=== PATIENT | female | born 1940 | race Caucasian/White ===

== ENCOUNTER 2018-09-16 22:45 | Observation (INO) | payer MEDICARE, OTHER ==
[2018-09-16] MEDS ORDERED: ASPIRIN 81 MG PO STA (23:18)
[2018-09-16] MEDS ORDERED: SODIUM CHLORIDE 0.9% 500 ML 500 ML IV STA (23:18)
--- NOTE | 2018-09-17 00:19 | XR ---
EXAM: XR Chest, 2 Views CLINICAL HISTORY: ITS.REASON XR Reason: Chest Pain TECHNIQUE: Frontal and lateral views of the chest. COMPARISON: No relevant prior studies available. IMPRESSION: Cardiomegaly. No consolidation or pleural effusion.
[2018-09-17 00:31] LABS: Basophils # (A) 0.1 k/uL (0-0.2); Basophils % (A) 1 %; Eosinophils # (A) 0.5 k/uL (0-0.7); Eosinophils % (A) 5 %; HCT 41.2 % (34.0-46.0); HGB 13.1 gm/dL (11.4-16.0); Lymphocytes # (A) 2.3 k/uL (1.0-4.8); Lymphocytes % (A) 20 %; MCH 28.3 pg (25.0-35.0); MCHC 31.9 g/dL (31.0-37.0); MCV 88.6 fL (80.0-100.0); Mean Platelet Volume 8.5; Monocytes # (A) 0.8 k/uL (0-1.0); Monocytes % (A) 7 %; Neutrophils # (A) 7.6 k/uL (1.3-7.7); Neutrophils % (A) 66 %; Platelet Count 219 k/uL (150-450); RBC 4.65 m/uL (3.80-5.40); RDW 13.6 % (11.5-15.5); WBC 11.4 k/uL (3.8-10.6)
[2018-09-17 00:40] LABS: Albumin 3.9 g/dL (3.5-5.0); Calcium 10.2 mg/dL (8.4-10.2); Magnesium 1.7 mg/dL (1.6-2.3); Potassium 3.7 mmol/L (3.5-5.1); Total Bilirubin 0.6 mg/dL (0.2-1.3); Total Protein 6.7 g/dL (6.3-8.2)
[2018-09-17 00:44] LABS: Partial Thromboplastin Time 26.3 sec (22.0-30.0); Prothrombin Time 10.3 sec (9.0-12.0)
[2018-09-17 00:48] LABS: D-Dimer 1.31 mg/L FEU (<0.60)
--- NOTE | 2018-09-17 02:11 | CT ---
EXAM: CT Angiography Chest With Intravenous Contrast CLINICAL HISTORY: ITS.REASON CT Reason: Pain TECHNIQUE: Axial computed tomographic angiography images of the chest with intravenous contrast using pulmonary embolism protocol. CTDI is 14 mGy and DLP is 532 mGy-cm. This CT exam was performed using one or more of the following dose reduction techniques: automated exposure control, adjustment of the mA and/or kV according to patient size, and/or use of iterative reconstruction technique. MIP reconstructed images were created and reviewed. COMPARISON: 09/17/18 x-ray FINDINGS: Pulmonary arteries: No filling defects. Aorta: No thoracic aortic aneurysm. Lungs: There is thickening and nodularity along the right major fissure. Few nonspecific nodules are seen in the right lower lobe. 3 mm nodule in the left lower lobe Pleural space: No pneumothorax. No significant effusion. Heart: No cardiomegaly. No pericardial effusion. Bones/joints: No acute fracture or dislocation. Soft tissues: Unremarkable. Lymph nodes: Multiple calcified lymph nodes. IMPRESSION: 1. Thickening and nodularity along the right major fissure with nonspecific nodules in the right lower lobe and another nonspecific nodule in the left lower lobe. There are multiple calcified lymph nodes. Given these findings, sarcoidosis is a possibility, followed by lymphangitic carcinomatosis which is less likely. Recommend short-term follow-up within 3 months. Also recommend consultation with a industrial tech instructor. 2. No pulmonary embolism. <MYCVCSECTION> [employer] 09/17/18 02:08 Call Doctor Regarding Above results, called JOY Meza on 09/17 02:08 (-04:00)
[2018-09-17] MEDS ORDERED: ACETAMINOPHEN TAB 325 MG TAB PO STA (02:56)
--- NOTE | 2018-09-17 03:01 | ED ---
General Adult HPI - General Chief complaint: Chest Pain Stated complaint: Chest Discomfort Time Seen by Provider: 09/16/18 23:16 Source: patient, RN notes reviewed, old records reviewed Mode of arrival: wheelchair Limitations: no limitations - History of Present Illness Initial comments: 77-year-old female patient. See chief complaint of waxing and waning substernal chest pain that she describes as sharp. Patient's pain she has some associated shortness of breath. Says benign going for approximately 2 days. Patient denies any prior cardiac history. Physical history of type 2 diabetes, hypertension, hyperlipidemia. Denies any current complaint at this time. Systemic: Pt denies fatigue, fever/chills, rash. Pt denies weakness, night sweats, weight loss. Neuro: Pt denies headache, visual disturbances, syncope or pre-syncope. HEENT: Pt denies ocular discharge or irritation, otalgia, rhinorrhea, pharyngitis or notable lymphadenopathy. Cardiopulmonary: Pt denies SOB, heart palpitations, dyspnea on exertion. Abdominal/GI: Pt denies abdominal pain, n/v/d. : Pt denies dysuria, burning w/ urination, frequency/urgency. Denies new onset urinary or bowel incontinence. MSK: Pt denies myalgia, loss of strength or function in extremities. Neuro: Pt denies new onset weakness, paresthesias. - Related Data Allergies Allergy/AdvReac Type Severity Reaction Status Date / Time Penicillins Allergy Rash/Hives Verified 09/16/18 23:03 simvastatin [From Zocor] Allergy Anaphylaxis Verified 09/16/18 23:05 Review of Systems ROS Statement: Those systems with pertinent positive or pertinent negative responses have been documented in the HPI. ROS Other: All systems not noted in ROS Statement are negative. Past Medical History Past Medical History: Diabetes Mellitus, Hyperlipidemia, Hypertension Additional Past Medical History / Comment(s): arthritis History of Any Multi-Drug Resistant Organisms: None Reported Past Surgical History: Back Surgery, Cholecystectomy, Orthopedic Surgery Additional Past Surgical History / Comment(s): rancho hip replacement, cataract Past Psychological History: No Psychological Hx Reported Smoking Status: Never smoker Past Alcohol Use History: None Reported Past Drug Use History: None Reported General Exam - General Exam Comments Initial Comments: Constitutional: NAD, AOX3, Pt has pleasant affect. HEENT: NC/AT, trachea midline, neck supple, no lymphadenopathy. Posterior pharynx non erythematous, without exudates. External ears appear normal, without discharge. Mucous membranes moist. Eyes PERRLA, EOM intact. There is no scleral icterus. No pallor noted. Cardiopulmonary: RRR, no murmurs, rubs or gallops, no JVD noted. Lungs CTAB in anterior and posterior barger. No peripheral edema. Abdominal exam: Abdomen soft and non-distended. Abdomen non-tender to palpation in all 4 quadrants. Bowel sounds active in LLQ. No hepatosplenomegaly. No ecchymosis Neuro: CN II-XII grossly intact. No nuchal rigidity. No raccon eyes, no olivas sign, no hemotympanum. No cervical spinal tenderness. MSK: No posterior calf tenderness bilaterally, homans sign negative bilaterally. Posterior tibialis and radial pulse +2 bilaterally. Sensation intact in upper and lower extremities. Full active ROM in upper and lower extremities, 5/5 stregnth. Limitations: no limitations Course Vital Signs 09/16/18 09/16/18 09/16/18 22:56 23:03 23:40 Temperature 100.1 F H Pulse Rate 62 61 62 Pulse Rate [ 60 Mangle Roller ] Respiratory 29 H 18 24 Rate Blood Pressure 135/61 153/85 O2 Sat by Pulse 97 98 95 Oximetry 09/16/18 09/17/18 09/17/18 23:50 00:20 00:40 Temperature Pulse Rate 60 60 60 Pulse Rate [ Mangle Roller ] Respiratory 19 19 20 Rate Blood Pressure 157/73 153/85 157/66 O2 Sat by Pulse 96 95 96 Oximetry 09/17/18 09/17/18 09/17/18 01:10 02:30 03:03 Temperature 100.2 F H Pulse Rate 61 60 Pulse Rate [ Mangle Roller ] Respiratory 16 18 Rate Blood Pressure 155/68 163/63 O2 Sat by Pulse 95 Oximetry Medical Decision Making - Medical Decision Making 77-year-old. Patient presents ED for chief complaint of 2 days of substernal sharp chest pain which comes and goes. No current pain at this time. Patient vital signs stable. Physical examacute pathology. Laboratory investigations re vealed mild cytosis of 11.4. Correlation studies nonpresent. D-dimer elevated 1.31. CMP non-impressive. Troponin negative. BNP 608. EKG not concerning for acute ischemia. CTA revealed thickening and nodularity along the right major fissure with nonspecific nodules in the right lower lobe correlate for sarcoidosis or less likely lymphangitic carcinomatosis. Patient admitted for serial troponins, cardiology evaluation, pulmonology evaluation. UA displayed UTI, started on rocephin. Case discussed with Dr. Brito. - Lab Data Result diagrams: 09/17/18 00:21 09/17/18 00:21 Lab Results 09/17/18 09/17/18 09/17/18 Range/Units 00:21 00:21 00:21 WBC 11.4 H (3.8-10.6) k/uL RBC 4.65 (3.80-5.40) m/uL Hgb 13.1 (11.4-16.0) gm/dL Hct 41.2 (34.0-46.0) % MCV 88.6 (80.0-100.0) fL MCH 28.3 (25.0-35.0) pg MCHC 31.9 (31.0-37.0) g/dL RDW 13.6 (11.5-15.5) % Plt Count 219 (150-450) k/uL Neutrophils % 66 % Lymphocytes % 20 % Monocytes % 7 % Eosinophils % 5 % Basophils % 1 % Neutrophils # 7.6 (1.3-7.7) k/uL Lymphocytes # 2.3 (1.0-4.8) k/uL Monocytes # 0.8 (0-1.0) k/uL Eosinophils # 0.5 (0-0.7) k/uL Basophils # 0.1 (0-0.2) k/uL PT 10.3 (9.0-12.0) sec INR 1.0 (<1.2) APTT 26.3 (22.0-30.0) sec D-Dimer 1.31 H (<0.60) mg/L FEU Sodium 139 (137-145) mmol/L Potassium 3.7 (3.5-5.1) mmol/L Chloride 103 (98-107) mmol/L Carbon Dioxide 26 (22-30) mmol/L Anion Gap 10 mmol/L BUN 21 H (7-17) mg/dL Creatinine 0.81 (0.52-1.04) mg/dL Est GFR (CKD-EPI)AfAm 80 (>60 ml/min/1.73 sqM) Est GFR (CKD-EPI)NonAf 70 (>60 ml/min/1.73 sqM) Glucose 116 H (74-99) mg/dL Calcium 10.2 (8.4-10.2) mg/dL Magnesium 1.7 (1.6-2.3) mg/dL Total Bilirubin 0.6 (0.2-1.3) mg/dL AST 24 (14-36) U/L ALT 17 (9-52) U/L Alkaline Phosphatase 97 (38-126) U/L Troponin I (0.000-0.034) ng/mL NT-Pro-B Natriuret Pep pg/mL Total Protein 6.7 (6.3-8.2) g/dL Albumin 3.9 (3.5-5.0) g/dL Urine Color Urine Appearance (Clear) Urine pH (5.0-8.0) Ur Specific [place] (1.001-1.035) Urine Protein (Negative) Urine Glucose (UA) (Negative) Urine Ketones (Negative) Urine Blood (Negative) Urine Nitrite (Negative) Urine Bilirubin (Negative) Urine Urobilinogen (<2.0) mg/dL Ur Leukocyte Esterase (Negative) Urine RBC (0-5) /hpf Urine WBC (0-5) /hpf Urine WBC Clumps (None) /hpf Ur Squamous Epith Cells (0-4) /hpf Urine Bacteria (None) /hpf Urine Mucus (None) /hpf 09/17/18 09/17/18 09/17/18 Range/Units 00:21 00:21 03:36 WBC (3.8-10.6) k/uL RBC (3.80-5.40) m/uL Hgb (11.4-16.0) gm/dL Hct (34.0-46.0) % MCV (80.0-100.0) fL MCH (25.0-35.0) pg MCHC (31.0-37.0) g/dL RDW (11.5-15.5) % Plt Count (150-450) k/uL Neutrophils % % Lymphocytes % % Monocytes % % Eosinophils % % Basophils % % Neutrophils # (1.3-7.7) k/uL Lymphocytes # (1.0-4.8) k/uL Monocytes # (0-1.0) k/uL Eosinophils # (0-0.7) k/uL Basophils # (0-0.2) k/uL PT (9.0-12.0) sec INR (<1.2) APTT (22.0-30.0) sec D-Dimer (<0.60) mg/L FEU Sodium (137-145) mmol/L Potassium (3.5-5.1) mmol/L Chloride (98-107) mmol/L Carbon Dioxide (22-30) mmol/L Anion Gap mmol/L BUN (7-17) mg/dL Creatinine (0.52-1.04) mg/dL Est GFR (CKD-EPI)AfAm (>60 ml/min/1.73 sqM) Est GFR (CKD-EPI)NonAf (>60 ml/min/1.73 sqM) Glucose (74-99) mg/dL Calcium (8.4-10.2) mg/dL Magnesium (1.6-2.3) mg/dL Total Bilirubin (0.2-1.3) mg/dL AST (14-36) U/L ALT (9-52) U/L Alkaline Phosphatase (38-126) U/L Troponin I <0.012 (0.000-0.034) ng/mL NT-Pro-B Natriuret Pep 608 pg/mL Total Protein (6.3-8.2) g/dL Albumin (3.5-5.0) g/dL Urine Color Light Yellow Urine Appearance Cloudy H (Clear) Urine pH 5.5 (5.0-8.0) Ur Specific [place] 1.034 (1.001-1.035) Urine Protein Trace H (Negative) Urine Glucose (UA) Negative (Negative) Urine Ketones Negative (Negative) Urine Blood Moderate H (Negative) Urine Nitrite Negative (Negative) Urine Bilirubin Negative (Negative) Urine Urobilinogen <2.0 (<2.0) mg/dL Ur Leukocyte Esterase Large H (Negative) Urine RBC 40 H (0-5) /hpf Urine WBC >182 H (0-5) /hpf Urine WBC Clumps Few H (None) /hpf Ur Squamous Epith Cells 1 (0-4) /hpf Urine Bacteria Occasional H (None) /hpf Urine Mucus Rare H (None) /hpf Disposition Clinical Impression: Chest pain, UTI (urinary tract infection) Disposition: ADMITTED IP TO THIS HOSP Condition: Serious Is patient prescribed a controlled substance at d/c from ED?: No Referrals: Willi Keita MD [Primary Care Provider] - 1-2 days
[2018-09-17] MEDS ORDERED: NITROGLYCERIN SL TABS 0.4 MG TAB SUBLINGUAL PRN (03:31)
[2018-09-17 03:48] LABS: Appearance,Urine Cloudy (Clear); Bacteria,Urine Occasional /hpf; Bilirubin,Urine Negative (Negative); Blood,Urine Moderate (Negative); Color,Urine Light Yellow; Glucose,Urine (UA) Negative (Negative); Ketones,Urine Negative (Negative); Leukocyte Esterase,Urine Large (Negative); Mucus,Urine Rare /hpf; Nitrite,Urine Negative (Negative); PH, Urine 5.5 (5.0-8.0); Protein,Urine Trace (Negative); RBC,Urine 40 /hpf (0-5); Specific Gravity,Urine 1.034 (1.001-1.035); Squamous Epithelial Cell,Urine 1 /hpf (0-4); Urobilinogen,Urine <2.0 mg/dL (<2.0); WBC,Urine >182 /hpf (0-5)
[2018-09-17] MEDS ORDERED: cefTRIAXone IN SWFI 1,000 MG/10 ML SYRINGE IVP STA (03:52)
[2018-09-17 06:55] LABS: Glucose,Whole Blood 128 mg/dL (75-99)
--- NOTE | 2018-09-17 10:43 | P.CRDCN ---
History of Present Illness History of present illness: This is Gabriela Cortez PA-C dictating a consult on this patient The patient was interviewed and examined by me as well as by Dr. Brunner Case discussed with Dr. Brunner and he agrees with the plan of care IMPRESSION / ASSESSMENT: Atypical chest discomfort, troponins negative 2, abnormal EKG with diffuse ST abnormality, repeat EKG showed no changes Possible sarcoidosis, nonspecific nodules and calcified lymph nodes seen on chest CT, pulmonology has been consult the Urinary tract infection, has been started on antibiotics Hypertension Diabetes Dyslipidemia PLAN: 2D echo and Doppler studies to assess cardiac structure and function Check CRP and ESR Lipid panel has been ordered Check third troponin further recommendations based on findings and pulmonology recommendations, likely can undergo further cardiac workup outpatient after her UTI is treated HPI Patient is a 77-year-old female with a past medical she has diabetes, hypertension, dyslipidemia presented with complaints of chest discomfort. Patient was at home sitting down when she experienced sudden onset of chest discomfort in the middle of her chest which she describes it as pressure sensation and it just" felt weird". It did not radiate anywhere. she has never had these symptoms before. She denies associated symptoms of shortness of breath, nausea vomiting, diaphoresis, dizziness, lightheadedness or syncope. The discomfort was intermittent and did not get worse with exertion. She denies any heavy lifting or any unusual activities that could've caused this discomfort. She also had a fever of 102F on Monday as well as some vague abdominal discomfort. Denies nausea vomiting, diarrhea or dysuria. she walks with a walker due to back problems and weakness in her legs so she is not able to exert herself much but denies any chest pain or shortness of breath with exertion prior to these symptoms. Upon admission her temperature was 100.1F, pulse is 62, respirations 18, blood pressure 135/61, oxygen saturation 97% on room air. Initial EKG showed scooped ST segment V2 through V6, lead 1 to and aVL, ST elevation in aVR. Labs were significant for an elevated d-dimer as well as her urinalysis with evidence of a UTI. Chest CT showed evidence for possible sarcoidosis with nonspecific nodules and multiple calcified lymph nodes, no pulmonary embolism. She was started on antibiotics and pulmonology was consulted. She is feeling better today. Denies any chest pain or abdominal pain. she is a lifelong nonsmoker Denies alcohol ROS: Positive for fevers no cough, phlegm or expectoration, no nausea, vomiting or diarrhea, Negative for dysuria Positive for back pain no strokes or seizures, EXAMINATION: Temperature 98.4F, pulse 55, respirations 18, blood pressure 112/65, oxygen saturation 98% on room air patient seen and examined resting comfortably in bed, in no acute distress lungs clear to auscultation bilaterally Heart is regular, normal S1-S2, no murmurs rubs or gallops appreciated Diffuse erythematous lesions on bilateral shins, trace bilateral edema No elevated JVD Abdomen soft and nontender REVIEW OF LABS, ECG & MEDICAL DATA EKG showed sinus mechanism with diffuse ST abnormality that resemble digitalis effect with scooped ST segment V2 through V6, lead 1 to and aVL, ST elevation in aVR, he do not have a prior EKG to compare it to, repeat EKG today showed no changes Chest x-ray showed no consolidation or pleural effusion Chest CT showed thickening and nodularity along the right major fissure with nonspecific nodules in the right lower lobe and another nonspecific nodule in the left lower lobe, multiple calcified lymph nodes, possible sarcoidosis, no pulmonary embolism CBC 11.4, hemoglobin 13.1, platelets 219, potassium 3.7, B1 21, creatinine 0.81 D-dimer elevated at 1.31 Troponins negative 2 Past Medical History Past Medical History: Diabetes Mellitus, Hyperlipidemia, Hypertension Additional Past Medical History / Comment(s): arthritis History of Any Multi-Drug Resistant Organisms: None Reported Past Surgical History: Back Surgery, Cholecystectomy, Orthopedic Surgery Additional Past Surgical History / Comment(s): rancho hip replacement, cataract Past Anesthesia/Blood Transfusion Reactions: No Reported Reaction Past Psychological History: No Psychological Hx Reported Smoking Status: Never smoker Past Alcohol Use History: None Reported Past Drug Use History: None Reported - Past Family History Mother Family Medical History: Cancer Additional Family Medical History / Comment(s): bladder cancer Father Family Medical History: Myocardial Infarction ([place]) Brother(s) Family Medical History: Rheumatoid Arthritis ([place]) Daughter(s) Family Medical History: No Reported History Son(s) Family Medical History: No Reported History Medications and Allergies Home Medications Medication Instructions Recorded Confirmed Type Hydrochlorothiazide 12.5 mg PO DAILY 09/17/18 09/17/18 History Metoprolol Tartrate [Lopressor] 50 mg PO DAILY 09/17/18 09/17/18 History Multivitamins, Thera [Multivitamin 1 tab PO DAILY 09/17/18 09/17/18 History (formulary)] Simvastatin [Zocor] 20 mg PO DAILY 09/17/18 09/17/18 History Vit C/E/Zn/Coppr/Lutein/Zeaxan 1 cap PO DAILY 09/17/18 09/17/18 History [Preservision Areds 2 Softgel] amLODIPine [Norvasc] 5 mg PO DAILY 09/17/18 09/17/18 History metFORMIN HCL [Glucophage] 500 mg PO BID 09/17/18 09/17/18 History Allergies Allergy/AdvReac Type Severity Reaction Status Date / Time Penicillins Allergy Rash/Hives Verified 09/17/18 07:36 simvastatin [From Zocor] Allergy Anaphylaxis Verified 09/17/18 07:36 Physical Exam Vitals: Vital Signs Temp Pulse Pulse Pulse Resp BP BP 09/17/18 07:38 98.4 F 55 L 18 112/65 09/17/18 05:05 98.6 F 53 L 18 128/70 09/17/18 03:03 100.2 F H 09/17/18 02:30 60 18 163/63 09/17/18 01:10 61 16 155/68 09/17/18 00:40 60 20 157/66 09/17/18 00:20 60 19 153/85 09/16/18 23:50 60 19 157/73 09/16/18 23:40 62 24 09/16/18 23:03 61 60 18 153/85 09/16/18 22:56 100.1 F H 62 29 H 135/61 Pulse Ox 09/17/18 07:38 98 09/17/18 05:05 97 09/17/18 03:03 09/17/18 02:30 09/17/18 01:10 95 09/17/18 00:40 96 09/17/18 00:20 95 09/16/18 23:50 96 09/16/18 23:40 95 09/16/18 23:03 98 09/16/18 22:56 97 Intake and Output 09/16/18 09/17/18 09/17/18 22:59 06:59 14:59 Other: Voiding Method Toilet Toilet # Voids 1 Weight 98.883 kg Results 09/17/18 00:21 09/17/18 00:21 Cardiac Enzymes 09/17/18 09/17/18 09/17/18 Range/Units 00:21 00:21 06:47 AST 24 (14-36) U/L Troponin I <0.012 <0.012 (0.000-0.034) ng/mL Coagulation 09/17/18 Range/Units 00:21 PT 10.3 (9.0-12.0) sec APTT 26.3 (22.0-30.0) sec CBC 09/17/18 Range/Units 00:21 WBC 11.4 H (3.8-10.6) k/uL RBC 4.65 (3.80-5.40) m/uL Hgb 13.1 (11.4-16.0) gm/dL Hct 41.2 (34.0-46.0) % Plt Count 219 (150-450) k/uL Comprehensive Metabolic Panel 09/17/18 Range/Units 00:21 Sodium 139 (137-145) mmol/L Potassium 3.7 (3.5-5.1) mmol/L Chloride 103 (98-107) mmol/L Carbon Dioxide 26 (22-30) mmol/L BUN 21 H (7-17) mg/dL Creatinine 0.81 (0.52-1.04) mg/dL Glucose 116 H (74-99) mg/dL Calcium 10.2 (8.4-10.2) mg/dL AST 24 (14-36) U/L ALT 17 (9-52) U/L Alkaline Phosphatase 97 (38-126) U/L Total Protein 6.7 (6.3-8.2) g/dL Albumin 3.9 (3.5-5.0) g/dL Current Medications Generic Name Dose Route Start Last Admin Trade Name Freq PRN Reason Stop Dose Admin Aspirin 325 mg 09/18/18 09:00 Aspirin PO DAILY LALIT Nitroglycerin 0.4 mg 09/17/18 03:31 Nitrostat SUBLINGUAL Q5M PRN Chest Pain Intake and Output 09/16/18 09/17/18 09/17/18 22:59 06:59 14:59 Other: Voiding Method Toilet Toilet # Voids 1 Weight 98.883 kg 09/17/18 00:21 09/17/18 00:21
[2018-09-17] MEDS: ATORVASTATIN 10 MG TAB PO SCH (11:01)
[2018-09-17] MEDS: METOPROLOL TARTRATE 50 MG TAB PO SCH (11:02)
[2018-09-17] MEDS: MULTIVITAMINS, THERA 1 EACH TAB PO SCH (11:02)
[2018-09-17] MEDS: VIT A,C & E-LUTEIN-MINERALS 1 EACH TAB PO SCH (11:02)
[2018-09-17] MEDS: HYDROCHLOROTHIAZIDE 12.5 MG CAP PO SCH (11:02)
[2018-09-17] MEDS: amLODIPine 5 MG TAB PO SCH (11:02)
[2018-09-17 11:43] LABS: Glucose,Whole Blood 158 mg/dL (75-99)
--- NOTE | 2018-09-17 14:14 | P.CNPUL ---
History of Present Illness Consult date: 09/17/18 Reason for consult: chest pain History of present illness: A 77-year-old female patient came into the hospital because of a vague chest discomfort. This was not related to food, breathing, activity or any other association. She did mention fever with a temperature 10 2F yet there is been no documented temperature. Upon admission to the hospital her temperature was 100.1. She is hemodynamically stable with a pulse ox of 97% on room air. She is currently free of any chest pain and a cardiac evaluation is being done. No history of heartburn. As part of her evaluation, a CAT scan of the chest was done that showed some mediastinal lymph node calcification. Some vague infiltrate in the right perihilar area. No evidence of any malignancy. No evidence of any pulmonary embolism. No nausea. No vomiting. No diarrhea. No abdominal pain. She is a lifetime nonsmoker. No history of sarcoidosis.. 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 Currently she is on no antibiotics. The UA is abnormal and final cultures and sensitivities are pending for now. Review of Systems Constitutional: Reports as per HPI Eyes: denies blurred vision, denies bulging eye, denies decreased vision Ears: deny: decreased hearing, ear discharge, earache, tinnitus Ears, nose, mouth and throat: Denies headache, Denies sore throat Breasts: absent: as per HPI, change in shape, gynecomastia, masses, nipple dis charge, pain, skin changes, swelling Cardiovascular: Reports chest pain Respiratory: Reports as per HPI Gastrointestinal: Reports as per HPI Genitourinary: Reports as per HPI Menstruation: Reports as per HPI Musculoskeletal: Reports as per HPI Musculoskeletal: absent: ankle pain, ankle stiffness, ankle swelling Integumentary: Reports as per HPI Neurological: Reports as per HPI Psychiatric: Reports as per HPI Hematologic/Lymphatic: Reports as per HPI Allergic/Immunologic: Reports as per HPI Past Medical History Past Medical History: Diabetes Mellitus, Hyperlipidemia, Hypertension Additional Past Medical History / Comment(s): Degenerative arthritis, obesity History of Any Multi-Drug Resistant Organisms: None Reported Past Surgical History: Back Surgery, Cholecystectomy, Orthopedic Surgery Additional Past Surgical History / Comment(s): rancho hip replacement, cataract Past Anesthesia/Blood Transfusion Reactions: No Reported Reaction Past Psychological History: No Psychological Hx Reported Smoking Status: Never smoker Past Alcohol Use History: None Reported Past Drug Use History: None Reported - Past Family History Mother Family Medical History: Cancer Additional Family Medical History / Comment(s): bladder cancer Father Family Medical History: Myocardial Infarction ([place]) Brother(s) Family Medical History: Rheumatoid Arthritis ([place]) Daughter(s) Family Medical History: No Reported History Son(s) Family Medical History: No Reported History Medications and Allergies Home Medications Medication Instructions Recorded Confirmed Type Hydrochlorothiazide 12.5 mg PO DAILY 09/17/18 09/17/18 History Metoprolol Tartrate [Lopressor] 50 mg PO DAILY 09/17/18 09/17/18 History Multivitamins, Thera [Multivitamin 1 tab PO DAILY 09/17/18 09/17/18 History (formulary)] Simvastatin [Zocor] 20 mg PO DAILY 09/17/18 09/17/18 History Vit C/E/Zn/Coppr/Lutein/Zeaxan 1 cap PO DAILY 09/17/18 09/17/18 History [Preservision Areds 2 Softgel] amLODIPine [Norvasc] 5 mg PO DAILY 09/17/18 09/17/18 History metFORMIN HCL [Glucophage] 500 mg PO BID 09/17/18 09/17/18 History Allergies Allergy/AdvReac Type Severity Reaction Status Date / Time Penicillins Allergy Rash/Hives Verified 09/17/18 07:36 simvastatin [From Zocor] Allergy Anaphylaxis Verified 09/17/18 07:36 Physical Exam Vitals: Vital Signs Temp Pulse Pulse Pulse Resp BP BP 09/17/18 07:38 98.4 F 55 L 18 112/65 09/17/18 05:05 98.6 F 53 L 18 128/70 09/17/18 03:03 100.2 F H 09/17/18 02:30 60 18 163/63 09/17/18 01:10 61 16 155/68 09/17/18 00:40 60 20 157/66 09/17/18 00:20 60 19 153/85 09/16/18 23:50 60 19 157/73 09/16/18 23:40 62 24 09/16/18 23:03 61 60 18 153/85 09/16/18 22:56 100.1 F H 62 29 H 135/61 Pulse Ox 09/17/18 07:38 98 09/17/18 05:05 97 09/17/18 03:03 09/17/18 02:30 09/17/18 01:10 95 09/17/18 00:40 96 09/17/18 00:20 95 09/16/18 23:50 96 09/16/18 23:40 95 09/16/18 23:03 98 09/16/18 22:56 97 Intake and Output 09/16/18 09/17/18 09/17/18 22:59 06:59 14:59 Other: Voiding Method Toilet Toilet # Voids 1 Weight 98.883 kg The patient appeared well nourished and normally developed. Vital signs as documented. Head exam is unremarkable. No scleral icterus or corneal arcus noted. Neck is without jugular venous distension, thyromegaly, or carotid bruits. Carotid upstrokes are brisk bilaterally. Lungs are clear to auscultation and percussion. Cardiac exam reveals the PMI to be normally sized and situated. Rhythm is regular. First and second heart sounds normal. No murmurs, rubs or gallops. Abdominal exam reveals normal bowel sounds, no masses, no organomegaly and no aortic enlargement. Extremities are nonedematous and both femoral and pedal pulses are normal.Examination of the skin revealed no evidence of significant rashes, suspicious appearing nevi or other concerning lesions. Neur ologically the patient is awake and alert and there is no focal neurological deficit. Results - Laboratory Findings CBC and BMP: 09/17/18 00:21 09/17/18 00:21 PT/INR, D-dimer PT 10.3 sec (9.0-12.0) 09/17/18 00:21 INR 1.0 (<1.2) 09/17/18 00:21 D-Dimer 1.31 mg/L FEU (<0.60) H 09/17/18 00:21 Abnormal lab findings: Abnormal Labs 09/17/18 09/17/18 09/17/18 00:21 00:21 00:21 WBC 11.4 H D-Dimer 1.31 H BUN 21 H Glucose 116 H POC Glucose (mg/dL) Urine Appearance Urine Protein Urine Blood Ur Leukocyte Esterase Urine RBC Urine WBC Urine WBC Clumps Urine Bacteria Urine Mucus 09/17/18 09/17/18 03:36 06:53 WBC D-Dimer BUN Glucose POC Glucose (mg/dL) 128 H Urine Appearance Cloudy H Urine Protein Trace H Urine Blood Moderate H Ur Leukocyte Esterase Large H Urine RBC 40 H Urine WBC >182 H Urine WBC Clumps Few H Urine Bacteria Occasional H Urine Mucus Rare H - Diagnostic Findings Chest x-ray: image reviewed CT scan - chest: image reviewed Assessment and Plan Plan: 1 atypical chest pain, cardiac enzymes are negative, EKG changes are nonspecific. The pain is not related to any pulmonary source and it's quite nonspecific 2 abnormal mediastinal lymph node calcification, and marker of previous granulomatous lung infection or previous sarcoidosis. Doubt any acute infection as the patient is clinically stable and she is not complaining of respiratory symptoms and the patient's right perihilar/right lower lobe findings are probably chronic. 3 febrile episodes aren't under investigation, consider underlying urine checked infection 4. Obesity BMI of 37.4 5 diabetes mellitus 6 hypertension 7 hyperlipidemia Plan The findings and the CAT scan of the chest of a nonspecific. Acute pneumonia is doubtful. UTI is suspected. Give the patient Levaquin 500 mg for the next 5 days. Awaiting final urine cultures. Awaiting echocardiogram. Outpatient cardiac stress testing. We'll continue to follow
[2018-09-17] MEDS ORDERED: LEVOFLOXACIN 500 MG TAB PO SCH (14:30)
[2018-09-17 17:03] LABS: Glucose,Whole Blood 109 mg/dL (75-99)
--- NOTE | 2018-09-17 17:26 | P.HPIM ---
History of Present Illness This is a pleasant 77 years old female with past medical history of diabetes mellitus, hyperlipidemia, hypertension, obesity. Presents because of chest pressure. However patient just pressure has resolved completely now. Patient denies dyspnea or coughing. Patient has been evaluated by medical educator and director of patient safety on both of them and cleared her for discharge however patient on admission has CTA showing pulmonary nodule suspicious for sarcoidosis and less likely lymphangitic carcinomatosis. Patient was informed about the risk of these nodules and recommended repeat CAT scan in 3 months as per radiologist, copy of CAT scan is provided for the patient. Patient de patient already has been started on ceftriaxone nies dy suria or change in frequency or hesitancy. She denies flank pain or back pain. On exam she has negative CVA angle tenderness. However on admission she has fever of 100.2, and leukocytosis at 11.4 k, with UA is suspicious for infection. Review of Systems CONSTITUTIONAL: No fever, no malaise, no fatigue. HEENT: No recent visual problems or hearing problems. Denied any sore throat. CARDIOVASCULAR: No orthopnea, PND, no palpitations, no syncope. PULMONARY: No shortness of breath, no cough, no hemoptysis. GASTROINTESTINAL: No diarrhea, no nausea, no vomiting, no abdominal pain. Normoactive bowel sounds. NEUROLOGICAL: No headaches, no weakness, no numbness. HEMATOLOGICAL: Denies any bleeding or petechiae. GENITOURINARY: Denies any burning micturition, frequency, or urgency. MUSCULOSKELETAL/RHEUMATOLOGICAL: Denies any joint pain, swelling, or any muscle pain. ENDOCRINE: Denies any polyuria or polydipsia. Past Medical History Past Medical History: Diabetes Mellitus, Hyperlipidemia, Hypertension Additional Past Medical History / Comment(s): Degenerative arthritis, obesity History of Any Multi-Drug Resistant Organisms: None Reported Past Surgical History: Back Surgery, Cholecystectomy, Orthopedic Surgery Additional Past Surgical History / Comment(s): rancho hip replacement, cataract Past Anesthesia/Blood Transfusion Reactions: No Reported Reaction Past Psychological History: No Psychological Hx Reported Smoking Status: Never smoker Past Alcohol Use History: None Reported Past Drug Use History: None Reported - Past Family History Mother Family Medical History: Cancer Additional Family Medical History / Comment(s): bladder cancer Father Family Medical History: Myocardial Infarction ([place]) Brother(s) Family Medical History: Rheumatoid Arthritis ([place]) Daughter(s) Family Medical History: No Reported History Son(s) Family Medical History: No Reported History Medications and Allergies Home Medications Medication Instructions Recorded Confirmed Type Hydrochlorothiazide 12.5 mg PO DAILY 09/17/18 09/17/18 History Metoprolol Tartrate [Lopressor] 50 mg PO DAILY 09/17/18 09/17/18 History Multivitamins, Thera [Multivitamin 1 tab PO DAILY 09/17/18 09/17/18 History (formulary)] Simvastatin [Zocor] 20 mg PO DAILY 09/17/18 09/17/18 History Vit C/E/Zn/Coppr/Lutein/Zeaxan 1 cap PO DAILY 09/17/18 09/17/18 History [Preservision Areds 2 Softgel] amLODIPine [Norvasc] 5 mg PO DAILY 09/17/18 09/17/18 History metFORMIN HCL [Glucophage] 500 mg PO BID 09/17/18 09/17/18 History Allergies Allergy/AdvReac Type Severity Reaction Status Date / Time Penicillins Allergy Rash/Hives Verified 09/17/18 07:36 simvastatin [From Zocor] Allergy Anaphylaxis Verified 09/17/18 07:36 Physical Exam Vitals: Vital Signs Temp Pulse Pulse Pulse Pulse Resp BP 09/17/18 15:31 98.4 F 53 L 17 09/17/18 11:55 98.4 F 52 L 17 09/17/18 07:38 98.4 F 55 L 18 09/17/18 05:05 98.6 F 53 L 18 09/17/18 03:03 100.2 F H 09/17/18 02:30 60 18 163/63 09/17/18 01:10 61 16 155/68 09/17/18 00:40 60 20 157/66 09/17/18 00:20 60 19 153/85 09/16/18 23:50 60 19 157/73 09/16/18 23:40 62 24 09/16/18 23:03 61 60 18 153/85 09/16/18 22:56 100.1 F H 62 29 H 135/61 BP Pulse Ox 09/17/18 15:31 148/76 97 09/17/18 11:55 136/73 94 L 09/17/18 07:38 112/65 98 09/17/18 05:05 128/70 97 08/12/19 03:03 09/17/18 02:30 09/17/18 01:10 95 09/17/18 00:40 96 09/17/18 00:20 95 09/16/18 23:50 96 09/16/18 23:40 95 09/16/18 23:03 98 09/16/18 22:56 97 Intake and Output 09/17/18 09/17/18 09/17/18 06:59 14:59 22:59 Other: Voiding Method Toilet Toilet Toilet # Voids 1 1 GENERAL: The patient is alert and oriented x3, not in any acute distress. Well developed, well nourished. HEENT: Pupils are round and equally reacting to light. EOMI. No scleral icterus. No conjunctival pallor. Normocephalic, atraumatic. No pharyngeal erythema. No t hyromegaly. CARDIOVASCULAR: S1 and S2 present. No murmurs, rubs, or gallops. PULMONARY: Chest is clear to auscultation, no wheezing or crackles. ABDOMEN: Soft, nontender, nondistended, normoactive bowel sounds. No palpable organomegaly. MUSCULOSKELETAL: No joint swelling or deformity. EXTREMITIES: No cyanosis, clubbing, or pedal edema. NEUROLOGICAL: Gross neurological examination did not reveal any focal deficits. SKIN: No rashes. Results CBC & Chem 7: 09/17/18 00:21 09/17/18 00:21 Labs: Abnormal Lab Results - Last 24 Hours (Table) 09/17/18 09/17/18 09/17/18 Range/Units 00:21 00:21 00:21 WBC 11.4 H (3.8-10.6) k/uL ESR (0-20) mm/hr D-Dimer 1.31 H (<0.60) mg/L FEU BUN 21 H (7-17) mg/dL Glucose 116 H (74-99) mg/dL POC Glucose (mg/dL) (75-99) mg/dL C-Reactive Protein (<10.0) mg/L Urine Appearance (Clear) Urine Protein (Negative) Urine Blood (Negative) Ur Leukocyte Esterase (Negative) Urine RBC (0-5) /hpf Urine WBC (0-5) /hpf Urine WBC Clumps (None) /hpf Urine Bacteria (None) /hpf Urine Mucus (None) /hpf 09/17/18 09/17/18 09/17/18 Range/Units 03:36 06:47 06:47 WBC (3.8-10.6) k/uL ESR 30 H (0-20) mm/hr D-Dimer (<0.60) mg/L FEU BUN (7-17) mg/dL Glucose (74-99) mg/dL POC Glucose (mg/dL) (75-99) mg/dL C-Reactive Protein 46.4 H (<10.0) mg/L Urine Appearance Cloudy H (Clear) Urine Protein Trace H (Negative) Urine Blood Moderate H (Negative) Ur Leukocyte Esterase Large H (Negative) Urine RBC 40 H (0-5) /hpf Urine WBC >182 H (0-5) /hpf Urine WBC Clumps Few H (None) /hpf Urine Bacteria Occasional H (None) /hpf Urine Mucus Rare H (None) /hpf 09/17/18 09/17/18 09/17/18 Range/Units 06:53 11:42 17:02 WBC (3.8-10.6) k/uL ESR (0-20) mm/hr D-Dimer (<0.60) mg/L FEU BUN (7-17) mg/dL Glucose (74-99) mg/dL POC Glucose (mg/dL) 128 H 158 H 109 H (75-99) mg/dL C-Reactive Protein (<10.0) mg/L Urine Appearance (Clear) Urine Protein (Negative) Urine Blood (Negative) Ur Leukocyte Esterase (Negative) Urine RBC (0-5) /hpf Urine WBC (0-5) /hpf Urine WBC Clumps (None) /hpf Urine Bacteria (None) /hpf Urine Mucus (None) /hpf Microbiology - Last 24 Hours (Table) 09/17/18 02:55 Urine Culture - Preliminary Urine,Clean Catch Thrombosis Risk Factor Assmnt - Choose All That Apply Any of the Below Risk Factors Present?: Yes Each Factor Represents 1 point: Obesity (BMI >25), Swollen legs (current) Other Risk Factors: Yes Each Risk Factor Represents 3 Points: Age 75 years or older Other congenital or acquired thrombophilia - If yes, enter type in comment: No Thrombosis Risk Factor Assessment Total Risk Factor Score: 5 Thrombosis Risk Factor Assessment Level: High Risk Assessment and Plan Assessment: Chest pressure, cardiology causes was ruled out. Results Pulmonary nodules, patient has been evaluated by director of patient safety. Patient was instructed to follow up with director of patient safety as an outpatient and she agrees Systemic inflammatory response, mild. With fever and leukocytosis. Sepsis secondary to urinary tract infection. Spell test Hypertension Hyperlipidemia Plan: This is a pleasant 77 years old female who presents with chest pressure and UTI. Continue with antibiotics and follow-up urine culture. Patient has been cleared for discharge by both cardiology and pulmonary team's, patient informed about the pulmonary nodules in the need for follow-up as an outpatient risk including but not limited cancer is explained to the patient and she verbalized understanding and acceptance, son was at bedside. Labs and medication were reviewed.. Continue same treatment. Continue with symptomatic treatment. Resume home medication. Monitor lytes and vitals. DVT and GI prophylaxis. Further recommendations of the clinical course of the patient DVT prophylaxis: Subcutaneous Lovenox GI Prophylaxis: Pepcid Prognosis is guarded
--- NOTE | 2018-09-17 17:51 | ECHOF ---
Referral Reason:cp MEASUREMENTS -------- HEIGHT: 162.6 cm WEIGHT: 98.9 kg BP: 112/65 IVSd: 1.1 cm (0.6 - 1.1) LVIDd: 4.1 cm (3.9 - 5.3) LVPWd: 1.2 cm (0.6 - 1.1) IVSs: 1.6 cm LVIDs: 3.8 cm LVPWs: 1.6 cm LA Diam: 3.6 cm (2.7 - 3.8) RVIDd: 3.1 cm (< 3.3) LAESV Index (A-L): 28.95 ml/m Ao Diam: 2.9 cm (2.0 - 3.7) AV Cusp: 1.7 cm (1.5 - 2.6) EPSS: 0.2 cm MV E Donald: 0.87 m/s MV DecT: 311 ms MV A Donald: 1.09 m/s MV E/A Ratio: 0.79 AV maxP.67 mmHg AV meanP.24 mmHg RAP: 5.00 mmHg RVSP: 31.29 mmHg MV EF SLOPE: 96.45 mm/s (70 - 150) MV EXCURSION: 15.62 mm (> 18.000) FINDINGS -------- Sinus rhythm. This was a technically difficult study with suboptimal apical views. The left ventricular size is normal. There is borderline concentric left ventricular hypertrophy. Overall left ventricular systolic function is normal with, an EF between 60 - 65 %. The right ventricle is normal in size. LA is midly dilated 29-33ml/m2. The right atrium is normal in size. Lumason used Interatrial and interventricular septum intact. There is mild aortic valve sclerosis. There is mild aortic stenosis present. Peak/mean gradient a cross the Aortic Valve is 26.67mmHg / 12.24mmHg. There is trace to mild mitral regurgitation. Mild tricuspid regurgitation present. Right ventricular systolic pressure is normal at < 35 mmHg. Trace/mild (physiologic) pulmonic regurgitation. The aortic root size is normal. Normal inferior vena cava with normal inspiratory collapse consistent with estimated right atrial pre ssure of 5 mmHg. Echo free space indicative of a pericardial fat pad. There is no pericardial effusion. CONCLUSIONS -------- 1. Sinus rhythm. 2. This was a technically difficult study with suboptimal apical views. 3. The left ventricular size is normal. 4. There is borderline concentric left ventricular hypertrophy. 5. Overall left ventricular systolic function is normal with, an EF between 60 - 65 %. 6. The right ventricle is normal in size. 7. LA is midly dilated 29-33ml/m2. 8. The right atrium is normal in size. 9. Lumason used 10. Interatrial and interventricular septum intact. 11. There is mild aortic valve sclerosis. 12. There is mild aortic stenosis present. 13. Peak/mean gradient across the Aortic Valve is 26.67mmHg / 12.24mmHg. 14. There is trace to mild mitral regurgitation. 15. Mild tricuspid regurgitation present. 16. Right ventricular systolic pressure is normal at < 35 mmHg. 17. Trace/mild (physiologic) pulmonic regurgitation. 18. The aortic root size is normal. 19. Normal inferior vena cava with normal inspiratory collapse consistent with estimated right atrial pressure of 5 mmHg. 20. Echo free space indicative of a pericardial fat pad. 21. There is no pericardial effusion. PAYER SPECIALIST: Yuridia Lilly RDCS
[2018-09-17] MEDS ORDERED: ALPRAZolam 0.5 MG TAB PO PRN (19:27)
[2018-09-17 19:58] VITALS: RESP 18
[2018-09-17 20:21] LABS: Glucose,Whole Blood 159 mg/dL (75-99)
[2018-09-17] MEDS: FAMOTIDINE 20 MG/2 ML VIAL IV SCH (21:18)
[2018-09-18 06:41] LABS: Glucose,Whole Blood 113 mg/dL (75-99)
[2018-09-18 07:35] LABS: Basophils # (A) 0.1 k/uL (0-0.2); Basophils % (A) 1 %; Eosinophils # (A) 0.4 k/uL (0-0.7); Eosinophils % (A) 5 %; HCT 39.9 % (34.0-46.0); HGB 12.9 gm/dL (11.4-16.0); Lymphocytes # (A) 1.9 k/uL (1.0-4.8); Lymphocytes % (A) 26 %; MCHC 32.4 g/dL (31.0-37.0); MCV 89.6 fL (80.0-100.0); Mean Platelet Volume 8.2; Monocytes # (A) 0.6 k/uL (0-1.0); Monocytes % (A) 8 %; Neutrophils # (A) 4.3 k/uL (1.3-7.7); Neutrophils % (A) 57 %; Platelet Count 203 k/uL (150-450); RBC 4.45 m/uL (3.80-5.40); WBC 7.5 k/uL (3.8-10.6)
[2018-09-18 07:58] LABS: Cholesterol 146 mg/dL (<200); HDL Cholesterol 39 mg/dL (40-60); LDL Cholesterol,Calculated 81 mg/dL (0-99); Triglycerides 131 mg/dL (<150)
[2018-09-18] MEDS: ATORVASTATIN 10 MG TAB PO SCH (08:09)
[2018-09-18] MEDS: METOPROLOL TARTRATE 50 MG TAB PO SCH (08:16)
[2018-09-18] MEDS: MULTIVITAMINS, THERA 1 EACH TAB PO SCH (08:16)
[2018-09-18] MEDS: amLODIPine 5 MG TAB PO SCH (08:16)
[2018-09-18] MEDS: VIT A,C & E-LUTEIN-MINERALS 1 EACH TAB PO SCH (08:16)
[2018-09-18] MEDS: HYDROCHLOROTHIAZIDE 12.5 MG CAP PO SCH (08:16)
[2018-09-18] MEDS: FAMOTIDINE 20 MG/2 ML VIAL IV SCH (08:17)
[2018-09-18] MEDS ORDERED: ASPIRIN 325 MG TAB PO SCH (09:00)
[2018-09-18] MEDS ORDERED: ENOXAPARIN 40 MG/0.4 ML SYRINGE SQ SCH (09:00)
[2018-09-18 11:37] LABS: Glucose,Whole Blood 136 mg/dL (75-99)
[2018-09-18 15:12] VITALS: BP 169/71; TEMP 98.2
[2018-09-18 16:03] VITALS: PULSE 60
--- NOTE | 2018-09-18 16:10 | P.DS ---
Providers Date of admission: 09/17/18 03:54 Attending physician: Flori Kidd MD Consults: 09/17/18 03:31 Consult Physician Stat Consulting Provider: Chapin Cuadra Consult Reason/Comments: possible sarcoidosis Do you want consulting provider notified?: Yes, Notify in am Consult Physician Urgent Consulting Provider: [facility] Consult Reason/Comments: chest pain Do you want consulting provider notified?: Yes, Notify in am Primary care physician: Willi Keita MD Hospital Course: Activities: -Chest pressure, cardiology causes was ruled out. Results -Pulmonary nodules, patient has been evaluated by ironing machine operator. Patient was instructed to follow up with ironing machine operator as an outpatient and she agrees area at risks including but not limited to cancer is explained to the patient and she verbalized understanding and acceptance -Systemic inflammatory response, mild. With fever and leukocytosis. -Sepsis secondary to urinary tract infection. -Spell test -Hypertension -Hyperlipidemia Hospital course: This is a pleasant 77 years old female with past medical history of diabetes mellitus, hyperlipidemia, hypertension, obesity. Presents because of chest pressure. Patient presents with chest pressure however this resolved. Patient evaluated by plow holder with workup was unrevealing and they cleared her for discharge. Patient denies dyspnea or coughing. On presentation she had low- grade fever and her WBC was found to 11.4 K, patient was found to have urinary tract infection and she was started on ceftriaxone, her fever subsided, leukocyte came back to normal. Patient denies any symptoms of UTI like no dysuria, no change in frequency. Exam shows no suprapubic tenderness or other abnormality. She has CTA showing pulmonary nodule suspicious for sarcoidosis and less likely lymphangitic carcinomatosis. Patient was explained the risks including but not limited to the risk of cancer and she verbalized understanding and acceptance to follow up, son was at bedside and he took note of this recommendation. Patient was started on ceftriaxone and her white cell count and fever subsided, however her urine culture was showing gram-negative bacilli, patient was so eager to go home and did not want to wait for the sensitivity to come back which is usually tomorrow morning, " I will cry the whole time if you keep me here" however patient does not have symptoms of UTI, and no suprapubic tenderness. Patient she said she will follow up with her PCP within one week, patient was instructed to follow up with the plow holder and pulmonary services and she agrees as well. Patient thinks she is back to her usual state, no other symptoms. No abdominal pain or nausea vomiting or fever. Patient was cleared for discharge by pulmonary and cardiology team Problems and management plan were discussed with the patient and he verbalized understanding and acceptance Patient was found stable and can be discharged home however he needs follow-up as an outpatient. Patient was instructed to follow up with her PCP in one week and she agrees. Patient also was instructed to follow up with ironing machine operator and plow holder. Patient agrees with the appointments and timing made for her and she said she will follow-up. Patient phone number provided including ([phone] home phone) Gen: patient is a AAOx3, no distress CVS: S1-S2, RRR, no murmur Lungs: B/L CTA, no wheezing Abdomen: soft, no distention, no tenderness, positive bowel sounds Extremity: no leg edema or induration Time spent more than 35 minutes Patient Condition at Discharge: Serious Plan - Discharge Summary New Discharge Prescriptions: New Cefuroxime Axetil [Ceftin] 500 mg PO BID 5 Days #10 tab Nitroglycerin Sl Tabs [Nitrostat] 0.4 mg SUBLINGUAL Q5M PRN #20 tab PRN Reason: Chest Pain Continue amLODIPine [Norvasc] 5 mg PO DAILY Metoprolol Tartrate [Lopressor] 50 mg PO DAILY Multivitamins, Thera [Multivitamin (formulary)] 1 tab PO DAILY metFORMIN HCL [Glucophage] 500 mg PO BID Vit C/E/Zn/Coppr/Lutein/Zeaxan [Preservision Areds 2 Softgel] 1 cap PO DAILY Simvastatin [Zocor] 20 mg PO DAILY Hydrochlorothiazide 12.5 mg PO DAILY Discharge Medication List Hydrochlorothiazide 12.5 mg PO DAILY 09/17/18 [History] Metoprolol Tartrate [Lopressor] 50 mg PO DAILY 09/17/18 [History] Multivitamins, Thera [Multivitamin (formulary)] 1 tab PO DAILY 09/17/18 [History] Simvastatin [Zocor] 20 mg PO DAILY 09/17/18 [History] Vit C/E/Zn/Coppr/Lutein/Zeaxan [Preservision Areds 2 Softgel] 1 cap PO DAILY 09/17/18 [History] amLODIPine [Norvasc] 5 mg PO DAILY 09/17/18 [History] metFORMIN HCL [Glucophage] 500 mg PO BID 09/17/18 [History] Cefuroxime Axetil [Ceftin] 500 mg PO BID 5 Days #10 tab 09/18/18 [Rx] Nitroglycerin Sl Tabs [Nitrostat] 0.4 mg SUBLINGUAL Q5M PRN #20 tab 09/18/18 [Rx] Follow up Appointment(s)/Referral(s): Mick Brunner MD [STAFF PHYSICIAN] - 10/03/18 4:45 pm Willi Keita MD [Primary Care Provider] - (follow up with Dr. Brunner/Gabriela Cortez/Zakia Keita in one to 2 weeks appointment made for October 03 @ 4:45 pm) Tristin Peguero MD [STAFF PHYSICIAN] - 2 Weeks (Pulmonary nodules)
[2018-09-18 16:11] LABS: Glucose,Whole Blood 123 mg/dL (75-99)
[2018-09-19] MEDS ORDERED: FAMOTIDINE 20 MG TAB PO SCH (09:00)
== END 2018-09-18 17:41 | disposition home or self-care (01) ==
LOC: EC 22:45 → 1SOBS 09-17 03:54
PROVIDERS: ADMIT Internal Medicine; ATTEND Internal Medicine
DX: R07.89 Other chest pain (principal); R07.2 Precordial pain; R91.8 Other nonspecific abnormal finding of lung field; R06.02 Shortness of breath; R94.31 Abnormal electrocardiogram [ECG] [EKG]; R79.89 Other specified abnormal findings of blood chemistry; M79.89 Other specified soft tissue disorders; N39.0 Urinary tract infection, site not specified; R65.10 Systemic inflammatory response syndrome (SIRS) of non-infectious origin without acute organ dysfunction; A41.9 Sepsis, unspecified organism; I10 Essential (primary) hypertension; E78.5 Hyperlipidemia, unspecified; E11.9 Type 2 diabetes mellitus without complications; E66.9 Obesity, unspecified; Z68.37 Body mass index [BMI] 37.0-37.9, adult; M19.90 Unspecified osteoarthritis, unspecified site; Z90.49 Acquired absence of other specified parts of digestive tract; Z79.899 Other long term (current) drug therapy; Z79.84 Long term (current) use of oral hypoglycemic drugs; Z88.0 Allergy status to penicillin; Z88.8 Allergy status to other drugs, medicaments and biological substances; Z96.643 Presence of artificial hip joint, bilateral; Z82.49 Family history of ischemic heart disease and other diseases of the circulatory system; Z80.52 Family history of malignant neoplasm of bladder; Z82.61 Family history of arthritis; B96.20 Unspecified Escherichia coli [E. coli] as the cause of diseases classified elsewhere
CPT/HCPCS: 96365; 96366; 96375; 96376; 96361; 99285; 36415; 93005; 85379; 83880; 80061; 80053; 85652; 83735; 84484; 85025 ×2; 85610; 85730; 86140; 81001; 87086; 87077; 87186; 71046; 71275; G0378 ×2; C8929; J0696 ×2; Q9950; Q9967; 93306

== ENCOUNTER → 2022-02-11 | Outpatient (CLI) | payer MEDICARE ==
[2022-02-11 14:21] VITALS: BP 149/79; PULSE 55; RESP 18; TEMP 98
--- NOTE | 2022-02-11 15:04 | P.GSHP ---
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 Keita regarding a biopsy proven left breast cancer. She had a bilateral mammogram on 01-13-22 which revealed a lesion in the left breast. This was followed by an ultrasound of the left breast. This revealed two lesions in the left breast for which biopsy was recommended. The patient felt a lump in her left breast for about a week. Her last mammogram prior to this was in 2013. She was not complaining of any nipple discharge or skin changes. She has not had any surgery on her breast in the past. She is not complaining of any trauma or infection in the breast. Caffiene: occasional nicotine: none chocolate: occasional BCP: none Family History: mother: bladder cancer maternal uncle: cancer ? type brother: testicular Hormonal History: menarche: 12 M1, breast fed: no, age at first live : 23 menopause: ? 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 Social History: nicotine: none alcohol: none drugs; none - Constitutional Constitutional: Denies chills, Denies fever - EENT Eyes: denies blurred vision, denies pain Ears: left: decreased hearing Ears, nose, mouth and throat: Denies headache, Denies sore throat - Breasts Breasts: bilateral: as per HPI - Cardiovascular Cardiovascular: Denies chest pain, Denies shortness of breath - Respiratory Respiratory: Denies cough, Denies 7 - Gastrointestinal Gastrointestinal: Denies abdominal pain, Denies diarrhea, Denies nausea, Denies vomiting - Genitourinary (Female) Genitourinary: Denies dysuria, Denies hematuria - Menstruation Menstruation: Reports postmenopausal - Musculoskeletal Musculoskeletal: Denies myalgias - Integumentary Integumentary: Denies pruritus, Denies rash - Neurological Neurological: Denies numbness, Denies weakness - Psychiatric Psychiatric: Denies anxiety, Denies depression - Endocrine Endocrine: Denies fatigue, Denies weight change - Hematologic/Lymphatic Comment: baby aspirin; follows with a bed maker - Allergic/Immunologic Allergic/Immunologic: Reports as per HPI Past Medical History Past Medical History: Diabetes Mellitus, Hyperlipidemia, Hypertension Additional Past Medical History / Comment(s): arthritis History of Any Multi-Drug Resistant Organisms: None Reported Past Surgical History: Back Surgery, Cholecystectomy, Orthopedic Surgery Additional Past Surgical History / Comment(s): rancho hip replacement, cataract Past Anesthesia/Blood Transfusion Reactions: No Reported Reaction Past Psychological History: No Psychological Hx Reported Smoking Status: Never smoker Past Alcohol Use History: None Reported Past Drug Use History: None Reported - Past Family History Mother Family Medical History: Cancer Additional Family Medical History / Comment(s): bladder cancer Father Family Medical History: Myocardial Infarction ([place]) Brother(s) Family Medical History: Rheumatoid Arthritis (RA) Daughter(s) Family Medical History: No Reported History Son(s) Family Medical History: No Reported History Medications and Allergies Home Medications Medication Instructions Recorded Confirmed Type amLODIPine [Norvasc] 5 mg PO DAILY 09/17/18 02/11/22 History Aspirin [Children's Aspirin] 81 mg PO DAILY 02/11/22 02/11/22 History Chlorthalidone 25 mg PO DAILY 02/11/22 02/11/22 History Cholecalciferol (Vitamin D3) 125 mcg PO DAILY 02/11/22 02/11/22 History [Vitamin D3 (125 MCG = 5,000 IU)] Glimepiride [Amaryl] 2 mg PO DAILY 02/11/22 02/11/22 History Losartan Potassium 100 mg PO DAILY 02/11/22 02/11/22 History Rosuvastatin [Crestor] 20 mg PO DAILY 02/11/22 02/11/22 History Vit C/E/Zn/Coppr/Lutein/Zeaxan 2 cap PO DAILY 02/11/22 02/11/22 History [Preservision Areds 2 Chew Tab] Allergies Allergy/AdvReac Type Severity Reaction Status Date / Time Penicillins Allergy Rash/Hives Verified 02/11/22 14:12 simvastatin [From Zocor] Allergy Anaphylaxis Verified 02/11/22 14:12 Surgical - Exam Vital Signs Temp Pulse Resp BP Pulse Ox 98.0 F 55 L 18 149/79 98 02/11/22 14:18 02/11/22 14:18 02/11/22 14:18 02/11/22 14:18 02/11/22 14:18 - General no distress - Eyes normal ocular movement - Neck trachea midline - Respiratory normal respiratory effort - Cardiovascular Rhythm: regular Heart Sounds: normal: S1, S2 - Abdomen Abdomen: soft, non tender, no guarding, no rigid, no rebound - Integumentary normal turgor - Neurologic no disoriented, no combative - Musculoskeletal normal gait, normal posture - Psychiatric oriented to time, oriented to person, oriented to place, speech is normal, memory intact Breast Exam: BRA: ? size XL Inspection: bilateral grade 3 ptosis Palpation: Right breast: Patient examined sitting up in wheelchair, fibrocystic changes no dominant masses or nodules of concern Right axilla: No adenopathy of concern Left breast: Patient examined sitting up in wheelchair, about 11 cm from the nipple areolar complex is approximately a 1 cm area of nodularity, no other dominant masses or nodules of concern Biopsy site clean and dry Left axilla: No adenopathy of concern Results Mammogram and ultrasound were personally reviewed with Dr. Chinchilla; pathology reviewed Assessment and Plan Assessment: Impression: Stage IA invasive ductal carcinoma left breast Diabetes Hypertension Arthritis Deaf in right ear Plan: Presentation of case at tumor board Most likely needle localization lumpectomy Probable onco-plastic tissue transfer CC: Dr. Keita
== END ==
LOC: WWCWWP 13:39
PROVIDERS: ATTEND Surgery
DX: C50.912 Malignant neoplasm of unspecified site of left female breast (principal); E11.9 Type 2 diabetes mellitus without complications; I10 Essential (primary) hypertension; M19.90 Unspecified osteoarthritis, unspecified site; H91.91 Unspecified hearing loss, right ear; Z79.82 Long term (current) use of aspirin; Z88.0 Allergy status to penicillin; Z88.8 Allergy status to other drugs, medicaments and biological substances

== ENCOUNTER 2022-04-19 07:20 | Day surgery (SDC) | payer MEDICARE ==
[~2022-04-19 07:20] MED LIST: HEPARIN SODIUM,PORCINE/PF 5,000 UNIT/0.5 ML SYRINGE SQ PRN; HYDROmorphone 0.5 MG/0.5 ML SYRINGE IVP PRN; LACTATED RINGERS 1,000 ML IV SCH; LIDOCAINE 1% (10MG/ML) FOR IV START INTRADERMA PRN; ONDANSETRON 4 MG/2 ML VIAL IVP ONE; Pre Op ABX Message 1 EACH MISC MISCELLANE ONE
[2022-04-19 08:15] LABS: Glucose,Whole Blood 80 mg/dL (70-110)
[2022-04-19] MEDS ORDERED: LIDOCAINE 1% INJ 10MG/ML (10 ML MDV) SQ ONE (09:13)
--- NOTE | 2022-04-19 11:27 | P.NAPBC ---
NAPBC Queries - NAPBC Queries Was patient's case review presented at [facility] tumor board? If no, comment.: Yes Was patient's pathology reviewed at [facility]? If no, comment.: Yes Was breast conservation surgery offered? If no, comment.: Yes Was sentinel node biopsy offered? If no, comment.: Yes (declined patient over 70) Was diagnosis confirmed by percutaneous core biopsy? If no, comment.: Yes Is patient mastectomy patient?: No Was a preop referral to reconstructive surgeon offered?: No Clinical Stage: stage I invasive ductal left bresat cancer
[2022-04-19] MEDS ORDERED: ePHEDrine 50 MG/ML 1 ML VIAL ONE (11:52)
[2022-04-19] MEDS ORDERED: PROPOFOL 10 MG/ML 20 ML VIAL IV ONE (11:52)
[2022-04-19] MEDS ORDERED: NEOSTIGMINE 1 MG/ML 10 ML VIAL ONE (11:52)
[2022-04-19] MEDS ORDERED: MIDAZOLAM 2 MG/2 ML VIAL ONE (11:52)
[2022-04-19] MEDS ORDERED: GLYCOPYRROLATE 0.2 MG/ML 2 ML VIAL ONE (11:52)
[2022-04-19] MEDS ORDERED: LIDOCAINE 2% INJ 20 MG/ML (2 ML VIAL) ONE (11:52)
[2022-04-19] MEDS ORDERED: ROCURONIUM 10 MG/ML (5 ML VIAL) IV ONE (11:52)
[2022-04-19] MEDS ORDERED: SUCCINYLCHOLINE CHLORIDE 200 MG/10 ML VIAL IV ONE (11:52)
[2022-04-19] MEDS ORDERED: fentaNYL (PF) 50 MCG/ML 2 ML AMP ONE (11:52)
--- NOTE | 2022-04-19 13:29 | P.OP ---
Date of Procedure: 04/19/22 Preoperative Diagnosis: Left breast invasive ductal carcinoma, abnormal lymph node core biopsy at 3:00 Postoperative Diagnosis: Same Procedure(s) Performed: Needle localization lumpectomy of invasive ductal carcinoma at 12:00 left breast, needle localization lumpectomy of lymph node left breast at 3:00, onco- plastic tissue transfer 51 cm for the 12:00 invasive ductal carcinoma lesion Anesthesia: AMSOODA Surgeon: Rachael Sarmiento Estimated Blood Loss (ml): 10 IV fluids (ml): 550 Pathology: other (Lumpectomy 2 sites left breast) Condition: stable Disposition: same day Indications for Procedure: Biopsy-proven left breast invasive ductal carcinoma, biopsy left breast intramammary lymph node of concern although pathology was benign by the radiologist Operative Findings: Fibrofatty breast tissue Description of Procedure: Preoperatively the patient was taken to the radiology suite where needle localization of the known invasive ductal carcinoma as well as of the prior biopsy 3:00 lymph node were performed. Prior to the procedure the radiologist was concerned that the lymph node sampling may have been discordant. After discussion with the patient was therefore recommended and the patient agreed that both the lymph node and the tumor be removed. Following needle localization of the areas of concern patient was brought to the operative suite. Following induction of anesthesia the left breast was prepped and draped in sterile fashion. The 3:00 lateral lymph node site was approached initially. An incision was made and carried down to the shaft of the needle. Surrounding tiss ue was excised. The tissue was painted for orientation. The specimen was sent to radiology and confirmation of concern about an obtained was obtained. Following this the wound was well irrigated. Titanium clips were placed. The area of the tumor was approached. An incision was made and carried down to the shaft of the needle. Surrounding tissue was excised. The size of the defect was 5 x 3 cm. For 15 cm total. The cavity was well irrigated. Specimen was painted for orientation. Radiograph revealed that the area of concern about removed. There was concern that the tumor was present close anteriorly and skin was removed. Additionally posterior dissection was performed onto the pectoralis muscle. Medially additional tissue was removed. Following this titanium clips were placed. An inferior pillar 6 x 3 cm squared was performed, a superior pillar 6 x 3 cm squared was performed. Total tissue transfer was 51 cm. The pillars were brought together using 3-0 Vicryl suture. The subcutaneous tissue and the incisions were closed using 3-0 Vicryl suture. Skin was closed using 4-0 Monocryl. Steri-Strips were applied. The patient tolerated the procedure in stable condition.
--- NOTE | 2022-04-19 13:31 | P.DS ---
Providers Attending physician: Rachael Sarmiento Primary care physician: Willi Keita MD Plan - Discharge Summary Discharge Rx Participant: No New Discharge Prescriptions: New HYDROcodone/APAP 5-325MG [[place] 5] 1 - 2 each PO Q4H PRN #10 tab PRN Reason: Pain No Action amLODIPine [Norvasc] 5 mg PO DAILY Vit C/E/Zn/Coppr/Lutein/Zeaxan [Preservision Areds 2 Chew Tab] 2 cap PO DAILY Losartan Potassium 100 mg PO DAILY Cholecalciferol (Vitamin D3) [Vitamin D3 (125 MCG = 5,000 IU)] 125 mcg PO WEEKLY Chlorthalidone 25 mg PO DAILY Aspirin [Children's Aspirin] 81 mg PO DAILY Glimepiride [Amaryl] 2 mg PO 170 Rosuvastatin [Crestor] 20 mg PO DAILY Glimepiride [Amaryl] 4 mg PO DAILY Discharge Medication List amLODIPine [Norvasc] 5 mg PO DAILY 09/17/18 [History] Aspirin [Children's Aspirin] 81 mg PO DAILY 02/11/22 [History] Chlorthalidone 25 mg PO DAILY 02/11/22 [History] Cholecalciferol (Vitamin D3) [Vitamin D3 (125 MCG = 5,000 IU)] 125 mcg PO WEEKLY 02/11/22 [History] Losartan Potassium 100 mg PO DAILY 02/11/22 [History] Rosuvastatin [Crestor] 20 mg PO DAILY 02/11/22 [History] Vit C/E/Zn/Coppr/Lutein/Zeaxan [Preservision Areds 2 Chew Tab] 2 cap PO DAILY 02/11/22 [History] Glimepiride [Amaryl] 2 mg PO 1700 04/12/22 [History] Glimepiride [Amaryl] 4 mg PO DAILY 04/12/22 [History] HYDROcodone/APAP 5-325MG [[place] 5] 1 - 2 each PO Q4H PRN #10 tab 04/19/22 [Rx] Follow up Appointment(s)/Referral(s): Rachael Sarmiento MD [STAFF PHYSICIAN] - 04/28/22 2:40 pm Activity/Diet/Wound Care/Special Instructions: Do not drive for 24 hours from discharge if taking narcotic pain medicine May shower after 48 hours Were bra at all times Discharge Disposition: HOME SELF-CARE
[2022-04-19 13:52] VITALS: TEMP 97.1
[2022-04-19 15:13] VITALS: PULSE 64
[2022-04-19] MEDS ORDERED: HYDROcodone/APAP 5-325MG 1 EACH TAB ONE (15:16)
[2022-04-19] MEDS ORDERED: HYDROcodone/APAP 5-325MG 1 EACH TAB PO ONE (15:18)
[2022-04-19 15:30] VITALS: BP 125/50; RESP 18
--- NOTE | 2022-04-25 14:19 | MM ---
Risk Values: Lucia 5 year model risk: 1.0%. NCI Lifetime model risk: 1.2%. Findings: SPECIMEN NUMBER 1. Findings: SPECIMEN NUMBER 2. Pathology Description: Location: 12 o'clock. Needle Type: 7 cm Kopan The procedure of needle localization with wire placement and than surgical excision was explained to the patient. Benefits, alternatives, and risks were discussed. An informed consent was then obtained. The shortest pathway for procedure was chosen. Shortest pathway was lateral approach. The overlying skin was prepped and draped in usual sterile fashion. Lidocaine was used as anesthetic into the skin and subcutaneous tissue up to the level of area of concern. A 7 cm needle was used. It was placed via a lateral approach under constant ultrasound guidance. The needle was demonstrated to be within the lesion at 12:00 8 cm from the nipple. The mass appears to be approximately 1.5 cm proximal from the tip of the needle. At this point, wire was placed and the needle was withdrawn. Attention then was then turned to the lymph node at 3:00 8 cm from the nipple within the left breast. A lateral approach was utilized. Lidocaine was used as anesthetic into the skin and subcutaneous tissues of tibial level area concern. A 7 cm needle was used. It was placed via a lateral approach under constant ultrasound guidance. The needle was demonstrated to be along the inferior edge of the lymph node. It is located approximately 6 mm from the tip of the needle proximally. The wires were fixed to patient's skin. The patient tolerated the procedure well without any immediate complication. The patient was kept in the radiology department for short stay after the procedure and then taken to surgery for surgical excision. The first specimen radiograph demonstrates the wire localization with adjacent biopsy clip corresponding to previous biopsied lymph node. The second specimen radiograph demonstrates a breast mass with needle localization and biopsy clip. Impression: Successful, uncomplicated ultrasound-guided needle localization with wire placement in 2 lesions within the left breast at 12:00 and 3:00, full pathology results to follow. Pathology Results: Result: Malignant, Invasive ductal carcinoma. A. LEFT BREAST, THREE O'CLOCK POSITION, LUMPECTOMY LYMPH NODE: Benign lymph node, fibrocystic changes and previous biopsy site. B. LEFT BREAST, LUMPECTOMY #2: Invasive moderately differentiated ductal carcinoma (Grade 2) and intermediate grade DCIS, margins negative. See Surgical Pathology Cancer Case Summary. C. LEFT BREAST, NEW ANTERIOR MARGIN, EXCISION: Benign skin and subcutaneous tissue. D. LEFT BREAST, NEW MEDIAL MARGIN, EXCISION: Benign breast with fibrocystic changes. E. LEFT BREAST, NEW POSTERIOR MARGIN, EXCISION: Benign breast with fibrocystic changes. Pathology Description: Location: 3 o'clock. Needle Type: 7 cm Jammie Overall Assessment: Malignant Management: Oncologic Management of the left breast. Electronically signed and approved by: Duc Dudley D.O.
== END 2022-04-19 15:56 | disposition home or self-care (01) ==
LOC: OR 07:20
PROVIDERS: ATTEND Surgery
DX: C50.412 Malignant neoplasm of upper-outer quadrant of left female breast (principal); C50.812 Malignant neoplasm of overlapping sites of left female breast; I10 Essential (primary) hypertension; E78.5 Hyperlipidemia, unspecified; E11.9 Type 2 diabetes mellitus without complications; Z80.52 Family history of malignant neoplasm of bladder; Z90.49 Acquired absence of other specified parts of digestive tract; Z88.0 Allergy status to penicillin; Z79.899 Other long term (current) drug therapy
CPT/HCPCS: 14001; 19301; 82565; 84520; 88307; 76098; 19285; 19286; C1819; J2250; J0330; J2710; J2405; J3010; J2001 ×2; J2704; J1644

== ENCOUNTER → 2022-04-28 | Outpatient (CLI) | payer MEDICARE ==
--- NOTE | 2022-04-28 15:40 | P.PN ---
Progress Note - Text Progress Note Date: 04/28/22 Deanna is an 81 suresh old whtie female status post left breast lumpectomy and SNB on 04-19-22. Her pathology revealed a 1.5 cm invasive ductal cancer, margins (-). One node removed (-). He is complaining of some pain at the breast incision site. She states that she has felt warm at times but did not take her temperature. Physical exam: Lungs: Clear Heart: Regular rate and rhythm Axillary incision clean and dry Breast with seroma and incision is clean and dry after informed consent the area of the breast was prepped using alcohol. 307 mL of turbid fluid was removed. Cultures are obtained. Patient was started on Bactrim. Patient will follow up next week for reevaluation. If she has any fever or chills or concerns that she will call us. CC: Dr. Keita
== END ==
LOC: WWCWWP 14:54
PROVIDERS: ATTEND Surgery
DX: Z85.3 Personal history of malignant neoplasm of breast (principal); Z88.0 Allergy status to penicillin; Z88.8 Allergy status to other drugs, medicaments and biological substances; Z79.82 Long term (current) use of aspirin
CPT/HCPCS: 87070; 87075; 87205

== ENCOUNTER → 2022-05-05 | Outpatient (CLI) | payer MEDICARE ==
--- NOTE | 2022-05-05 17:06 | P.PN ---
Progress Note - Text Progress Note Date: 05/05/22 Progress Note - Text Progress Note Date: 04/28/22 Deanna is an 81 suresh old whtie female status post left breast lumpectomy and SNB on 04-19-22. Her pathology revealed a 1.5 cm invasive ductal cancer, margins (-). One node removed (-). He is complaining of some pain at the breast incision site. She states that she has felt warm at times but did not take her temperature. She was given a prescription for Bactrim but did not tolerate this. Cultures were obtained on her last visit and were positive for clostridia perfringens. She is complaining of some abdominal discomfort. Physical exam: Lungs: Clear Heart: Regular rate and rhythm Axillary incision clean and dry Breast with seroma and incision is clean and dry after informed consent the area of the breast was prepped using alcohol. 60 mL of turbid fluid was removed. Patient is given a prescription for Flagyl after discussion with pharmacy. Impression: Infection of lumpectomy site with clostridia perfringens Plan: Ultrasound-guided aspiration to assure all the fluid is removed *Patient on Flagyl To follow up tomorrow after ultrasound-guided aspiration CC: Dr. Keita Additional CC's: Willi Keita
== END ==
LOC: WWCWWP 16:01
PROVIDERS: ATTEND Surgery
DX: C50.412 Malignant neoplasm of upper-outer quadrant of left female breast (principal); Z88.0 Allergy status to penicillin; Z88.8 Allergy status to other drugs, medicaments and biological substances

== ENCOUNTER 2022-05-06 11:23 | Observation (INO) | payer MEDICARE ==
--- NOTE | 2022-05-06 13:35 | US ---
ULTRASOUND GUIDED LEFT BREAST ABSCESS DRAINAGE TUBE INSERTION: CLINICAL HISTORY: Large left breast abscess FINDINGS: The procedure was explained to the patient. The risks, complications, benefits and alternatives were discussed and any questions were answered. Informed consent was obtained. Patient was placed supin e on the ultrasound table and prepped and draped in the usual sterile fashion. Utilizing a drainage catheter trocar system of the catheter was placed directly into the abscess cavity and there is remov al by hand aspiration of approximately 200 cc of purulent material. Repeat imaging demonstrated ideal placement of drainage catheter. Patient was stable throughout the procedure. Pathology is pending. All elements of maximal barrier and sterile technique were utilized. IMPRESSION: 1. Successful ultrasound guided drainage catheter insertion for left breast abscess
[2022-05-06] MEDS ORDERED: ACETAMINOPHEN TAB 325 MG TAB PO PRN (13:54)
[2022-05-06] MEDS ORDERED: ONDANSETRON 4 MG/2 ML VIAL IVP PRN (13:54)
[2022-05-06] MEDS ORDERED: NALOXONE 0.4 MG/ML 1 ML VIAL IV PRN (13:54)
[2022-05-06] MEDS ORDERED: MELATONIN 3 MG TABLET PO PRN (13:54)
[2022-05-06] MEDS: SODIUM CHLORIDE 0.9% 1,000 ML IV SCH (15:03)
[2022-05-06 15:17] LABS: HCT 37.2 % (34.0-46.0); HGB 12.3 gm/dL (11.4-16.0); MCH 29.1 pg (25.0-35.0); MCHC 32.9 g/dL (31.0-37.0); MCV 88.5 fL (80.0-100.0); Mean Platelet Volume 9.1; Platelet Count 292 k/uL (150-450); RBC 4.21 m/uL (3.80-5.40); WBC 9.4 k/uL (3.8-10.6)
[2022-05-06] MEDS ORDERED: HYDROcodone/APAP 5-325MG 1 EACH TAB PO PRN (15:34)
[2022-05-06 15:35] LABS: ALT 23 U/L (4-34); AST 27 U/L (14-36); African American GFR (CKD) 19 (>60 ml/min/1.73 sqM); Albumin 3.3 g/dL (3.5-5.0); Alkaline Phosphatase 140 U/L (38-126); Anion Gap 10 mmol/L; Blood Urea Nitrogen 52 mg/dL (7-17); Calcium 10.2 mg/dL (8.4-10.2); Carbon Dioxide 21 mmol/L (22-30); Chloride 107 mmol/L (98-107); Globulin 3.2 g/dL; Glucose 87 mg/dL (74-99); INR 1.1 (<1.2); Magnesium 1.9 mg/dL (1.6-2.3); Non-African American GFR(CKD) 16 (>60 ml/min/1.73 sqM); Phosphorus 3.3 mg/dL (2.5-4.5); Potassium 4.1 mmol/L (3.5-5.1); Sodium 138 mmol/L (137-145); Total Bilirubin 0.7 mg/dL (0.2-1.3); Total Protein 6.5 g/dL (6.3-8.2)
[2022-05-06] MEDS ORDERED: DEXTROSE 50% SYRINGE 50 ML IVP PRN ×2 (15:38)
--- NOTE | 2022-05-06 15:41 | P.HPIM ---
History of Present Illness H&P Date: 05/06/22 Patient is an 81-year-old female with a history of left sided stage IA invasive ductal carcinoma status post lumpectomy on 04/19/[address] Sarmiento, diabetes, and hypertension who presented as a direct admission at the direction of Dr. Otis Mcgarry. She has been followed in the breast Center post surgical and was found to have a possible abscess, cultures were obtained in the clinic which grew out Clostridium perfringens and the patient was started on Flagyl yesterday, she was on Bactrim prior. She had an outpatient drainage of 60 mL of purulent fluid yesterday, and one on the 04/28. On the morning of 05/06 she underwent ultrasound-guided drainage of left breast abscess with drainage of 200cc of pus and catheter insertion. Patient seen and examined at bedside. She denies any significant pain in the left breast at this time. It is still feeling rather numb. She was having just a soreness but not overt pain in the breast prior to this. She denies any systemic symptoms such as fevers, chills, and riders. She does report postoperatively she had a couple days of diarrhea but this has been resolved since last week. She does report that she has had feelings of nausea or upset stomach which has decreased her ability to eat. She states her appetite is intact but she has been avoiding food due to her upset stomach. She denies any overall fatigue. Daughters are present at bedside. All questions answered. Vital signs reviewed General: nontoxic, no distress, appears at stated age Derm: warm, dry Eyes: EOMI, no lid lag, anicteric sclera, pupils equal round reactive to light ENT: Nose and ears atraumatic, no thrush, no pharyngeal erythema Cardiovascular: S1S2 reg, no murmur, positive posterior tibial pulse bilateral, no edema, capillary refill less than 2 seconds Lungs: clear to auscultation bilateral, no rhonchi, no rales, no wheeze, no accessory muscle use Abdominal: soft, nontender to palpation, no guarding, no appreciable organomegaly, normal bowel sounds Ext: no gross muscle atrophy, muscle strength 5 out of 5 in all 4 extremities, no contractures Neuro: CN II-XII grossly intact, light touch intact all 4 extremities, finger to nose within normal limits, Psych: Alert, oriented, appropriate affect Assessment: Clostridium perfringens, Post operative left breast abscess, failed outpatient treatment DM , on orals HTN HLD Imaging: US guided drainage of left breast abscess Data Review: breast culture- Clostridium perfringens Plan: - stat CBC, BMP, MG, and Phos - Admit patient to general medical floor - Case discussed with Dr. Sarmiento at length including prior treatments - Consult Dr. Benson - Resume Flagyl 500 mg TID - NS at 75 cc/hr - start pepcid - SSI, follow BS, hold amaryl, - resume norvasc 5 mg daily, ASA 81 mg daily, chlorthalidone 25 mg daily, L osartan 100 mg daily, and crestor 20 mg daily. The patient is admitted with an anticipated greater than 2 midnight stay for evaluation of Left breast call abscess, failed outpatient treatment. DVT prophylaxis: SCDs Discussed with: Dr. Sarmiento, patient, Daughters Anticipated discharge date: in 2-[address]: home This dictation was prepared using [employer] voice recognition software. Though every attempt is made to correct errors during during dictation some may still exist. Past Medical History Past Medical History: Cancer, Diabetes Mellitus, Hyperlipidemia, Hypertension Additional Past Medical History / Comment(s): arthritis, Left breast cancer History of Any Multi-Drug Resistant Organisms: None Reported Past Surgical History: Back Surgery, Cholecystectomy, Orthopedic Surgery Additional Past Surgical History / Comment(s): rancho hip replacement, cataract, lumpectomy Past Anesthesia/Blood Transfusion Reactions: No Reported Reaction Past Psychological History: No Psychological Hx Reported Smoking Status: Never smoker Past Alcohol Use History: None Reported Past Drug Use History: None Reported - Past Family History Mother Family Medical History: Cancer Additional Family Medical History / Comment(s): bladder cancer Father Family Medical History: Myocardial Infarction ([place]) Brother(s) Family Medical History: Rheumatoid Arthritis (RA) Daughter(s) Family Medical History: No Reported History Son(s) Family Medical History: No Reported History Medications and Allergies Home Medications Medication Instructions Recorded Confirmed Type amLODIPine [Norvasc] 5 mg PO DAILY 09/17/18 05/06/22 History Aspirin [Children's Aspirin] 81 mg PO DAILY 02/11/22 05/06/22 History Chlorthalidone 25 mg PO DAILY 02/11/22 05/06/22 History Losartan Potassium 100 mg PO DAILY 02/11/22 05/06/22 History Rosuvastatin [Crestor] 20 mg PO DAILY 02/11/22 05/06/22 History Vit C/E/Zn/Coppr/Lutein/Zeaxan 2 cap PO DAILY 02/11/22 05/06/22 History [Preservision Areds 2 Chew Tab] Glimepiride [Amaryl] 2 mg PO HS@1700 04/12/22 05/06/22 History metroNIDAZOLE [Flagyl] 500 mg PO TID #20 tab 05/05/22 05/06/22 Rx Ergocalciferol [Vitamin D2 (1250 1,250 mcg PO Q7D 05/06/22 05/06/22 History Mcg = [id number] Iu)] HYDROcodone/APAP 5-325MG [[place] 5] 1 - 2 tab PO Q4H PRN 05/06/22 05/06/22 History Allergies Allergy/AdvReac Type Severity Reaction Status Date / Time Penicillins Allergy Rash/Hives Verified 05/06/22 13:13 simvastatin [From Zocor] Allergy Anaphylaxis Verified 05/06/22 13:13 Physical Exam Osteopathic Statement: *. No significant issues noted on an osteopathic structural exam other than those noted in the History and Physical/Consult. Vitals: Vital Signs Temp Pulse Resp BP Pulse Ox 05/06/22 13:07 98.2 F 61 18 138/69 97 05/06/22 12:43 88 18 128/65 99 05/06/22 12:01 81 18 135/63 99 Intake and Output 05/06/22 05/06/22 05/06/22 06:59 14:59 22:59 Other: Weight 94.801 kg Results CBC & Chem 7: 05/06/22 14:54 05/06/22 14:54 Labs: Abnormal Lab Results - Last 24 Hours (Table) 05/06/22 Range/Units 14:54 Carbon Dioxide 21 L (22-30) mmol/L BUN 52 H (7-17) mg/dL Creatinine 2.62 H (0.52-1.04) mg/dL Alkaline Phosphatase 140 H (38-126) U/L Albumin 3.3 L (3.5-5.0) g/dL
[2022-05-06] MEDS: metroNIDAZOLE 500 MG TAB PO SCH ×2 (16:00→21:38)
--- NOTE | 2022-05-06 16:17 | P.PN ---
Subjective Progress Note Date: 05/06/22 Principal diagnosis: abscess left breast Infection lumpectomy site left breast Deanna is an 81 year old white female seen in consultation for Dr. Keita regarding a biopsy proven left breast cancer. She had a bilateral mammogram on 01-13-22 which revealed a lesion in the left breast. This was followed by an ultrasound of the left breast. A biopsy revealed an invasive ductal carcinoma. She underwent a left breast lumpectomy and sentinel node biopsy on . Her final pathology revealed a 1.5 cm invasive ductal carcinoma margins negative, and one lymph node removed which was negative. Post operatively she developed some tenderness at the lumpectomy site and underwent On his first postoperative visit aspiration of 307 mL of turbid fluid. Cultures were obtained and the patient was started on Bactrim. The cultures grew Clostridium perfringens. The patient complained of some upset stomach and several episodes of diarrhea. She is not having diarrhea at this time. She was seen yesterday in 60 mL of turbid fluid were aspirated and the patient's antibiotic was changed to Flagyl. The patient at this time has not complained of any fever or chills. She is feeling well. However I have discussed her case with infectious disease and with the patient and her family and secondary to the bacteria type it was felt that admission with IV antibiotics would be merited. Additionally she is going to have an ultrasound of the breast performed with aspiration of any residual fluid and leaving a drain in place. At this time we are not planning on operative I&D unless it becomes necessary. Caffiene: occasional nicotine: none chocolate: occasional BCP: none Family History: mother: bladder cancer maternal uncle: cancer ? type brother: testicular Hormonal History: menarche: 12 M1, breast fed: no, age at first live : 23 menopause: ? 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 Social History: nicotine: none alcohol: none drugs; none - Constitutional Constitutional: Denies chills, Denies fever - EENT Eyes: denies blurred vision, denies pain Ears: left: decreased hearing Ears, nose, mouth and throat: Denies headache, Denies sore throat - Breasts Breasts: bilateral: as per HPI - Cardiovascular Cardiovascular: Denies chest pain, Denies shortness of breath - Respiratory Respiratory: Denies cough - Gastrointestinal Gastrointestinal: Denies abdominal pain, Denies diarrhea, Denies nausea, Denies vomiting - Genitourinary (Female) Genitourinary: Denies dysuria, Denies hematuria - Menstruation Menstruation: Reports postmenopausal - Musculoskeletal Musculoskeletal: Denies myalgias - Integumentary Integumentary: Denies pruritus, Denies rash - Neurological Neurological: Denies numbness, Denies weakness - Psychiatric Psychiatric: Denies anxiety, Denies depression - Endocrine Endocrine: Denies fatigue, Denies weight change - Hematologic/Lymphatic Comment: baby aspirin; follows with a ocean lifeguard - Allergic/Immunologic Allergic/Immunologic: Reports as per HPI Past Medical History Past Medical History: Diabetes Mellitus, Hyperlipidemia, Hypertension Additional Past Medical History / Comment(s): arthritis History of Any Multi-Drug Resistant Organisms: None Reported Past Surgical History: Back Surgery, Cholecystectomy, Orthopedic Surgery Additional Past Surgical History / Comment(s): rancho hip replacement, cataract Past Anesthesia/Blood Transfusion Reactions: No Reported Reaction Past Psychological History: No Psychological Hx Reported Smoking Status: Never smoker Past Alcohol Use History: None Reported Past Drug Use History: None Reported - Past Family History Mother Family Medical History: Cancer Additional Family Medical History / Comment(s): bladder cancer Father Family Medical History: Myocardial Infarction ([place]) Brother(s) Family Medical History: Rheumatoid Arthritis ([place]) Daughter(s) Family Medical History: No Reported History Son(s) Family Medical History: No Reported History Medications and Allergies Home Medications Medication Instructions Recorded Confirmed Type amLODIPine [Norvasc] 5 mg PO DAILY 09/17/18 02/11/22 History Aspirin [Children's Aspirin] 81 mg PO DAILY 02/11/22 02/11/22 History Chlorthalidone 25 mg PO DAILY 02/11/22 02/11/22 History Cholecalciferol (Vitamin D3) 125 mcg PO DAILY 02/11/22 02/11/22 History [Vitamin D3 (125 MCG = 5,000 IU)] Glimepiride [Amaryl] 2 mg PO DAILY 02/11/22 02/11/22 History Losartan Potassium 100 mg PO DAILY 02/11/22 02/11/22 History Rosuvastatin [Crestor] 20 mg PO DAILY 02/11/22 02/11/22 History Vit C/E/Zn/Coppr/Lutein/Zeaxan 2 cap PO DAILY 02/11/22 02/11/22 History [Preservision Areds 2 Chew Tab] Allergies Allergy/AdvReac Type Severity Reaction Status Date / Time Penicillins Allergy Rash/Hives Verified 02/11/22 14:12 simvastatin [From Zocor] Allergy Anaphylaxis Verified 02/11/22 14:12 Objective - Vital Signs Vital signs: Vital Signs Temp 98.2 F 05/06/22 13:07 Pulse 61 05/06/22 13:07 Resp 18 05/06/22 13:07 BP 138/69 05/06/22 13:07 Pulse Ox 97 05/06/22 13:07 FiO2 Intake & Output 05/05/22 05/06/22 05/06/22 18:59 06:59 18:59 Weight 94.801 kg Other: # Voids 1 - Constitutional General appearance: Present: cooperative - EENT Eyes: Present: EOMI - Neck Neck: Present: normal ROM - Respiratory Respiratory: bilateral: CTA - Cardiovascular Rhythm: regular Heart sounds: normal: S1, S2 - Gastrointestinal General gastrointestinal: Present: soft - Integumentary Integumentary: Present: normal turgor - Musculoskeletal Musculoskeletal Comment(s): in a wheel chair - Additional findings Additional findings: Breast examination: BRA: 38D Inspection: Well-healed scars left breast from recent surgery, mild erythema above the breast scar on the left improving Palpation: Right breast no dominant masses or edges of concern on examination prior to breast surgery 04-19-22 Right axilla: No adenopathy of -17-47 Left breast: Left breast fullness believed to be seroma persistent at the lumpectomy site, mild erythema above the breast scar on the left which is improving No other dominant masses or nodules of concern Left axilla: No adenopathy of concern - Labs CBC & Chem 7: 05/06/22 14:54 05/06/22 14:54 Labs: Abnormal Lab Results - Last 24 Hours (Table) 05/06/22 Range/Units 14:54 Carbon Dioxide 21 L (22-30) mmol/L BUN 52 H (7-17) mg/dL Creatinine 2.62 H (0.52-1.04) mg/dL Alkaline Phosphatase 140 H (38-126) U/L Albumin 3.3 L (3.5-5.0) g/dL Assessment and Plan Assessment: Impression: HTN diabetes 20 years arthritis 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 Willi Keita
[2022-05-06 17:22] LABS: Glucose,Whole Blood 128 mg/dL (70-110)
[2022-05-06] MEDS: INSULIN ASPART (NovoLOG) 100 UNIT/ML VIAL SQ SCH ×2 (17:45→20:00)
[2022-05-06 19:47] LABS: Glucose,Whole Blood 168 mg/dL (70-110)
--- NOTE | 2022-05-06 20:41 | US ---
EXAMINATION TYPE: US kidneys/renal and bladder DATE OF EXAM: 05/06/2022 COMPARISON: NONE CLINICAL HISTORY: NEETU. EXAM MEASUREMENTS: Right Kidney: 8.8 x 3.4 x 3.5 cm Left Kidney: 11.3 x 4.1 x 3.6 cm Right Kidney: Atrophic, echogenic sinus. Possible fullness/pelviectasis in the inferior lobe. Limit ed by overlying bowel gas. Left Kidney: Slight thinning of the cortex, echogenic sinus. Bladder: Not visualized, post void recently Bilateral Jets seen: No There is no evidence for hydronephrosis at this point in time. No nephrolithiasis is seen. No bart s are identified. The urinary bladder is not visualized. IMPRESSION: Right renal cortical thinning and atrophy. Mild left renal cortical atrophy. No definite evidence for renal obstruction. Urinary bladder not well evaluated.
[2022-05-06] MEDS: CLINDAMYCIN 900 MG in DEXTROSE 5% IN WATER 50 ML IVPB SCH ×2 (23:44)
[2022-05-07] MEDS: SODIUM CHLORIDE 0.9% 1,000 ML IV SCH ×2 (04:18→20:03)
[2022-05-07 07:21] LABS: Glucose,Whole Blood 54 mg/dL (70-110)
[2022-05-07 07:55] LABS: Glucose,Whole Blood 97 mg/dL (70-110)
[2022-05-07 08:02] LABS: HCT 35.5 % (34.0-46.0); HGB 11.6 gm/dL (11.4-16.0); MCH 29.5 pg (25.0-35.0); MCHC 32.8 g/dL (31.0-37.0); MCV 89.9 fL (80.0-100.0); Mean Platelet Volume 8.4; Platelet Count 318 k/uL (150-450); RBC 3.95 m/uL (3.80-5.40); RDW 13.8 % (11.5-15.5); WBC 8.6 k/uL (3.8-10.6)
[2022-05-07] MEDS: INSULIN ASPART (NovoLOG) 100 UNIT/ML VIAL SQ SCH ×4 (08:05→20:34)
[2022-05-07 08:12] LABS: African American GFR (CKD) 22 (>60 ml/min/1.73 sqM); Anion Gap 9 mmol/L; Blood Urea Nitrogen 47 mg/dL (7-17); Calcium 9.7 mg/dL (8.4-10.2); Carbon Dioxide 20 mmol/L (22-30); Chloride 111 mmol/L (98-107); Glucose 84 mg/dL (74-99); Non-African American GFR(CKD) 19 (>60 ml/min/1.73 sqM); Potassium 4.1 mmol/L (3.5-5.1); Sodium 140 mmol/L (137-145)
[2022-05-07] MEDS ORDERED: LOSARTAN 50 MG TAB PO SCH (09:00)
[2022-05-07] MEDS ORDERED: CHLORTHALIDONE 25 MG TAB PO SCH (09:00)
[2022-05-07] MEDS: CLINDAMYCIN 900 MG in DEXTROSE 5% IN WATER 50 ML IVPB SCH ×6 (09:43→23:58)
[2022-05-07] MEDS: VIT A,C & E-LUTEIN-MINERALS 1 EACH TAB PO SCH (09:48)
[2022-05-07] MEDS: NON FORMULARY DRUG (Rosuvastatin 20 MG Tablet) PO SCH (09:48)
[2022-05-07] MEDS: PANTOPRAZOLE 40 MG/10 ML VIAL IVP SCH (10:39)
[2022-05-07 12:18] LABS: Glucose,Whole Blood 151 mg/dL (70-110)
[2022-05-07] MEDS: amLODIPine 5 MG TAB PO SCH (12:30)
[2022-05-07] MEDS: ASPIRIN 81 MG PO SCH (12:31)
--- NOTE | 2022-05-07 15:25 | P.CONS ---
History of Present Illness - Reason for Consult Consult date: 05/07/22 Postoperative breast infection Requesting physician: Adrianna Bueno - Chief Complaint Left breast pain x few days - History of Present Illness Patient is a 81-year-old female with a positive past medical history difficult for diabetes mellitus and hypertension with recent diagnosis of left- sided stage Ia invasive ductal carcinoma status postlumpectomy on 04/19/2022, on her first postoperative visit patient did have aspiration of about 300 cc of turbid fluid culture were obtained and and the patient was started and the patient was started on Bactrim culture subsequently came back positive with Clostridium perfringens and apparently the patient patient did have some stomach upset with the Bactrim antibiotic was subsequent switched over to Flagyl and the patient did have another aspirate of 60 cc of turbid fluid in the office by her surgeon subsequently the patient was sent to the ER and the patient is s/p ultrasound-guided drainage of the left breast abscess with removal of 200 cc of purulent material repeat cultures were obtained patient was continued on oral Flagyl infectious disease was consulted for further management of antibiotic therapy. On today's evaluation the patient denies having any fever or any chills and the patient did not have any fever during this hospital visit patient did have mild leaking pain to the left breast area about 2-3 out of 10 and no radiation with some associated swelling and redness patient denies having any headache or URI symptoms no chest pain shortness of breath or cough no abdominal pain or any diarrhea patient did have a normal white count on presentation to the hospital did have elevated BUN and creatinine liver enzymes are normal repeat cultures are currently pending, patient did have a history of penicillin allergy with a rash about 40 years ago and did not recall since then the patient has taken penicillin related antibiotic Review of Systems Positive point has been mentioned in the HPI rest of the systems are negative Past Medical History Past Medical History: Cancer, Diabetes Mellitus, Hyperlipidemia, Hypertension Additional Past Medical History / Comment(s): arthritis, Left breast cancer History of Any Multi-Drug Resistant Organisms: None Reported Past Surgical History: Back Surgery, Cholecystectomy, Orthopedic Surgery Additional Past Surgical History / Comment(s): rancho hip replacement, cataract, lumpectomy Past Anesthesia/Blood Transfusion Reactions: No Reported Reaction Past Psychological History: No Psychological Hx Reported Smoking Status: Never smoker Past Alcohol Use History: None Reported Past Drug Use History: None Reported - Past Family History Mother Family Medical History: Cancer Additional Family Medical History / Comment(s): bladder cancer Father Family Medical History: Myocardial Infarction ([place]) Brother(s) Family Medical History: Rheumatoid Arthritis ([place]) Daughter(s) Family Medical History: No Reported History Son(s) Family Medical History: No Reported History Medications and Allergies Home Medications Medication Instructions Recorded Confirmed Type amLODIPine [Norvasc] 5 mg PO DAILY 09/17/18 05/06/22 History Aspirin [Children's Aspirin] 81 mg PO DAILY 02/11/22 05/06/22 History Rosuvastatin [Crestor] 20 mg PO DAILY 02/11/22 05/06/22 History Vit C/E/Zn/Coppr/Lutein/Zeaxan 2 cap PO DAILY 02/11/22 05/06/22 History [Preservision Areds 2 Chew Tab] Ergocalciferol [Vitamin D2 (1250 1,250 mcg PO Q7D 05/06/22 05/06/22 History Mcg = [id number] Iu)] HYDROcodone/APAP 5-325MG [[place] 1 - 2 tab PO Q4H PRN 05/06/22 05/06/22 History 5-325] L.acidoph,Paracasei, B.lactis 1 each PO DAILY #30 capsule 05/11/22 Rx [Probiotic] Pantoprazole [Protonix] 40 mg PO DAILY #60 tab 05/11/22 Rx clindamycin HCL 300 mg PO Q6H #40 capsule 05/11/22 Rx Allergies Allergy/AdvReac Type Severity Reaction Status Date / Time Penicillins Allergy Rash/Hives Verified 05/06/22 13:13 simvastatin [From Zocor] Allergy Anaphylaxis Verified 05/06/22 13:13 Physical Exam Vitals: Vital Signs Temp Pulse Resp BP Pulse Ox 05/07/22 11:21 98.4 F 56 L 16 113/64 98 05/07/22 07:15 98.5 F 60 16 137/69 97 05/07/22 02:01 98.6 F 59 L 16 104/62 98 05/06/22 20:10 18 05/06/22 19:20 97.9 F 63 18 151/70 95 Intake and Output 05/06/22 05/07/22 05/07/22 22:59 06:59 14:59 Intake Total 1250 Output Total 50 30 Balance -50 1220 Intake: Intake, IV Titration 950 Amount Clindamycin 900 mg In 50 Dextrose 5% in Water 50 ml @ 50 mls/hr IVPB Q8HR LALIT Rx#:[id number] Sodium Chloride 0.9% 1, 900 000 ml @ 75 mls/hr IV . [id number] ALLIT Rx#:[id number] Oral 300 Output: Drainage 50 30 Left Breast 50 30 Other: Voiding Method Toilet Toilet # Voids 1 3 GENERAL DESCRIPTION: Elderly female up in bed, no distress. No tachypnea or accessory muscle of respiration use. HEENT: Shows Pallor , no scleral icterus. Oral mucous membrane is dry. No pharyngeal erythema or thrush NECK: Trachea central, no thyromegaly. LUNGS: Unlabored breathing. Clear to auscultation anteriorly. No wheeze or crackle. BREAST : Examination of the presence of the patient nurse did have mild induration on the lateral side with the drainage catheter draining some purulent secretion HEART: S1, S2, regular rate and rhythm. No loud murmur ABDOMEN: Soft, no tenderness , guarding or rigidity, no organomegaly EXTREMITIES: No edema of feet. SKIN: No rash, no masses palpable. NEUROLOGICAL: The patient is awake, alert, oriented x3, mood and affect normal. Results CBC & Chem 7: 05/07/22 07:45 05/10/22 06:44 Labs: Abnormal Lab Results - Last 24 Hours (Table) 05/06/22 05/06/22 05/06/22 Range/Units 14:54 17:21 19:41 Chloride (98-107) mmol/L Carbon Dioxide 21 L (22-30) mmol/L BUN 52 H (7-17) mg/dL Creatinine 2.62 H (0.52-1.04) mg/dL POC Glucose (mg/dL) 128 H 168 H (70-110) mg/dL Hemoglobin A1c (0.0-6.0) % Alkaline Phosphatase 140 H (38-126) U/L Albumin 3.3 L (3.5-5.0) g/dL 05/07/22 05/07/22 05/07/22 Range/Units 06:01 07:19 07:45 Chloride 111 H (98-107) mmol/L Carbon Dioxide 20 L (22-30) mmol/L BUN 47 H (7-17) mg/dL Creatinine 2.34 H (0.52-1.04) mg/dL POC Glucose (mg/dL) 54 L (70-110) mg/dL Hemoglobin A1c 7.1 H (0.0-6.0) % Alkaline Phosphatase (38-126) U/L Albumin (3.5-5.0) g/dL 05/07/22 Range/Units 12:14 Chloride (98-107) mmol/L Carbon Dioxide (22-30) mmol/L BUN (7-17) mg/dL Creatinine (0.52-1.04) mg/dL POC Glucose (mg/dL) 151 H (70-110) mg/dL Hemoglobin A1c (0.0-6.0) % Alkaline Phosphatase (38-126) U/L Albumin (3.5-5.0) g/dL Microbiology - Last 24 Hours (Table) 05/06/22 12:30 Anaerobic Culture - Preliminary Breast Fluid - Left 05/06/22 12:30 Body Fluid Culture - Preliminary Aspirate Assessment and Plan (1) Left breast abscess Current Visit: Yes Status: Acute Code(s): N61.1 - ABSCESS OF THE BREAST AND NIPPLE SNOMED Code(s): 93393058 Plan: 1patient was in the hospital with left breast abscess in this patient who is status post left breast lumpectomy for stage Ia invasive ductal carcinoma initial cultures are positive for Clostridium perfringens and apparently the patient was not able to tolerate her oral antibiotic in the form of Flagyl in the outpatient setting. 2patient with a penicillin allergy that would limit the number of antibiotics safe to use. 3patient started on Rocephin and clindamycin to continue while waiting for repeat cultures to be finalized 4patient has been instructed to increase her probiotic and yogurt intake We will follow on clinical condition and cultures to further adjust medication if needed Thank you for this consultation we will follow the patient along with you Time with Patient: Greater than 30
--- NOTE | 2022-05-07 15:34 | P.PN ---
Subjective Progress Note Date: 05/07/22 (delayed charting seen at 0905) Patient is an 81-year-old female with a history of left sided stage IA invasive ductal carcinoma status post lumpectomy on 04/19/[address] Sarmiento, diabetes, and hypertension who presented as a direct admission at the direction of Dr. Otis Mcgarry. She has been followed in the breast Center post surgical and was found to have a possible abscess, cultures were obtained in the clinic which grew out Clostridium perfringens and the patient was started on Flagyl yesterday, she was on Bactrim prior. She had an outpatient drainage of 60 mL of purulent fluid yesterday, and one on the 04/28. On the morning of 05/06 she underwent ultrasound-guided drainage of left breast abscess with drainage of 200cc of pus and catheter insertion. Patient seen and examined at bedside. She denies any pain. She does report a history of not being able to swallow for several months, Mrs. been pre-existing to her lumpectomy. She reports that she has difficulty with solids and sometimes regurgitates up large amounts of food. She does fairly well with liquids, however she can sometimes feel the water having a difficult time getting down. She does have a history of acid reflux and when she gets problems with her acid she again starts a 2 week course of omeprazole. She has not yet seen her primary care doctor for this. She also reports problems with swallowi ng pills. This is in addition to her overall "GI upset" since surgery. She is hoping to go home and does not want to stay until Monday. Per nursing 30 mL were taken out of the drainage tube last night. Vital signs reviewed General: nontoxic, no distress, appears at stated age Breast: Dressing in place, no erythema, warmth, or blood noted within or near the dressing Cardiovascular: S1S2 reg, no murmur, positive posterior tibial pulse bilateral, Lungs: CTA bilateral, no rhonchi, no rales , no accessory muscle use Abdominal: soft, nontender to palpation, no guarding, no appreciable organome richard Ext: no gross muscle atrophy, no edema, no contractures Neuro: CN II-XI grossly intact, no focal neuro deficits Psych: Alert, oriented, appropriate affect Assessment: Clostridium perfringens, Post operative left breast abscess, failed outpatient treatment Acute kidney injury on chronic kidney disease stage III, likely related to poor oral intake and Bactrim use Dysphagia with frequent regurgitation, concerns for esophageal etiology DM , on orals -A1c 7.1 HTN HLD Imaging: Mouth/bladder ultrasound-right renal cortical thinning and atrophy, mild left renal cortical atrophy, no evidence of renal obstruction Data Review: Vital signs from this morning reviewed temperature 98.5, pulse 60, respirations 16, blood pressure 137/69, O2 sat 97% on room air CBC reviewed and unremarkable, basic metabolic profile remarkable for BUN 47, creatinine 2.34, blood sugar 84 A1c 7.1 Blood sugars reviewed, fasting 97, she did have a low of 54 as well, yesterday his blood sugars were 128 and 168 Plan: -Case discussed with Dr. Benson in detail. We discussed that patient may not have been fully giving her Flagyl at home due to her frequent regurgitation and poor oral intake. We'll continue with clindamycin and Rocephin at this time. Await repeat cultures -Continue to hold Amaryl. Patient may need to go home without any diabetic medications given her renal function -Continue with normal saline at 75 mL/h period hold chlorthalidone and Cozaar. Avoid additional nephrotoxic agents. Monitor renal function with repeat basic metabolic profile in a.m. -Surgical note reviewed: We'll continue with drain -If patient continues to require hospitalization through Monday will consider barium swallow study with small bowel follow-through versus GI consultation for EGD DVT prophylaxis: SCDs Anticipated discharge date and place: Pending clinical course This dictation was prepared using [employer] voice recognition software. Though every attempt is made to correct errors during during dictation some may still exist. Objective - Vital Signs Vital signs: Vital Signs Temp 98.4 F 05/07/22 11:21 Pulse 56 L 05/07/22 11:21 Resp 16 05/07/22 11:21 BP 113/64 05/07/22 11:21 Pulse Ox 98 05/07/22 11:21 FiO2 Intake & Output 05/06/22 05/07/22 05/07/22 18:59 06:59 18:59 Intake Total 1250 Output Total 50 30 Balance -50 1220 Weight 94.801 kg Intake: Intake, IV Titration 950 Amount Clindamycin 900 mg In 50 Dextrose 5% in Water 50 ml @ 50 mls/hr IVPB Q8HR [facility] Rx#:[id number] Sodium Chloride 0.9% 1, 900 000 ml @ 75 mls/hr IV . [id number] [facility] Rx#:[id number] Oral 300 Output: Drainage 50 30 Left Breast 50 30 Other: Voiding Method Toilet Toilet # Voids 1 3 - Labs CBC & Chem 7: 05/07/22 07:45 05/07/22 07:45 Labs: Abnormal Lab Results - Last 24 Hours (Table) 05/06/22 05/06/22 05/06/22 Range/Units 14:54 17:21 19:41 Chloride (98-107) mmol/L Carbon Dioxide 21 L (22-30) mmol/L BUN 52 H (7-17) mg/dL Creatinine 2.62 H (0.52-1.04) mg/dL POC Glucose (mg/dL) 128 H 168 H (70-110) mg/dL Hemoglobin A1c (0.0-6.0) % Alkaline Phosphatase 140 H (38-126) U/L Albumin 3.3 L (3.5-5.0) g/dL 05/07/22 05/07/22 05/07/22 Range/Units 06:01 07:19 07:45 Chloride 111 H (98-107) mmol/L Carbon Dioxide 20 L (22-30) mmol/L BUN 47 H (7-17) mg/dL Creatinine 2.34 H (0.52-1.04) mg/dL POC Glucose (mg/dL) 54 L (70-110) mg/dL Hemoglobin A1c 7.1 H (0.0-6.0) % Alkaline Phosphatase (38-126) U/L Albumin (3.5-5.0) g/dL 05/07/22 Range/Units 12:14 Chloride (98-107) mmol/L Carbon Dioxide (22-30) mmol/L BUN (7-17) mg/dL Creatinine (0.52-1.04) mg/dL POC Glucose (mg/dL) 151 H (70-110) mg/dL Hemoglobin A1c (0.0-6.0) % Alkaline Phosphatase (38-126) U/L Albumin (3.5-5.0) g/dL Microbiology - Last 24 Hours (Table) 05/06/22 12:30 Anaerobic Culture - Preliminary Breast Fluid - Left 05/06/22 12:30 Body Fluid Culture - Preliminary Aspirate
[2022-05-07 17:13] LABS: Glucose,Whole Blood 153 mg/dL (70-110)
[2022-05-07 20:35] LABS: Glucose,Whole Blood 155 mg/dL (70-110)
[2022-05-08] MEDS ORDERED: MORPHINE SULFATE 2 MG/ML SYRINGE IVP PRN (00:06)
[2022-05-08] MEDS: SODIUM CHLORIDE 0.9% 1,000 ML IV SCH ×2 (05:46→21:47)
[2022-05-08 07:34] LABS: Glucose,Whole Blood 88 mg/dL (70-110)
[2022-05-08] MEDS: INSULIN ASPART (NovoLOG) 100 UNIT/ML VIAL SQ SCH ×4 (07:37→21:44)
[2022-05-08] MEDS: CLINDAMYCIN 900 MG in DEXTROSE 5% IN WATER 50 ML IVPB SCH ×6 (09:02→23:38)
[2022-05-08] MEDS: amLODIPine 5 MG TAB PO SCH (09:02)
[2022-05-08] MEDS: ASPIRIN 81 MG PO SCH (09:02)
[2022-05-08] MEDS: PANTOPRAZOLE 40 MG/10 ML VIAL IVP SCH (09:03)
--- NOTE | 2022-05-08 09:23 | P.PN ---
Subjective Progress Note Date: 05/08/22 Patient is an 81-year-old female with a history of left sided stage IA invasive ductal carcinoma status post lumpectomy on 04/19/[address] Sarmiento, diabetes, and hypertension who presented as a direct admission at the direction of Dr. Otis Mcgarry. She has been followed in the breast Center post surgical and was found to have a possible abscess, cultures were obtained in the clinic which grew out Clostridium perfringens and the patient was started on Flagyl yesterday, she was on Bactrim prior. She had an outpatient drainage of 60 mL of purulent fluid yesterday, and one on the 04/28. On the morning of 05/06 she underwent ultrasound-guided drainage of left breast abscess with drainage of 200cc of pus and catheter insertion. Patient seen and examined at bedside. She reports that since starting the full liquid diet she has been able to tolerate all intake, she has had some belching but has not had any vomiting. She denies any diarrhea but had a normal bowel movement today. We again stressed the importance of her stay until Monday. Further evaluation with GI and modified barium swallow study with small bowel follow-through. Patient is in agreement. Imaging: Renal/bladder ultrasound-right renal cortical thinning and atrophy, mild left renal cortical atrophy, no evidence of renal obstruction Vital signs reviewed General: nontoxic, no distress, appears at stated age Breast: Dressing in place, no erythema, warmth, or blood noted within or near the dressing Cardiovascular: S1S2 reg, no murmur, positive posterior tibial pulse bilateral, Lungs: CTA bilateral, no rhonchi, no rales , no accessory muscle use Abdominal: soft, nontender to palpation, no guarding, no appreciable org anomegaly Ext: no gross muscle atrophy, no edema, no contractures Neuro: CN II-XI grossly intact, no focal neuro deficits Psych: Alert, oriented, appropriate affect Assessment: Clostridium perfringens, Post operative left breast abscess, failed outpatient treatment Acute kidney injury on chronic kidney disease stage III, likely related to poor oral intake and Bactrim use Dysphagia with frequent regurgitation, concerns for esophageal etiology DM , on orals -A1c 7.1 HTN HLD Data Review: Vital signs reviewed from this morning temperature 98.3 pulse 67 respirations 18 blood pressure 129/65, O2 sat 95% on room air BMP is not available for review at this time but will be reviewed once available. Blood sugars reviewed. AM fasting 88, yesterday blood sugars were 151, 153, and 155. Plan: - Await further ID recs - Continue to hold Amaryl. Patient may need to go home without any diabetic medications given her renal function and A1C of 7.1 with decreased oral intake as fasting BS <100 - Continue with normal saline at 75 mL/h period hold chlorthalidone and Cozaar. Avoid additional nephrotoxic agents. Monitor renal function with repeat basic metabolic profile which is currently pending. - Await further breast surgery recommendations - Consult GI for possible esophageal etiology of inability to swallow, Barrium swallow study. - Continue with Rocephin and Clindamycin D #3 - Patient is hoping for discharge tomorrow. DVT prophylaxis: SCDs Anticipated discharge date and place: Pending clinical course This dictation was prepared using [employer] voice recognition software. Though every attempt is made to correct errors during during dictation some may still exist. Objective - Vital Signs Vital signs: Vital Signs Temp 98.3 F 05/08/22 07:23 Pulse 67 05/08/22 07:23 Resp 18 05/08/22 07:23 BP 129/65 05/08/22 07:23 Pulse Ox 95 05/08/22 07:23 FiO2 Intake & Output 05/07/22 05/08/22 05/08/22 18:59 06:59 18:59 Intake Total 50 1250 Output Total 40 Balance 50 1210 Intake: Intake, IV Titration 50 950 Amount Clindamycin 900 mg In 50 Dextrose 5% in Water 50 ml @ 50 mls/hr IVPB Q8HR [facility] Rx#:[id number] Sodium Chloride 0.9% 1, 900 000 ml @ 75 mls/hr IV . [id number] [facility] Rx#:[id number] cefTRIAXone 2 gm In 50 Sodium Chloride 0.9% 50 ml @ 100 mls/hr IVPB Q24HR [facility] Rx#:[id number] Oral 300 Output: Drainage 40 Left Breast 40 Other: Voiding Method Toilet Toilet # Voids 1 1 # Bowel Movements 1 - Labs CBC & Chem 7: 05/07/22 07:45 05/07/22 07:45 Labs: Abnormal Lab Results - Last 24 Hours (Table) 04/01/23 04/01/23 04/01/23 Range/Units 12:14 17:12 20:33 POC Glucose (mg/dL) 151 H 153 H 155 H (70-110) mg/dL Microbiology - Last 24 Hours (Table) 05/06/22 12:30 Gram Stain - Preliminary Aspirate Body Fluid Culture - Preliminary
[2022-05-08] MEDS: VIT A,C & E-LUTEIN-MINERALS 1 EACH TAB PO SCH (09:44)
[2022-05-08] MEDS: NON FORMULARY DRUG (Rosuvastatin 20 MG Tablet) PO SCH (09:44)
[2022-05-08 11:41] LABS: African American GFR (CKD) 26 (>60 ml/min/1.73 sqM); Anion Gap 10 mmol/L; Blood Urea Nitrogen 39 mg/dL (7-17); Calcium 9.4 mg/dL (8.4-10.2); Carbon Dioxide 18 mmol/L (22-30); Chloride 111 mmol/L (98-107); Glucose 185 mg/dL (74-99); Non-African American GFR(CKD) 22 (>60 ml/min/1.73 sqM); Potassium 4.2 mmol/L (3.5-5.1); Sodium 139 mmol/L (137-145)
[2022-05-08 11:54] LABS: Glucose,Whole Blood 195 mg/dL (70-110)
--- NOTE | 2022-05-08 15:57 | P.PN ---
Subjective Progress Note Date: 05/08/22 Principal diagnosis: Left breast abscess Patient is a 81-year-old female with a positive past medical history difficult for diabetes mellitus and hypertension with recent diagnosis of left- sided stage Ia invasive ductal carcinoma status postlumpectomy on 04/19/2022, on her first postoperative visit patient did have aspiration of about 300 cc of turbid fluid culture, subsequently grew Clostridium perfringens (the patient was not able to tolerate her oral Flagyl patient did have a IR placement of drainage catheter to the left breast abscess on 05/06/2022 on today's evaluation that is 05/08/2022, the patient denies having any fever or any chills, the patient pain and discomfort in the left breast has decreased in intensity and the output is getting more clear per patient, the patient denies having any chest pain or shortness of breath or cough no nausea no vom iting and no diarrhea Objective - Vital Signs Vital signs: Vital Signs Temp 97.9 F 05/08/22 11:28 Pulse 50 L 05/08/22 11:28 Resp 18 05/08/22 11:28 BP 127/66 05/08/22 11:28 Pulse Ox 97 05/08/22 11:28 FiO2 Intake & Output 05/07/22 05/08/22 05/08/22 18:59 06:59 18:59 Intake Total 50 1250 Output Total 40 20 Balance 50 1210 -20 Intake: Intake, IV Titration 50 950 Amount Clindamycin 900 mg In 50 Dextrose 5% in Water 50 ml @ 50 mls/hr IVPB Q8HR [facility] Rx#:[id number] Sodium Chloride 0.9% 1, 900 000 ml @ 75 mls/hr IV . [id number] [facility] Rx#:[id number] cefTRIAXone 2 gm In 50 Sodium Chloride 0.9% 50 ml @ 100 mls/hr IVPB Q24HR [facility] Rx#:[id number] Oral 300 Output: Drainage 40 20 Left Breast 40 20 Other: Voiding Method Toilet Toilet # Voids 1 1 # Bowel Movements 1 - Exam GENERAL DESCRIPTION: An elderly female lying in bed in no distress RESPIRATORY SYSTEM: Unlabored breathing , decreased breath sounds at bases HEART: S1 S2 regular rate and rhythm , ABDOMEN: Soft , no tenderness EXTREMITIES: No edema feet - Labs CBC & Chem 7: 05/07/22 07:45 05/08/22 09:44 Labs: Abnormal Lab Results - Last 24 Hours (Table) 05/07/22 05/07/22 05/08/22 Range/Units 17:12 20:33 09:44 Chloride 111 H (98-107) mmol/L Carbon Dioxide 18 L (22-30) mmol/L BUN 39 H (7-17) mg/dL Creatinine 2.02 H (0.52-1.04) mg/dL Glucose 185 H (74-99) mg/dL POC Glucose (mg/dL) 153 H 155 H (70-110) mg/dL 05/08/22 Range/Units 11:30 Chloride (98-107) mmol/L Carbon Dioxide (22-30) mmol/L BUN (7-17) mg/dL Creatinine (0.52-1.04) mg/dL Glucose (74-99) mg/dL POC Glucose (mg/dL) 195 H (70-110) mg/dL Microbiology - Last 24 Hours (Table) 05/06/22 12:30 Gram Stain - Preliminary Aspirate Body Fluid Culture - Preliminary Assessment and Plan (1) Left breast abscess Current Visit: Yes Status: Acute Code(s): N61.1 - ABSCESS OF THE BREAST AND NIPPLE SNOMED Code(s): 08527360 Plan: 1patient was in the hospital with left breast abscess in this patient who is status post left breast lumpectomy for stage Ia invasive ductal carcinoma initial cultures are positive for Clostridium perfringens and apparently the patient was not able to tolerate her oral antibiotic in the form of Flagyl in the outpatient setting. 2patient with a penicillin allergy that would limit the number of antibiotics safe to use. 3patient continue with Rocephin and clindamycin to continue while waiting for repeat cultures to be finalized and monitor clinical course closely Family the bedside questions were answered Time with Patient: Less than 30
[2022-05-08 17:34] LABS: Glucose,Whole Blood 121 mg/dL (70-110)
[2022-05-08 20:17] LABS: Glucose,Whole Blood 172 mg/dL (70-110)
[2022-05-09 07:19] LABS: Glucose,Whole Blood 91 mg/dL (70-110)
[2022-05-09] MEDS: INSULIN ASPART (NovoLOG) 100 UNIT/ML VIAL SQ SCH ×4 (07:27→20:23)
[2022-05-09] MEDS: VIT A,C & E-LUTEIN-MINERALS 1 EACH TAB PO SCH (10:19)
[2022-05-09] MEDS: NON FORMULARY DRUG (Rosuvastatin 20 MG Tablet) PO SCH (10:19)
[2022-05-09] MEDS: SODIUM CHLORIDE 0.9% 1,000 ML IV SCH ×2 (12:11→20:24)
[2022-05-09] MEDS: PANTOPRAZOLE 40 MG/10 ML VIAL IVP SCH (12:11)
[2022-05-09] MEDS: ASPIRIN 81 MG PO SCH (12:11)
[2022-05-09] MEDS: amLODIPine 5 MG TAB PO SCH (12:11)
[2022-05-09] MEDS: CLINDAMYCIN 900 MG in DEXTROSE 5% IN WATER 50 ML IVPB SCH ×4 (12:38→15:49)
[2022-05-09 12:44] LABS: Glucose,Whole Blood 96 mg/dL (70-110)
--- NOTE | 2022-05-09 13:28 | P.CONS ---
History of Present Illness - Reason for Consult Consult date: 05/09/22 Frequent regurgitation, questionable esophageal lesion Requesting physician: Adrianna Bueno - Chief Complaint Left breast infection - History of Present Illness This is a pleasant 81-year-old female who presented to the emergency department with concerns of left breast infection. Patient underwent lumpectomy on 04/19/[address] Yadira richards for left stage IA invasive ductal carcinoma. Ultrasound of left breast showed abscess, she had successful ultrasound-guided drainage catheter insertion of left breast. Currently on IV antibiotics. Apparently during this hospitalization she reported to the primary medical team that she's had some difficulty with swallowing and gastroenterology was consulted. The patient states she's had difficulty with swallowing solid foods for the last 6-7 months. She denies any associated weight loss. No previous EGD. She's had previous colonoscopy unsure when however states that she was told she didn't need any further. States mostly solid foods like meat or breads gets stuck in the back of her throat at times. Sometimes she is able to sip water and get it down, and other times she starts choking and brings it back up. She states that this does not occur every day it is intermittent on what she is eating. Primary medicine team ordered barium swallow with results currently pending. Speech therapy consulted, consult currently pending. Review of Systems REVIEW OF SYSTEMS: CARDIOPULMONARY: No chest pain or shortness of breath. Gastrointestinal: Frequent regurgitation, difficulty swallowing. No nausea or vomiting. No hematemesis, coffee-ground emesis. No rectal bleeding, or melena. GENITOURINARY: No dysuria or hematuria. MUSCULOSKELETAL: Reports normal range of motion., Joint pain. SKIN: No rashes. No jaundice. Left breast abscess. ENDOCRINE: No chills, fevers. No excessive weight gain or loss. No polydipsia or polyuria. PSYCHIATRIC: Unremarkable. NEUROLOGY: No change in mental status. Denies dizziness, headache. ENT: Vision unremarkable. CONSTITUTIONAL: No recent weight loss. No fever, chills, night sweats. Past Medical History Past Medical History: Cancer, Diabetes Mellitus, Hyperlipidemia, Hypertension Additional Past Medical History / Comment(s): arthritis, Left breast cancer History of Any Multi-Drug Resistant Organisms: None Reported Past Surgical History: Back Surgery, Cholecystectomy, Orthopedic Surgery Additional Past Surgical History / Comment(s): [place]o hip replacement, cataract, lumpectomy Past Anesthesia/Blood Transfusion Reactions: No Reported Reaction Past Psychological History: No Psychological Hx Reported Smoking Status: Never smoker Past Alcohol Use History: None Reported Past Drug Use History: None Reported - Past Family History Mother Family Medical History: Cancer Additional Family Medical History / Comment(s): bladder cancer Father Family Medical History: Myocardial Infarction (AR) Brother(s) Family Medical History: Rheumatoid Arthritis ([place]) Daughter(s) Family Medical History: No Reported History Son(s) Family Medical History: No Reported History Medications and Allergies Home Medications Medication Instructions Recorded Confirmed Type amLODIPine [Norvasc] 5 mg PO DAILY 09/17/18 05/06/22 History Aspirin [Children's Aspirin] 81 mg PO DAILY 02/11/22 05/06/22 History Chlorthalidone 25 mg PO DAILY 02/11/22 05/06/22 History Losartan Potassium 100 mg PO DAILY 02/11/22 05/06/22 History Rosuvastatin [Crestor] 20 mg PO DAILY 02/11/22 05/06/22 History Vit C/E/Zn/Coppr/Lutein/Zeaxan 2 cap PO DAILY 02/11/22 05/06/22 History [Preservision Areds 2 Chew Tab] Glimepiride [Amaryl] 2 mg PO HS@1700 04/12/22 05/06/22 History metroNIDAZOLE [Flagyl] 500 mg PO TID #20 tab 05/05/22 05/06/22 Rx Ergocalciferol [Vitamin D2 (1250 1,250 mcg PO Q7D 05/06/22 05/06/22 History Mcg = 68126 Iu)] HYDROcodone/APAP 5-325MG [[place] 5] 1 - 2 tab PO Q4H PRN 05/06/22 05/06/22 History Allergies Allergy/AdvReac Type Severity Reaction Status Date / Time Penicillins Allergy Rash/Hives Verified 05/06/22 13:13 simvastatin [From Zocor] Allergy Anaphylaxis Verified 05/06/22 13:13 Physical Exam Vitals: Vital Signs Temp Pulse Resp BP Pulse Ox 05/09/22 12:44 97.9 F 54 L 18 157/66 97 05/09/22 07:07 98.1 F 58 L 18 144/64 97 05/09/22 01:16 97.9 F 57 L 14 122/53 95 05/08/22 20:00 58 L 16 05/08/22 19:12 97.8 F 58 L 15 144/61 95 Intake and Output 05/08/22 05/09/22 05/09/22 22:59 06:59 14:59 Intake Total 1000 Output Total 20 Balance 1000 -20 Intake: Intake, IV Titration 1000 Amount Clindamycin 900 mg In 50 Dextrose 5% in Water 50 ml @ 50 mls/hr IVPB Q8HR [facility] Rx#:[id number] Sodium Chloride 0.9% 1, 900 000 ml @ 75 mls/hr IV . [id number] [facility] Rx#:[id number] cefTRIAXone 2 gm In 50 Sodium Chloride 0.9% 50 ml @ 100 mls/hr IVPB Q24HR [facility] Rx#:[id number] Output: Drainage 20 Left Breast 20 Other: Voiding Method Toilet Toilet # Voids 1 # Bowel Movements 0 1 General appearance: The patient is alert, oriented, appears in no acute distress. HET: Head is normocephalic and atraumatic. Conjunctiva pink. Sclera anicteric. Neck: Supple without lymphadenopathy. Trachea midline. Heart: S1 S2. Regular rate and rhythm. Lungs: Clear to auscultation. Abdomen: Soft, nontender, nondistended with bowel sounds. No guarding or rigidity. Skin: No rashes. No jaundice. Extremities: Normal skin color and turgor. No pedal edema. Neurological: No focal deficits. Alert and oriented x3. Results CBC & Chem 7: 05/07/22 07:45 05/08/22 09:44 Labs: Abnormal Lab Results - Last 24 Hours (Table) 05/08/22 05/08/22 Range/Units 17:33 20:15 POC Glucose (mg/dL) 121 H 172 H (70-110) mg/dL Microbiology - Last 24 Hours (Table) 05/06/22 12:30 Gram Stain - Preliminary Aspirate Body Fluid Culture - Preliminary Assessment and Plan (1) Dysphagia Narrative/Plan: 81-year-old female presented to the emergency department sent in by her breast surgeon for failed outpatient treatment for left breast infection following lumpectomy done on 04/19/2022 for a left stage IA invasive ductal carcinoma. Patient was admitted for IV antibiotics and drainage catheter placement, during this hospitalization she has been complaining of some difficulty with swallowing. Barium swallow ordered with results currently pending. Will await results for further recommendations. Continue with Protonix 40 mg daily. Current Visit: Yes Status: Acute Code(s): R13.10 - DYSPHAGIA, UNSPECIFIED SNOMED Code(s): 71250996 (2) Left breast abscess Current Visit: Yes Status: Acute Code(s): N61.1 - ABSCESS OF THE BREAST AND NIPPLE SNOMED Code(s): 04299821 (3) Infection of breast following lumpectomy Current Visit: No Status: Acute Code(s): T81.49XA - INFECTION FOLLOWING A PROCEDURE, OTHER SURGICAL SITE, INIT SNOMED Code(s): 087371523 Plan: 1. Continue symptomatic and supportive care 2. Upper GI study currently pending 3. Protonix 40 mg daily 4. Speech therapy on consult, await their recommendation 5. Diet as tolerated nothing by mouth after midnight for possible EGD based on Upper GI results 6. Further recommendations forthcoming based on clinical course Thank you for this consultation, we will continue to follow. Dr. Satnam Juarez I agree with the dictator's note, documented as a scribe by Merry Giles.
--- NOTE | 2022-05-09 14:33 | P.PN ---
Subjective Progress Note Date: 05/09/22 Patient is an 81-year-old female with a history of left sided stage IA invasive ductal carcinoma status post lumpectomy on 04/19/[address] Sarmiento, diabetes, and hypertension who presented as a direct admission at the direction of Dr. Otis Mcgarry. She has been followed in the breast Center post surgical and was found to have a possible abscess, cultures were obtained in the clinic which grew out Clostridium perfringens and the patient was started on Flagyl , she was on Bactrim prior. She had an outpatient drainage of 60 mL of purulent fluid, and one on the 04/28. On the morning of 05/06 she underwent ultrasound-guided drainage of left breast abscess with drainage of 200cc of pus and catheter insertion. Imaging: Renal/bladder ultrasound-right renal cortical thinning and atrophy, mild left renal cortical atrophy, no evidence of renal obstruction Patient seen and examined at bedside. No acute events overnight. Denies any other new complaints. Continues to have minimal drainage from the drain. Vital signs reviewed General: nontoxic, no distress, appears at stated age Breast: Not examined, drain in place, yellow clear drainage noted Cardiovascular: S1S2 reg, no murmur, positive posterior tibial pulse bilateral, Lungs: CTA bilateral, no rhonchi, no rales , no accessory muscle use Abdominal: soft, nontender to palpation, no guarding, no appreciable organomegaly Ext: no gross muscle atrophy, no edema, no contractures Neuro: CN II-XI grossly intact, no focal neuro deficits Psych: Alert, oriented, appropriate affect Assessment: Clostridium perfringens, Post operative left breast abscess, failed outpatient treatment Acute kidney injury on chronic kidney disease stage III, likely related to poor oral intake and Bactrim use Dysphagia with frequent regurgitation, concerns for esophageal etiology DM , on orals -A1c 7.1 HTN HLD Data Review: Vital signs reviewed from this morning temperature 98.1 pulse 58, respiratory rate 18, blood pressure 144/64, saturating at 97% on room air BMP from yesterday showed downtrending creatinine at 2.0 to Blood sugars range between 91-195 Plan: -ID and surgery following, continue Rocephin and clindamycin, awaiting cultures result, so far no growth - Continue with normal saline at 75 mL/h period hold chlorthalidone and Cozaar. Avoid additional nephrotoxic agents. -Repeat BMP tomorrow -GI note reviewed: Possible EGD tomorrow -Barium swallow study completed, pending results for possible esophageal etiology of inability to swallow, - Continue to hold Amaryl. Patient may need to go home without any diabetic medications given her renal function and A1C of 7.1 with decreased oral intake as fasting BS <100 -On IV morphine sulfate 2 mg every 6 hours as needed for pain DVT prophylaxis: SCDs, patient is ambulatory Anticipated discharge date and place: Pending clinical course Due to need for continued IV antibiotics and further workup for dysphagia, patient status changed to inpatient from observation. Objective - Vital Signs Vital signs: Vital Signs Temp 98.1 F 05/09/22 07:07 Pulse 58 L 05/09/22 07:07 Resp 18 05/09/22 07:07 BP 144/64 05/09/22 07:07 Pulse Ox 97 05/09/22 07:07 FiO2 Intake & Output 05/08/22 05/09/22 05/09/22 18:59 06:59 18:59 Intake Total 1000 Output Total 20 20 Balance 980 -20 Intake: Intake, IV Titration 1000 Amount Clindamycin 900 mg In 50 Dextrose 5% in Water 50 ml @ 50 mls/hr IVPB Q8HR [facility] Rx#:[id number] Sodium Chloride 0.9% 1, 900 000 ml @ 75 mls/hr IV . [id number] [facility] Rx#:[id number] cefTRIAXone 2 gm In 50 Sodium Chloride 0.9% 50 ml @ 100 mls/hr IVPB Q24HR [facility] Rx#:[id number] Output: Drainage 20 20 Left Breast 20 20 Other: Voiding Method Toilet Toilet # Voids 1 1 # Bowel Movements 1 0 1 - Labs CBC & Chem 7: 05/07/22 07:45 05/08/22 09:44 Labs: Abnormal Lab Results - Last 24 Hours (Table) 05/08/22 05/08/22 Range/Units 17:33 20:15 POC Glucose (mg/dL) 121 H 172 H (70-110) mg/dL Microbiology - Last 24 Hours (Table) 05/06/22 12:30 Gram Stain - Preliminary Aspirate Body Fluid Culture - Preliminary
--- NOTE | 2022-05-09 15:26 | FL ---
EXAMINATION TYPE: FL barium swallow w SBFT DATE OF EXAM: 05/09/2022 CLINICAL INDICATION: 81-year-old female with dysphagia, here for breast abscess with reported trouble swallowing. COMPARISON: None Total Fluoroscopy Time: 1 minute 25 seconds Total images: 69 Total DAP: 5.0 FINDINGS: ESOPHAGRAM: The swallowing mechanism is normal. A moderate-sized Zenker's diverticulum is noted. This remains michael led and distended with the patient's ingested oral contrast. Mild narrowing just below the level of t he Zenker's diverticulum could reflect some thickening of the cricopharyngeus but without obstruction . Given patient's condition, we were unable to perform upright drinking and we avoided giving the effer vescent granules. There is normal course and caliber of the thoracic esophagus. After multiple swallows, we are unable to identify any persistent filling defect or fixed narrowing. Moderate tertiary peristaltic contracti ons are demonstrated. Secondary stripping waves are blunted and there is delayed clearance of contras t from the esophagus. Some intraesophageal reflux is encountered. There is a small hiatal hernia and mild gastroesophageal reflux seen during the course of the exam. SMALL BOWEL FOLLOW-THROUGH: Following administration of barium, serial films were carried out to 3.5 hours. Barium is seen to marilu ch the colon. Loops of jejunum and ileum are compressed and examined under fluoroscopy. The small bow el loops have a normal-caliber. Mucosal pattern is within normal limits. No intrinsic or extrinsic pr ocess is suspected. IMPRESSION: 1. Moderate-sized Zenker's diverticulum and mild CP muscle hypertrophy. Both findings likely contribu ting to the patient's symptoms. 2. Small hiatal hernia. Due to patient's condition, unable to adequately assess for gastroesophageal reflux. We did visualize at least mild gastroesophageal reflux. Likely underestimated on this exam. 3. Moderate esophageal dysmotility with blunted secondary stripping waves and some intraesophageal re flux also present. 4. Small bowel transit time was 3.5 hours. This is mildly delayed, probably due to patient's overall condition. Otherwise, unremarkable appearance to the small bowel follow-through.
[2022-05-09 17:28] LABS: Glucose,Whole Blood 131 mg/dL (70-110)
[2022-05-09 20:11] LABS: Glucose,Whole Blood 175 mg/dL (70-110)
[2022-05-10] MEDS: CLINDAMYCIN 900 MG in DEXTROSE 5% IN WATER 50 ML IVPB SCH ×6 (00:33→15:26)
[2022-05-10 07:23] LABS: Glucose,Whole Blood 96 mg/dL (70-110)
[2022-05-10] MEDS: INSULIN ASPART (NovoLOG) 100 UNIT/ML VIAL SQ SCH ×4 (08:10→20:31)
[2022-05-10] MEDS: VIT A,C & E-LUTEIN-MINERALS 1 EACH TAB PO SCH ×2 (10:04→10:41)
[2022-05-10] MEDS: ASPIRIN 81 MG PO SCH ×2 (10:05→10:41)
[2022-05-10] MEDS: amLODIPine 5 MG TAB PO SCH (10:05)
[2022-05-10] MEDS: PANTOPRAZOLE 40 MG/10 ML VIAL IVP SCH (10:07)
[2022-05-10] MEDS: NON FORMULARY DRUG (Rosuvastatin 20 MG Tablet) PO SCH (10:16)
[2022-05-10 11:16] LABS: African American GFR (CKD) 31.8 (60.0-200.0); Anion Gap 10.6 mmol/L (10.00-18.00); BUN/Creat Ratio 16.12 Ratio (12.00-20.00); Blood Urea Nitrogen 27.4 mg/dL (9.0-27.0); Calcium 9.8 mg/dL (8.7-10.3); Carbon Dioxide 21.4 mmol/L (20.0-27.5); Non-African American GFR(CKD) 27.4 (60.0-200.0)
[2022-05-10 12:07] LABS: Glucose,Whole Blood 129 mg/dL (70-110)
--- NOTE | 2022-05-10 12:25 | P.PN ---
Subjective Progress Note Date: 05/10/22 Principal diagnosis: abscess left breast The patient is an 81-year-old woman who was admitted status post left breast lumpectomy after developing an abscess. She underwent drainage via interventional radiology. At this time the output is approximately 15 mL partially addressed with the fluid being clear. The patient is not complaining of any pain. She has been afebrile. She is presently on Rocephin and clindamycin. Most recent cultures from 330 123 revealed gram-positive anaerobic rods. while in the hospital the patient complained of difficulty swallowing and a c onsult was obtained with GI. Objective - Vital Signs Vital signs: Vital Signs Temp 98.1 F 05/10/22 07:30 Pulse 60 05/10/22 07:30 Resp 16 05/10/22 07:30 BP 135/75 05/10/22 07:30 Pulse Ox 96 05/10/22 07:30 FiO2 Intake & Output 05/09/22 05/10/22 05/10/22 18:59 06:59 18:59 Intake Total 850 Output Total 15 Balance 850 -15 Intake: Intake, IV Titration 850 Amount Clindamycin 900 mg In 50 Dextrose 5% in Water 50 ml @ 50 mls/hr IVPB Q8HR [facility] Rx#:[id number] Sodium Chloride 0.9% 1, 750 000 ml @ 75 mls/hr IV . [id number] [facility] Rx#:[id number] cefTRIAXone 2 gm In 50 Sodium Chloride 0.9% 50 ml @ 100 mls/hr IVPB Q24HR [facility] Rx#:[id number] Output: Drainage 15 Left Breast 15 Other: Voiding Method Toilet Toilet Toilet # Voids 1 1 # Bowel Movements 1 1 - Constitutional General appearance: Present: cooperative - EENT Eyes: Present: EOMI - Neck Neck: Present: normal ROM - Respiratory Respiratory: bilateral: CTA - Cardiovascular Rhythm: regular Heart sounds: normal: S1, S2 - Integumentary Integumentary Comment(s): No erythema of the breast - Psychiatric Psychiatric: Present: A&O x's 3, appropriate affect, intact judgment & insight - Labs CBC & Chem 7: 05/07/22 07:45 05/10/22 06:44 Labs: Abnormal Lab Results - Last 24 Hours (Table) 05/09/22 05/09/22 05/10/22 Range/Units 17:26 20:10 06:44 BUN 27.4 H (9.0-27.0) mg/dL Creatinine 1.7 H (0.6-1.5) mg/dL Est GFR (CKD-EPI)AfAm 31.8 L (60.0-200.0) Est GFR (CKD-EPI)NonAf 27.4 L (60.0-200.0) POC Glucose (mg/dL) 131 H 175 H (70-110) mg/dL 05/10/22 Range/Units 12:06 BUN (9.0-27.0) mg/dL Creatinine (0.6-1.5) mg/dL Est GFR (CKD-EPI)AfAm (60.0-200.0) Est GFR (CKD-EPI)NonAf (60.0-200.0) POC Glucose (mg/dL) 129 H (70-110) mg/dL Microbiology - Last 24 Hours (Table) 05/06/22 12:30 Anaerobic Culture - Preliminary Breast Fluid - Left Anaerobic Gm Positive Bacill 05/06/22 12:30 Gram Stain - Preliminary Aspirate Body Fluid Culture - Preliminary Assessment and Plan Assessment: Impression/plan HTN diabetes 20 years arthritis deaf in left ear ?cause Seroma left breast lumpectomy site fluid positive for clostridia perfringens Resolved erythema of the breast Awaiting recommendation from infectious disease Awaiting recommendation from GI discharge as per medicine At this time there is no need for any surgical intervention CC: Dr. Willi Keita
--- NOTE | 2022-05-10 12:49 | P.PN ---
Subjective Progress Note Date: 05/10/22 Patient is an 81-year-old female with a history of left sided stage IA invasive ductal carcinoma status post lumpectomy on 04/19/[address] Sarmiento, diabetes, and hypertension who presented as a direct admission at the direction of Dr. Otis Mcgarry. She has been followed in the breast Center post surgical and was found to have a possible abscess, cultures were obtained in the clinic which grew out Clostridium perfringens and the patient was started on Flagyl , she was on Bactrim prior. She had an outpatient drainage of 60 mL of purulent fluid, and one on the 04/28. On the morning of 05/06 she underwent ultrasound-guided drainage of left breast abscess with drainage of 200cc of pus and catheter insertion. Imaging: Renal/bladder ultrasound-right renal cortical thinning and atrophy, mild left renal cortical atrophy, no evidence of renal obstruction Patient seen and examined at bedside. No acute events overnight. Denies any other new complaints. Continues to have minimal drainage from the drain. Continues to have dysphagia. Vital signs reviewed General: nontoxic, no distress, appears at stated age Breast: Not examined, drain in place, yellow clear drainage noted Cardiovascular: S1S2 reg, no murmur, positive posterior tibial pulse bilateral, Lungs: CTA bilateral, no rhonchi, no rales , no accessory muscle use Abdominal: soft, nontender to palpation, no guarding, no appreciable organomegaly Ext: no gross muscle atrophy, no edema, no contractures Neuro: CN II-XI grossly intact, no focal neuro deficits Psych: Alert, oriented, appropriate affect Assessment: Clostridium perfringens, Post operative left breast abscess, failed outpatient treatment Acute kidney injury on chronic kidney disease stage III, likely related to poor oral intake and Bactrim use Dysphagia with frequent regurgitation, concerns for esophageal etiology DM , on orals -A1c 7.1 HTN HLD Data Review: Sodium 139, creatinine 1.7 Microbiology shows anaerobic gram-positive bacilli, speciation pending Blood sugars range between 96-175 Barium Swallow report reviewed: showed moderate sized Zenker's reticulum, and CCP muscle hypertrophy, small hiatal hernia, mild gastroesophageal reflux, mode rate esophageal dysmotility Plan: -Surgery note reviewed, okayed her discharge from their standpoint -ID following, patient maintained on clindamycin and ceftriaxone, waiting further speciation and antibiotic susceptibility -Continue with normal saline at 75 mL/h period hold chlorthalidone and Cozaar. Avoid additional nephrotoxic agents. -Renal function continues to improve -GI following, EGD today - Continue to hold Amaryl. Patient may need to go home without any diabetic medications given her renal function and A1C of 7.1 with decreased oral intake as fasting BS <100 -On IV morphine sulfate 2 mg every 6 hours as needed for pain DVT prophylaxis: SCDs, patient is ambulatory Anticipated discharge date and place: Pending clinical course Objective - Vital Signs Vital signs: Vital Signs Temp 98.1 F 05/10/22 07:30 Pulse 60 05/10/22 07:30 Resp 16 05/10/22 07:30 BP 135/75 05/10/22 07:30 Pulse Ox 96 05/10/22 07:30 FiO2 Intake & Output 05/09/22 05/10/22 05/10/22 18:59 06:59 18:59 Intake Total 850 Output Total 15 Balance 850 -15 Intake: Intake, IV Titration 850 Amount Clindamycin 900 mg In 50 Dextrose 5% in Water 50 ml @ 50 mls/hr IVPB Q8HR [facility] Rx#:[id number] Sodium Chloride 0.9% 1, 750 000 ml @ 75 mls/hr IV . [id number] [facility] Rx#:[id number] cefTRIAXone 2 gm In 50 Sodium Chloride 0.9% 50 ml @ 100 mls/hr IVPB Q24HR [facility] Rx#:[id number] Output: Drainage 15 Left Breast 15 Other: Voiding Method Toilet Toilet Toilet # Voids 1 1 # Bowel Movements 1 1 - Labs CBC & Chem 7: 05/07/22 07:45 05/10/22 06:44 Labs: Abnormal Lab Results - Last 24 Hours (Table) 05/09/22 05/09/22 05/10/22 Range/Units 17:26 20:10 06:44 BUN 27.4 H (9.0-27.0) mg/dL Creatinine 1.7 H (0.6-1.5) mg/dL Est GFR (CKD-EPI)AfAm 31.8 L (60.0-200.0) Est GFR (CKD-EPI)NonAf 27.4 L (60.0-200.0) POC Glucose (mg/dL) 131 H 175 H (70-110) mg/dL 05/10/22 Range/Units 12:06 BUN (9.0-27.0) mg/dL Creatinine (0.6-1.5) mg/dL Est GFR (CKD-EPI)AfAm (60.0-200.0) Est GFR (CKD-EPI)NonAf (60.0-200.0) POC Glucose (mg/dL) 129 H (70-110) mg/dL Microbiology - Last 24 Hours (Table) 05/06/22 12:30 Anaerobic Culture - Preliminary Breast Fluid - Left Anaerobic Gm Positive Bacill 05/06/22 12:30 Gram Stain - Preliminary Aspirate Body Fluid Culture - Preliminary
[2022-05-10] MEDS ORDERED: PROPOFOL 10 MG/ML 20 ML VIAL IV ONE (12:55)
[2022-05-10] MEDS ORDERED: LIDOCAINE 2% INJ 20 MG/ML (2 ML VIAL) ONE (12:55)
[2022-05-10] MEDS ORDERED: SODIUM CHLORIDE 0.9% 1,000 ML IV ONE ×2 (12:57)
--- NOTE | 2022-05-10 13:13 | P.PCN ---
Date of Procedure: 05/10/22 Procedure(s) Performed: BRIEF HISTORY: Patient is a 81-year-old, pleasant, white female scheduled for an upper endoscopy as a part of evaluation of intermittent dysphagia to solids for the last 2 years duration.. PROCEDURE PERFORMED: Esophagogastroduodenoscopy. PREOPERATIVE DIAGNOSIS: Intermittent dysphagia to solids. IV sedation per anesthesia. PROCEDURE: After informed consent was obtained, the patient was brought into the endoscopy unit. IV sedation was administered by Anesthesia under continuous monitoring. Initially the Olympus GIF-140 video endoscope was inserted into the mouth. Esophagus intubated without any difficulty. It was gradually advanced into the distal esophagus and there was a tight distal esophagus which are identified at 35 cm from the incisors. With gentle pressure I was able to advance the scope into the stomach and duodenum and carefully examined. The bulb and the second part of the duodenum appeared normal. The scope at this time was withdrawn to the stomach, adequately insufflated with air, and upon careful examination, mucosa of the antrum, body, cardia and the fundus appeared normal. The scope was then withdrawn into the esophagus. The GE junction was located at 39 cm from the incisors. There was a distal esophageal stricture identified at 35-20 m from the incisors and there was some oozing noted at the site of dilation with the passage of the scope. There were no erosions or ulcerations noted. The rest of the esophagus appeared normal. The proximal cervical esophagus was carefully examined there was a 1 mm Zenker's diverticulum noted and the patient tolerated the procedure well. IMPRESSION: 1. 1 cm Zenker's diverticulum in the proximal cervical esophagus. 2. Tight distal esophageal stricture that was dilated with passage of scope. RECOMMENDATIONS: The findings of this examination were discussed with the patient as well as a family. She'll be on clear liquids for lunch today and advance diet as tolerated for dinner. She was advised to follow up in office in 2-3 weeks following discharge from the hospital..
[2022-05-10] MEDS: SODIUM CHLORIDE 0.9% 1,000 ML IV SCH (15:27)
[2022-05-10 17:14] LABS: Glucose,Whole Blood 155 mg/dL (70-110)
--- NOTE | 2022-05-10 17:26 | P.PN ---
Subjective Progress Note Date: 05/09/22 Principal diagnosis: Left breast abscess Patient is a 81-year-old female with a positive past medical history difficult for diabetes mellitus and hypertension with recent diagnosis of left- sided stage Ia invasive ductal carcinoma status postlumpectomy on 04/19/2022, on her first postoperative visit patient did have aspiration of about 300 cc of turbid fluid culture, subsequently grew Clostridium perfringens (the patient was not able to tolerate her oral Flagyl patient did have a IR placement of drainage catheter to the left breast abscess on 05/06/2022 on today's evaluation that is 05/09/2022, the patient remains to be afebrile, the patient pain and discomfort in the left breast has decreased in intensity ,the patient denies having any chest pain or shortness of breath or cough no nausea no vomiting and no diarrhea Objective - Vital Signs Vital signs: Vital Signs Temp 98.1 F 05/09/22 07:07 Pulse 58 L 05/09/22 07:07 Resp 18 05/09/22 07:07 BP 144/64 05/09/22 07:07 Pulse Ox 97 05/09/22 07:07 FiO2 Intake & Output 05/08/22 05/09/22 05/09/22 18:59 06:59 18:59 Intake Total 1000 Output Total 20 20 Balance 980 -20 Intake: Intake, IV Titration 1000 Amount Clindamycin 900 mg In 50 Dextrose 5% in Water 50 ml @ 50 mls/hr IVPB Q8HR [facility] Rx#:[id number] Sodium Chloride 0.9% 1, 900 000 ml @ 75 mls/hr IV . [id number] [facility] Rx#:[id number] cefTRIAXone 2 gm In 50 Sodium Chloride 0.9% 50 ml @ 100 mls/hr IVPB Q24HR [facility] Rx#:[id number] Output: Drainage 20 20 Left Breast 20 20 Other: Voiding Method Toilet Toilet # Voids 1 1 # Bowel Movements 1 0 1 - Exam GENERAL DESCRIPTION: An elderly female lying in bed in no distress RESPIRATORY SYSTEM: Unlabored breathing , decreased breath sounds at bases HEART: S1 S2 regular rate and rhythm , ABDOMEN: Soft , no tenderness EXTREMITIES: No edema feet - Labs CBC & Chem 7: 05/07/22 07:45 05/10/22 06:44 Labs: Abnormal Lab Results - Last 24 Hours (Table) 05/08/22 05/08/22 05/08/22 Range/Units 11:30 17:33 20:15 POC Glucose (mg/dL) 195 H 121 H 172 H (70-110) mg/dL Microbiology - Last 24 Hours (Table) 05/06/22 12:30 Gram Stain - Preliminary Aspirate Body Fluid Culture - Preliminary Assessment and Plan (1) Left breast abscess Current Visit: Yes Status: Acute Code(s): N61.1 - ABSCESS OF THE BREAST AND NIPPLE SNOMED Code(s): 86496040 Plan: 1patient was in the hospital with left breast abscess in this patient who is status post left breast lumpectomy for stage Ia invasive ductal carcinoma initial cultures are positive for Clostridium perfringens and apparently the patient was not able to tolerate her oral antibiotic in the form of Flagyl in the outpatient setting. 2patient with a penicillin allergy that would limit the number of antibiotics safe to use. 3patient seemed to showing clinical improvement and will continue with Rocephin and clindamycin to continue while waiting for repeat cultures to be finalized and monitor clinical course closely Time with Patient: Less than 30
--- NOTE | 2022-05-10 17:28 | P.PN ---
Subjective Progress Note Date: 05/10/22 Principal diagnosis: Left breast abscess Patient is a 81-year-old female with a positive past medical history difficult for diabetes mellitus and hypertension with recent diagnosis of left- sided stage Ia invasive ductal carcinoma status postlumpectomy on 04/19/2022, on her first postoperative visit patient did have aspiration of about 300 cc of turbid fluid culture, subsequently grew Clostridium perfringens (the patient was not able to tolerate her oral Flagyl patient did have a IR placement of drainage catheter to the left breast abscess on 05/06/2022 , patient is status post EGD with dilatation of esophageal stricture on today's evaluation that is 05/10/2022, the patient denies any fever or any chills, the patient denies pain to the left breast or any worsening drainage ,the patient denies having any chest pain or shortness of breath or cough no nausea no vomiting and no diarrhea Objective - Vital Signs Vital signs: Vital Signs Temp 97.5 F L 05/10/22 13:35 Pulse 57 L 05/10/22 13:35 Resp 14 05/10/22 13:35 BP 150/73 05/10/22 13:35 Pulse Ox 99 05/10/22 13:35 FiO2 Intake & Output 05/09/22 05/10/22 05/10/22 18:59 06:59 18:59 Intake Total 850 100 Output Total 15 Balance 850 -15 100 Intake: IV 100 Intake, IV Titration 850 Amount Clindamycin 900 mg In 50 Dextrose 5% in Water 50 ml @ 50 mls/hr IVPB Q8HR [facility] Rx#:[id number] Sodium Chloride 0.9% 1, 750 000 ml @ 75 mls/hr IV . [id number] [facility] Rx#:[id number] cefTRIAXone 2 gm In 50 Sodium Chloride 0.9% 50 ml @ 100 mls/hr IVPB Q24HR [facility] Rx#:[id number] Output: Drainage 15 Left Breast 15 Other: Voiding Method Toilet Toilet Toilet # Voids 1 1 # Bowel Movements 1 1 - Exam GENERAL DESCRIPTION: An elderly female lying in bed in no distress RESPIRATORY SYSTEM: Unlabored breathing , decreased breath sounds at bases HEART: S1 S2 regular rate and rhythm , ABDOMEN: Soft , no tenderness EXTREMITIES: No edema feet - Labs CBC & Chem 7: 05/07/22 07:45 05/10/22 06:44 Labs: Abnormal Lab Results - Last 24 Hours (Table) 05/09/22 05/09/22 05/10/22 Range/Units 17:26 20:10 06:44 BUN 27.4 H (9.0-27.0) mg/dL Creatinine 1.7 H (0.6-1.5) mg/dL Est GFR (CKD-EPI)AfAm 31.8 L (60.0-200.0) Est GFR (CKD-EPI)NonAf 27.4 L (60.0-200.0) POC Glucose (mg/dL) 131 H 175 H (70-110) mg/dL 05/10/22 Range/Units 12:06 BUN (9.0-27.0) mg/dL Creatinine (0.6-1.5) mg/dL Est GFR (CKD-EPI)AfAm (60.0-200.0) Est GFR (CKD-EPI)NonAf (60.0-200.0) POC Glucose (mg/dL) 129 H (70-110) mg/dL Microbiology - Last 24 Hours (Table) 05/06/22 12:30 Anaerobic Culture - Preliminary Breast Fluid - Left Anaerobic Gm Positive Bacill 05/06/22 12:30 Gram Stain - Preliminary Aspirate Body Fluid Culture - Preliminary Assessment and Plan (1) Left breast abscess Current Visit: Yes Status: Acute Code(s): N61.1 - ABSCESS OF THE BREAST AND NIPPLE SNOMED Code(s): 17739794 Plan: 1patient was in the hospital with left breast abscess in this patient who is status post left breast lumpectomy for stage Ia invasive ductal carcinoma initial cultures are positive for Clostridium perfringens and apparently the patient was not able to tolerate her oral antibiotic in the form of Flagyl in the outpatient setting. 2patient with a penicillin allergy that would limit the number of antibiotics safe to use. 3patient has shown clinical improvement and will continue with Rocephin and clindamycin , repeat cultures also showing anaerobic gram-positive bacilli with ID sensitivities pending and monitor clinical course closely Time with Patient: Less than 30
[2022-05-10 20:19] LABS: Glucose,Whole Blood 195 mg/dL (70-110)
[2022-05-11] MEDS: CLINDAMYCIN 900 MG in DEXTROSE 5% IN WATER 50 ML IVPB SCH ×4 (00:21→08:04)
[2022-05-11] MEDS: SODIUM CHLORIDE 0.9% 1,000 ML IV SCH (00:21)
[2022-05-11 07:29] LABS: Glucose,Whole Blood 104 mg/dL (70-110)
[2022-05-11] MEDS: INSULIN ASPART (NovoLOG) 100 UNIT/ML VIAL SQ SCH ×2 (07:51→13:17)
[2022-05-11] MEDS: amLODIPine 5 MG TAB PO SCH (08:04)
[2022-05-11] MEDS: ASPIRIN 81 MG PO SCH (08:04)
[2022-05-11] MEDS: PANTOPRAZOLE 40 MG/10 ML VIAL IVP SCH (08:04)
[2022-05-11] MEDS: NON FORMULARY DRUG (Rosuvastatin 20 MG Tablet) PO SCH (08:05)
[2022-05-11] MEDS: VIT A,C & E-LUTEIN-MINERALS 1 EACH TAB PO SCH (08:05)
--- NOTE | 2022-05-11 12:15 | P.PN ---
Subjective Progress Note Date: 05/11/22 Principal diagnosis: Left breast abscess The patient has been receiving IV antibiotic therapy for left breast abscess and underwent interventional radiology drainage. The drainage now from the drain is approximately 5 mL in the last shift. It was more clear and serous in nature. The patient is doing well and ready for discharge from a surgical standpoint. The patient did have an EGD performed yesterday which revealed a Zenker's diverticulum and esophageal stricture which was dilated. She will follow with GI for this. Objective - Vital Signs Vital signs: Vital Signs Temp 98.0 F 05/11/22 07:47 Pulse 59 L 05/11/22 07:47 Resp 16 05/11/22 07:47 BP 118/67 05/11/22 07:47 Pulse Ox 96 05/11/22 07:47 FiO2 Intake & Output 05/10/22 05/11/22 05/11/22 18:59 06:59 18:59 Intake Total 100 1540 Output Total 5 Balance 95 1540 Intake: IV 100 Intake, IV Titration 950 Amount Clindamycin 900 mg In 50 Dextrose 5% in Water 50 ml @ 50 mls/hr IVPB Q8HR [facility] Rx#:[id number] Sodium Chloride 0.9% 1, 900 000 ml @ 75 mls/hr IV . [id number] [facility] Rx#:[id number] Oral 590 Output: Drainage 5 Left Breast 5 Other: Voiding Method Toilet Toilet Toilet # Voids 3 3 1 # Bowel Movements 1 1 - Constitutional General appearance: Present: cooperative - EENT Eyes: Present: EOMI - Neck Neck: Present: normal ROM - Respiratory Respiratory: bilateral: CTA - Cardiovascular Heart sounds: normal: S1, S2 - Integumentary Integumentary Comment(s): Left breast no evidence of erythema and no tenderness drain in place with minimal output - Psychiatric Psychiatric: Present: A&O x's 3 - Labs CBC & Chem 7: 05/07/22 07:45 05/10/22 06:44 Labs: Abnormal Lab Results - Last 24 Hours (Table) 05/10/22 05/10/22 Range/Units 17:10 20:18 POC Glucose (mg/dL) 155 H 195 H (70-110) mg/dL Microbiology - Last 24 Hours (Table) 05/06/22 12:30 Anaerobic Culture - Final Breast Fluid - Left Clostridium perfringens 03/31/23 12:30 Gram Stain - Final Aspirate Body Fluid Culture - Final Assessment and Plan Assessment: Impression/plan HTN diabetes 20 years arthritis 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 Berg next week CC: Dr. Willi Keita
[2022-05-11 12:35] LABS: Glucose,Whole Blood 177 mg/dL (70-110)
--- NOTE | 2022-05-11 13:05 | P.DS ---
Providers Date of admission: 05/09/22 08:21 Expected date of discharge: 05/11/22 Attending physician: Adrianna Bueno DO Consults: 05/06/22 13:55 Consult Physician Routine Consulting Provider: Rachael Sarmiento Consult Reason/Comments: post-op infection Do you want consulting provider notified?: Yes Consult Physician Routine Consulting Provider: Julio Benson Consult Reason/Comments: post-op breast infection Do you want consulting provider notified?: Yes 05/08/22 08:37 Consult Physician Routine Consulting Provider: Macy Juarez Consult Reason/Comments: frequent regurgitation, ? esophageal lesion Do you want consulting provider notified?: Yes, Notify in am Primary care physician: Rachael Sarmiento Hospital Course: Discharge Diagnosis: Clostridium perfringens, Post operative left breast abscess, failed outpatient treatment Acute kidney injury on chronic kidney disease stage III, likely related to poor oral intake and Bactrim use Dysphagia with frequent regurgitation, concerns for esophageal etiology DM , on orals -A1c 7.1 HTN HLD Hospital Course: Patient is an 81-year-old female with a history of left sided stage IA invasive ductal carcinoma status post lumpectomy on 04/19/[address] Sarmiento, diabetes, and hypertension who presented as a direct admission at the direction of Dr. Otis Mcgarry. She has been followed in the breast Center post surgical and was found to have a possible abscess, cultures were obtained in the clinic which grew out Clostridium perfringens and the patient was started on Flagyl , she was on Bactrim prior. She had an outpatient drainage of 60 mL of purulent fluid, and one on the 04/28. On the morning of 05/06 she underwent ultrasound-guided drainage of left breast abscess with drainage of 200cc of pus and catheter insertion. During this presentation, patient was found to have acute kidney injury. Renal/bladder ultrasound-right renal cortical thinning and atrophy, mild left renal cortical atrophy, no evidence of renal obstruction. Diuretics and KASSI inhibitor were discontinued. Antidiabetic medication was also discontinue since her A1c was 7.1. ID was consulted for breast abscess, patient was started on Rocephin and clindamycin. Repeat cultures showed Clostridium perfringens. Patient to be discharged on course of oral clindamycin. She is also having significant dysphagia for the last 1 month. Barium swallow showed moderate-sized Zenker diverticulum, and moderate esophageal dysmotility. GI was consulted. EGD showed 1 cm Zenker's diverticulum in the proximal cervical esophagus, tight distal esophageal stricture which was dilated. Patient will also follow-up with GI as an outpatient. Patient seen and examined at bedside. Vital signs reviewed and stable. General: nontoxic, no distress, appears at stated age Breast: Not examined, drain in place, yellow clear drainage noted Cardiovascular: S1S2 reg, no murmur, positive posterior tibial pulse bilateral, Lungs: CTA bilateral, no rhonchi, no rales , no accessory muscle use Abdominal: soft, nontender to palpation, no guarding, no appreciable organomegaly Ext: no gross muscle atrophy, no edema, no contractures Neuro: CN II-XI grossly intact, no focal neuro deficits Psych: Alert, oriented, appropriate affect A total of 37 minutes of time were spent preparing this complex discharge summary. Patient was discharged on 05/11/22 at 12:44. Plan - Discharge Summary Discharge Rx Participant: Yes New Discharge Prescriptions: New L.acidoph,Paracasei, B.lactis [Probiotic] 1 each PO DAILY #30 capsule Pantoprazole [Protonix] 40 mg PO DAILY #60 tab clindamycin HCL 300 mg PO Q6H #40 capsule Continue amLODIPine [Norvasc] 5 mg PO DAILY Vit C/E/Zn/Coppr/Lutein/Zeaxan [Preservision Areds 2 Chew Tab] 2 cap PO DAILY Aspirin [Children's Aspirin] 81 mg PO DAILY Ergocalciferol [Vitamin D2 (1250 Mcg = 11487 Iu)] 1,250 mcg PO Q7D HYDROcodone/APAP 5-325MG [[place] 5-325] 1 - 2 tab PO Q4H PRN PRN Reason: Pain Rosuvastatin [Crestor] 20 mg PO DAILY Discontinued Losartan Potassium 100 mg PO DAILY Chlorthalidone 25 mg PO DAILY Glimepiride [Amaryl] 2 mg PO HS@1700 metroNIDAZOLE [Flagyl] 500 mg PO TID #20 tab Discharge Medication List amLODIPine [Norvasc] 5 mg PO DAILY 09/17/18 [History] Aspirin [Children's Aspirin] 81 mg PO DAILY 02/11/22 [History] Rosuvastatin [Crestor] 20 mg PO DAILY 02/11/22 [History] Vit C/E/Zn/Coppr/Lutein/Zeaxan [Preservision Areds 2 Chew Tab] 2 cap PO DAILY 02/11/22 [History] Ergocalciferol [Vitamin D2 (1250 Mcg = 62941 Iu)] 1,250 mcg PO Q7D 05/06/22 [History] HYDROcodone/APAP 5-325MG [[place] 5-325] 1 - 2 tab PO Q4H PRN 05/06/22 [History] L.acidoph,Paracasei, B.lactis [Probiotic] 1 each PO DAILY #30 capsule 05/11/22 [Rx] Pantoprazole [Protonix] 40 mg PO DAILY #60 tab 05/11/22 [Rx] clindamycin HCL 300 mg PO Q6H #40 capsule 05/11/22 [Rx] Follow up Appointment(s)/Referral(s): Macy Juarez MD [STAFF PHYSICIAN] - 4 Weeks [facility], [NON-STAFF] - 1-2 Days ([facility] will call to set up apointment, Any questions please call agency. ) Patient Instructions/Handouts: Clindamycin (By mouth), Acute Kidney Injury (DC), Dysphagia (GEN), Abscess Incision and Drainage (DC) Activity/Diet/Wound Care/Special Instructions: Please see your breast surgeon and PCP as soon as possible. You may need repeat kidney function testing as well. Discharge Disposition: HOME SELF-CARE
--- NOTE | 2022-05-11 13:30 | P.PN ---
Subjective Progress Note Date: 05/11/22 Principal diagnosis: Dysphagia This is a pleasant 81-year-old female who presented to the emergency department with concerns of left breast infection. Patient underwent lumpectomy on 04/19/[address] Yadira richards for left stage IA invasive ductal carcinoma. Ultrasound of left breast showed abscess, she had successful ultrasound-guided drainage catheter insertion of left breast. Currently on IV antibiotics. Apparently during this hospitalization she reported to the primary medical team that she's had some difficulty with swallowing and gastroenterology was consulted. The patient states she's had difficulty with swallowing solid foods for the last 6-7 months. She denies any associated weight loss. No previous EGD. She's had previous colonoscopy unsure when however states that she was told she didn't need any further. States mostly solid foods like meat or breads gets stuck in the back of her throat at times. Sometimes she is able to sip water and get it down, and other times she starts choking and brings it back up. She states that this does not occur every day it is intermittent on what she is eating. Primary medicine team ordered barium swallow with results currently pending. Speech therapy consulted, consult currently pending. Or 523: Patient seen and examined today as a follow-up. Yesterday she underwent EGD with findings of a 1 cm Zenker's diverticulum in the proximal cervical esophagus and tight distal esophageal stricture that was dilated with passage of scope. Patient states her swallowing is improved today. She's been tolerating clear liquid diet. We'll advance. Denies any abdominal pain, nausea or vomiting. Objective - Vital Signs Vital signs: Vital Signs Temp 98.7 F 05/11/22 02:00 Pulse 59 L 05/11/22 02:00 Resp 16 05/11/22 02:00 BP 136/68 05/11/22 02:00 Pulse Ox 95 05/11/22 02:00 FiO2 Intake & Output 05/10/22 05/11/22 05/11/22 18:59 06:59 18:59 Intake Total 100 1540 Output Total 5 Balance 95 1540 Intake: IV 100 Intake, IV Titration 950 Amount Clindamycin 900 mg In 50 Dextrose 5% in Water 50 ml @ 50 mls/hr IVPB Q8HR [facility] Rx#:[id number] Sodium Chloride 0.9% 1, 900 000 ml @ 75 mls/hr IV . [id number] [facility] Rx#:[id number] Oral 590 Output: Drainage 5 Left Breast 5 Other: Voiding Method Toilet Toilet # Voids 3 3 # Bowel Movements 1 - Exam General appearance: The patient is alert, oriented, appears in no acute distress. HET: Head is normocephalic and atraumatic. Conjunctiva pink. Sclera anicteric. Neck: Supple without lymphadenopathy. Abdomen: Soft, nontender, nondistended with bowel sounds. No guarding or rigidity. Extremities: Normal skin color and turgor. No pedal edema Skin: No rashes, no jaundice Neurological: No focal deficits. Alert and oriented. - Labs CBC & Chem 7: 05/07/22 07:45 05/10/22 06:44 Labs: Abnormal Lab Results - Last 24 Hours (Table) 05/10/22 05/10/22 05/10/22 Range/Units 06:44 12:06 17:10 BUN 27.4 H (9.0-27.0) mg/dL Creatinine 1.7 H (0.6-1.5) mg/dL Est GFR (CKD-EPI)AfAm 31.8 L (60.0-200.0) Est GFR (CKD-EPI)NonAf 27.4 L (60.0-200.0) POC Glucose (mg/dL) 129 H 155 H (70-110) mg/dL 05/10/22 Range/Units 20:18 BUN (9.0-27.0) mg/dL Creatinine (0.6-1.5) mg/dL Est GFR (CKD-EPI)AfAm (60.0-200.0) Est GFR (CKD-EPI)NonAf (60.0-200.0) POC Glucose (mg/dL) 195 H (70-110) mg/dL Microbiology - Last 24 Hours (Table) 05/06/22 12:30 Anaerobic Culture - Final Breast Fluid - Left Clostridium perfringens 05/06/22 12:30 Gram Stain - Final Aspirate Body Fluid Culture - Final Assessment and Plan (1) Dysphagia Narrative/Plan: 81-year-old female presented to the emergency department sent in by her breast surgeon for failed outpatient treatment for left breast infection following lumpectomy done on 04/19/2022 for a left stage IA invasive ductal carcinoma. Patient was admitted for IV antibiotics and drainage catheter placement, during this hospitalization she has been complaining of some difficulty with swallowing. Barium swallow ordered with results currently pending. Will await results for further recommendations. Continue with Protonix 40 mg daily. Patient status post EGD with findings of Zenker's diverticulum and esophageal strictures status post dilation Current Visit: Yes Status: Acute Code(s): R13.10 - DYSPHAGIA, UNSPECIFIED SNOMED Code(s): 13299609 (2) Left breast abscess Current Visit: Yes Status: Acute Code(s): N61.1 - ABSCESS OF THE BREAST AND NIPPLE SNOMED Code(s): 91343746 (3) Infection of breast following lumpectomy Current Visit: No Status: Acute Code(s): T81.49XA - INFECTION FOLLOWING A PROCEDURE, OTHER SURGICAL SITE, INIT SNOMED Code(s): 299685527 (4) Zenkers diverticulum Current Visit: Yes Status: Acute Code(s): K22.5 - DIVERTICULUM OF ESOPHAGUS, ACQUIRED SNOMED Code(s): 623152765 (5) Status post dilatation of esophageal stricture Current Visit: Yes Status: Acute Code(s): Z98.890 - OTHER SPECIFIED POSTPROCEDURAL STATES; Z87.19 - PERSONAL HISTORY OF OTHER DISEASES OF THE DIGESTIVE SYSTEM SNOMED Code(s): 338370308 Plan: 1. Continue symptomatic supportive care 2. Continue medical management 3. Advance to regular diet 4. Discussed with patient findings of EGD including Zenker's diverticulum and esophageal stricture status post dilation. No further intervention indicated at this time. Patient to follow-up in outpatient setting in 4 weeks Thank you for this consultation, patient is cleared for discharge from gastroenterology. We will sign off at this time. Dr. Satnam Juarez I agree with the dictator's note, documented as a scribe by Merry Giles.
--- NOTE | 2022-05-11 14:12 | P.PN ---
Subjective Progress Note Date: 05/11/22 Principal diagnosis: Left breast abscess Patient is a 81-year-old female with a positive past medical history difficult for diabetes mellitus and hypertension with recent diagnosis of left- sided stage Ia invasive ductal carcinoma status postlumpectomy on 04/19/2022, on her first postoperative visit patient did have aspiration of about 300 cc of turbid fluid culture, subsequently grew Clostridium perfringens (the patient was not able to tolerate her oral Flagyl patient did have a IR placement of drainage catheter to the left breast abscess on 05/06/2022 , patient is status post EGD with dilatation of esophageal stricture on today's evaluation that is 05/11/2022, the patient remains to be afebrile, the patient denies pain to the left breast and significant decrease in the drainage ,the patient denies having any chest pain or shortness of breath or cough no nausea no vomiting and no diarrhea with her antibiotic therapy Objective - Vital Signs Vital signs: Vital Signs Temp 98.0 F 05/11/22 07:47 Pulse 59 L 05/11/22 07:47 Resp 16 05/11/22 07:47 BP 118/67 05/11/22 07:47 Pulse Ox 96 05/11/22 07:47 FiO2 Intake & Output 05/10/22 05/11/22 05/11/22 18:59 06:59 18:59 Intake Total 100 1540 Output Total 5 Balance 95 1540 Intake: IV 100 Intake, IV Titration 950 Amount Clindamycin 900 mg In 50 Dextrose 5% in Water 50 ml @ 50 mls/hr IVPB Q8HR [facility] Rx#:[id number] Sodium Chloride 0.9% 1, 900 000 ml @ 75 mls/hr IV . [id number] [facility] Rx#:[id number] Oral 590 Output: Drainage 5 Left Breast 5 Other: Voiding Method Toilet Toilet Toilet # Voids 3 3 1 # Bowel Movements 1 1 - Exam GENERAL DESCRIPTION: An elderly female lying in bed in no distress RESPIRATORY SYSTEM: Unlabored breathing , decreased breath sounds at bases HEART: S1 S2 regular rate and rhythm , ABDOMEN: Soft , no tenderness Left breast drainage catheter with minimal purulent secretion - Labs CBC & Chem 7: 05/07/22 07:45 05/10/22 06:44 Labs: Abnormal Lab Results - Last 24 Hours (Table) 05/10/22 05/10/22 Range/Units 17:10 20:18 POC Glucose (mg/dL) 155 H 195 H (70-110) mg/dL Microbiology - Last 24 Hours (Table) 05/06/22 12:30 Anaerobic Culture - Final Breast Fluid - Left Clostridium perfringens 05/06/22 12:30 Gram Stain - Final Aspirate Body Fluid Culture - Final Assessment and Plan (1) Left breast abscess Current Visit: Yes Status: Acute Code(s): N61.1 - ABSCESS OF THE BREAST AND NIPPLE SNOMED Code(s): 96473021 Plan: 1patient was in the hospital with left breast abscess in this patient who is status post left breast lumpectomy for stage Ia invasive ductal carcinoma initial cultures are positive for Clostridium perfringens and apparently the patient was not able to tolerate her oral antibiotic in the form of Flagyl in the outpatient setting. 2patient with a penicillin allergy that would limit the number of antibiotics safe to use. 3patient has shown clinical improvement with it. Culture showing Clostridium perfringens as well in view of the clinical response to clindamycin recommending a 7-10 day course of oral clindamycin 300 mg 3 times a day, patient had been advised to increase her probiotic and yogurt intake and close outpatient follow- up, discussed with admitting team working on discharge Time with Patient: Less than 30
[2022-05-11 14:21] VITALS: BP 133/73; PULSE 99; RESP 17; TEMP 98.1
== END 2022-05-11 17:29 | disposition home or self-care (01) ==
LOC: 5NMEDONC 11:33 → INTOOBSV 05-09 08:21 → OBSVTOIN 05-09 08:21 → UNDODISIN 05-11 17:29
PROVIDERS: ADMIT Internal Medicine; ATTEND Internal Medicine
DX: M96.843 Postprocedural seroma of a musculoskeletal structure following other procedure (principal); N61.1 Abscess of the breast and nipple; K22.2 Esophageal obstruction; K22.5 Diverticulum of esophagus, acquired; I12.9 Hypertensive chronic kidney disease with stage 1 through stage 4 chronic kidney disease, or unspecified chronic kidney disease; B96.7 Clostridium perfringens [C. perfringens] as the cause of diseases classified elsewhere; E78.5 Hyperlipidemia, unspecified; E11.22 Type 2 diabetes mellitus with diabetic chronic kidney disease; N17.9 Acute kidney failure, unspecified; H91.8X2 Other specified hearing loss, left ear; K21.9 Gastro-esophageal reflux disease without esophagitis; N18.30 Chronic kidney disease, stage 3 unspecified; K44.9 Diaphragmatic hernia without obstruction or gangrene; Z79.84 Long term (current) use of oral hypoglycemic drugs; Z85.3 Personal history of malignant neoplasm of breast; Z90.49 Acquired absence of other specified parts of digestive tract; Z96.643 Presence of artificial hip joint, bilateral; Z98.49 Cataract extraction status, unspecified eye; Z80.52 Family history of malignant neoplasm of bladder; Z82.49 Family history of ischemic heart disease and other diseases of the circulatory system; Z82.61 Family history of arthritis; Z79.82 Long term (current) use of aspirin; Z79.899 Other long term (current) drug therapy; Z88.0 Allergy status to penicillin; Z80.43 Family history of malignant neoplasm of testis; Y83.8 Other surgical procedures as the cause of abnormal reaction of the patient, or of later complication, without mention of misadventure at the time of the procedure
CPT/HCPCS: 96376 ×3; 96361 ×5; 96365 ×2; 96366 ×5; 96367; 96375 ×2; 97530 ×2; 97162; 97166; 92610; 80053; 80048 ×3; 83735; 84100; 85027 ×2; 85610; 87070; 87205; 87075; 83036; 74220; 76942; 76770; 43235; 19020; G0379; G0378 ×6; J2405; J0696 ×5; J2704; C9113 ×4; J2001

== ENCOUNTER → 2022-05-06 | Outpatient (CLI) | payer MEDICARE ==
[2022-05-06 10:59] VITALS: BP 104/69; PULSE 62; RESP 18; TEMP 98.4
--- NOTE | 2022-05-06 11:00 | P.PN ---
Subjective Progress Note Date: 05/06/22 Principal diagnosis: Infection lumpectomy site left breast Deanna is an 81 year old white female seen in consultation for Dr. Keita regarding a biopsy proven left breast cancer. She had a bilateral mammogram on 01-13-22 which revealed a lesion in the left breast. This was followed by an ultrasound of the left breast. A biopsy revealed an invasive ductal carcinoma. She underwent a left breast lumpectomy and sentinel node biopsy on . Her final pathology revealed a 1.5 cm invasive ductal carcinoma margins negative, and one lymph node removed which was negative. Post operatively she developed some tenderness at the lumpectomy site and underwent On his first postoperative visit aspiration of 307 mL of turbid fluid. Cultures were obtained and the patient was started on Bactrim. The cultures grew Clostridium perfringens. The patient complained of some upset stomach and several episodes of diarrhea. She is not having diarrhea at this time. She was seen yesterday in 60 mL of turbid fluid were aspirated and the patient's antibiotic was changed to Flagyl. The patient at this time has not complained of any fever or chills. She is feeling well. However I have discussed her case with infectious disease and with the patient and her family and secondary to the bacteria type it was felt that admission with IV antibiotics would be merited. Additionally she is going to have an ultrasound of the breast performed with aspiration of any residual fluid and leaving a drain in place. At this time we are not planning on operative I&D unless it becomes necessary. Caffiene: occasional nicotine: none chocolate: occasional BCP: none Family History: mother: bladder cancer maternal uncle: cancer ? type brother: testicular Hormonal History: menarche: 12 M1, breast fed: no, age at first live : 23 menopause: ? 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 Social History: nicotine: none alcohol: none drugs; none - Constitutional Constitutional: Denies chills, Denies fever - EENT Eyes: denies blurred vision, denies pain Ears: left: decreased hearing Ears, nose, mouth and throat: Denies headache, Denies sore throat - Breasts Breasts: bilateral: as per HPI - Cardiovascular Cardiovascular: Denies chest pain, Denies shortness of breath - Respiratory Respiratory: Denies cough - Gastrointestinal Gastrointestinal: Denies abdominal pain, Denies diarrhea, Denies nausea, Denies vomiting - Genitourinary (Female) Genitourinary: Denies dysuria, Denies hematuria - Menstruation Menstruation: Reports postmenopausal - Musculoskeletal Musculoskeletal: Denies myalgias - Integumentary Integumentary: Denies pruritus, Denies rash - Neurological Neurological: Denies numbness, Denies weakness - Psychiatric Psychiatric: Denies anxiety, Denies depression - Endocrine Endocrine: Denies fatigue, Denies weight change - Hematologic/Lymphatic Comment: baby aspirin; follows with a patient companion - Allergic/Immunologic Allergic/Immunologic: Reports as per HPI Past Medical History Past Medical History: Diabetes Mellitus, Hyperlipidemia, Hypertension Additional Past Medical History / Comment(s): arthritis History of Any Multi-Drug Resistant Organisms: None Reported Past Surgical History: Back Surgery, Cholecystectomy, Orthopedic Surgery Additional Past Surgical History / Comment(s): rancho hip replacement, cataract Past Anesthesia/Blood Transfusion Reactions: No Reported Reaction Past Psychological History: No Psychological Hx Reported Smoking Status: Never smoker Past Alcohol Use History: None Reported Past Drug Use History: None Reported - Past Family History Mother Family Medical History: Cancer Additional Family Medical History / Comment(s): bladder cancer Father Family Medical History: Myocardial Infarction ([place]) Brother(s) Family Medical History: Rheumatoid Arthritis (RA) Daughter(s) Family Medical History: No Reported History Son(s) Family Medical History: No Reported History Medications and Allergies Home Medications Medication Instructions Recorded Confirmed Type amLODIPine [Norvasc] 5 mg PO DAILY 09/17/18 02/11/22 History Aspirin [Children's Aspirin] 81 mg PO DAILY 02/11/22 02/11/22 History Chlorthalidone 25 mg PO DAILY 02/11/22 02/11/22 History Cholecalciferol (Vitamin D3) 125 mcg PO DAILY 02/11/22 02/11/22 History [Vitamin D3 (125 MCG = 5,000 IU)] Glimepiride [Amaryl] 2 mg PO DAILY 02/11/22 02/11/22 History Losartan Potassium 100 mg PO DAILY 02/11/22 02/11/22 History Rosuvastatin [Crestor] 20 mg PO DAILY 02/11/22 02/11/22 History Vit C/E/Zn/Coppr/Lutein/Zeaxan 2 cap PO DAILY 02/11/22 02/11/22 History [Preservision Areds 2 Chew Tab] Allergies Allergy/AdvReac Type Severity Reaction Status Date / Time Penicillins Allergy Rash/Hives Verified 02/11/22 14:12 simvastatin [From Zocor] Allergy Anaphylaxis Verified 02/11/22 14:12 Objective - Constitutional General appearance: Present: cooperative - EENT Eyes: Present: EOMI - Neck Neck: Present: normal ROM - Respiratory Respiratory: bilateral: CTA - Cardiovascular Rhythm: regular Heart sounds: normal: S1, S2 - Gastrointestinal General gastrointestinal: Present: soft - Integumentary Integumentary Comment(s): Left breast above the incision site mild erythema incisions are clean and dry Integumentary: Present: normal turgor - Musculoskeletal Musculoskeletal Comment(s): uses a wheel chair and walker - Psychiatric Psychiatric: Present: A&O x's 3, appropriate affect, intact judgment & insight - Additional findings Additional findings: Breast examination: BRA: 38D Inspection: Well-healed scars left breast from recent surgery, mild erythema above the breast scar on the left improving Palpation: Right breast no dominant masses or edges of concern on examination prior to breast surgery 04-19-22 Right axilla: No adenopathy of -91-55 Left breast: Left breast fullness believed to be seroma persistent at the lumpectomy site, mild erythema above the breast scar on the left which is improving No other dominant masses or nodules of concern Left axilla: No adenopathy of concern Assessment and Plan Assessment: Impression: HTN diabetes 20 years arthritis 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 Willi Keita
== END ==
LOC: WWCWWP 10:29
PROVIDERS: ATTEND Surgery
DX: C50.912 Malignant neoplasm of unspecified site of left female breast (principal); C50.412 Malignant neoplasm of upper-outer quadrant of left female breast; E11.36 Type 2 diabetes mellitus with diabetic cataract; E78.5 Hyperlipidemia, unspecified; I10 Essential (primary) hypertension; M19.90 Unspecified osteoarthritis, unspecified site; N64.89 Other specified disorders of breast; Z46.82 Encounter for fitting and adjustment of non-vascular catheter; Z79.84 Long term (current) use of oral hypoglycemic drugs; Z82.49 Family history of ischemic heart disease and other diseases of the circulatory system; Z88.0 Allergy status to penicillin; Z90.49 Acquired absence of other specified parts of digestive tract; Z96.643 Presence of artificial hip joint, bilateral; Z80.52 Family history of malignant neoplasm of bladder; Z80.43 Family history of malignant neoplasm of testis; Z80.3 Family history of malignant neoplasm of breast; Z88.8 Allergy status to other drugs, medicaments and biological substances

== ENCOUNTER → 2022-05-19 | Outpatient (CLI) | payer MEDICARE ==
[2022-05-19 12:29] VITALS: BP 148/73; PULSE 58; RESP 17; TEMP 98.7
--- NOTE | 2022-05-19 12:49 | P.PN ---
Subjective Progress Note Date: 05/19/22 Infection lumpectomy site left breast Deanna is an 81 year old white female seen in consultation for Dr. Keita regarding a biopsy proven left breast cancer. She had a bilateral mammogram on 01-13-22 which revealed a lesion in the left breast. This was followed by an ultrasound of the left breast. A biopsy revealed an invasive ductal carcinoma. She underwent a left breast lumpectomy and sentinel node biopsy on . Her final pathology revealed a 1.5 cm invasive ductal carcinoma margins negative, and one lymph node removed which was negative. Post operatively she developed some tenderness at the lumpectomy site. On his first postoperative visit aspiration of 307 mL of turbid fluid. Cultures were obtained and the patient was started on Bactrim. The cultures grew Clostridium perfringens. The patient complained of some upset stomach and several episodes of diarrhea. She is not having diarrhea at this time. She was again post op and 60 mL of turbid fluid were aspirated and the patient's antibiotic was changed to Flagyl. Her case was discussed with infectious disease and secondary to the type of bacteria was felt she would be maynard for her to be admitted for IV antibiotic therapy. Additionally radiology inserted a drain. She was treated on discharge with clindamycin 300 TID. Hospitalization she was complaining of difficulty swallowing and an EGD was done which revealed a Zenker diverticulum and moderate esophageal dysmotility. She also had a tight distal esophageal stricture which was dilated. She is going to follow with GI as an outpatient. Is not complaining of any fever or chills. Her NGUYỄN output has been minimal over the last several days. Caffiene: occasional nicotine: none chocolate: occasional BCP: none Family History: mother: bladder cancer maternal uncle: cancer ? type brother: testicular Hormonal History: menarche: 12 M1, breast fed: no, age at first live : 23 menopause: ? 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 Social History: nicotine: none alcohol: none drugs; none - Constitutional Constitutional: Denies chills, Denies fever - EENT Eyes: denies blurred vision, denies pain Ears: left: decreased hearing Ears, nose, mouth and throat: Denies headache, Denies sore throat - Breasts Breasts: bilateral: as per HPI - Cardiovascular Cardiovascular: Denies chest pain, Denies shortness of breath - Respiratory Respiratory: Denies cough - Gastrointestinal Gastrointestinal: Denies abdominal pain, Denies diarrhea, Denies nausea, Denies vomiting - Genitourinary (Female) Genitourinary: Denies dysuria, Denies hematuria - Menstruation Menstruation: Reports postmenopausal - Musculoskeletal Musculoskeletal: Denies myalgias - Integumentary Integumentary: Denies pruritus, Denies rash - Neurological Neurological: Denies numbness, Denies weakness - Psychiatric Psychiatric: Denies anxiety, Denies depression - Endocrine Endocrine: Denies fatigue, Denies weight change - Hematologic/Lymphatic Comment: baby aspirin; follows with a color sprayer - Allergic/Immunologic Allergic/Immunologic: Reports as per HPI Past Medical History Past Medical History: Diabetes Mellitus, Hyperlipidemia, Hypertension Additional Past Medical History / Comment(s): arthritis History of Any Multi-Drug Resistant Organisms: None Reported Past Surgical History: Back Surgery, Cholecystectomy, Orthopedic Surgery Additional Past Surgical History / Comment(s): rancho hip replacement, cataract Past Anesthesia/Blood Transfusion Reactions: No Reported Reaction Past Psychological History: No Psychological Hx Reported Smoking Status: Never smoker Past Alcohol Use History: None Reported Past Drug Use History: None Reported - Past Family History Mother Family Medical History: Cancer Additional Family Medical History / Comment(s): bladder cancer Father Family Medical History: Myocardial Infarction ([place]) Brother(s) Family Medical History: Rheumatoid Arthritis (RA) Daughter(s) Family Medical History: No Reported History Son(s) Family Medical History: No Reported History Medications and Allergies Home Medications Medication Instructions Recorded Confirmed Type amLODIPine [Norvasc] 5 mg PO DAILY 09/17/18 02/11/22 History Aspirin [Children's Aspirin] 81 mg PO DAILY 02/11/22 02/11/22 History Chlorthalidone 25 mg PO DAILY 02/11/22 02/11/22 History Cholecalciferol (Vitamin D3) 125 mcg PO DAILY 02/11/22 02/11/22 History [Vitamin D3 (125 MCG = 5,000 IU)] Glimepiride [Amaryl] 2 mg PO DAILY 02/11/22 02/11/22 History Losartan Potassium 100 mg PO DAILY 02/11/22 02/11/22 History Rosuvastatin [Crestor] 20 mg PO DAILY 02/11/22 02/11/22 History Vit C/E/Zn/Coppr/Lutein/Zeaxan 2 cap PO DAILY 02/11/22 02/11/22 History [Preservision Areds 2 Chew Tab] Allergies Allergy/AdvReac Type Severity Reaction Status Date / Time Penicillins Allergy Rash/Hives Verified 02/11/22 14:12 simvastatin [From Zocor] Allergy Anaphylaxis Verified 02/11/22 14:12 Objective - Vital Signs Vital signs: Vital Signs Temp 98.7 F 05/19/22 12:25 Pulse 58 L 05/19/22 12:25 Resp 17 05/19/22 12:25 BP 148/73 05/19/22 12:25 Pulse Ox 98 05/19/22 12:25 FiO2 Intake & Output 05/18/22 05/19/22 05/19/22 18:59 06:59 18:59 Weight 93.44 kg - Constitutional General appearance: Present: cooperative - EENT Eyes: Present: EOMI ENT: Present: hearing grossly normal - Neck Neck: Present: normal ROM - Respiratory Respiratory: bilateral: CTA - Cardiovascular Rhythm: regular Heart sounds: normal: S1, S2 - Integumentary Integumentary Comment(s): Incision left breast clean and dry no evidence of infection, drain removed Integumentary: Present: normal turgor - Psychiatric Psychiatric: Present: A&O x's 3, appropriate affect, intact judgment & insight Assessment and Plan Assessment: Impression: HTN diabetes 20 years arthritis 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 Willi Keita
== END ==
LOC: WWCWWP 12:18
PROVIDERS: ATTEND Surgery
DX: Z85.3 Personal history of malignant neoplasm of breast (principal); C50.912 Malignant neoplasm of unspecified site of left female breast; E11.36 Type 2 diabetes mellitus with diabetic cataract; E78.5 Hyperlipidemia, unspecified; H91.92 Unspecified hearing loss, left ear; I10 Essential (primary) hypertension; K22.2 Esophageal obstruction; K22.4 Dyskinesia of esophagus; K22.5 Diverticulum of esophagus, acquired; M19.90 Unspecified osteoarthritis, unspecified site; N64.89 Other specified disorders of breast; Z17.0 Estrogen receptor positive status [ER+]; Z79.84 Long term (current) use of oral hypoglycemic drugs; Z82.49 Family history of ischemic heart disease and other diseases of the circulatory system; Z88.0 Allergy status to penicillin; Z90.49 Acquired absence of other specified parts of digestive tract; Z96.643 Presence of artificial hip joint, bilateral; E11.9 Type 2 diabetes mellitus without complications; Z80.43 Family history of malignant neoplasm of testis; Z80.52 Family history of malignant neoplasm of bladder; Z79.82 Long term (current) use of aspirin; Z88.8 Allergy status to other drugs, medicaments and biological substances

== ENCOUNTER → 2022-06-15 | Outpatient (CLI) | payer MEDICARE ==
--- NOTE | 2022-06-15 21:38 | BD ---
EXAMINATION TYPE: Axial Bone Density DATE OF EXAM: 06/15/2022 CLINICAL HISTORY: 81 years old Female. ICD-10 CODE: M85.88 OTHER DISORDER BONE DENSITY Height: 64 Weight: 217 FRAX RISK QUESTIONS: Alcohol (3 or more units per day): no Family History (Parent hip fracture): yes Glucocorticoids (More than 3mos): no (Ex: prednisone, prednisolone, methylprednisolone, dexamethasone, and hydrocortisone). History of Fracture in Adulthood: no Secondary Osteoporosis: 1. Type 1 Diabetes: no 2. Hyperthyroidism: no 3. Menopause before 45: no 4. Malnutrition: no 5. Chronic liver disease: no Rheumatoid Arthritis: yes Current Tobacco Use: no RISK FACTORS HISTORY OF: Surgery to Spine/Hip(right/left)/Wrist (right/left): bilateral hips When: lumbar surgery 1999 Family History of Osteoporosis: no Diet low in dairy products/other sources of calcium: yes Postmenopausal woman: yes Lost more than 2 inches in height since high school: yes MEDICATIONS: Additional History: EXAM MEASUREMENTS: Bone mineral densitometry was performed using the [employer] System. Bone mineral density about the L Wrist (g/cm2): 0.522 T Score values are as follows: -----Dist. R+U: -1.5 -----Prox. R+U: -3.0 -----Radius total: -2.6 Z Score values are as follows: -----Dist. R+U: 1.6 -----Prox. R+U: 0.0 -----Radius total: 0.4 Bone mineral density : baseline IMPRESSION: Osteoporosis (T Score less than -2.5). There is increased fracture risk and therapy is usually indicated based on age. Re-Screen 1-2 years. NOTE: T-SCORE=SD OF THE YOUNG ADULT MEAN.
== END | disposition home or self-care (01) ==
LOC: RADBDWWP 15:48
PROVIDERS: ATTEND Internal Medicine Hematology & Oncology
DX: M85.88 Other specified disorders of bone density and structure, other site (principal); C50.412 Malignant neoplasm of upper-outer quadrant of left female breast; M81.0 Age-related osteoporosis without current pathological fracture; M06.9 Rheumatoid arthritis, unspecified; Z78.0 Asymptomatic menopausal state
CPT/HCPCS: 77081

== ENCOUNTER → 2022-06-20 | Outpatient (CLI) | payer MEDICARE ==
--- NOTE | 2022-06-20 18:11 | US ---
EXAMINATION TYPE: US venous doppler duplex LE DATE OF EXAM: 06/20/2022 5:51 PM COMPARISON: NONE CLINICAL INDICATION: Female, 81 years old with history of M47.26; swelling and pain in bilateral calv es. Pt states she started new medication and it could be related, but sent to rule out DVT. No hx of DVT. Takes baby aspirin daily SIDE PERFORMED: Bilateral TECHNIQUE: The lower extremity deep venous system is examined utilizing real time linear array sonog jackie with graded compression, doppler sonography and color-flow sonography. VESSELS IMAGED: Common Femoral Vein Deep Femoral Vein Greater Saphenous Vein * Femoral Vein Popliteal Vein Small Saphenous Vein * Proximal Calf Veins (* superficial vessels) Right Leg: Appears negative for DVT Left Leg: Appears negative for DVT Edema noted in bilateral knees and calves. Grayscale, color doppler, spectral doppler imaging performed of the deep veins of the bilateral lower extremities. There is normal flow, compressibility, vascular waveforms. IMPRESSION: No ultrasound evidence for acute DVT in either lower extremity. Moderate to severe dista l subcutaneous edema is noted bilaterally.
== END | disposition home or self-care (01) ==
LOC: RADUSWWP 17:07
PROVIDERS: ATTEND Internal Medicine Hematology & Oncology
DX: R22.43 Localized swelling, mass and lump, lower limb, bilateral (principal)
CPT/HCPCS: 93970

== ENCOUNTER 2022-07-27 09:21 | Emergency (ER) | payer MEDICARE ==
[2022-07-27 09:52] VITALS: TEMP 98
[2022-07-27] MEDS ORDERED: SODIUM CHLORIDE 0.9% 1,000 ML IV STA (10:08)
[2022-07-27] MEDS ORDERED: KETOROLAC 15 MG/ML 1 ML VIAL IVP STA (10:08)
[2022-07-27 10:35] LABS: Basophils % (A) 0 %; Eosinophils # (A) 0.2 k/uL (0-0.7); Eosinophils % (A) 1 %; HCT 41.6 % (34.0-46.0); HGB 13.2 gm/dL (11.4-16.0); Lymphocytes # (A) 1.7 k/uL (1.0-4.8); Lymphocytes % (A) 13 %; MCH 28.2 pg (25.0-35.0); MCHC 31.8 g/dL (31.0-37.0); MCV 88.7 fL (80.0-100.0); Mean Platelet Volume 11.7; Monocytes # (A) 0.6 k/uL (0-1.0); Monocytes % (A) 4 %; Neutrophils # (A) 10.4 k/uL (1.3-7.7); Neutrophils % (A) 80 %; Platelet Count 186 k/uL (150-450); RBC 4.69 m/uL (3.80-5.40); RDW 13.9 % (11.5-15.5); WBC 13.1 k/uL (3.8-10.6)
--- NOTE | 2022-07-27 10:40 | ED ---
Abdominal Pain HPI - General Chief Complaint: Abdominal Pain Stated Complaint: abd pain,vomiting Time Seen by Provider: 07/27/22 09:53 Source: patient, family, RN notes reviewed Mode of arrival: wheelchair Limitations: no limitations - History of Present Illness Initial Comments: This is an 81-year-old female who presents to the emergency department for left flank and left lower quadrant pain. States that the symptoms started around 5 AM. The pain goes from the left flank region to the left groin. Denies any urinary symptoms. She has had nausea but no vomiting. She has not measured any fevers. Denies any history of kidney stones. Denies any fevers, chills, sore throat, cough, dyspnea, chest pain, palpitations, vomiting, diarrhea, or headaches. MD Complaint: abdominal pain, flank pain Location: LLQ, L flank Associated Symptoms: nausea - Related Data Home Medications Medication Instructions Recorded Confirmed amLODIPine [Norvasc] 5 mg PO DAILY 09/17/18 05/19/22 Aspirin [Children's Aspirin] 81 mg PO DAILY 02/11/22 05/19/22 Rosuvastatin [Crestor] 20 mg PO DAILY 02/11/22 05/19/22 Vit C/E/Zn/Coppr/Lutein/Zeaxan 2 cap PO DAILY 02/11/22 05/19/22 [Preservision Areds 2 Chew Tab] Ergocalciferol [Vitamin D2 (1250 1,250 mcg PO Q7D 05/06/22 05/19/22 Mcg = 75551 Iu)] HYDROcodone/APAP 5-325MG [Vaiden 1 - 2 tab PO Q4H PRN 05/06/22 05/19/22 5-325] Previous Rx's Medication Instructions Recorded L.acidoph,Paracasei, B.lactis 1 each PO DAILY #30 capsule 05/11/22 [Probiotic] Pantoprazole [Protonix] 40 mg PO DAILY #60 tab 05/11/22 clindamycin HCL 300 mg PO Q6H #40 capsule 05/11/22 Ketorolac [Toradol] 10 mg PO Q6HR PRN #12 tab 07/27/22 Sulfamethox-Tmp 800-160Mg [Bactrim 1 tab PO Q12HR 10 Days #20 tab 07/27/22 DS 800-160 mg] Tamsulosin [Flomax] 0.4 mg PO DAILY 5 Days #5 cap 07/27/22 Allergies Allergy/AdvReac Type Severity Reaction Status Date / Time cefuroxime Allergy Unknown Verified 07/27/22 12:16 Penicillins Allergy Rash/Hives Verified 05/19/22 12:25 simvastatin [From Zocor] Allergy Anaphylaxis Verified 05/19/22 12:25 Review of Systems ROS Statement: Those systems with pertinent positive or pertinent negative responses have been documented in the HPI. ROS Other: All systems not noted in ROS Statement are negative. Past Medical History Past Medical History: Cancer, Diabetes Mellitus, Hyperlipidemia, Hypertension Additional Past Medical History / Comment(s): arthritis, Left breast cancer History of Any Multi-Drug Resistant Organisms: None Reported Past Surgical History: Back Surgery, Cholecystectomy, Orthopedic Surgery Additional Past Surgical History / Comment(s): rancho hip replacement, cataract, lumpectomy Past Anesthesia/Blood Transfusion Reactions: No Reported Reaction Past Psychological History: No Psychological Hx Reported Smoking Status: Never smoker Past Alcohol Use History: None Reported Past Drug Use History: None Reported - Past Family History Mother Family Medical History: Cancer Additional Family Medical History / Comment(s): bladder cancer Father Family Medical History: Myocardial Infarction ([place]) Brother(s) Family Medical History: Rheumatoid Arthritis ([place]) Daughter(s) Family Medical History: No Reported History Son(s) Family Medical History: No Reported History General Exam Limitations: no limitations General appearance: alert, in distress Head exam: Present: atraumatic, normocephalic, normal inspection Respiratory exam: Present: normal lung sounds bilaterally. Absent: respiratory distress, wheezes, rales, rhonchi, stridor Cardiovascular Exam: Present: regular rate, normal rhythm, normal heart sounds. Absent: systolic murmur, diastolic murmur, rubs, gallop, clicks GI/Abdominal exam: Present: soft, tenderness (LLQ), normal bowel sounds. A bsent: distended Back exam: Present: CVA tenderness (L) Neurological exam: Present: alert, oriented X3, CN II-XII intact Psychiatric exam: Present: normal affect, normal mood Skin exam: Present: warm, dry, intact, normal color. Absent: rash Course Vital Signs 07/27/22 07/27/22 09:49 12:29 Temperature 98 F Pulse Rate 54 L 78 Respiratory 16 18 Rate Blood Pressure 163/69 168/72 O2 Sat by Pulse 99 98 Oximetry Medical Decision Making - Medical Decision Making This is an 81-year-old female who presents to the emergency department for left flank pain. Was pt. sent in by a medical professional or institution? @ -No Did you speak to anyone other than the patient for history? @ -No Did you review nursing and triage notes? @ -Yes, and I agree, it is accurate with regards to the patient's symptoms. Were old charts reviewed? @ -No Differential Diagnosis? @ -Differential Flank Pain: UTI, pyelonephritis, kidney stone, musculoskeletal, pancreatitis, cholecystitis, this is not meant to be an all-inclusive list. EKG interpreted by me (3pts min.)? @ -Not obtained X-rays interpreted by me (1pt min.)? @ -Not obtained CT interpreted by me (1pt min.)? @ -Computed tomography scan of the abdomen and pelvis obtained. My interpretation identifies a left ureteral calculus. U/S interpreted by me (1pt. min.)? @ -Not obtained What testing was considered but not performed? (CT, X-rays, U/S, labs)? Why? @ -None What meds were considered but not given? Why? @ -None Did you discuss the management of the patient with other professionals? @ -No Did you reconcile home meds? @ -No Was smoking cessation discussed for >3mins.? @ -No Was critical care preformed (if so, how long)? @ -No Were there social determinants of health that impacted care today? How? (Homelessness, low income, unemployed, alcoholism, drug addiction, transportation, low edu. Level, literacy, decrease access to med. care, long-term, rehab)? @ -No Was there de-escalation of care discussed even if they declined? (Discuss DNR or withdrawal of care, Hospice)? @ -No What co-morbidities impacted this encounter? (DM, HTN, Smoking, COPD, CAD, Cancer, CVA, Hep., AIDS, mental health diagnosis, sleep apnea, morbid obesity)? @ -None Was patient admitted / discharged? @ -Discharged. Lab work obtained revealing leukocytosis. Urinalysis consistent with infection. Computed tomography scan of the abdomen and pelvis reveals a left ureteral calculus. She was given IV fluids and Toradol, with n otable relief in symptoms. Patient overall felt significantly improved and requests discharge home. She was given a dose of Rocephin in the emergency department. Prescription for Bactrim, Toradol, and Flomax provided with dosing instructions reviewed. Patient is instructed to take the Toradol with Tylenol if needed and avoid any other [id number] anti-inflammatories such as ibuprofen with the Toradol. Information for urology follow-up provided. She is instructed to contact them for a follow-up appointment. Undiagnosed new problem with uncertain prognosis? @ -None Drug Therapy requiring intensive monitoring for toxicity (Heparin, Nitro, Insulin, Cardizem)? @ -None Were any procedures done? @ -None Diagnosis/symptom? @ -Left ureteral calculus Acute, or Chronic, or Acute on Chronic? @ -Acute Uncomplicated (without systemic symptoms) or Complicated (systemic symptoms)? @ -Uncomplicated Side effects of treatment? @ -None Exacerbation, Progression, or Severe Exacerbation] @ -Not applicable Poses a threat to life or bodily function? @ -No Return precautions reviewed in depth, the patient is instructed to return to the emergency department with any new, worsening, or concerning symptoms. Patient verbalized understanding. This case was discussed in detail with the attending ED physician, Dr. Ojeda. Presentation, findings, and treatment plan discussed in detail as well. - Lab Data Result diagrams: 07/27/22 10:11 07/27/22 10:11 Lab Results 07/27/22 07/27/22 07/27/22 Range/Units 10:11 10:11 10:11 WBC 13.1 H (3.8-10.6) k/uL RBC 4.69 (3.80-5.40) m/uL Hgb 13.2 (11.4-16.0) gm/dL Hct 41.6 (34.0-46.0) % MCV 88.7 (80.0-100.0) fL MCH 28.2 (25.0-35.0) pg MCHC 31.8 (31.0-37.0) g/dL RDW 13.9 (11.5-15.5) % Plt Count 186 (150-450) k/uL MPV 11.7 Neutrophils % 80 % Lymphocytes % 13 % Monocytes % 4 % Eosinophils % 1 % Basophils % 0 % Neutrophils # 10.4 H (1.3-7.7) k/uL Lymphocytes # 1.7 (1.0-4.8) k/uL Monocytes # 0.6 (0-1.0) k/uL Eosinophils # 0.2 (0-0.7) k/uL Basophils # 0.0 (0-0.2) k/uL Sodium 139 (137-145) mmol/L Potassium 4.5 (3.5-5.1) mmol/L Chloride 105 (98-107) mmol/L Carbon Dioxide 25 (22-30) mmol/L Anion Gap 9 mmol/L BUN 37 H (7-17) mg/dL Creatinine 1.70 H (0.52-1.04) mg/dL Est GFR (CKD-EPI)AfAm 32 (>60 ml/min/1.73 sqM) Est GFR (CKD-EPI)NonAf 28 (>60 ml/min/1.73 sqM) Glucose 176 H (74-99) mg/dL Plasma Lactic Acid Adrien (0.7-2.0) mmol/L Calcium 10.1 (8.4-10.2) mg/dL Total Bilirubin 0.8 (0.2-1.3) mg/dL AST 24 (14-36) U/L ALT 18 (4-34) U/L Alkaline Phosphatase 105 (38-126) U/L Total Protein 7.1 (6.3-8.2) g/dL Albumin 4.1 (3.5-5.0) g/dL Amylase 51 (30-110) U/L Lipase 56 (23-300) U/L Urine Color Yellow Urine Appearance Cloudy H (Clear) Urine pH 5.5 (5.0-8.0) Ur Specific Blanco 1.017 (1.001-1.035) Urine Protein 1+ H (Negative) Urine Glucose (UA) 4+ H (Negative) Urine Ketones Negative (Negative) Urine Blood Large H (Negative) Urine Nitrite Negative (Negative) Urine Bilirubin Negative (Negative) Urine Urobilinogen <2.0 (<2.0) mg/dL Ur Leukocyte Esterase Large H (Negative) Urine RBC >182 H (0-5) /hpf Urine WBC 168 H (0-5) /hpf Urine WBC Clumps Few H (None) /hpf Ur Squamous Epith Cells 8 H (0-4) /hpf Urine Bacteria Many H (None) /hpf Urine Mucus Rare H (None) /hpf 07/27/22 Range/Units 10:11 WBC (3.8-10.6) k/uL RBC (3.80-5.40) m/uL Hgb (11.4-16.0) gm/dL Hct (34.0-46.0) % MCV (80.0-100.0) fL MCH (25.0-35.0) pg MCHC (31.0-37.0) g/dL RDW (11.5-15.5) % Plt Count (150-450) k/uL MPV Neutrophils % % Lymphocytes % % Monocytes % % Eosinophils % % Basophils % % Neutrophils # (1.3-7.7) k/uL Lymphocytes # (1.0-4.8) k/uL Monocytes # (0-1.0) k/uL Eosinophils # (0-0.7) k/uL Basophils # (0-0.2) k/uL Sodium (137-145) mmol/L Potassium (3.5-5.1) mmol/L Chloride (98-107) mmol/L Carbon Dioxide (22-30) mmol/L Anion Gap mmol/L BUN (7-17) mg/dL Creatinine (0.52-1.04) mg/dL Est GFR (CKD-EPI)AfAm (>60 ml/min/1.73 sqM) Est GFR (CKD-EPI)NonAf (>60 ml/min/1.73 sqM) Glucose (74-99) mg/dL Plasma Lactic Acid Adrien 1.6 (0.7-2.0) mmol/L Calcium (8.4-10.2) mg/dL Total Bilirubin (0.2-1.3) mg/dL AST (14-36) U/L ALT (4-34) U/L Alkaline Phosphatase (38-126) U/L Total Protein (6.3-8.2) g/dL Albumin (3.5-5.0) g/dL Amylase (30-110) U/L Lipase (23-300) U/L Urine Color Urine Appearance (Clear) Urine pH (5.0-8.0) Ur Specific Blanco (1.001-1.035) Urine Protein (Negative) Urine Glucose (UA) (Negative) Urine Ketones (Negative) Urine Blood (Negative) Urine Nitrite (Negative) Urine Bilirubin (Negative) Urine Urobilinogen (<2.0) mg/dL Ur Leukocyte Esterase (Negative) Urine RBC (0-5) /hpf Urine WBC (0-5) /hpf Urine WBC Clumps (None) /hpf Ur Squamous Epith Cells (0-4) /hpf Urine Bacteria (None) /hpf Urine Mucus (None) /hpf - Radiology Data Radiology results: report reviewed, image reviewed Disposition Clinical Impression: Left ureteral calculus, UTI (urinary tract infection) Disposition: HOME SELF-CARE Instructions (If sedation given, give patient instructions): Kidney Stones (ED), Renal Colic (ED), How to Strain Your Urine (ED) Additional Instructions: Return to the emergency department with any new, worsening, or concerning symptoms. Take the Toradol with Tylenol up to every 6 hours as needed for pain relief. Take the antibiotic as prescribed for 10 days. Take the Flomax daily for 5 days. Contact urology as listed below for further evaluation. Follow up with your primary care provider in 1-2 days. Prescriptions: Sulfamethox-Tmp 800-160Mg [Bactrim DS 800-160 mg] 1 tab PO Q12HR 10 Days #20 tab Tamsulosin [Flomax] 0.4 mg PO DAILY 5 Days #5 cap Ketorolac [Toradol] 10 mg PO Q6HR PRN #12 tab PRN Reason: Pain Is patient prescribed a controlled substance at d/c from ED?: No Referrals: Willi Keita MD [Primary Care Provider] - 1-2 days Tyrell Nelson MD [STAFF PHYSICIAN] - 1-2 days
[2022-07-27 10:43] LABS: ALT 18 U/L (4-34); AST 24 U/L (14-36); African American GFR (CKD) 32 (>60 ml/min/1.73 sqM); Albumin 4.1 g/dL (3.5-5.0); Alkaline Phosphatase 105 U/L (38-126); Amylase 51 U/L (30-110); Anion Gap 9 mmol/L; Blood Urea Nitrogen 37 mg/dL (7-17); Calcium 10.1 mg/dL (8.4-10.2); Carbon Dioxide 25 mmol/L (22-30); Chloride 105 mmol/L (98-107); Glucose 176 mg/dL (74-99); Lipase 56 U/L (23-300); Non-African American GFR(CKD) 28 (>60 ml/min/1.73 sqM); Potassium 4.5 mmol/L (3.5-5.1); Sodium 139 mmol/L (137-145); Total Bilirubin 0.8 mg/dL (0.2-1.3); Total Protein 7.1 g/dL (6.3-8.2)
--- NOTE | 2022-07-27 10:55 | CT ---
EXAMINATION TYPE: CT abdomen pelvis wo con DATE OF EXAM: 07/27/2022 COMPARISON: None HISTORY: Left flank pain, no gross hematuria CT DLP: 913.1 mGycm Automated exposure control for dose reduction was used. TECHNIQUE: Helical acquisition of images was performed from the lung bases through the pelvis. FINDINGS: Assessment of the pelvis is markedly limited due to severe artifact from patient's bilatera l hip prostheses. LUNG BASES: The heart is enlarged and there are subsegmental right basilar atelectasis. Mild degree o f interstitial pulmonary fibrosis suspected as well with COPD. Heart is enlarged calcification in the aortic valve partially included [id number]. Pericardial lipomatosis incidentally noted. LIVER/GB: Liver homogeneous. Calcification in the gallbladder fossa. Vascular. PANCREAS: No significant abnormality is seen. SPLEEN: Vascular calcifications splenic hilum. Splenic granuloma noted. ADRENALS: No significant abnormality is seen. KIDNEYS: Right kidney: There is a 1.8 cm nonobstructing right renal pelvic calcification with renal sinus lipo matosis. There is thinning of the renal cortex compatible with chronic medical renal disease. Left kidney: There is a lower pole 2 mm calcification. Mild perinephric stranding with mild left hydr onephrosis. There is a exophytic lower pole posterior 4 mm lesion too small to characterize but stati stically most likely related to cyst. There is a 2 mm left UVJ calcification. FREE AIR: No free air is visualized URINARY BLADDER: Limited by as artifact from the patient's bilateral hip prostheses. ADENOPATHY: None visualized. OSSEOUS STRUCTURES: Dense of postsurgical change involving the vertebral column with severe multilev el degenerative disc disease, facet arthropathy and suspected foraminal management. Bilateral hip pro stheses with severe artifact. BOWEL: Diverticulosis with no CT evidence of diverticulitis. No evidence of bowel obstruction. OTHER: Nonspecific calcification seen in the periesophageal region. IMPRESSION: 1. Mild to moderate left hydronephrosis secondary to 2 mm left UVJ obstructing calculus. Additional 2 mm lower pole left renal calculus. 2. 1.8 cm nonobstructing right renal pelvic calcification. There is bilateral cortical thinning omrris tible with chronic medical renal disease.
[2022-07-27 11:44] LABS: Appearance,Urine Cloudy (Clear); Bacteria,Urine Many /hpf; Bilirubin,Urine Negative (Negative); Blood,Urine Large (Negative); Color,Urine Yellow; Glucose,Urine (UA) 4+ (Negative); Ketones,Urine Negative (Negative); Leukocyte Esterase,Urine Large (Negative); Mucus,Urine Rare /hpf; Nitrite,Urine Negative (Negative); PH, Urine 5.5 (5.0-8.0); Protein,Urine 1+ (Negative); RBC,Urine >182 /hpf (0-5); Specific Gravity,Urine 1.017 (1.001-1.035); Squamous Epithelial Cell,Urine 8 /hpf (0-4); Urobilinogen,Urine <2.0 mg/dL (<2.0); WBC,Urine 168 /hpf (0-5)
[2022-07-27] MEDS ORDERED: cefTRIAXone IN SWFI 1,000 MG/10 ML SYRINGE IVP STA (11:46)
[2022-07-27] MEDS ORDERED: ONDANSETRON 4 MG ODT STARTER PACK 2 TAB BTL PO STA (12:05)
[2022-07-27] MEDS ORDERED: traMADol 50 MG STARTER PACK 3 TAB BTL PO STA (12:05)
[2022-07-27 12:31] VITALS: BP 168/72; PULSE 78; RESP 18
== END 2022-07-27 12:29 | disposition home or self-care (01) ==
LOC: EC 09:21
DX: N13.2 Hydronephrosis with renal and ureteral calculous obstruction (principal); N39.0 Urinary tract infection, site not specified; I10 Essential (primary) hypertension; E11.9 Type 2 diabetes mellitus without complications; E78.5 Hyperlipidemia, unspecified; Z79.82 Long term (current) use of aspirin; Z79.899 Other long term (current) drug therapy; Z88.0 Allergy status to penicillin; Z88.1 Allergy status to other antibiotic agents; Z88.8 Allergy status to other drugs, medicaments and biological substances; Z90.49 Acquired absence of other specified parts of digestive tract
CPT/HCPCS: 36415; 80053; 82150; 83605; 83690; 85025; 81001; 87086; 74176; 99284; 96374; 96375; 96361; J0696; J1885; S0119

== ENCOUNTER → 2022-09-16 | Outpatient (CLI) | payer MEDICARE ==
[2022-09-16 14:58] VITALS: BP 150/76; PULSE 53; RESP 16; TEMP 98.3
--- NOTE | 2022-09-16 15:22 | P.PN ---
Subjective Progress Note Date: 09/16/22 Deanna is an 81 year old white female seen in consultation for Dr. Keita regarding a biopsy proven left breast cancer. She had a bilateral mammogram on 01-13-22 which revealed a lesion in the left breast. This was followed by an ultrasound of the left breast. This revealed two lesions in the left breast for which biopsy was recommended. The patient felt a lump in her left breast for about a week. Her last mammogram prior to this was in 2013. She was not complaining of any nipple discharge or skin changes. She has not had any surgery on her breast in the past. She is not complaining of any trauma or infection in the breast. Ultrasound core biopsy of 2 sites in the left breast on 1922. On the left breast at 1:00 was invasive ductal carcinoma in the left breast at 3:00 was a reactive lymph node negative for cancer. Case was presented at tumor board and [id number]. The recommendation was for lumpectomy, hormonal therapy, and optional of radiation. She was seen on by cardiology. The patient is recommended to have an echocardiogram to assess her ejection fraction and a 24-hour Holter prior to surgical intervention. If she is cleared by cardiology she has been cleared by her primary care doctor. 09-16-22 The patient on 04-19-22 underwent a left breast lumpectomy and SNB. Final pathology revealed a 1.5cm invasive ductal cancer with one node (-). Post operatively she developed an infection at the lumpectomy site. This was drained percutaneously and she was admited for IV ab therapy. This discharged home on clindamycin. She does not have any evidence of any infection at this time. 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 She also had a tight distal esophageal stricture which was dilated. She did not have any radiation. She did have any chemotherapy. She is on exmestane. She is not complaining of any new lumps masses or nodules of concern in either breast. She is due for a repeat mammogram in January 2023 Caffiene: occasional nicotine: none chocolate: occasional BCP: none Family History: mother: bladder cancer maternal uncle: cancer ? type brother: testicular Hormonal History: menarche: 12 M1, breast fed: no, age at first live : 23 menopause: ? 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 Social History: nicotine: none alcohol: none drugs; none - Constitutional Constitutional: Denies chills, Denies fever - EENT Eyes: denies blurred vision, denies pain Ears: left: decreased hearing Ears, nose, mouth and throat: Denies headache, Denies sore throat - Breasts Breasts: bilateral: as per HPI - Cardiovascular Cardiovascular: Denies chest pain, Denies shortness of breath - Respiratory Respiratory: Denies cough - Gastrointestinal Gastrointestinal: Denies abdominal pain, Denies diarrhea, Denies nausea, Denies vomiting - Genitourinary (Female) Genitourinary: Denies dysuria, Denies hematuria - Menstruation Menstruation: Reports postmenopausal - Musculoskeletal Musculoskeletal: Denies myalgias - Integumentary Integumentary: Denies pruritus, Denies rash - Neurological Neurological: Denies numbness, Denies weakness - Psychiatric Psychiatric: Denies anxiety, Denies depression - Endocrine Endocrine: Denies fatigue, Denies weight change - Hematologic/Lymphatic Comment: baby aspirin; follows with a juice standardizer - Allergic/Immunologic Allergic/Immunologic: Reports as per HPI Past Medical History Past Medical History: Diabetes Mellitus, Hyperlipidemia, Hypertension Additional Past Medical History / Comment(s): arthritis History of Any Multi-Drug Resistant Organisms: None Reported Past Surgical History: Back Surgery, Cholecystectomy, Orthopedic Surgery Additional Past Surgical History / Comment(s): rancho hip replacement, cataract Past Anesthesia/Blood Transfusion Reactions: No Reported Reaction Past Psychological History: No Psychological Hx Reported Smoking Status: Never smoker Past Alcohol Use History: None Reported Past Drug Use History: None Reported - Past Family History Mother Family Medical History: Cancer Additional Family Medical History / Comment(s): bladder cancer Father Family Medical History: Myocardial Infarction ([place]) Brother(s) Family Medical History: Rheumatoid Arthritis (RA) Daughter(s) Family Medical History: No Reported History Son(s) Family Medical History: No Reported History Medications and Allergies Home Medications Medication Instructions Recorded Confirmed Type amLODIPine [Norvasc] 5 mg PO DAILY 09/17/18 02/11/22 History Aspirin [Children's Aspirin] 81 mg PO DAILY 02/11/22 02/11/22 History Chlorthalidone 25 mg PO DAILY 02/11/22 02/11/22 History Cholecalciferol (Vitamin D3) 125 mcg PO DAILY 02/11/22 02/11/22 History [Vitamin D3 (125 MCG = 5,000 IU)] Glimepiride [Amaryl] 2 mg PO DAILY 02/11/22 02/11/22 History Losartan Potassium 100 mg PO DAILY 02/11/22 02/11/22 History Rosuvastatin [Crestor] 20 mg PO DAILY 02/11/22 02/11/22 History Vit C/E/Zn/Coppr/Lutein/Zeaxan 2 cap PO DAILY 02/11/22 02/11/22 History [Preservision Areds 2 Chew Tab] Allergies Allergy/AdvReac Type Severity Reaction Status Date / Time Penicillins Allergy Rash/Hives Verified 02/11/22 14:12 simvastatin [From Zocor] Allergy Anaphylaxis Verified 02/11/22 14:12 Objective - Vital Signs Vital signs: Vital Signs Temp 98.3 F 09/16/22 14:53 Pulse 53 L 09/16/22 14:53 Resp 16 09/16/22 14:53 BP 150/76 09/16/22 14:53 Pulse Ox 98 09/16/22 14:53 FiO2 Intake & Output 09/15/22 09/16/22 09/16/22 18:59 06:59 18:59 Weight 86.636 kg - Constitutional General appearance: Present: cooperative - EENT Eyes: Present: EOMI ENT: Present: hearing grossly normal - Neck Neck: Present: normal ROM - Respiratory Respiratory: bilateral: CTA - Cardiovascular Heart sounds: normal: S1, S2 - Integumentary Integumentary: Present: normal turgor - Psychiatric Psychiatric: Present: A&O x's 3, appropriate affect, intact judgment & insight - Additional findings Additional findings: Breast Exam: BRA: ? 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 Keita
== END ==
LOC: WWCWWP 14:47
PROVIDERS: ATTEND Surgery
DX: C50.812 Malignant neoplasm of overlapping sites of left female breast (principal); C50.212 Malignant neoplasm of upper-inner quadrant of left female breast; C50.412 Malignant neoplasm of upper-outer quadrant of left female breast; E11.36 Type 2 diabetes mellitus with diabetic cataract; E78.5 Hyperlipidemia, unspecified; I10 Essential (primary) hypertension; K22.2 Esophageal obstruction; H91.91 Unspecified hearing loss, right ear; K22.4 Dyskinesia of esophagus; K22.5 Diverticulum of esophagus, acquired; M19.90 Unspecified osteoarthritis, unspecified site; Z79.84 Long term (current) use of oral hypoglycemic drugs; Z88.0 Allergy status to penicillin; Z88.8 Allergy status to other drugs, medicaments and biological substances

== ENCOUNTER 2022-10-04 11:35 | Day surgery (SDC) | payer MEDICARE ==
[2022-09-27 15:04] VITALS: BMI 32.8
[~2022-10-04 11:35] MED LIST changes: +CIPROFLOXACIN/DEXTROSE PMX 400 MG in DEXTROSE/WATER 1 200ML.BAG IVPB PRN; -HEPARIN SODIUM,PORCINE/PF 5,000 UNIT/0.5 ML SYRINGE SQ PRN; -HYDROmorphone 0.5 MG/0.5 ML SYRINGE IVP PRN; -LACTATED RINGERS 1,000 ML IV SCH; -LIDOCAINE 1% (10MG/ML) FOR IV START INTRADERMA PRN; -ONDANSETRON 4 MG/2 ML VIAL IVP ONE; -Pre Op ABX Message 1 EACH MISC MISCELLANE ONE
[2022-10-04] MEDS ORDERED: ONDANSETRON 4 MG/2 ML VIAL ONE (12:16)
[2022-10-04] MEDS ORDERED: MIDAZOLAM 2 MG/2 ML VIAL IV PRN (12:21)
[2022-10-04] MEDS ORDERED: HYDROmorphone 0.5 MG/0.5 ML SYRINGE IVP PRN (12:21)
[2022-10-04] MEDS ORDERED: LACTATED RINGERS 1,000 ML IV SCH (12:21)
[2022-10-04] MEDS ORDERED: DEXAMETHASONE SOD PHOSPHATE 4 MG/ML 1 ML VIAL IV ONE (12:21)
[2022-10-04] MEDS ORDERED: ONDANSETRON 4 MG/2 ML VIAL IVP ONE (12:21)
[2022-10-04] MEDS ORDERED: LIDOCAINE 1% (10MG/ML) FOR IV START INTRADERMA PRN (12:21)
[2022-10-04 13:17] LABS: Glucose,Whole Blood 121 mg/dL (70-110)
--- NOTE | 2022-10-04 13:19 | XR ---
EXAMINATION TYPE: XR KUB DATE OF EXAM: 10/04/2022 COMPARISON: NONE HISTORY: Presurgical TECHNIQUE: One view abdominal series FINDINGS: The osseous structures are intact. The bowel gas pattern is nonspecific. Right kidney: There is a 2 cm calcification in the right upper quadrant. Left kidney: No suspicious calcifications overlying the left kidney. Hypertrophic and degenerative changes spine with postsurgical changes as osteopenia. Bilateral hip ar thropathy. Bilateral SI joint arthropathy. IMPRESSION: 1. There is a 2 cm calcification in the right upper quadrant.
[2022-10-04] MEDS ORDERED: hydrALAZINE HCL 20 MG/ML 1 ML VIAL IVP ONE ×2 (13:23→16:04)
[2022-10-04 13:42] LABS: Basophils % (A) 0 %; Eosinophils # (A) 0.4 k/uL (0-0.7); Eosinophils % (A) 4 %; HCT 38.9 % (34.0-46.0); HGB 12.9 gm/dL (11.4-16.0); Lymphocytes # (A) 2.4 k/uL (1.0-4.8); Lymphocytes % (A) 27 %; MCH 29.4 pg (25.0-35.0); MCHC 33.1 g/dL (31.0-37.0); MCV 88.9 fL (80.0-100.0); Mean Platelet Volume 11.3; Monocytes # (A) 0.6 k/uL (0-1.0); Monocytes % (A) 6 %; Neutrophils # (A) 5.4 k/uL (1.3-7.7); Neutrophils % (A) 61 %; Platelet Count 176 k/uL (150-450); RBC 4.38 m/uL (3.80-5.40); RDW 14.8 % (11.5-15.5); WBC 8.9 k/uL (3.8-10.6)
[2022-10-04] MEDS ORDERED: ePHEDrine 50 MG/ML 1 ML VIAL ONE (13:42)
[2022-10-04] MEDS ORDERED: fentaNYL (PF) 50 MCG/ML 2 ML AMP ONE (13:42)
[2022-10-04] MEDS ORDERED: LIDOCAINE 2% INJ 20 MG/ML (2 ML VIAL) ONE (13:42)
[2022-10-04] MEDS ORDERED: PROPOFOL 10 MG/ML 20 ML VIAL IV ONE (13:42)
[2022-10-04] MEDS ORDERED: MIDAZOLAM 2 MG/2 ML VIAL ONE (13:42)
[2022-10-04 13:50] LABS: African American GFR (CKD) 33 (>60 ml/min/1.73 sqM); Blood Urea Nitrogen 34 mg/dL (7-17); Carbon Dioxide 26 mmol/L (22-30); Glucose 136 mg/dL (74-99); Non-African American GFR(CKD) 29 (>60 ml/min/1.73 sqM)
--- NOTE | 2022-10-04 13:56 | P.HPIHPCON ---
History of Present Illness H&P Date: 10/04/22 Chief Complaint: Right-sided renal stone This is an 81-year-old female with history of 2 cm right-sided renal pelvis stone, she symptomatic from her stone. Option of right-sided ureteroscopy with holmium laser was discussed with her. aware of the risk which includes but not limited to bleeding, infection, injury to the ureter. Risk of anesthesia was also discussed. She understood all the risk and agreed to proceed. Discussed with her given the size of the stone this will be staged procedure, she will follow up for a second stage in 2 weeks Consent for Procedure: I have explained the operation/procedure to the patient, including the risks, benefits, side effects, alternative therapies (including not receiving the proposed treatment or service), the likelihood of the patient achieving his/her goals, and potential recuperation problems for the procedure/sedation/analgesia, as well as any blood products, if indicated. I also explained to the patient the risks, benefits and side effects of the alternatives, as well as the risks relat ed to not receiving the proposed procedure, care, treatment, or services. Past Medical History Past Medical History: Cancer, Diabetes Mellitus, GERD/Reflux, Hyperlipidemia, Hypertension, Osteoarthritis (OA) Additional Past Medical History / Comment(s): Left breast cancer History of Any Multi-Drug Resistant Organisms: None Reported Past Surgical History: Back Surgery, Cholecystectomy, Orthopedic Surgery Additional Past Surgical History / Comment(s): rancho hip replacement, cataract, lumpectomy left breast Past Anesthesia/Blood Transfusion Reactions: No Reported Reaction Past Psychological History: No Psychological Hx Reported Smoking Status: Never smoker Past Alcohol Use History: None Reported Past Drug Use History: None Reported - Past Family History Mother Family Medical History: Cancer Additional Family Medical History / Comment(s): bladder cancer Father Family Medical History: Myocardial Infarction ([place]) Brother(s) Family Medical History: Rheumatoid Arthritis ([place]) Daughter(s) Family Medical History: No Reported History Son(s) Family Medical History: No Reported History Medications and Allergies Home Medications Medication Instructions Recorded Confirmed Type Aspirin [Children's Aspirin] 81 mg PO DAILY 02/11/22 10/04/22 History Rosuvastatin [Crestor] 20 mg PO DAILY 02/11/22 10/04/22 History Vit C/E/Zn/Coppr/Lutein/Zeaxan 2 cap PO DAILY 02/11/22 10/04/22 History [Preservision Areds 2 Chew Tab] Alendronate Sodium [Fosamax] 70 mg PO WEEKLY 09/27/22 10/04/22 History Calcium Citrate/Vitamin D3 1 each PO DAILY 09/27/22 10/04/22 History [Citracal + D Maximum Caplet] Chlorthalidone 25 mg PO DAILY 09/27/22 10/04/22 History Empagliflozin [Jardiance] 25 mg PO DAILY 09/27/22 10/04/22 History Exemestane [Aromasin] 25 mg PO DAILY 09/27/22 10/04/22 History Losartan Potassium [Cozaar] 100 mg PO DAILY 09/27/22 10/04/22 History Omeprazole 20 mg PO DAILY 09/27/22 10/04/22 History Allergies Allergy/AdvReac Type Severity Reaction Status Date / Time cefuroxime Allergy Unknown Verified 10/04/22 13:11 Penicillins Allergy Rash/Hives Verified 10/04/22 13:11 simvastatin [From Zocor] Allergy Anaphylaxis Verified 10/04/22 13:11 anastrozole AdvReac Swelling Verified 10/04/22 13:11 Surgical - Exam Vital Signs Temp Pulse Resp BP Pulse Ox 97.6 F 55 L 16 180/74 98 10/04/22 12:54 10/04/22 12:54 10/04/22 12:54 10/04/22 12:54 10/04/22 12:54 - General no distress, no pain - Eyes normal ocular movement, no pale - ENT normal nares, normal mucosa - Respiratory normal expansion, normal respiratory effort - Abdomen Abdomen: soft, non tender Results - Labs 10/04/22 13:05 10/04/22 13:05 Abnormal Lab Results - Last 24 Hours (Table) 10/04/22 10/04/22 Range/Units 13:02 13:05 BUN 34 H (7-17) mg/dL Creatinine 1.64 H (0.52-1.04) mg/dL Glucose 136 H (74-99) mg/dL POC Glucose (mg/dL) 121 H (70-110) mg/dL Diabetes panel 10/04/22 Range/Units 13:05 Carbon Dioxide 26 (22-30) mmol/L BUN 34 H (7-17) mg/dL Creatinine 1.64 H (0.52-1.04) mg/dL Glucose 136 H (74-99) mg/dL Calcium 10.0 (8.4-10.2) mg/dL Calcium panel 10/04/22 Range/Units 13:05 Calcium 10.0 (8.4-10.2) mg/dL Pituitary panel 10/04/22 Range/Units 13:05 Carbon Dioxide 26 (22-30) mmol/L BUN 34 H (7-17) mg/dL Creatinine 1.64 H (0.52-1.04) mg/dL Glucose 136 H (74-99) mg/dL Calcium 10.0 (8.4-10.2) mg/dL Adrenal panel 10/04/22 Range/Units 13:05 Carbon Dioxide 26 (22-30) mmol/L BUN 34 H (7-17) mg/dL Creatinine 1.64 H (0.52-1.04) mg/dL Glucose 136 H (74-99) mg/dL Calcium 10.0 (8.4-10.2) mg/dL Assessment and Plan Assessment: Or for right-sided ureteroscopy, holmium laser lithotripsy, stone basketing and stent insertion
[2022-10-04 13:58] LABS: Anion Gap 6 mmol/L; Chloride 108 mmol/L (98-107); Sodium 140 mmol/L (137-145)
--- NOTE | 2022-10-04 15:23 | P.OP ---
Date of Procedure: 10/04/22 Preoperative Diagnosis: Right renal stone Postoperative Diagnosis: same Procedure(s) Performed: Cystoscopy, right ureteroscopy, holmium laser lithotripsy, stone basketing and stent insertion Implants: 6fr x 24 cm stent in the right ureter Anesthesia: JUWAN Surgeon: Neville Alegria Pathology: other (Right renal stone) Condition: stable Disposition: PACU Indications for Procedure: This is an 81-year-old female with history of 2 cm right-sided renal pelvis stone, she symptomatic from her stone. Option of right-sided ureteroscopy with holmium laser was discussed with her. aware of the risk which includes but not limited to bleeding, infection, injury to the ureter. Risk of anesthesia was also discussed. She understood all the risk and agreed to proceed. Discussed with her given the size of the stone this will be staged procedure, she will follow up for a second stage in 2 weeks Operative Findings: Large stone in the right renal pelvis Description of Procedure: Patient brought to the operating room, general anesthesia was induced. She was prepped and draped in sterile fashion a placement dorsal thumb he position. Cystoscopy fitted with a 21-Amharic sheath was inserted per urethra, cystoscopy was performed which showed no abnormality within the bladder. Next a sensor wire was advanced through the scope and up into the kidney. Next a 1113 Amharic access sheath was passed over the wire into the proximal ureter. Next a possible ureteroscope was inserted through the access sheath, renoscopy was performed hich showed a large stone in the renal pelvis. Using the holmium laser the stone was dusted, sizable fragments were removed using the stone basket. Repeat renoscopy showed no sizable fragments, but of note there was significant amount of dust which limited visualization. At this time pullback ureteroscopy was performed which showed no injury to the ureter or any ureteral stones, as ureteroscope was withdrawn and a sensor wire was advanced through. Next ureteral stent was passed over the wire, the proximal curl was visualized on fluoroscopy and the distal curl was visualized and cystoscope. At this time she's will follow-up in 2 weeks for a second stage ureteroscopy
[2022-10-04 15:31] VITALS: TEMP 96.9
--- NOTE | 2022-10-04 15:35 | FL ---
Intraoperative/procedural fluoroscopic services were provided for right renal stone. Total fluoroscop y time is 15.7 seconds with a total of 3 submitted images to PACS. Total DAP 0.66602 Gycm2. Please s ee the operative note for further details.
[2022-10-04 15:40] LABS: Glucose,Whole Blood 178 mg/dL (70-110)
[2022-10-04] MEDS ORDERED: HYDROmorphone 0.5 MG/0.5 ML SYRINGE IVP ONE (15:49)
[2022-10-04 16:24] VITALS: RESP 16
[2022-10-04 18:18] VITALS: BP 139/67; PULSE 62
== END 2022-10-04 18:15 | disposition home or self-care (01) ==
LOC: OR 11:35
PROVIDERS: ATTEND Urology
DX: N20.0 Calculus of kidney (principal); I10 Essential (primary) hypertension; E78.5 Hyperlipidemia, unspecified; E11.9 Type 2 diabetes mellitus without complications; M19.90 Unspecified osteoarthritis, unspecified site; Z90.49 Acquired absence of other specified parts of digestive tract; Z80.0 Family history of malignant neoplasm of digestive organs; Z79.899 Other long term (current) drug therapy
CPT/HCPCS: 80048; 85025; 82365; 74018; 52356; C2625; C1769; J2250; J0360; J1100; J2405; J3010; J0744; J2704; J1170; J2001

== ENCOUNTER 2022-10-18 06:42 | Day surgery (SDC) | payer MEDICARE ==
[2022-10-14 16:45] VITALS: BMI 33.5
[2022-10-18] MEDS ORDERED: ONDANSETRON 4 MG/2 ML VIAL IVP ONE (07:06)
[2022-10-18] MEDS ORDERED: LACTATED RINGERS 1,000 ML IV SCH (07:06)
[2022-10-18] MEDS ORDERED: fentaNYL (PF) 50 MCG/ML 2 ML AMP IV PRN (07:06)
[2022-10-18] MEDS ORDERED: HYDROmorphone 0.5 MG/0.5 ML SYRINGE IVP PRN (07:06)
[2022-10-18] MEDS ORDERED: PROPOFOL 10 MG/ML 20 ML VIAL IV ONE (07:25)
[2022-10-18] MEDS ORDERED: fentaNYL (PF) 50 MCG/ML 2 ML AMP ONE (07:25)
[2022-10-18] MEDS ORDERED: LIDOCAINE 2% INJ 20 MG/ML (2 ML VIAL) ONE (07:25)
[2022-10-18 07:26] LABS: Glucose,Whole Blood 158 mg/dL (70-110)
[2022-10-18] MEDS ORDERED: DEXAMETHASONE SOD PHOSPHATE 4 MG/ML 1 ML VIAL IVP ONE (07:28)
[2022-10-18] MEDS ORDERED: LIDOCAINE 1% (10MG/ML) FOR IV START INTRADERMA ONE (07:28)
[2022-10-18 08:59] VITALS: TEMP 97.5
--- NOTE | 2022-10-18 09:02 | P.HPIHPCON ---
History of Present Illness H&P Date: 10/18/22 Chief Complaint: Right renal stones This is an 82-year-old female with history of 2.6 cm right-sided renal pelvis stone. Underwent a stage I right-sided ureteroscopy with holmium laser on October 04. Presents today for stage II ureteroscopy. Discussed with her the risk of surgery which includes but not limited to bleeding, infection, injury to the ureter. Risk of anesthesia was also discussed. she understood all the risk and agreed to proceed with right-sided ureteroscopy, holmium laser lithotripsy, stone basketing and stent removal Consent for Procedure: I have explained the operation/procedure to the patient, including the risks, benefits, side effects, alternative therapies (including not receiving the proposed treatment or service), the likelihood of the patient achieving his/her goals, and potential recuperation problems for the procedure/sedation/analgesia, as well as any blood products, if indicated. I also explained to the patient the risks, benefits and side effects of the alternatives, as well as the risks related to not receiving the proposed procedure, care, treatment, or services. Past Medical History Past Medical History: Cancer, Diabetes Mellitus, Hyperlipidemia, Hypertension Additional Past Medical History / Comment(s): arthritis, Left breast cancer, renal calculi History of Any Multi-Drug Resistant Organisms: None Reported Past Surgical History: Back Surgery, Cholecystectomy, Orthopedic Surgery Additional Past Surgical History / Comment(s): rancho hip replacement, cataract, lumpectomy, lithotripsy with stent placement Past Anesthesia/Blood Transfusion Reactions: No Reported Reaction Past Psychological History: No Psychological Hx Reported Smoking Status: Never smoker Past Alcohol Use History: None Reported Past Drug Use History: None Reported - Past Family History Mother Family Medical History: Cancer Additional Family Medical History / Comment(s): bladder cancer Father Family Medical History: Myocardial Infarction ([place]) Brother(s) Family Medical History: Rheumatoid Arthritis ([place]) Daughter(s) Family Medical History: No Reported History Son(s) Family Medical History: No Reported History Medications and Allergies Home Medications Medication Instructions Recorded Confirmed Type Aspirin [Children's Aspirin] 81 mg PO DAILY 02/11/22 10/18/22 History Rosuvastatin [Crestor] 20 mg PO DAILY 02/11/22 10/18/22 History Vit C/E/Zn/Coppr/Lutein/Zeaxan 2 cap PO DAILY 02/11/22 10/18/22 History [Preservision Areds 2 Chew Tab] Alendronate Sodium [Fosamax] 70 mg PO WEEKLY 09/27/22 10/18/22 History Calcium Citrate/Vitamin D3 1 each PO DAILY 09/27/22 10/18/22 History [Citracal + D Maximum Caplet] Chlorthalidone 25 mg PO DAILY 09/27/22 10/18/22 History Empagliflozin [Jardiance] 25 mg PO DAILY 09/27/22 10/18/22 History Exemestane [Aromasin] 25 mg PO DAILY 09/27/22 10/18/22 History Losartan Potassium [Cozaar] 100 mg PO DAILY 09/27/22 10/18/22 History Omeprazole 20 mg PO DAILY 09/27/22 10/18/22 History traMADol HCl [Ultram] 50 mg PO Q6HR PRN 3 Days #12 tab 10/04/22 10/18/22 Rx Allergies Allergy/AdvReac Type Severity Reaction Status Date / Time cefuroxime Allergy Unknown Verified 10/18/22 07:07 Penicillins Allergy Rash/Hives Verified 10/18/22 07:07 simvastatin [From Zocor] Allergy Anaphylaxis Verified 10/18/22 07:07 anastrozole AdvReac Swelling Verified 10/18/22 07:07 Surgical - Exam Vital Signs Temp Pulse Resp BP Pulse Ox 97.8 F 64 16 193/81 98 10/18/22 07:04 10/18/22 07:04 10/18/22 07:04 10/18/22 07:04 10/18/22 07:04 - General no distress, moderate pain - Eyes normal ocular movement, no pale - ENT normal nares, normal mucosa - Respiratory normal expansion, normal respiratory effort - Abdomen Abdomen: soft, non tender - Psychiatric oriented to time, oriented to person, oriented to place Results - Labs Abnormal Lab Results - Last 24 Hours (Table) 10/18/22 Range/Units 07:22 POC Glucose (mg/dL) 158 H (70-110) mg/dL Assessment and Plan Assessment: Or for right-sided ureteroscopy, holmium laser lithotripsy, stone basketing and stent removal
--- NOTE | 2022-10-18 09:06 | P.OP ---
Date of Procedure: 10/18/22 Preoperative Diagnosis: Right renal stone, Postoperative Diagnosis: Same Procedure(s) Performed: Cystoscopy, right ureteroscopy, holmium laser lithotripsy, stone basketing and stent removal Implants: none Anesthesia: JUWAN Surgeon: Neville Alegria Estimated Blood Loss (ml): 5 Pathology: other (right renal stone) Condition: stable Disposition: PACU Indications for Procedure: This is an 82-year-old female with history of 2.6 cm right-sided renal pelvis s tone. Underwent a stage I right-sided ureteroscopy with holmium laser on October 04. Presents today for stage II ureteroscopy. Discussed with her the risk of surgery which includes but not limited to bleeding, infection, injury to the ureter. Risk of anesthesia was also discussed. she understood all the risk and agreed to proceed with right-sided ureteroscopy, holmium laser lithotripsy, stone basketing and stent removal Operative Findings: Multiple stones stones throughout the kidney that were dusted, small stones in the proximal ureter that were basketing using the stone basket Description of Procedure: Patient brought to the operating room, general anesthesia was induced. She was prepped and draped in sterile fashion and placed in a dorsal lithotomy position. Cystoscopy fitted 21-Turkish sheath was inserted per urethra, cystoscopy was performed which showed no abnormality within the bladder. The stent was grasped and removed to the meatus. Next a sensor wire was advanced through the stent and the stent was removed with the wire in place. Next under fluoroscopy 1113 Turkish access sheath was passed over the wire into the proximal ureter. Next a flexible ureteroscope was inserted through the access sheath, at this point a small stones were encountered in the proximal ureter and were basketted using the stone basket. Next a flexible ureteroscope was inserted through the access sheath and advanced into the kidney, renoscopy was performed which showed multiple stones throughout the kidney, all were fairly small. Using the holmium laser the stones were further dusted, any sizable fragments were removed. Repeat renoscopy showed no sizable stones or injury to the kidney. On fluoroscopy there was no radiopaque densities. Pullback ureteroscopy was performed which showed no injury to the ureter or any ureteral stones. The bladder was emptied at the end of the case. Patient tolerated the procedure was taken to recovery in stable condition
--- NOTE | 2022-10-18 09:42 | XR ---
EXAMINATION TYPE: XR KUB DATE OF EXAM: 10/18/2022 COMPARISON: 10/04/2022 HISTORY: Presurgical TECHNIQUE: One view abdominal series FINDINGS: The osseous structures are intact. The bowel gas pattern is nonspecific. Scoliosis, degenerative anay nges spine and postoperative changes with diffuse osteopenia. Bilateral hip replacement surgery. There is a right-sided ureteral stent. Calcification overlying the distal margin of the stent measuri ng diameter 7.8 mm. IMPRESSION: 1. Right ureteral stent noted in position. Larger calcification overlying the right kidney is not as well seen. There is a calcification overlying the distal margin stent.
--- NOTE | 2022-10-18 09:44 | FL ---
EXAMINATION TYPE: FL guidance operating room DATE OF EXAM: 10/18/2022 HISTORY: Fluoroscopy time Total dose area product (DAP) in uGy*m?, mGy*cm? (or similar): 0.16857 IMPRESSION: 1. Fluoroscopy time.
[2022-10-18 09:53] VITALS: BP 158/74; PULSE 54; RESP 20
== END 2022-10-18 10:24 | disposition home or self-care (01) ==
LOC: OR 06:42
PROVIDERS: ATTEND Urology
DX: N20.0 Calculus of kidney (principal); E11.9 Type 2 diabetes mellitus without complications; I10 Essential (primary) hypertension; E78.5 Hyperlipidemia, unspecified; Z90.49 Acquired absence of other specified parts of digestive tract; Z79.899 Other long term (current) drug therapy
CPT/HCPCS: 82365; 74018; 52353; C1769; J1100; J2405; J3010; J0744; J2704; J2001

== ENCOUNTER 2022-12-09 11:07 | Day surgery (SDC) | payer MEDICARE ==
[2022-12-08 08:49] VITALS: BMI 33.1
[2022-12-09] MEDS: LACTATED RINGERS 1,000 ML IV SCH ×2 (11:26→11:35)
[2022-12-09 11:40] LABS: Glucose,Whole Blood 123 mg/dL (70-110)
[2022-12-09 11:51] VITALS: RESP 16; TEMP 97
[2022-12-09] MEDS ORDERED: PROPOFOL 10 MG/ML 20 ML VIAL IV ONE (12:15)
[2022-12-09] MEDS ORDERED: LIDOCAINE 1% INJ 10MG/ML (20 ML MDV) ONE (12:15)
--- NOTE | 2022-12-09 12:29 | P.PCN ---
Date of Procedure: 12/09/22 Procedure(s) Performed: BRIEF HISTORY: Patient is a 82-year-old, pleasant, white female scheduled for an upper endoscopy as a part of evaluation of progressive dysphagia to solids. She had an upper endoscopy 6 months ago and was noted to have a Zenker's diverticulum in the distal esophageal stricture. Because of worsening symptoms she is scheduled for repeat upper endoscopy with dilation.. PROCEDURE PERFORMED: Esophagogastroduodenoscopy with dilation. PREOPERATIVE DIAGNOSIS: Dysphagia to solids. IV sedation per anesthesia. PROCEDURE: After informed consent was obtained, the patient was brought into the endoscopy unit. IV sedation was administered by Anesthesia under continuous monitoring. Initially the Olympus GIF-140 video endoscope was inserted into the mouth. Esophagus intubated without any difficulty. It was gradually advanced into the stomach and duodenum and carefully examined. The bulb and the second part of the duodenum appeared normal. The scope at this time was withdrawn to the stomach, adequately insufflated with air, and upon careful examination, mucosa of the antrum, body, cardia and the fundus appeared normal. The scope was then withdrawn into the esophagus. small hiatal hernia noted. The GE junction was located at 39 cm from the incisors. there were 2 distal esophageal stricture identified at 36 and 39 cm from the incisors both of which were dilated using 15 mm TTS balloon for 30 seconds. Following this there was some oozing with mucosal tear noted at the site of dilation and hence further dilation was not performed. There were superficial mucosal rings noted in the mid and distal esophagus and hence biopsies were done to evaluate for years of age esophagitis. The rest of theesophagus appeared normal. There were no erosions or ulcerations seen. In the proximal cervical esophagus there was a small 1 cm Zenker's diverticulum identified. The patient tolerated the procedure well. IMPRESSION: 1. Distal esophageal strictures status post balloon dilation using 15 mm TTS balloon as described above 2. Small hiatal hernia 3. Small 1 cm Zenker's diverticulum. RECOMMENDATIONS: The findings of this examination were discussed with the patient as well as a family. She will continue with omeprazole 20 mg daily and follow antireflux measures. She was advised to be on clear liquids for 2 hours and then soft diet for the rest of the day. Follow up in office in 3 months.
[2022-12-09 13:00] VITALS: BP 120/64; PULSE 58
== END 2022-12-09 13:15 | disposition home or self-care (01) ==
LOC: ORWHC2ENDO 11:07
PROVIDERS: ATTEND Internal Medicine Gastroenterology
DX: K20.90 Esophagitis, unspecified without bleeding (principal); K22.2 Esophageal obstruction; K22.5 Diverticulum of esophagus, acquired; K44.9 Diaphragmatic hernia without obstruction or gangrene; I10 Essential (primary) hypertension; E78.5 Hyperlipidemia, unspecified; E11.9 Type 2 diabetes mellitus without complications; N20.0 Calculus of kidney; K21.9 Gastro-esophageal reflux disease without esophagitis; Z98.890 Other specified postprocedural states; Z79.84 Long term (current) use of oral hypoglycemic drugs; Z79.811 Long term (current) use of aromatase inhibitors; Z79.82 Long term (current) use of aspirin; Z79.83 Long term (current) use of bisphosphonates; Z79.899 Other long term (current) drug therapy; Z85.3 Personal history of malignant neoplasm of breast; Z88.1 Allergy status to other antibiotic agents; Z88.0 Allergy status to penicillin
CPT/HCPCS: 88305; 43239; 43249; J2001; J2704; C1726

== ENCOUNTER → 2022-12-09 | Outpatient (CLI) | payer MEDICARE ==
--- NOTE | 2022-12-09 13:36 | XR ---
EXAMINATION TYPE: XR KUB DATE OF EXAM: 12/09/2022 COMPARISON: 10/18/2022 HISTORY: Pain TECHNIQUE: One view abdominal series FINDINGS: The osseous structures are intact. The bowel gas pattern is nonspecific. A postsurgical change invol ving the hips and the lower lumbar spine. Right-sided ureteral stent is no longer seen. Calcification s in the pelvis are stable most likely vascular. Evaluation of the renal outlines limited due to overlying bowel content with no definite suspicious c alcification. Severe multilevel degenerative disc disease. Bowel gas pattern nonspecific. IMPRESSION: 1. No definite suspicious calcifications identified.
== END | disposition home or self-care (01) ==
LOC: RADXRMAIN 13:20
PROVIDERS: ATTEND Urology
DX: N20.0 Calculus of kidney (principal)
CPT/HCPCS: 74018

== ENCOUNTER → 2023-01-16 | Outpatient (CLI) | payer MEDICARE ==
--- NOTE | 2023-01-19 10:13 | MM ---
Reason for Exam: Hx of breast cancer, conservation therapy. Last screening mammogram was performed 12 month(s) ago. Patient History: Menarche at age 10. First Full-Term at age 23. Postmenopausal. Breast cancer, left, age 81. 01/24/2022, Ultrasound-Guided Core Biopsy on the Left side. 04/19/2022, Lumpectomy on the Left side. 04/19/2022, Malignant US breast localization LT on the left side. 04/19/2022, US breast local each add LT on the Left side. Prior Study Comparison: 11/22/2013 Bilateral Screening Mammogram, [facility]. 01/13/2022 Bilateral Diagnostic Mammogram, [facility]. 01/24/2022 Left Diagnostic Mammogram, [facility]. Tissue Density: There are scattered fibroglandular densities. Findings: Analyzed By CAD. Interval postsurgical and posttreatment changes left breast. Areas of asymmetric density likely corresponds surgical change and scar. Short interval follow-up recommended to assess for any evolving posttreatment change. On the right, unchanged intramammary lymph node and some regional benign round calcifications. Overall Assessment: Probably benign, BI-RAD 3 Management: Diagnostic Mammogram of the left breast in 6 months. To assess for any evolving posttreatment change. Results were given to the patient verbally at the time of exam. Patient should continue monthly self-breast exams. A clinical breast exam by your physician is recommended on an annual basis. This exam should not preclude additional follow-up of suspicious palpable abnormalities. Electronically signed and approved by: Shonda Escalante M.D. Radiologist
== END | disposition home or self-care (01) ==
LOC: RADMAMWWP 11:00
PROVIDERS: ATTEND Surgery
DX: R92.323 Mammographic fibroglandular density, bilateral breasts (principal); Z85.3 Personal history of malignant neoplasm of breast; Z78.0 Asymptomatic menopausal state
CPT/HCPCS: 77066; G0279; 77062

== ENCOUNTER → 2023-01-18 | Outpatient (CLI) | payer MEDICARE | LOC: WWCWWP 12:43 | PROVIDERS: ATTEND Surgery | DX: Z53.9 Procedure and treatment not carried out, unspecified reason (principal) ==

== ENCOUNTER → 2023-07-28 | Outpatient (CLI) | payer MEDICARE ==
--- NOTE | 2023-07-28 14:14 | MM ---
Reason for Exam: Follow-up at short interval from prior study. Last mammogram was performed 1 year(s) and 6 month(s) ago. Patient History: Menarche at age 10. First Full-Term at age 23. Postmenopausal. Breast cancer, left, age 81. 01/24/2022, Ultrasound-Guided Core Biopsy on the Left side. 04/19/2022, Lumpectomy on the Left side. 04/19/2022, Malignant US breast localization LT on the left side. 04/19/2022, US breast local each add LT on the Left side. Prior Study Comparison: 01/13/2022 Bilateral Diagnostic Mammogram, [facility]. 01/24/2022 Left Diagnostic Mammogram, [facility]. 01/16/2023 Bilateral MG 3D diag mammo w/cad JORDY, [facility]. Tissue Density: Left: The breasts are heterogeneously dense, which may obscure small masses. Findings: Analyzed By CAD. Pattern appears stable. A few scattered benign-appearing calcifications are present. Lumpectomy in the upper outer left breast is evident. No suspicious groups of microcalcifications, spiculated or lobular masses, architectural distortion or other secondary signs of malignancy are mammographically apparent. Overall Assessment: Benign, BI-RAD 2 Management: Diagnostic Mammogram of both breasts in 6 months. A negative mammogram report should not preclude additional follow up of suspicious palpable abnormalities. Patient should continue monthly self breast exam. A clinical breast exam by your physician is recommended on an annual basis and results should be correlated with mammographic findings. Note on Ulcia scores and lifetime risk: 1. A Lucia score greater than 3% is considered moderate risk. If this is the case, consider specialist referral to assess eligibility for a risk reducing agent. 2. If overall lifetime risk for the development of breast cancer is 20% or higher, the patient may qualify for future screening with alternating mammogram and breast MRI. Electronically signed and approved by: Alexandro Rizo D.O. Radiologis
== END | disposition home or self-care (01) ==
LOC: RADMAMWWP 13:42
PROVIDERS: ATTEND Surgery
DX: R92.332 Mammographic heterogeneous density, left breast (principal); Z85.3 Personal history of malignant neoplasm of breast; Z78.0 Asymptomatic menopausal state
CPT/HCPCS: 77065; G0279; 77061

== ENCOUNTER 2023-08-20 11:56 | Inpatient (IN) | payer MEDICARE ==
--- NOTE | 2023-08-20 12:22 | ED ---
General Adult HPI - General Chief complaint: Shortness of Breath Stated complaint: SOB Time Seen by Provider: 08/20/23 12:00 Source: patient, family, RN notes reviewed, old records reviewed Mode of arrival: ambulatory Limitations: no limitations - History of Present Illness Initial comments: This is an 82-year-old female who presents to the emergency department complaining of shortness of breath. Patient states that started yesterday. Patient denies any fever chills. Patient states she has an occasional cough. Patient denies chest pain. Patient has palpitations. Patient denies any nausea vomiting diarrhea. Patient has abdominal pain. Patient denies any chest pain. - Related Data Home Medications Medication Instructions Recorded Confirmed Aspirin [Children's Aspirin] 81 mg PO DAILY 02/11/22 08/20/23 Rosuvastatin [Crestor] 20 mg PO DAILY 02/11/22 08/20/23 Vit C/E/Zn/Coppr/Lutein/Zeaxan 2 cap PO DAILY 02/11/22 08/20/23 [Preservision Areds 2 Chew Tab] Alendronate Sodium [Fosamax] 70 mg PO ROGERS 09/27/22 08/20/23 Calcium Citrate/Vitamin D3 2 tab PO DAILY 09/27/22 08/20/23 [Citracal + D Maximum Caplet] Exemestane [Aromasin] 25 mg PO DAILY 09/27/22 08/20/23 Omeprazole 20 mg PO DAILY 09/27/22 08/20/23 Empagliflozin [Jardiance] 10 mg PO DAILY 12/08/22 08/20/23 Losartan [Cozaar] 25 mg PO DAILY 08/20/23 08/20/23 Allergies Allergy/AdvReac Type Severity Reaction Status Date / Time cefuroxime Allergy Unknown Verified 08/20/23 14:22 Penicillins Allergy Rash/Hives Verified 08/20/23 14:22 simvastatin [From Zocor] Allergy Anaphylaxis Verified 08/20/23 14:22 anastrozole AdvReac Swelling Verified 08/20/23 14:22 Review of Systems ROS Statement: Those systems with pertinent positive or pertinent negative responses have been documented in the HPI. ROS Other: All systems not noted in ROS Statement are negative. Past Medical History Past Medical History: Cancer, Diabetes Mellitus, GERD/Reflux, Hyperlipidemia, Hypertension, Osteoarthritis (OA) Additional Past Medical History / Comment(s): Left breast cancer, hx kidney stones-states current back pain and is having x-ray 12/09/22 to see if she has another kidney stone., dysphagiz History of Any Multi-Drug Resistant Organisms: None Reported Past Surgical History: Back Surgery, Breast Surgery, Cholecystectomy, Orthopedic Surgery Additional Past Surgical History / Comment(s): rancho hip replacement, cataract, lumpectomy , EGD , cystoscopy with lithotripsy. Past Anesthesia/Blood Transfusion Reactions: No Reported Reaction Past Psychological History: No Psychological Hx Reported Smoking Status: Never smoker Past Alcohol Use History: None Reported Past Drug Use History: None Reported - Past Family History Mother Family Medical History: Cancer Additional Family Medical History / Comment(s): bladder cancer Father Family Medical History: Myocardial Infarction ([place]) Brother(s) Family Medical History: Rheumatoid Arthritis (RA) Daughter(s) Family Medical History: No Reported History Son(s) Family Medical History: No Reported History General Exam - General Exam Comments Initial Comments: GENERAL: Patient is well-developed and well-nourished. Patient is nontoxic and well-hydrated and is in mild distress. ENT: Neck is soft and supple. No significant lymphadenopathy is noted. Oropharynx is clear. Moist mucous membranes. Neck has full range of motion without eliciting any pain. EYES: The sclera were anicteric and conjunctiva were pink and moist. Extraocular movements were intact and pupils were equal round and reactive to light. Eyelids were unremarkable. PULMONARY: Unlabored respirations. Good breath sounds bilaterally. No audible rales rhonchi or wheezing was noted. CARDIOVASCULAR: There is a regular rate and rhythm without any murmurs gallops or rubs. ABDOMEN: Soft and nontender with normal bowel sounds. SKIN: Skin is clear with no lesions or rashes and otherwise unremarkable. NEUROLOGIC: Patient is alert and oriented x3. Cranial nerves II through XII are grossly intact. Motor and sensory are also intact. Normal speech, volume and content. Symmetrical smile. MUSCULOSKELETAL: Normal extremities with adequate strength and full range of motion. Patient has bilateral chronic cellulitis of the legs 1+ edema LYMPHATICS: No significant lymphadenopathy is noted PSYCHIATRIC: Normal psychiatric evaluation. Limitations: no limitations Course Vital Signs 08/20/23 12:00 Temperature 98.9 F Pulse Rate 60 Respiratory 24 Rate Blood Pressure 120/74 O2 Sat by Pulse 98 Oximetry Medical Decision Making - Medical Decision Making EKG is interpreted by myself but EKG shows sinus rhythm with multiple PACs at a rate of 87 bpm QRS 133 QT interval 367 QTc is 411. Patient has a left bundle branch block. Was pt. sent in by a medical professional or institution (, JO[facility], CERTIFIED MEDICAL DOSIMETRIST, urgent care, hospital, or long term...) When possible be specific @ -No Did you speak to anyone other than the patient for history (EMS, parent, family, police, friend...)? What history was obtained from this source @ -No Did you review nursing and triage notes (agree or disagree)? Why? @ -I reviewed and agree with nursing and triage notes Were old charts reviewed (outside hosp., previous admission, EMS record, old EKG, old radiological studies, urgent care reports/EKG's, long term records)? Report findings @ -No old charts were reviewed Differential Diagnosis? @ -Differential Dyspnea: Coronary syndrome, arrhythmia, tamponade, asthma, COPD, pulmonary embolism, pneumonia, pneumothorax, pulmonary effusion, anaphylaxis, diabetic ketoacidosis, flailed chest, pulmonary contusion, diaphragmatic rupture, anemia, neuromuscular, this is not meant to be an all-inclusive list. EKG interpreted by me (3pts min.). @ -As above X-rays interpreted by me (1pt min.). @ -X-ray shows some mild pulmonary edema CT interpreted by me (1pt min.). @ -None done U/S interpreted by me (1pt. min.). @ -None done What testing was considered but not performed or refused? (CT, X-rays, U/S, labs)? Why? @ -None What meds were considered but not given or refused? Why? @ -None Did you discuss the management of the patient with other professionals (professionals i.e. JOY Bustillos, CERTIFIED MEDICAL DOSIMETRIST, lab, RT, psych nurse, web content & social media manager, quotation clerk, t eacher, property officer, rn case manager)? Give summary @ -I spoke with Dr. Severiano العلي agreed to admit the patient Was smoking cessation discussed for >3mins.? @ -No Was critical care preformed (if so, how long)? @ -No Were there social determinants of health that impacted care today? How? (Homeles sness, low income, unemployed, alcoholism, drug addiction, transportation, low edu. Level, literacy, decrease access to med. care, snf, rehab)? @ -No Was there de-escalation of care discussed even if they declined (Discuss DNR or withdrawal of care, Hospice)? DNR status @ -No What co-morbidities impacted this encounter? (DM, HTN, Smoking, COPD, CAD, Cancer, CVA, ARF, Chemo, Hep., AIDS, mental health diagnosis, sleep apnea, morbid obesity)? @ -None Was patient admitted / discharged? Hospital course, mention meds given and route, prescriptions, significant lab abnormalities, going to OR and other pertinent info. @ -Patient's kidney function is considerably worse than previously. Patient was in kidney failure patient had a bicarb of 7. Started the patient on a bicarb drip I spoke to Dr. العلي admitted to Dr. Braxton in consult for nephrology Undiagnosed new problem with uncertain prognosis? @ -No Drug Therapy requiring intensive monitoring for toxicity (Heparin, Nitro, Insulin, Cardizem)? @ -No Were any procedures done? @ -No Diagnosis/symptom? @ -Acute renal Acute, or Chronic, or Acute on Chronic? @ -Acute Uncomplicated (without systemic symptoms) or Complicated (systemic symptoms)? @ -Complicated Side effects of treatment? @ -No Exacerbation, Progression, or Severe Exacerbation? @ -No Poses a threat to life or bodily function? How? (Chest pain, [place], HI, pneumonia, PE, COPD, DKA, ARF, appy, cholecystitis, CVA, Diverticulitis, Homicidal, Suicidal, threat to staff... and all critical care pts) @ -Yes this can lead to electrolyte abnormalities and acidosis and endorgan dysfunction. - Lab Data Result diagrams: 08/20/23 12:27 08/20/23 13:47 Lab Results 08/20/23 08/20/23 08/20/23 Range/Units 12:27 12:27 12:27 WBC 12.4 H (3.8-10.6) k/uL RBC 3.00 L (3.80-5.40) m/uL Hgb 9.0 L (11.4-16.0) gm/dL Hct 28.1 L (34.0-46.0) % MCV 93.6 (80.0-100.0) fL MCH 30.1 (25.0-35.0) pg MCHC 32.2 (31.0-37.0) g/dL RDW 14.9 (11.5-15.5) % Plt Count 270 (150-450) k/uL MPV 9.7 Neutrophils % 78 % Lymphocytes % 11 % Monocytes % 7 % Eosinophils % 2 % Basophils % 1 % Neutrophils # 9.7 H (1.3-7.7) k/uL Lymphocytes # 1.4 (1.0-4.8) k/uL Monocytes # 0.9 (0-1.0) k/uL Eosinophils # 0.2 (0-0.7) k/uL Basophils # 0.1 (0-0.2) k/uL Hypochromasia Slight Poikilocytosis Slight PT 12.6 H (10.0-12.5) sec INR 1.2 H (<1.2) APTT 25.0 (22.0-30.0) sec D-Dimer 8.18 H (<0.60) mg/L FEU Sodium (137-145) mmol/L Potassium (3.5-5.1) mmol/L Chloride (98-107) mmol/L Carbon Dioxide (22-30) mmol/L Anion Gap mmol/L BUN (7-17) mg/dL Creatinine (0.52-1.04) mg/dL Est GFR (CKD-EPI)AfAm (>60 ml/min/1.73 sqM) Est GFR (CKD-EPI)NonAf (>60 ml/min/1.73 sqM) Glucose (74-99) mg/dL Plasma Lactic Acid Adrien 1.1 (0.7-2.0) mmol/L Calcium (8.4-10.2) mg/dL Magnesium (1.6-2.3) mg/dL Total Bilirubin (0.2-1.3) mg/dL AST (14-36) U/L ALT (4-34) U/L Alkaline Phosphatase (38-126) U/L Troponin I (0.000-0.034) ng/mL NT-Pro-B Natriuret Pep pg/mL Total Protein (6.3-8.2) g/dL Albumin (3.5-5.0) g/dL 08/20/23 08/20/23 Range/Units 12:27 13:47 WBC (3.8-10.6) k/uL RBC (3.80-5.40) m/uL Hgb (11.4-16.0) gm/dL Hct (34.0-46.0) % MCV (80.0-100.0) fL MCH (25.0-35.0) pg MCHC (31.0-37.0) g/dL RDW (11.5-15.5) % Plt Count (150-450) k/uL MPV Neutrophils % % Lymphocytes % % Monocytes % % Eosinophils % % Basophils % % Neutrophils # (1.3-7.7) k/uL Lymphocytes # (1.0-4.8) k/uL Monocytes # (0-1.0) k/uL Eosinophils # (0-0.7) k/uL Basophils # (0-0.2) k/uL Hypochromasia Poikilocytosis PT (10.0-12.5) sec INR (<1.2) APTT (22.0-30.0) sec D-Dimer (<0.60) mg/L FEU Sodium 140 (137-145) mmol/L Potassium 3.7 (3.5-5.1) mmol/L Chloride 116 H (98-107) mmol/L Carbon Dioxide 7 L* (22-30) mmol/L Anion Gap 17 mmol/L BUN 97 H (7-17) mg/dL Creatinine 9.65 H* (0.52-1.04) mg/dL Est GFR (CKD-EPI)AfAm 4 (>60 ml/min/1.73 sqM) Est GFR (CKD-EPI)NonAf 3 (>60 ml/min/1.73 sqM) Glucose 90 (74-99) mg/dL Plasma Lactic Acid Adrien (0.7-2.0) mmol/L Calcium 8.3 L (8.4-10.2) mg/dL Magnesium 1.1 L (1.6-2.3) mg/dL Total Bilirubin 0.6 (0.2-1.3) mg/dL AST 25 (14-36) U/L ALT 24 (4-34) U/L Alkaline Phosphatase 81 (38-126) U/L Troponin I 0.058 H* (0.000-0.034) ng/mL NT-Pro-B Natriuret Pep 6790 pg/mL Total Protein 5.1 L (6.3-8.2) g/dL Albumin 2.6 L (3.5-5.0) g/dL Disposition Clinical Impression: Acute renal failure, Acidosis Disposition: ADMITTED IP TO THIS HOSP Referrals: Elizabeth Jeronimo MD [Primary Care Provider] - 1-2 days Time of Disposition: 15:25
[2023-08-20 13:12] LABS: INR 1.2 (<1.2); Prothrombin Time 12.6 sec (10.0-12.5)
[2023-08-20 13:18] LABS: Basophils # (A) 0.1 k/uL (0-0.2); Basophils % (A) 1 %; Eosinophils # (A) 0.2 k/uL (0-0.7); Eosinophils % (A) 2 %; HCT 28.1 % (34.0-46.0); Hypochromasia Slight; Lymphocytes # (A) 1.4 k/uL (1.0-4.8); Lymphocytes % (A) 11 %; MCH 30.1 pg (25.0-35.0); MCHC 32.2 g/dL (31.0-37.0); MCV 93.6 fL (80.0-100.0); Mean Platelet Volume 9.7; Monocytes # (A) 0.9 k/uL (0-1.0); Monocytes % (A) 7 %; Neutrophils # (A) 9.7 k/uL (1.3-7.7); Neutrophils % (A) 78 %; Platelet Count 270 k/uL (150-450); Poikilocytosis Slight; RDW 14.9 % (11.5-15.5); WBC 12.4 k/uL (3.8-10.6)
--- NOTE | 2023-08-20 13:19 | XR ---
EXAMINATION TYPE: XR chest 2V DATE OF EXAM: 08/20/2023 COMPARISON: 09/17/2018 HISTORY: Shortness of breath TECHNIQUE: Frontal and lateral views of the chest are obtained. FINDINGS: Scattered senescent parenchymal changes noted. Hyperinflation compatible with COPD. No evidence for infiltrate. No evidence for atelectasis. Pulmonary venous congestion without overt fa ilure. Heart size is stable. Mediastinal structures are stable and grossly unremarkable. No evidence for hilar prominence. Degenerative changes dorsal spine. IMPRESSION: 1. Pulmonary venous congestion without overt failure.
[2023-08-20 14:09] LABS: ALT 24 U/L (4-34); AST 25 U/L (14-36); African American GFR (CKD) 4 (>60 ml/min/1.73 sqM); Albumin 2.6 g/dL (3.5-5.0); Alkaline Phosphatase 81 U/L (38-126); Anion Gap 17 mmol/L; Blood Urea Nitrogen 97 mg/dL (7-17); Calcium 8.3 mg/dL (8.4-10.2); Chloride 116 mmol/L (98-107); Glucose 90 mg/dL (74-99); Magnesium 1.1 mg/dL (1.6-2.3); Non-African American GFR(CKD) 3 (>60 ml/min/1.73 sqM); Potassium 3.7 mmol/L (3.5-5.1); Sodium 140 mmol/L (137-145); Total Bilirubin 0.6 mg/dL (0.2-1.3); Total Protein 5.1 g/dL (6.3-8.2)
[2023-08-20 14:14] LABS: Carbon Dioxide 7 mmol/L (22-30)
[2023-08-20 14:18] LABS: NT-Pro-B-Type Natriuretic Pept 6790 pg/mL
[2023-08-20] MEDS: DEXTROSE 5% IN WATER 1,000 ML with SODIUM BICARB (1 MEQ/ML) 150 ML IV SCH (15:43)
[2023-08-21 08:06] LABS: ALT 23 U/L (4-34); AST 33 U/L (14-36); African American GFR (CKD) 4 (>60 ml/min/1.73 sqM); Albumin 2.2 g/dL (3.5-5.0); Alkaline Phosphatase 70 U/L (38-126); Anion Gap 15 mmol/L; Blood Urea Nitrogen 93 mg/dL (7-17); Carbon Dioxide 13 mmol/L (22-30); Chloride 112 mmol/L (98-107); Globulin 2.2 g/dL; Glucose 105 mg/dL (74-99); Non-African American GFR(CKD) 4 (>60 ml/min/1.73 sqM); Potassium 3.1 mmol/L (3.5-5.1); Sodium 140 mmol/L (137-145); Total Bilirubin 0.4 mg/dL (0.2-1.3); Total Protein 4.4 g/dL (6.3-8.2)
--- NOTE | 2023-08-21 08:12 | US ---
EXAMINATION TYPE: US kidneys/renal and bladder DATE OF EXAM: 08/21/2023 COMPARISON: CT: 07/27/22 CLINICAL INDICATION: Female, 82 years old with history of luca; luca EXAM MEASUREMENTS: Right Kidney: 12.0 x 7.6 x 4.9 cm Left Kidney: 12.0 x 4.1 x 3.8 cm Right Kidney: No hydronephrosis or masses seen. Cortical thinning seen Left Kidney: Small anechoic area seen at inf pole measuring 1.0cm. Cortical thinning seen Bladder: wnl, mostly contracted Bilateral Jets seen: No IMPRESSION: 1. Small cyst inferior pole left kidney
[2023-08-21] MEDS: POTASSIUM CHLORIDE ER 20 MEQ TAB.ER PO SCH (09:35)
[2023-08-21] MEDS: ACETAMINOPHEN TAB 325 MG TAB PO PRN (10:08)
[2023-08-21] MEDS ORDERED: HEPARIN SODIUM 1,000 UN/ML (10ML VL) IV PRN (11:46)
--- NOTE | 2023-08-21 11:55 | US ---
EXAMINATION TYPE: US venous doppler duplex LE BI DATE OF EXAM: 08/21/2023 11:17 AM COMPARISON: US 06/20/2022 CLINICAL INDICATION: Female, 82 years old with history of swelling, elevated d-dimer; No hx of DVT. P atient takes baby aspirin. Elevated D Dimer. Swelling. SIDE PERFORMED: Bilateral TECHNIQUE: The lower extremity deep venous system is examined utilizing real time linear array sonog jackie with graded compression, doppler sonography and color-flow sonography. VESSELS IMAGED: Common Femoral Vein Deep Femoral Vein Greater Saphenous Vein * Femoral Vein Popliteal Vein Small Saphenous Vein * Proximal Calf Veins (* superficial vessels) Right Leg: No evidence of DVT. Left Leg: No evidence of DVT. IMPRESSION: No evidence for DVT within the bilateral lower extremities imaged from the groin to the upper calves.
[2023-08-21 12:05] LABS: Basophils % (A) 0 %; Eosinophils # (A) 0.3 k/uL (0-0.7); Eosinophils % (A) 3 %; HCT 25.5 % (34.0-46.0); HGB 8.1 gm/dL (11.4-16.0); Lymphocytes # (A) 1.5 k/uL (1.0-4.8); Lymphocytes % (A) 13 %; MCH 29.6 pg (25.0-35.0); MCHC 31.7 g/dL (31.0-37.0); MCV 93.3 fL (80.0-100.0); Monocytes # (A) 0.6 k/uL (0-1.0); Monocytes % (A) 5 %; Neutrophils # (A) 8.8 k/uL (1.3-7.7); Neutrophils % (A) 77 %; Platelet Count 227 k/uL (150-450); RBC 2.74 m/uL (3.80-5.40); RDW 14.4 % (11.5-15.5); WBC 11.4 k/uL (3.8-10.6)
[2023-08-21] MEDS: MAGNESIUM SULFATE-D5W PMX 1 GM in DEXTROSE/WATER 1 100ML.BAG IVPB SCH (12:57)
--- NOTE | 2023-08-21 13:02 | P.NPCON ---
History of Present Illness - Reason for Consult acute renal failure, chronic renal failure - History of Present Illness Reason for consultation: Acute kidney injury on chronic kidney disease History of present illness: Patient is an 82-year-old female seen in renal consultation for acute kidney injury on chronic kidney disease. Patient has chronic kidney disease stage IV baseline creatinine 1.6-1.7 in July and September 2022. Creatinine this admission was 9.65 and is 9.14 today. Patient came to the hospital due to shortness of breath even with minimal exertion. Patient denies falls or any loss of c onsciousness. Patient states she just been feeling weak and has no energy. Oral intake has been poor for over 1 week now. Patient does admit to taking Advil as needed and states she took it twice last week. Patient was noted to be severely acidotic and is currently maintained on bicarb drip. Patient does have history of diabetes. Denies history of coronary artery disease. She was on losartan as well as Jardiance outpatient which are both currently held. She denies chest pain or shortness of breath. Denies gross hematuria or dysuria. Blood pressure well-controlled. No significant hypotension. She is on room air. Vital signs are stable. General: No acute distress. HEENT: Head exam is unremarkable. LUNGS: No audible rhonchi or wheezes. HEART: Rate and Rhythm are regular. ABDOMEN: Nontender. EXTREMITITES: No edema. Past Medical History Past Medical History: Cancer, Diabetes Mellitus, GERD/Reflux, Hyperlipidemia, Hypertension, Osteoarthritis (OA) Additional Past Medical History / Comment(s): Left breast cancer, hx kidney stones-states current back pain and is having x-ray 12/09/22 to see if she has another kidney stone., dysphagiz History of Any Multi-Drug Resistant Organisms: None Reported Past Surgical History: Back Surgery, Breast Surgery, Cholecystectomy, Orthopedic Surgery Additional Past Surgical History / Comment(s): rancho hip replacement, cataract, lumpectomy , EGD , cystoscopy with lithotripsy. Past Anesthesia/Blood Transfusion Reactions: No Reported Reaction Past Psychological History: No Psychological Hx Reported Smoking Status: Never smoker Past Alcohol Use History: None Reported Past Drug Use History: None Reported - Past Family History Mother Family Medical History: Cancer Additional Family Medical History / Comment(s): bladder cancer Father Family Medical History: Myocardial Infarction ([place]) Brother(s) Family Medical History: Rheumatoid Arthritis (RA) Daughter(s) Family Medical History: No Reported History Son(s) Family Medical History: No Reported History Medications and Allergies Home Medications Medication Instructions Recorded Confirmed Type Aspirin [Children's Aspirin] 81 mg PO DAILY 02/11/22 08/20/23 History Rosuvastatin [Crestor] 20 mg PO DAILY 02/11/22 08/20/23 History Vit C/E/Zn/Coppr/Lutein/Zeaxan 2 cap PO DAILY 02/11/22 08/20/23 History [Preservision Areds 2 Chew Tab] Alendronate Sodium [Fosamax] 70 mg PO ROGERS 09/27/22 08/20/23 History Calcium Citrate/Vitamin D3 2 tab PO DAILY 09/27/22 08/20/23 History [Citracal + D Maximum Caplet] Exemestane [Aromasin] 25 mg PO DAILY 09/27/22 08/20/23 History Omeprazole 20 mg PO DAILY 09/27/22 08/20/23 History Empagliflozin [Jardiance] 10 mg PO DAILY 12/08/22 08/20/23 History Losartan [Cozaar] 25 mg PO DAILY 08/20/23 08/20/23 History Allergies Allergy/AdvReac Type Severity Reaction Status Date / Time cefuroxime Allergy Unknown Verified 08/20/23 14:22 Penicillins Allergy Rash/Hives Verified 08/20/23 14:22 simvastatin [From Zocor] Allergy Anaphylaxis Verified 08/20/23 14:22 anastrozole AdvReac Swelling Verified 08/20/23 14:22 Physical Exam Vitals: Vital Signs Temp Pulse Pulse Resp BP BP Pulse Ox 08/21/23 06:17 90 20 124/50 94 L 08/21/23 00:00 90 24 103/57 100 08/20/23 20:00 98.1 F 75 24 117/63 96 08/20/23 15:49 78 18 117/76 98 Intake and Output 08/20/23 08/21/23 08/21/23 22:59 06:59 14:59 Other: # Voids 1 Results - Lab Results Most recent lab results Calcium 8.0 mg/dL (8.4-10.2) L 08/21/23 07:28 Magnesium 1.0 mg/dL (1.6-2.3) L 08/21/23 07:28 08/21/23 07:28 08/21/23 07:28 Assessment and Plan Plan: Assessment: 1. Acute kidney injury secondary to ATN secondary to hypovolemia further worsen with the use of ARB and SGLT2 inhibitor. No hydronephrosis noted on kidney ultrasound. Creatinine 9.65 on admission and is 9.14 today. 2. Chronic kidney disease stage IV baseline creatinine 1.6-1.7 in July and September 2022. Suspect nephrosclerosis and diabetic kidney disease. 3. Metabolic acidosis secondary to acute kidney injury. Improving with bicarb drip. 4. Hypertension with chronic kidney disease. Controlled. 5. Anemia. Will trend deficiency. 6. Hypokalemia from intracellular shifting from IV bicarb. 7. Hypomagnesemia from poor intake. Plan: Maintain bicarb drip. Replace potassium and magnesium. Avoid nephrotoxins. Strict I's and O's. Check bladder scan to make sure no urinary retention. Nurse unable to place Manzanares catheter. If bladder scan reveals over 300 cc of urine, will consult urology. Continue to hold antihypertensives. Continue to assess daily for need for renal placement therapy. Check iron studies. Check UA. Follow-up echocardiogram. Discussed with patient and her son present at bedside. Thank you for the consultation. I will continue to follow the patient with you during her hospital stay.
[2023-08-21 13:08] LABS: INR 1.2 (<1.2); Partial Thromboplastin Time 24.5 sec (22.0-30.0); Prothrombin Time 12.6 sec (10.0-12.5)
[2023-08-21] MEDS ORDERED: DEXTROSE 50% SYRINGE 50 ML IVP PRN ×2 (13:30)
--- NOTE | 2023-08-21 13:33 | P.HPIM ---
History of Present Illness H&P Date: 08/21/23 History of present illness; patient is a 82-year-old lady with past medical significant for breast cancer status postlumpectomy, diabetes, hypertension open who presented to the ER because of shortness of breath. patient stated that she was all right 1 week back when she started noticing that her breathing was getting hard. Patient was complaining of shortness of breath at rest as on exertion. Patient stated that she was unable to do her normal activities. Patient denies any chest pain. Denies any palpitation. There is no complaint orthopnea or PND. There was no complaint of swelling of feet. Patient denies any fever or chills patient is complaining of cough. Initial lab work done in the ER showed WBC 12.4, hemoglobin 9, platelet count 270, INR 1.2, D-dimer 8.18 lactate 1.1, sodium 140, potassium 3.7, BUN 97, creatinine 9.65, calcium 8.3, magnesium 1.1 troponin 0.058 EKG done in the ER showed heart rate of 87, no ST segment elevation or depression seen, no T-wave inversions seen. Chest x-ray done in the ER showed pulmonary vascular congestion without overt failure Patient admitted to internal medicine service REVIEW OF SYSTEMS: CONSTITUTIONAL: No fever, no malaise, no fatigue. HEENT: No recent visual problems or hearing problems. Denied any sore throat. CARDIOVASCULAR: As mentioned above PULMONARY: As mentioned above GASTROINTESTINAL: No diarrhea, no nausea, no vomiting, no abdominal pain. NEUROLOGICAL: No headaches, no weakness, no numbness. HEMATOLOGICAL: Denies any bleeding or petechiae. GENITOURINARY: Denies any burning micturition, frequency, or urgency. MUSCULOSKELETAL/RHEUMATOLOGICAL: Denies any joint pain, swelling, or any muscle pain. ENDOCRINE: Denies any polyuria or polydipsia. The rest of the 14-point review of systems is negative. PHYSICAL EXAMINATION: GENERAL: The patient is alert and oriented x3, not in any acute distress. Well developed, well nourished. HEENT: Pupils are round and equally reacting to light. EOMI. No scleral icterus. No conjunctival pallor. Normocephalic, atraumatic. No pharyngeal erythema. No thyromegaly. CARDIOVASCULAR: S1 and S2 present. No murmurs, rubs, or gallops. PULMONARY: Coarse breath sounds bilaterally no wheezing or crackles. ABDOMEN: Soft, nontender, nondistended, normoactive bowel sounds. No palpable organomegaly. MUSCULOSKELETAL: No joint swelling or deformity. EXTREMITIES: No cyanosis, clubbing, or pedal edema. NEUROLOGICAL: Gross neurological examination did not reveal any focal deficits. SKIN: No rashes. Assessment and plan Dyspnea Acute kidney injury Elevated troponin Elevated D-dimer Hypomagnesemia Hypertension Hyperlipidemia Anemia Monitor vital signs Monitor CBC Monitor CMP Continue telemetry monitoring Trend troponins. Ordered 2D echo Order ultrasound of lower extremities Ordered VQ scan Avoid nephrotoxic agents Ordered ultrasound of kidneys Continue IV fluids Consult nephrology Consult cardiology Consult pulmonary Labs and medication were reviewed.. Continue same treatment. Continue with symptomatic treatment. Resume home medication. Monitor labs and vitals. DVT and GI prophylaxis. Further recommendations as per clinical course of the patient Dictation was produced using [employer] dictation software. please excuse any grammatical, word or spelling errors. Past Medical History Past Medical History: Cancer, Diabetes Mellitus, GERD/Reflux, Hyperlipidemia, Hypertension, Osteoarthritis (OA) Additional Past Medical History / Comment(s): Left breast cancer, hx kidney stones-states current back pain and is having x-ray 12/09/22 to see if she has another kidney stone., dysphagiz History of Any Multi-Drug Resistant Organisms: None Reported Past Surgical History: Back Surgery, Breast Surgery, Cholecystectomy, Orthopedic Surgery Additional Past Surgical History / Comment(s): rancho hip replacement, cataract, lumpectomy , EGD , cystoscopy with lithotripsy. Past Anesthesia/Blood Transfusion Reactions: No Reported Reaction Past Psychological History: No Psychological Hx Reported Smoking Status: Never smoker Past Alcohol Use History: None Reported Past Drug Use History: None Reported - Past Family History Mother Family Medical History: Cancer Additional Family Medical History / Comment(s): bladder cancer Father Family Medical History: Myocardial Infarction ([place]) Brother(s) Family Medical History: Rheumatoid Arthritis (RA) Daughter(s) Family Medical History: No Reported History Son(s) Family Medical History: No Reported History Medications and Allergies Home Medications Medication Instructions Recorded Confirmed Type Aspirin [Children's Aspirin] 81 mg PO DAILY 02/11/22 08/20/23 History Rosuvastatin [Crestor] 20 mg PO DAILY 02/11/22 08/20/23 History Vit C/E/Zn/Coppr/Lutein/Zeaxan 2 cap PO DAILY 02/11/22 08/20/23 History [Preservision Areds 2 Chew Tab] Alendronate Sodium [Fosamax] 70 mg PO ROGERS 09/27/22 08/20/23 History Calcium Citrate/Vitamin D3 2 tab PO DAILY 09/27/22 08/20/23 History [Citracal + D Maximum Caplet] Exemestane [Aromasin] 25 mg PO DAILY 09/27/22 08/20/23 History Omeprazole 20 mg PO DAILY 09/27/22 08/20/23 History Empagliflozin [Jardiance] 10 mg PO DAILY 12/08/22 08/20/23 History Losartan [Cozaar] 25 mg PO DAILY 08/20/23 08/20/23 History Allergies Allergy/AdvReac Type Severity Reaction Status Date / Time cefuroxime Allergy Unknown Verified 08/20/23 14:22 Penicillins Allergy Rash/Hives Verified 08/20/23 14:22 simvastatin [From Zocor] Allergy Anaphylaxis Verified 08/20/23 14:22 anastrozole AdvReac Swelling Verified 08/20/23 14:22 Physical Exam Vitals: Vital Signs Temp Pulse Pulse Resp BP BP Pulse Ox 08/21/23 06:17 90 20 124/50 94 L 08/21/23 00:00 90 24 103/57 100 08/20/23 20:00 98.1 F 75 24 117/63 96 08/20/23 15:49 78 18 117/76 98 08/20/23 12:00 98.9 F 60 24 120/74 98 Intake and Output 08/20/23 08/21/23 08/21/23 22:59 06:59 14:59 Other: # Voids 1 Results CBC & Chem 7: 08/21/23 07:28 08/21/23 07:28 Labs: Abnormal Lab Results - Last 24 Hours (Table) 08/20/23 08/20/23 08/20/23 Range/Units 12:27 12:27 12:27 WBC 12.4 H (3.8-10.6) k/uL RBC 3.00 L (3.80-5.40) m/uL Hgb 9.0 L (11.4-16.0) gm/dL Hct 28.1 L (34.0-46.0) % Neutrophils # 9.7 H (1.3-7.7) k/uL PT 12.6 H (10.0-12.5) sec INR 1.2 H (<1.2) D-Dimer 8.18 H (<0.60) mg/L FEU Potassium (3.5-5.1) mmol/L Chloride (98-107) mmol/L Carbon Dioxide (22-30) mmol/L BUN (7-17) mg/dL Creatinine (0.52-1.04) mg/dL Glucose (74-99) mg/dL Calcium (8.4-10.2) mg/dL Magnesium (1.6-2.3) mg/dL Troponin I 0.058 H* (0.000-0.034) ng/mL Total Protein (6.3-8.2) g/dL Albumin (3.5-5.0) g/dL 08/20/23 08/21/23 Range/Units 13:47 07:28 WBC (3.8-10.6) k/uL RBC (3.80-5.40) m/uL Hgb (11.4-16.0) gm/dL Hct (34.0-46.0) % Neutrophils # (1.3-7.7) k/uL PT (10.0-12.5) sec INR (<1.2) D-Dimer (<0.60) mg/L FEU Potassium 3.1 L (3.5-5.1) mmol/L Chloride 116 H 112 H (98-107) mmol/L Carbon Dioxide 7 L* 13 L (22-30) mmol/L BUN 97 H 93 H (7-17) mg/dL Creatinine 9.65 H* 9.14 H* (0.52-1.04) mg/dL Glucose 105 H (74-99) mg/dL Calcium 8.3 L 8.0 L (8.4-10.2) mg/dL Magnesium 1.1 L 1.0 L (1.6-2.3) mg/dL Troponin I (0.000-0.034) ng/mL Total Protein 5.1 L 4.4 L (6.3-8.2) g/dL Albumin 2.6 L 2.2 L (3.5-5.0) g/dL
--- NOTE | 2023-08-21 14:34 | P.CNPUL ---
History of Present Illness Consult date: 08/21/23 Requesting physician: Elizabeth Jeronimo Reason for consult: dyspnea, hypoxemia, pleural effusion, abnormal CXR/CT Chief complaint: Shortness of breath. History of present illness: Pulmonary consult dated August 21, 2023. 82-year-old female who was seen in the emergency department, room #18. The patient came in with complaints of shortness of breath. The patient is currently on a couple liters of oxygen, and, is on no current IV. An IV is being attempted by the nurse. The patient's son is also in the examination room. The patient states that beginning a few days ago, she started noticing progressive and worsening shortness of breath, particularly when she exerted herself. She denies any chest pain or chest discomfort. The patient denies any fever or chills. Her cough is typically dry. The patient has a history of diabetes, gastroesophageal reflux disease, hyperlipidemia, hypertension, breast cancer, kidney stones, and states that she is a lifelong non-smoker. Current labs include a white count 11.4, hemoglobin 8.1, hematocrit 25.5, and a normal platelet count. PT 12.6 INR 1.2 and PTT is 24.5. Sodium 140, potassium 3.1, chlorides 112, CO2 13, anion gap 15, BUN 93, and creatinine 9.14. Glucose is 105. Troponins were 0.0580.082. N-terminal proBNP was 6790. Chest x-ray is consistent with pulmonary vascular congestion and mild CHF. Review of Systems REVIEW OF SYSTEMS: CONSTITUTIONAL: [Negative.] NEUROLOGIC: [ Negative.] HEENT: [ Negative.] CARDIAC: [Negative.] PULMONARY: Shortness of breath on exertion, dry cough. GI: [Negative.] : [Negative.] RHEUMATOLOGIC: [ Negative.] IMMUNOLOGIC: [ Negative.] ENDOCRINE: [Negative. ] DERMATOLOGIC: [Negative.] Past Medical History Past Medical History: Cancer, Diabetes Mellitus, GERD/Reflux, Hyperlipidemia, Hypertension, Osteoarthritis (OA) Additional Past Medical History / Comment(s): Left breast cancer, hx kidney stones-states current back pain and is having x-ray 12/09/22 to see if she has another kidney stone., dysphagiz History of Any Multi-Drug Resistant Organisms: None Reported Past Surgical History: Back Surgery, Breast Surgery, Cholecystectomy, Orthopedic Surgery Additional Past Surgical History / Comment(s): rancho hip replacement, cataract, lumpectomy , EGD , cystoscopy with lithotripsy. Past Anesthesia/Blood Transfusion Reactions: No Reported Reaction Past Psychological History: No Psychological Hx Reported Smoking Status: Never smoker Past Alcohol Use History: None Reported Past Drug Use History: None Reported - Past Family History Mother Family Medical History: Cancer Additional Family Medical History / Comment(s): bladder cancer Father Family Medical History: Myocardial Infarction (MD) Brother(s) Family Medical History: Rheumatoid Arthritis (RA) Daughter(s) Family Medical History: No Reported History Son(s) Family Medical History: No Reported History Medications and Allergies Home Medications Medication Instructions Recorded Confirmed Type Aspirin [Children's Aspirin] 81 mg PO DAILY 02/11/22 08/20/23 History Rosuvastatin [Crestor] 20 mg PO DAILY 02/11/22 08/20/23 History Vit C/E/Zn/Coppr/Lutein/Zeaxan 2 cap PO DAILY 02/11/22 08/20/23 History [Preservision Areds 2 Chew Tab] Alendronate Sodium [Fosamax] 70 mg PO ROGERS 09/27/22 08/20/23 History Calcium Citrate/Vitamin D3 2 tab PO DAILY 09/27/22 08/20/23 History [Citracal + D Maximum Caplet] Exemestane [Aromasin] 25 mg PO DAILY 09/27/22 08/20/23 History Omeprazole 20 mg PO DAILY 09/27/22 08/20/23 History Empagliflozin [Jardiance] 10 mg PO DAILY 12/08/22 08/20/23 History Losartan [Cozaar] 25 mg PO DAILY 08/20/23 08/20/23 History Allergies Allergy/AdvReac Type Severity Reaction Status Date / Time cefuroxime Allergy Unknown Verified 08/20/23 14:22 Penicillins Allergy Rash/Hives Verified 08/20/23 14:22 simvastatin [From Zocor] Allergy Anaphylaxis Verified 08/20/23 14:22 anastrozole AdvReac Swelling Verified 08/20/23 14:22 Physical Exam Osteopathic Statement: *. No significant issues noted on an osteopathic structural exam other than those noted in the History and Physical/Consult. Vitals: Vital Signs Temp Pulse Pulse Resp BP BP Pulse Ox 08/21/23 13:28 72 19 147/57 100 08/21/23 06:17 90 20 124/50 94 L 08/21/23 00:00 90 24 103/57 100 08/20/23 20:00 98.1 F 75 24 117/63 96 08/20/23 15:49 78 18 117/76 98 Intake and Output 08/20/23 08/21/23 08/21/23 22:59 06:59 14:59 Other: # Voids 1 No acute distress, oriented 3. Mild conversational dyspnea. Currently on 2 L. HEENT examination is grossly unremarkable. Mucous membranes are moist. No oral lesions. Neck supple. Full range of motion. No adenopathy thyromegaly or neck vein distention. Cardiovascular examination reveals regular rhythm rate. S1-S2 normal. No S3 or S4. No discernible murmur noted. Heart sounds are distant. Heart rate 72 bpm. Lungs reveal mild basilar crackles. No wheezes or rhonchi. Breath sounds equal. Abdomen soft bowel sounds are heard. No masses or tenderness. Extremities are intact. No cyanosis clubbing or edema. Skin is without rash or lesion. Neurologic examination is brief but nonfocal. Results - Laboratory Findings CBC and BMP: 08/21/23 07:28 08/21/23 07:28 PT/INR, D-dimer PT 12.6 sec (10.0-12.5) H 08/21/23 12:11 INR 1.2 (<1.2) H 08/21/23 12:11 D-Dimer 8.18 mg/L FEU (<0.60) H 08/20/23 12:27 Abnormal lab findings: Abnormal Labs 08/20/23 08/20/23 08/20/23 12:27 12:27 12:27 WBC 12.4 H RBC 3.00 L Hgb 9.0 L Hct 28.1 L Neutrophils # 9.7 H PT 12.6 H INR 1.2 H D-Dimer 8.18 H Potassium Chloride Carbon Dioxide BUN Creatinine Glucose Calcium Magnesium Troponin I 0.058 H* Total Protein Albumin 08/20/23 08/21/23 08/21/23 13:47 07:28 07:28 WBC 11.4 H RBC 2.74 L Hgb 8.1 L Hct 25.5 L Neutrophils # 8.8 H PT INR D-Dimer Potassium 3.1 L Chloride 116 H 112 H Carbon Dioxide 7 L* 13 L BUN 97 H 93 H Creatinine 9.65 H* 9.14 H* Glucose 105 H Calcium 8.3 L 8.0 L Magnesium 1.1 L 1.0 L Troponin I Total Protein 5.1 L 4.4 L Albumin 2.6 L 2.2 L 08/21/23 08/21/23 11:18 12:11 WBC RBC Hgb Hct Neutrophils # PT 12.6 H INR 1.2 H D-Dimer Potassium Chloride Carbon Dioxide BUN Creatinine Glucose Calcium Magnesium Troponin I 0.082 H* Total Protein Albumin - Diagnostic Findings Chest x-ray: image reviewed U/S of Legs: image reviewed Assessment and Plan Assessment: Acute shortness of breath, likely related to underlying pulmonary vascular congestion and CHF. Acute kidney injury, subsequent fluid retention. Chronic kidney disease. History of breast cancer, status post left lumpectomy. History of diabetes mellitus. History of gastroesophageal reflux disease. History of hyperlipidemia. History of hypertension. History of kidney stones. Lifelong non-smoker. Plan: Plan dated August 21, 2023. The patient is a lifelong non-smoker, and denies a prior history of any lung disease. The patient does have a history of hyperlipidemia, hypertension, gastroesophageal reflux disease, and breast cancer. The patient presents with acute on chronic kidney disease, but significant fluid retention, with pulmonary vascular congestion, and CHF. The patient has been seen by nephrology. Dopplers of the lower extremities were negative. We will continue to follow make recommendations along the way. Labs, x-rays, and all medications are reviewed. Time with Patient: Greater than 30
[2023-08-21] MEDS: HEPARIN SOD,PORK IN 0.45% NACL 25,000 UNIT in 0.45% NACL 1 250ML.BAG IV SCH (14:55)
[2023-08-21] MEDS: HEPARIN SODIUM 1,000 UN/ML (10ML VL) IV ONE (14:56)
[2023-08-21 16:41] LABS: Glucose,Whole Blood 168 mg/dL (70-110)
--- NOTE | 2023-08-21 16:46 | CA ---
Transthoracic Echo Report Name: Messi Dinero Age: 82 Gender: F : 1940 Exam Date: 08/21/2023 15:06 Exam Location: [facility] Ht (in): 64 Wt (lb): 173 Ordering Physician: Len Lester MD Attending/Referring Phys: [employer] Director Karime Sanchez RDCS Procedure CPT: Indications: SHORTNESS OF BREATH Cardiac Hx: Technical Quality: Technically difficult study Contrast 1: Definity Total Dose (mL): 2 Contrast 2: Total Dose (mL): MEASUREMENTS (Male / Female) Normal Values 2D ECHO LV Diastolic Diameter PLAX 3.4 cm 4.2 - 5.9 / 3.9 - 5.3 cm LV Systolic Diameter PLAX 2.2 cm IVS Diastolic Thickness 1.2 cm 0.6 - 1.0 / 0.6 - 0.9 cm LVPW Diastolic Thickness 1.2 cm 0.6 - 1.0 / 0.6 - 0.9 cm LV Relative Wall Thickness 0.7 LVOT Diameter 2.0 cm LV Diastolic Volume MOD BP 107.7 cm??? 67 - 155 / 56 - 104 cm??? LV Systolic Volume MOD BP 40.3 cm??? 22 - 58 / 19 - 49 cm??? LV Ejection Fraction MOD BP 62.6 % >= 55 % LV Cardiac Index MOD BP 2543.4 cm???/min???m??? LV Diastolic Volume MOD 4C 105.2 cm??? LV Systolic Volume MOD 4C 35.9 cm??? LV Ejection Fraction MOD 4C 65.9 % LV Cardiac Index MOD 4C 2615.9 cm???/min???m??? LV Diastolic Length 4C 8.1 cm LV Systolic Length 4C 6.1 cm LV Diastolic Volume MOD 2C 108.5 cm??? LV Systolic Volume MOD 2C 40.4 cm??? LV Ejection Fraction MOD 2C 62.7 % LV Cardiac Index MOD 2C 2569.0 cm???/min???m??? LV Diastolic Length 2C 8.3 cm LV Systolic Length 2C 6.9 cm LA Volume 44.6 cm??? 18 - 58 / 22 - 52 cm??? LA Volume Index 23.4 cm???/m??? 16 - 28 cm???/m??? DOPPLER AV Peak Velocity 258.0 cm/s AV Peak Gradient 26.6 mmHg AV Mean Velocity 180.4 cm/s AV Mean Gradient 14.9 mmHg AV Velocity Time Integral 58.7 cm LVOT Peak Velocity 103.0 cm/s LVOT Peak Gradient 4.2 mmHg LVOT Velocity Time Integral 20.8 cm LVOT Stroke Volume 64.6 cm??? LVOT Stroke Volume Index 35.1 ml/m??? LVOT Cardiac Index 2439.4 cm???/min???m??? AV Area Cont Eq vti 1.1 cm??? AV Area Cont Eq pk 1.2 cm??? MV Area PHT 3.8 cm??? Mitral E Point Velocity 74.3 cm/s Mitral A Point Velocity 106.4 cm/s Mitral E to A Ratio 0.7 MV Deceleration Time 201.6 ms TR Peak Velocity 279.9 cm/s TR Peak Gradient 31.3 mmHg Right Atrial Pressure 10.0 mmHg Pulmonary Artery Systolic Pressu 41.3 mmHg Right Ventricular Systolic Press 41.3 mmHg FINDINGS Left Ventricle Left ventricular ejection fraction is estimated at 60-65%. Mildly increased septal wall thickness. Mildly increased posterior wall thickness. Mildly increased left ventricular diastolic volume. No obvious regional wall motion abnormalities. Right Ventricle Normal right ventricular size and function. Mildly elevated right ventricular systolic pressure. Right Atrium Normal right atrial size. Left Atrium Normal left atrial size. Mitral Valve Structurally normal mitral valve. No evidence for mitral valve prolapse. No mitral stenosis. Trace to mild mitral regurgitation. Aortic Valve Aortic valve not well visualized. Mild aortic stenosis. No aortic regurgitation. Tricuspid Valve Structurally normal tricuspid valve. No tricuspid stenosis. Trace to mild tricuspid regurgitation. Pulmonic Valve Pulmonic valve not well visualized. Pericardium No pericardial effusion. Aorta Aortic annulus normal. Ascending aorta not well visualized. CONCLUSIONS Technically difficult study Mild increased left ventricular wall thickness Left ventricular ejection fraction 60-65% RVSP 41 Trace to mild mitral regurgitation Mild aortic stenosis Trace to mild tricuspid regurgitation No pericardial effusion Previewed by: Dr. Jovanni Lomeli DO (Electronically Signed) Final Date: 21 August 2023 16:46
[2023-08-21] MEDS: INSULIN ASPART (NovoLOG) 100 UNIT/ML VIAL SQ SCH (17:42)
[2023-08-21 20:08] LABS: Glucose,Whole Blood 109 mg/dL (70-110)
[2023-08-21] MEDS: PANTOPRAZOLE 40 MG/10 ML VIAL IVP SCH (20:49)
[2023-08-21] MEDS: ONDANSETRON 4 MG/2 ML VIAL IVP PRN (20:49)
[2023-08-21 21:45] LABS: % Iron Saturation 36.94 (12.00-45.00)
[2023-08-22 00:22] LABS: Appearance,Urine Turbid (Clear); Bacteria,Urine Many /hpf; Bilirubin,Urine Negative (Negative); Blood,Urine Large (Negative); Color,Urine Yellow; Glucose,Urine (UA) 2+ (Negative); Hyaline Casts,Urine 27 /lpf (0-2); Ketones,Urine Negative (Negative); Leukocyte Esterase,Urine Large (Negative); Nitrite,Urine Negative (Negative); Protein,Urine 1+ (Negative); RBC,Urine >182 /hpf (0-5); Specific Gravity,Urine 1.018 (1.001-1.035); Urobilinogen,Urine <2.0 mg/dL (<2.0); WBC,Urine >182 /hpf (0-5)
[2023-08-22 05:41] LABS: Glucose,Whole Blood 136 mg/dL (70-110)
[2023-08-22 07:17] LABS: Basophils % (A) 0 %; Eosinophils # (A) 0.3 k/uL (0-0.7); Eosinophils % (A) 4 %; HCT 24.6 % (34.0-46.0); HGB 7.8 gm/dL (11.4-16.0); Lymphocytes # (A) 1.1 k/uL (1.0-4.8); Lymphocytes % (A) 13 %; MCH 29.8 pg (25.0-35.0); MCHC 31.8 g/dL (31.0-37.0); MCV 93.8 fL (80.0-100.0); Mean Platelet Volume 11.3; Monocytes # (A) 0.5 k/uL (0-1.0); Monocytes % (A) 6 %; Neutrophils # (A) 6.2 k/uL (1.3-7.7); Neutrophils % (A) 74 %; Platelet Count 264 k/uL (150-450); RBC 2.63 m/uL (3.80-5.40); RDW 14.3 % (11.5-15.5); WBC 8.4 k/uL (3.8-10.6)
[2023-08-22 08:17] LABS: ALT 26 U/L (4-34); AST 31 U/L (14-36); African American GFR (CKD) 5 (>60 ml/min/1.73 sqM); Albumin 2.1 g/dL (3.5-5.0); Anion Gap 12 mmol/L; Blood Urea Nitrogen 89 mg/dL (7-17); Calcium 8.5 mg/dL (8.4-10.2); Carbon Dioxide 19 mmol/L (22-30); Chloride 109 mmol/L (98-107); Glucose 114 mg/dL (74-99); Magnesium 1.7 mg/dL (1.6-2.3); Non-African American GFR(CKD) 4 (>60 ml/min/1.73 sqM); Potassium 3.4 mmol/L (3.5-5.1); Sodium 140 mmol/L (137-145); Total Bilirubin 0.4 mg/dL (0.2-1.3); Total Protein 4.2 g/dL (6.3-8.2)
[2023-08-22 08:18] LABS: Alkaline Phosphatase 72 U/L (38-126)
[2023-08-22] MEDS: Rosuvastatin 20 MG Tablet PO SCH (08:42)
[2023-08-22] MEDS: ASPIRIN 81 MG PO SCH (08:53)
[2023-08-22 11:54] LABS: Glucose,Whole Blood 212 mg/dL (70-110)
[2023-08-22] MEDS: POTASSIUM CHLORIDE ER 20 MEQ TAB.ER PO STA (12:28)
--- NOTE | 2023-08-22 13:02 | P.PN ---
Subjective Patient is seen in follow-up for acute kidney injury on chronic kidney disease. No significant improvement in renal function. Patient overall feels well. Oral intake is fair. Has been voiding. Denies chest pain or shortness of breath. Vital signs are stable. General: No acute distress. HEENT: Head exam is unremarkable. LUNGS: No audible rhonchi or wheezes. HEART: Rate and Rhythm are regular. ABDOMEN: Nontender. EXTREMITITES: Trace edema. Objective - Vital Signs Vital signs: Vital Signs Temp 98.1 F 08/22/23 08:30 Pulse 81 08/22/23 08:30 Resp 18 08/22/23 08:30 BP 116/50 08/22/23 08:30 Pulse Ox 96 08/22/23 08:30 FiO2 Intake & Output 08/21/23 08/22/23 08/22/23 18:59 06:59 18:59 Intake Total 1556 143.919 118 Output Total 300 50 Balance 1256 93.919 118 Weight 53 kg Intake: Intake, IV Titration 1556 143.919 Amount Dextrose 5% in Water 1, 1200 000 ml @ 100 mls/hr IV . [id number] LALIT with Sodium Bicarb (1 Meq/ml) 150 ml Rx#:[id number] Heparin Sod,Pork in 0.45% 56 143.919 NaCl 25,000 unit In 0.45 % NaCl 1 250ml.bag @ 18 UNITS/KG/HR 14.125 mls/hr IV .[id number] LALIT Rx#: [id number] Magnesium Sulfate-D5w Pmx 300 1 gm In Dextrose/Water 1 100ml.bag @ 100 mls/hr IVPB Q1H LALIT Rx#: [id number] Oral 118 Output: Urine 300 50 Other: Voiding Method Bedside Commode # Voids 1 2 # Bowel Movements 0 - Labs CBC & Chem 7: 08/22/23 06:14 08/22/23 06:14 Labs: Abnormal Lab Results - Last 24 Hours (Table) 08/21/23 08/21/23 08/21/23 Range/Units 07:28 07:28 11:20 RBC (3.80-5.40) m/uL Hgb (11.4-16.0) gm/dL Hct (34.0-46.0) % Neutrophils # 8.8 H (1.3-7.7) k/uL PT (10.0-12.5) sec INR (<1.2) APTT (22.0-30.0) sec Potassium (3.5-5.1) mmol/L Chloride (98-107) mmol/L Carbon Dioxide (22-30) mmol/L BUN (7-17) mg/dL Creatinine (0.52-1.04) mg/dL Glucose (74-99) mg/dL POC Glucose (mg/dL) (70-110) mg/dL Hemoglobin A1c (<=6.0) % Iron 41 L (50-170) UG/DL TIBC 111 L (228-460) UG/DL Transferrin 79.6 L (204.0-354.0) mg/dL Ferritin 382.0 H (10.0-291.0) ng/mL Troponin I (0.000-0.034) ng/mL Total Protein (6.3-8.2) g/dL Albumin (3.5-5.0) g/dL Urine Appearance Turbid H (Clear) Urine Protein 1+ H (Negative) Urine Glucose (UA) 2+ H (Negative) Urine Blood Large H (Negative) Ur Leukocyte Esterase Large H (Negative) Urine RBC >182 H (0-5) /hpf Urine WBC >182 H (0-5) /hpf Urine WBC Clumps Many H (None) /hpf Urine Bacteria Many H (None) /hpf Hyaline Casts 27 H (0-2) /lpf 08/21/23 08/21/23 08/21/23 Range/Units 12:11 14:19 16:40 RBC (3.80-5.40) m/uL Hgb (11.4-16.0) gm/dL Hct (34.0-46.0) % Neutrophils # (1.3-7.7) k/uL PT 12.6 H (10.0-12.5) sec INR 1.2 H (<1.2) APTT (22.0-30.0) sec Potassium (3.5-5.1) mmol/L Chloride (98-107) mmol/L Carbon Dioxide (22-30) mmol/L BUN (7-17) mg/dL Creatinine (0.52-1.04) mg/dL Glucose (74-99) mg/dL POC Glucose (mg/dL) 168 H (70-110) mg/dL Hemoglobin A1c (<=6.0) % Iron (50-170) UG/DL TIBC (228-460) UG/DL Transferrin (204.0-354.0) mg/dL Ferritin (10.0-291.0) ng/mL Troponin I 0.076 H* (0.000-0.034) ng/mL Total Protein (6.3-8.2) g/dL Albumin (3.5-5.0) g/dL Urine Appearance (Clear) Urine Protein (Negative) Urine Glucose (UA) (Negative) Urine Blood (Negative) Ur Leukocyte Esterase (Negative) Urine RBC (0-5) /hpf Urine WBC (0-5) /hpf Urine WBC Clumps (None) /hpf Urine Bacteria (None) /hpf Hyaline Casts (0-2) /lpf 08/21/23 08/21/23 08/22/23 Range/Units 17:35 17:35 00:07 RBC (3.80-5.40) m/uL Hgb (11.4-16.0) gm/dL Hct (34.0-46.0) % Neutrophils # (1.3-7.7) k/uL PT (10.0-12.5) sec INR (<1.2) APTT 162.2 H* 133.5 H* (22.0-30.0) sec Potassium (3.5-5.1) mmol/L Chloride (98-107) mmol/L Carbon Dioxide (22-30) mmol/L BUN (7-17) mg/dL Creatinine (0.52-1.04) mg/dL Glucose (74-99) mg/dL POC Glucose (mg/dL) (70-110) mg/dL Hemoglobin A1c (<=6.0) % Iron (50-170) UG/DL TIBC (228-460) UG/DL Transferrin (204.0-354.0) mg/dL Ferritin (10.0-291.0) ng/mL Troponin I 0.080 H* (0.000-0.034) ng/mL Total Protein (6.3-8.2) g/dL Albumin (3.5-5.0) g/dL Urine Appearance (Clear) Urine Protein (Negative) Urine Glucose (UA) (Negative) Urine Blood (Negative) Ur Leukocyte Esterase (Negative) Urine RBC (0-5) /hpf Urine WBC (0-5) /hpf Urine WBC Clumps (None) /hpf Urine Bacteria (None) /hpf Hyaline Casts (0-2) /lpf 08/22/23 08/22/23 08/22/23 Range/Units 05:40 06:14 06:14 RBC (3.80-5.40) m/uL Hgb (11.4-16.0) gm/dL Hct (34.0-46.0) % Neutrophils # (1.3-7.7) k/uL PT (10.0-12.5) sec INR (<1.2) APTT (22.0-30.0) sec Potassium 3.4 L (3.5-5.1) mmol/L Chloride 109 H (98-107) mmol/L Carbon Dioxide 19 L (22-30) mmol/L BUN 89 H (7-17) mg/dL Creatinine 8.41 H* (0.52-1.04) mg/dL Glucose 114 H (74-99) mg/dL POC Glucose (mg/dL) 136 H (70-110) mg/dL Hemoglobin A1c 6.5 H (<=6.0) % Iron (50-170) UG/DL TIBC (228-460) UG/DL Transferrin (204.0-354.0) mg/dL Ferritin (10.0-291.0) ng/mL Troponin I (0.000-0.034) ng/mL Total Protein 4.2 L (6.3-8.2) g/dL Albumin 2.1 L (3.5-5.0) g/dL Urine Appearance (Clear) Urine Protein (Negative) Urine Glucose (UA) (Negative) Urine Blood (Negative) Ur Leukocyte Esterase (Negative) Urine RBC (0-5) /hpf Urine WBC (0-5) /hpf Urine WBC Clumps (None) /hpf Urine Bacteria (None) /hpf Hyaline Casts (0-2) /lpf 08/22/23 08/22/23 08/22/23 Range/Units 06:14 08:22 11:53 RBC 2.63 L (3.80-5.40) m/uL Hgb 7.8 L (11.4-16.0) gm/dL Hct 24.6 L (34.0-46.0) % Neutrophils # (1.3-7.7) k/uL PT (10.0-12.5) sec INR (<1.2) APTT 114.8 H* (22.0-30.0) sec Potassium (3.5-5.1) mmol/L Chloride (98-107) mmol/L Carbon Dioxide (22-30) mmol/L BUN (7-17) mg/dL Creatinine (0.52-1.04) mg/dL Glucose (74-99) mg/dL POC Glucose (mg/dL) 212 H (70-110) mg/dL Hemoglobin A1c (<=6.0) % Iron (50-170) UG/DL TIBC (228-460) UG/DL Transferrin (204.0-354.0) mg/dL Ferritin (10.0-291.0) ng/mL Troponin I (0.000-0.034) ng/mL Total Protein (6.3-8.2) g/dL Albumin (3.5-5.0) g/dL Urine Appearance (Clear) Urine Protein (Negative) Urine Glucose (UA) (Negative) Urine Blood (Negative) Ur Leukocyte Esterase (Negative) Urine RBC (0-5) /hpf Urine WBC (0-5) /hpf Urine WBC Clumps (None) /hpf Urine Bacteria (None) /hpf Hyaline Casts (0-2) /lpf Assessment and Plan Plan: Assessment: 1. Acute kidney injury secondary to ATN secondary to hypovolemia further worsened with the use of ARB and SGLT2 inhibitor. No hydronephrosis noted on kidney ultrasound. Creatinine 9.65 on admission and is 8.41 today. 2. Chronic kidney disease stage IV baseline creatinine 1.6-1.7 in July and September 2022. Suspect nephrosclerosis and diabetic kidney disease. 3. Metabolic acidosis secondary to acute kidney injury. Improving with bicarb drip. 4. Hypertension with chronic kidney disease. Controlled. 5. Anemia. Iron replete. Component of chronic kidney disease. 6. Hypokalemia from intracellular shifting from IV bicarb. 7. Hypomagnesemia from poor intake. Replaced. Better. Plan: Maintain bicarb drip. Replace potassium. Avoid nephrotoxins. Strict I's and O's. No evidence of urinary retention. Continue to hold antihypertensives. Continue to assess daily for need for renal placement therapy. Add Aranesp. Preserved EF noted on echocardiogram. Check serologies.
--- NOTE | 2023-08-22 13:32 | P.PN ---
Subjective Progress Note Date: 08/22/23 Principal diagnosis: Shortness of breath. Pulmonary consult dated August 21, 2023. 82-year-old female who was seen in the emergency department, room #18. The patient came in with complaints of shortness of breath. The patient is currently on a couple liters of oxygen, and, is on no current IV. An IV is being attempted by the nurse. The patient's son is also in the examination room. The patient states that beginning a few days ago, she started noticing progressive and worsening shortness of breath, particularly when she exerted herself. She denies any chest pain or chest discomfort. The patient denies any fever or chills. Her cough is typically dry. The patient has a history of diabetes, gastroesophageal reflux disease, hyperlipidemia, hypertension, breast cancer, kidney stones, and states that she is a lifelong non-smoker. Current labs include a white count 11.4, hemoglobin 8.1, hematocrit 25.5, and a normal platelet count. PT 12.6 INR 1.2 and PTT is 24.5. Sodium 140, potassium 3.1, chlorides 112, CO2 13, anion gap 15, BUN 93, and creatinine 9.14. Glucose is 105. Troponins were 0.0580.082. N-terminal proBNP was 6790. Chest x-ray is consistent with pulmonary vascular congestion and mild CHF. Progress note dated August 22, 2023. 82-year-old female seen in consultation yesterday. Please see the note above. The patient came into the ER complaining of shortness of breath. Her shortness of breath was only with exertion, not at rest. Chest x-ray was consistent with pulmonary vascular congestion, and CHF. Her N-terminal proBNP was nearly 6800. Currently, she is feeling better. She is on room air. The patient is getting D5W with 3 ampoules of sodium bicarbonate at 100 cc an hour. Heparin has been discontinued. Current labs include a white count 8.4, hemoglobin 7.8, hematocrit 24.6, and a platelet count of 264,000. PTT is 115. Sodium 140, potassium 3.4, chlorides 109, CO2 19, BUN 89, and creatinine 8.41. Glucose is 212. Albumin is 2.1. Objective - Vital Signs Vital signs: Vital Signs Temp 97.9 F 08/22/23 12:25 Pulse 64 08/22/23 12:25 Resp 18 08/22/23 12:25 BP 122/46 08/22/23 12:25 Pulse Ox 100 08/22/23 12:25 FiO2 Intake & Output 08/21/23 08/22/23 08/22/23 18:59 06:59 18:59 Intake Total 1556 143.919 718 Output Total 300 50 150 Balance 1256 93.919 568 Weight 53 kg Intake: Intake, IV Titration 1556 143.919 600 Amount Dextrose 5% in Water 1, 1200 600 000 ml @ 100 mls/hr IV . [id number] [facility]ALIT with Sodium Bicarb (1 Meq/ml) 150 ml Rx#:[id number] Heparin Sod,Pork in 0.45% 56 143.919 NaCl 25,000 unit In 0.45 % NaCl 1 250ml.bag @ 18 UNITS/KG/HR 14.125 mls/hr IV .[id number] [facility] Rx#: [id number] Magnesium Sulfate-D5w Pmx 300 1 gm In Dextrose/Water 1 100ml.bag @ 100 mls/hr IVPB Q1H [facility] Rx#: [id number] Oral 118 Output: Urine 300 50 150 Other: Voiding Method Bedside Commode # Voids 1 2 # Bowel Movements 0 - Exam No acute distress, oriented 3. Mild conversational dyspnea. Currently on room air. HEENT examination is grossly unremarkable. Mucous membranes are moist. No oral lesions. Neck supple. Full range of motion. No adenopathy thyromegaly or neck vein distention. Cardiovascular examination reveals regular rhythm rate. S1-S2 normal. No S3 or S4. No discernible murmur noted. Heart sounds are distant. Heart rate 64 bpm. Lungs reveal mild basilar crackles. No wheezes or rhonchi. Breath sounds equal. Abdomen soft bowel sounds are heard. No masses or tenderness. Extremities are intact. No cyanosis clubbing or edema. Skin is without rash or lesion. Neurologic examination is brief but nonfocal. - Labs CBC & Chem 7: 08/22/23 06:14 08/22/23 06:14 Labs: Abnormal Lab Results - Last 24 Hours (Table) 08/21/23 08/21/23 08/21/23 Range/Units 07:28 11:20 14:19 RBC (3.80-5.40) m/uL Hgb (11.4-16.0) gm/dL Hct (34.0-46.0) % APTT (22.0-30.0) sec Potassium (3.5-5.1) mmol/L Chloride (98-107) mmol/L Carbon Dioxide (22-30) mmol/L BUN (7-17) mg/dL Creatinine (0.52-1.04) mg/dL Glucose (74-99) mg/dL POC Glucose (mg/dL) (70-110) mg/dL Hemoglobin A1c (<=6.0) % Iron 41 L (50-170) UG/DL TIBC 111 L (228-460) UG/DL Transferrin 79.6 L (204.0-354.0) mg/dL Ferritin 382.0 H (10.0-291.0) ng/mL Troponin I 0.076 H* (0.000-0.034) ng/mL Total Protein (6.3-8.2) g/dL Albumin (3.5-5.0) g/dL Urine Appearance Turbid H (Clear) Urine Protein 1+ H (Negative) Urine Glucose (UA) 2+ H (Negative) Urine Blood Large H (Negative) Ur Leukocyte Esterase Large H (Negative) Urine RBC >182 H (0-5) /hpf Urine WBC >182 H (0-5) /hpf Urine WBC Clumps Many H (None) /hpf Urine Bacteria Many H (None) /hpf Hyaline Casts 27 H (0-2) /lpf 08/21/23 08/21/23 08/21/23 Range/Units 16:40 17:35 17:35 RBC (3.80-5.40) m/uL Hgb (11.4-16.0) gm/dL Hct (34.0-46.0) % APTT 162.2 H* (22.0-30.0) sec Potassium (3.5-5.1) mmol/L Chloride (98-107) mmol/L Carbon Dioxide (22-30) mmol/L BUN (7-17) mg/dL Creatinine (0.52-1.04) mg/dL Glucose (74-99) mg/dL POC Glucose (mg/dL) 168 H (70-110) mg/dL Hemoglobin A1c (<=6.0) % Iron (50-170) UG/DL TIBC (228-460) UG/DL Transferrin (204.0-354.0) mg/dL Ferritin (10.0-291.0) ng/mL Troponin I 0.080 H* (0.000-0.034) ng/mL Total Protein (6.3-8.2) g/dL Albumin (3.5-5.0) g/dL Urine Appearance (Clear) Urine Protein (Negative) Urine Glucose (UA) (Negative) Urine Blood (Negative) Ur Leukocyte Esterase (Negative) Urine RBC (0-5) /hpf Urine WBC (0-5) /hpf Urine WBC Clumps (None) /hpf Urine Bacteria (None) /hpf Hyaline Casts (0-2) /lpf 08/22/23 08/22/23 08/22/23 Range/Units 00:07 05:40 06:14 RBC (3.80-5.40) m/uL Hgb (11.4-16.0) gm/dL Hct (34.0-46.0) % APTT 133.5 H* (22.0-30.0) sec Potassium (3.5-5.1) mmol/L Chloride (98-107) mmol/L Carbon Dioxide (22-30) mmol/L BUN (7-17) mg/dL Creatinine (0.52-1.04) mg/dL Glucose (74-99) mg/dL POC Glucose (mg/dL) 136 H (70-110) mg/dL Hemoglobin A1c 6.5 H (<=6.0) % Iron (50-170) UG/DL TIBC (228-460) UG/DL Transferrin (204.0-354.0) mg/dL Ferritin (10.0-291.0) ng/mL Troponin I (0.000-0.034) ng/mL Total Protein (6.3-8.2) g/dL Albumin (3.5-5.0) g/dL Urine Appearance (Clear) Urine Protein (Negative) Urine Glucose (UA) (Negative) Urine Blood (Negative) Ur Leukocyte Esterase (Negative) Urine RBC (0-5) /hpf Urine WBC (0-5) /hpf Urine WBC Clumps (None) /hpf Urine Bacteria (None) /hpf Hyaline Casts (0-2) /lpf 08/22/23 08/22/23 08/22/23 Range/Units 06:14 06:14 08:22 RBC 2.63 L (3.80-5.40) m/uL Hgb 7.8 L (11.4-16.0) gm/dL Hct 24.6 L (34.0-46.0) % APTT 114.8 H* (22.0-30.0) sec Potassium 3.4 L (3.5-5.1) mmol/L Chloride 109 H (98-107) mmol/L Carbon Dioxide 19 L (22-30) mmol/L BUN 89 H (7-17) mg/dL Creatinine 8.41 H* (0.52-1.04) mg/dL Glucose 114 H (74-99) mg/dL POC Glucose (mg/dL) (70-110) mg/dL Hemoglobin A1c (<=6.0) % Iron (50-170) UG/DL TIBC (228-460) UG/DL Transferrin (204.0-354.0) mg/dL Ferritin (10.0-291.0) ng/mL Troponin I (0.000-0.034) ng/mL Total Protein 4.2 L (6.3-8.2) g/dL Albumin 2.1 L (3.5-5.0) g/dL Urine Appearance (Clear) Urine Protein (Negative) Urine Glucose (UA) (Negative) Urine Blood (Negative) Ur Leukocyte Esterase (Negative) Urine RBC (0-5) /hpf Urine WBC (0-5) /hpf Urine WBC Clumps (None) /hpf Urine Bacteria (None) /hpf Hyaline Casts (0-2) /lpf 08/22/23 Range/Units 11:53 RBC (3.80-5.40) m/uL Hgb (11.4-16.0) gm/dL Hct (34.0-46.0) % APTT (22.0-30.0) sec Potassium (3.5-5.1) mmol/L Chloride (98-107) mmol/L Carbon Dioxide (22-30) mmol/L BUN (7-17) mg/dL Creatinine (0.52-1.04) mg/dL Glucose (74-99) mg/dL POC Glucose (mg/dL) 212 H (70-110) mg/dL Hemoglobin A1c (<=6.0) % Iron (50-170) UG/DL TIBC (228-460) UG/DL Transferrin (204.0-354.0) mg/dL Ferritin (10.0-291.0) ng/mL Troponin I (0.000-0.034) ng/mL Total Protein (6.3-8.2) g/dL Albumin (3.5-5.0) g/dL Urine Appearance (Clear) Urine Protein (Negative) Urine Glucose (UA) (Negative) Urine Blood (Negative) Ur Leukocyte Esterase (Negative) Urine RBC (0-5) /hpf Urine WBC (0-5) /hpf Urine WBC Clumps (None) /hpf Urine Bacteria (None) /hpf Hyaline Casts (0-2) /lpf Assessment and Plan Assessment: Acute shortness of breath, likely related to underlying pulmonary vascular congestion and CHF. Acute kidney injury, subsequent fluid retention. Chronic kidney disease. History of breast cancer, status post left lumpectomy. History of diabetes mellitus. History of gastroesophageal reflux disease. History of hyperlipidemia. History of hypertension. History of kidney stones. Lifelong non-smoker. Plan: Plan dated August 21, 2023. The patient is a lifelong non-smoker, and denies a prior history of any lung disease. The patient does have a history of hyperlipidemia, hypertension, gastroesophageal reflux disease, and breast cancer. The patient presents with acute on chronic kidney disease, but significant fluid retention, with pulmonary vascular congestion, and CHF. The patient has been seen by nephrology. Dopplers of the lower extremities were negative. We will continue to follow make recommendations along the way. Labs, x-rays, and all medications are reviewed. Plan dated August 22, 2023. The patient is seen today in room 371. He is currently on room air. She is on a sodium bicarbonate drip. Heparin has been discontinued. Labs, x-rays, medications are reviewed. Dopplers of the lower extremities were negative. The patient was admitted with a diagnosis of shortness of breath, secondary to CHF. She does have a history of hyperlipidemia, hypertension, gastroesophageal reflux disease, and breast cancer. In addition, she had acute on chronic kidney fail ure. She has been seen by nephrology. She continues on a sodium bicarbonate drip. We will continue to follow make recommendations along the way. Time with Patient: Less than 30
--- NOTE | 2023-08-22 14:51 | P.CRDCN ---
History of Present Illness Consult date: 08/22/23 Reason for Consult (text): Elevated troponins History of present illness: This is an 82-year-old female patient of Dr. Brunner with past medical history of hypertension, dyslipidemia, valvular heart disease, carotid atherosclerosis, chronic kidney disease. We have been asked to evaluate the patient for elevated troponins. Patient was last seen in the office in December 2022 at that time she was going to follow-up in 9 to 10 months after a 3-day Holter monitor. Patient states she presented to the emergency center due to shortness of breath with dyspnea on exertion on short distances. She states when she sits down she rest for a few minutes and her breathing gets better. She also states that she has not felt like she has any energy. Her symptoms have been going on for the last 2 to 3 weeks and got significantly worse on Monday. Blood pressure 122/46, heart rate 64, pulse ox 100% on room air. Patient has been started on a heparin drip. EKG: Sinus rhythm with PACs Chest x-ray: Pulmonary venous congestion without failure Laboratory studies: WBC initially 12.4 now 8.4. Hemoglobin 7.8. BUN 90 7 repeat 89, creatinine initially 9.6 now 8.4. Magnesium 1.7. Troponins 0.058, 0.082, 0.076 and 0.08. Venous duplex negative for DVT bilaterally. Echocardiogram reveals technically difficult study. EF 60 to 65%. RVSP 41. Trace to mild mitral regurgitation, mild aortic stenosis, trace to mild TR. No pericardial effusion. Home cardiac medications: Aspirin 81 mg daily, Jardiance 10 mg daily, losartan 25 mg daily, Crestor 20 mg daily. Review Of Systems: At the time of my exam: CONSTITUTIONAL: Denies fever or chills. Generalized weakness and fatigue HEENT: Denies blurred vision, vision changes, or eye pain. Denies hemoptysis CARDIOVASCULAR: Denies chest pain. Denies orthopnea. Denies PND. Denies palpitations RESPIRATORY: Denies shortness of breath. GASTROINTESTINAL: Denies abdominal pain. Denies nausea or vomiting. HEMATOLOGIC: Denies bleeding disorders. GENITOURINARY: Denies any blood in urine. SKIN: Denies puritis. Denies rash. Physical examination: Gen: This is an 82-year-old female in no acute distress VS: reviewed HEENT: Head is atraumatic, normocephalic. Pupils equal, round. Sclerae is anicteric. NECK: Supple. No JVD. LUNGS: Diminished bilaterally no intercostal retractions. HEART: Regular rate and rhythm. No murmur. ABDOMEN: Soft No tenderness. EXTREMITIES: No pedal edema. No calf tenderness. NEUROLOGICAL: Patient is awake, alert and oriented x3. Assessment: Acute kidney injury Chronic kidney disease stage IV No atrial fibrillation Flat troponins not indicative of acute coronary syndrome Hypertension Dyslipidemia Valvular heart disease Carotid atherosclerosis Plan: Resume patient's home cardiac medications, hold losartan Discontinue heparin drip Continue patient on statin and aspirin 81 mg daily further recommendations to follow based upon clinical course Thank you kindly for this consultation. Nurse practitioner note has been reviewed, I agree with documented findings and plan of care. Patient was seen and examined. Past Medical History Past Medical History: Cancer, Diabetes Mellitus, GERD/Reflux, Hyperlipidemia, Hypertension, Osteoarthritis (OA) Additional Past Medical History / Comment(s): Left breast cancer, hx kidney stones, dysphagia History of Any Multi-Drug Resistant Organisms: None Reported Past Surgical History: Back Surgery, Breast Surgery, Cholecystectomy, Orthopedic Surgery Additional Past Surgical History / Comment(s): [place]o hip replacement, cataract, lumpectomy , EGD , cystoscopy with lithotripsy., back surgery in 1999 Past Anesthesia/Blood Transfusion Reactions: No Reported Reaction Past Psychological History: No Psychological Hx Reported Smoking Status: Never smoker Past Alcohol Use History: None Reported Past Drug Use History: None Reported - Past Family History Mother Family Medical History: Cancer Additional Family Medical History / Comment(s): bladder cancer Father Family Medical History: Myocardial Infarction (ME) Brother(s) Family Medical History: Rheumatoid Arthritis (RA) Daughter(s) Family Medical History: No Reported History Son(s) Family Medical History: No Reported History Medications and Allergies Home Medications Medication Instructions Recorded Confirmed Type Aspirin [Children's Aspirin] 81 mg PO DAILY 02/11/22 08/20/23 History Rosuvastatin [Crestor] 20 mg PO DAILY 02/11/22 08/20/23 History Vit C/E/Zn/Coppr/Lutein/Zeaxan 2 cap PO DAILY 02/11/22 08/20/23 History [Preservision Areds 2 Chew Tab] Alendronate Sodium [Fosamax] 70 mg PO ROGERS 09/27/22 08/20/23 History Calcium Citrate/Vitamin D3 2 tab PO DAILY 09/27/22 08/20/23 History [Citracal + D Maximum Caplet] Exemestane [Aromasin] 25 mg PO DAILY 09/27/22 08/20/23 History Omeprazole 20 mg PO DAILY 09/27/22 08/20/23 History Empagliflozin [Jardiance] 10 mg PO DAILY 12/08/22 08/20/23 History Losartan [Cozaar] 25 mg PO DAILY 08/20/23 08/20/23 History Allergies Allergy/AdvReac Type Severity Reaction Status Date / Time cefuroxime Allergy Unknown Verified 08/20/23 14:22 Penicillins Allergy Rash/Hives Verified 08/20/23 14:22 simvastatin [From Zocor] Allergy Anaphylaxis Verified 08/20/23 14:22 anastrozole AdvReac Swelling Verified 08/20/23 14:22 Physical Exam Vitals: Vital Signs Temp Pulse Pulse Resp BP BP BP 08/22/23 03:08 98.0 F 80 22 142/56 08/21/23 23:55 98.0 F 78 18 114/68 08/21/23 21:54 76 18 149/79 08/21/23 20:00 98.4 F 74 18 132/60 08/21/23 14:00 130/83 08/21/23 13:28 72 19 147/57 Pulse Ox 08/22/23 03:08 95 08/21/23 23:55 99 08/21/23 21:54 100 08/21/23 20:00 97 08/21/23 14:00 99 08/21/23 13:28 100 Intake and Output 08/21/23 08/22/23 08/22/23 22:59 06:59 14:59 Intake Total 1637.925 61.994 118 Output Total 300 50 Balance 1337.925 11.994 118 Intake: Intake, IV Titration 1637.925 61.994 Amount Dextrose 5% in Water 1, 1200 000 ml @ 100 mls/hr IV . [id number] LALIT with Sodium Bicarb (1 Meq/ml) 150 ml Rx#:[id number] Heparin Sod,Pork in 0.45% 137.925 61.994 NaCl 25,000 unit In 0.45 % NaCl 1 250ml.bag @ 18 UNITS/KG/HR 14.125 mls/hr IV .[id number] LALIT Rx#: [id number] Magnesium Sulfate-D5w Pmx 300 1 gm In Dextrose/Water 1 100ml.bag @ 100 mls/hr IVPB Q1H LALIT Rx#: [id number] Oral 118 Output: Urine 300 50 Other: Voiding Method Bedside Commode Bedside Commode # Voids 2 1 1 # Bowel Movements 1 0 Weight 78.471 kg 53 kg Results 08/22/23 06:14 08/22/23 06:14 Cardiac Enzymes 08/21/23 08/21/23 08/21/23 Range/Units 11:18 14:19 17:35 AST (14-36) U/L Troponin I 0.082 H* 0.076 H* 0.080 H* (0.000-0.034) ng/mL 08/22/23 Range/Units 06:14 AST 31 (14-36) U/L Troponin I (0.000-0.034) ng/mL Coagulation 08/21/23 08/21/23 08/22/23 Range/Units 12:11 17:35 00:07 PT 12.6 H (10.0-12.5) sec APTT 24.5 162.2 H* 133.5 H* (22.0-30.0) sec 08/22/23 Range/Units 08:22 PT (10.0-12.5) sec APTT 114.8 H* (22.0-30.0) sec CBC 08/21/23 08/22/23 Range/Units 07:28 06:14 WBC 11.4 H 8.4 (3.8-10.6) k/uL RBC 2.74 L 2.63 L (3.80-5.40) m/uL Hgb 8.1 L 7.8 L (11.4-16.0) gm/dL Hct 25.5 L 24.6 L (34.0-46.0) % Plt Count 227 264 (150-450) k/uL Comprehensive Metabolic Panel 08/22/23 Range/Units 06:14 Sodium 140 (137-145) mmol/L Potassium 3.4 L (3.5-5.1) mmol/L Chloride 109 H (98-107) mmol/L Carbon Dioxide 19 L (22-30) mmol/L BUN 89 H (7-17) mg/dL Creatinine 8.41 H* (0.52-1.04) mg/dL Glucose 114 H (74-99) mg/dL Calcium 8.5 (8.4-10.2) mg/dL AST 31 (14-36) U/L ALT 26 (4-34) U/L Alkaline Phosphatase 72 (38-126) U/L Total Protein 4.2 L (6.3-8.2) g/dL Albumin 2.1 L (3.5-5.0) g/dL Current Medications Generic Name Dose Route Start Last Admin Trade Name Freq PRN Reason Stop Dose Admin Acetaminophen 650 mg 08/21/23 09:32 08/21/23 10:08 Acetaminophen Tab 325 Mg Tab PO 650 mg Q6HR PRN Administration Fever and/ or Pain Aspirin 81 mg 08/22/23 09:00 08/22/23 08:53 Aspirin 81 Mg PO 81 mg DAILY LALIT Administration Dextrose/Water 25 ml 08/21/23 13:30 Dextrose 50% Syringe 50 Ml IVP PER PROTOCOL PRN Hypoglycemia Protocol Dextrose/Water 50 ml 08/21/23 13:30 Dextrose 50% Syringe 50 Ml IVP PER PROTOCOL PRN Hypoglycemia Protocol Heparin Sodium (Porcine) 0 unit 08/21/23 11:46 Heparin Sodium 1,000 Un/Ml (10ml Vl) IV PER PROTOCOL PRN Low PTT Protocol Sodium Bicarbonate 150 ml/ 1,150 mls @ 100 mls/hr 08/20/23 15:15 08/21/23 23:56 Dextrose/Water IV 100 mls/hr .[id number] LALIT Administration Heparin Sodium/Sodium Chloride 250 mls @ 14.125 mls/hr 08/21/23 12:00 08/06 07/30 06:20 25,000 unit/ Sodium Chloride IV Not Given .[id number] LALIT Protocol 18 UNITS/KG/HR Insulin Aspart 0 unit 08/21/23 17:30 08/22/23 05:56 Insulin Aspart (Novolog) 100 Unit/Ml Vial SQ Not Given ACHS [facility] Protocol Rosuvastatin 20 Mg 20 mg 08/22/23 09:00 08/22/23 08:42 Tablet PO Not Given DAILY [facility] Ondansetron HCl 4 mg 08/21/23 19:09 08/21/23 20:49 Ondansetron 4 Mg/2 Ml Vial IVP 4 mg Q4HR PRN Administration Nausea And Vomiting Pantoprazole Sodium 40 mg 08/21/23 21:00 08/22/23 08:53 Pantoprazole 40 Mg/10 Ml Vial IVP 40 mg BID LALIT Administration Intake and Output 08/21/23 08/22/23 08/22/23 22:59 06:59 14:59 Intake Total 1637.925 61.994 118 Output Total 300 50 Balance 1337.925 11.994 118 Intake: Intake, IV Titration 1637.925 61.994 Amount Dextrose 5% in Water 1, 1200 000 ml @ 100 mls/hr IV . [id number] LALIT with Sodium Bicarb (1 Meq/ml) 150 ml Rx#:[id number] Heparin Sod,Pork in 0.45% 137.925 61.994 NaCl 25,000 unit In 0.45 % NaCl 1 250ml.bag @ 18 UNITS/KG/HR 14.125 mls/hr IV .[id number] LALIT Rx#: [id number] Magnesium Sulfate-D5w Pmx 300 1 gm In Dextrose/Water 1 100ml.bag @ 100 mls/hr IVPB Q1H LALIT Rx#: [id number] Oral 118 Output: Urine 300 50 Other: Voiding Method Bedside Commode Bedside Commode # Voids 2 1 1 # Bowel Movements 1 0 Weight 78.471 kg 53 kg 08/22/23 06:14 08/22/23 06:14
[2023-08-22] MEDS: DARBEPOETIN ALFA 40 MCG/0.4 ML SYRINGE SQ SCH (15:34)
[2023-08-22 16:59] LABS: Glucose,Whole Blood 146 mg/dL (70-110)
[2023-08-22 20:20] LABS: Glucose,Whole Blood 195 mg/dL (70-110)
[2023-08-22 22:18] LABS: Complement C3 86.4 mg/dL (80.0-207.0); Protein, Total 5.2 g/dL (6.2-8.2)
[2023-08-22 22:33] LABS: Hepatitis A Antibody IgM Nonreactive (Nonreactive); Hepatitis B Core IgM Nonreactive (Nonreactive); Hepatitis B Surface Antigen Nonreactive (Nonreactive); Hepatitis C IgG Antibody Nonreactive (Nonreactive)
[2023-08-22 22:56] LABS: Anti-DNA, DS unit <1.0 IU/mL; DNA Double-Stranded Negative (Negative)
[2023-08-23 06:15] LABS: Glucose,Whole Blood 130 mg/dL (70-110)
--- NOTE | 2023-08-23 06:31 | P.PN ---
Subjective Progress Note Date: 08/22/23 History of present illness; patient is a 82-year-old lady with past medical significant for breast cancer status postlumpectomy, diabetes, hypertension open who presented to the ER because of shortness of breath. patient stated that she was all right 1 week back when she started noticing that her breathing was getting hard. Patient was complaining of shortness of breath at rest as on exertion. Patient stated that she was unable to do her normal activities. Patient denies any chest pain. Denies any palpitation. There is no complaint orthopnea or PND. There was no complaint of swelling of feet. Patient denies any fever or chills patient is complaining of cough. Initial lab work done in the ER showed WBC 12.4, hemoglobin 9, platelet count 270, INR 1.2, D-dimer 8.18 lactate 1.1, sodium 140, potassium 3.7, BUN 97, creatinine 9.65, calcium 8.3, magnesium 1.1 troponin 0.058 EKG done in the ER showed heart rate of 87, no ST segment elevation or depression seen, no T-wave inversions seen. Chest x-ray done in the ER showed pulmonary vascular congestion without overt failure Patient admitted to internal medicine service 08/22/2023 Patient seen and evaluated in follow-up today with multiple medical consultations following including cardiology, nephrology, and pulmonary. Patient maintained on bicarb drip and continues to make urine recommend monitoring intake and output closely and will follow-up with repeat labs. Minimally improved kidney functions although creatinine is still 8. Heparin has been discontinued as troponins are likely type II mismatch from CHF exacerbation and volume overload. Patient is afebrile with no reports of chest pain or palpitations. Patient tolerating diet and will continue monitoring Accu-Cheks before meals and at bedtime and continue with current regimen. Encouraged to increase activity as tolerated Review of systems: Constitutional: No reports of fatigue, fever, or chills Cardiovascular: No reports of chest pain or palpitations Respiratory: No reports of shortness of breath or cough GI: No reports of nausea, vomiting, or diarrhea : No reports of dysuria or retention Neurovascular: No reports of weakness or numbness All medications have been reviewed PHYSICAL EXAMINATION: GENERAL: The patient is alert and oriented x3, not in any acute distress. Well developed, well nourished. Elderly appearing, obese HEENT: Pupils are round and equally reacting to light. EOMI. No scleral icterus. No conjunctival pallor. Normocephalic, atraumatic. No pharyngeal erythema. No thyromegaly. CARDIOVASCULAR: S1 and S2 muffled PULMONARY: Coarse breath sounds bilaterally no wheezing or crackles. ABDOMEN: Soft, obese, nontender, nondistended, normoactive bowel sounds. No palpable organomegaly. MUSCULOSKELETAL: No joint swelling or deformity. EXTREMITIES: No cyanosis, clubbing, or pedal edema. NEUROLOGICAL: Gross neurological examination did not reveal any focal deficits. SKIN: No rashes. Assessment: Dyspnea secondary to volume overload with CHF exacerbation Acute kidney injury History of chronic kidney disease Diabetes mellitus, type II Elevated troponin, ACS ruled out, likely type II mismatch from CHF exacerbation and volume overload Elevated D-dimer, PE ruled out Hypomagnesemia, improved after replacement Hypertension history Hyperlipidemia Obesity with a BMI 30.9 Anemia, likely chronic GI prophylaxis DVT prophylaxis Full code with no intubation Plan: Patient is continued on bicarb drip with nephrology following Ultrasound and scans have been negative with no hydronephrosis noted Patient maintained on bicarb and will continue with follow-up labs. Creatinine minimally improved from 9-8. Patient is still making urine and discussing renal replacement although not emergent at this time Continue monitoring Accu-Cheks before meals and at bedtime Encouraged to increase activity as tolerated Continue gentle IV hydration Follow-up on 2D echo Cardiology, nephrology, and pulmonary following closely. Daughters at the bedside with questions and concerns answered to the best of her ability The impression and plan of care has been dictated by Ursula Travis, Nurse Practitioner as directed. Dr. Kalyn MD I have performed a history and examination and MDM of this patient, discussed the same with the dictator, and agree with the dictator's assessment and plan as written ,documented as a scribe. Based on total visit time, I have performed more than 50% of the visit. Objective - Vital Signs Vital signs: Vital Signs Temp 98.0 F 08/22/23 03:08 Pulse 80 08/22/23 03:08 Resp 22 08/22/23 03:08 BP 142/56 08/22/23 03:08 Pulse Ox 95 08/22/23 03:08 FiO2 Intake & Output 08/21/23 08/22/23 08/22/23 18:59 06:59 18:59 Intake Total 1556 143.919 Output Total 300 50 Balance 1256 93.919 Weight 53 kg Intake: Intake, IV Titration 1556 143.919 Amount Dextrose 5% in Water 1, 1200 000 ml @ 100 mls/hr IV . [id number] LALIT with Sodium Bicarb (1 Meq/ml) 150 ml Rx#:[id number] Heparin Sod,Pork in 0.45% 56 143.919 NaCl 25,000 unit In 0.45 % NaCl 1 250ml.bag @ 18 UNITS/KG/HR 14.125 mls/hr IV .[id number] LALIT Rx#: [id number] Magnesium Sulfate-D5w Pmx 300 1 gm In Dextrose/Water 1 100ml.bag @ 100 mls/hr IVPB Q1H LALIT Rx#: [id number] Output: Urine 300 50 Other: Voiding Method Bedside Commode # Voids 1 1 # Bowel Movements 0 - Labs CBC & Chem 7: 08/22/23 06:14 08/22/23 06:14 Labs: Abnormal Lab Results - Last 24 Hours (Table) 08/21/23 08/21/23 08/21/23 Range/Units 07:28 07:28 11:18 WBC 11.4 H (3.8-10.6) k/uL RBC 2.74 L (3.80-5.40) m/uL Hgb 8.1 L (11.4-16.0) gm/dL Hct 25.5 L (34.0-46.0) % Neutrophils # 8.8 H (1.3-7.7) k/uL PT (10.0-12.5) sec INR (<1.2) APTT (22.0-30.0) sec Potassium (3.5-5.1) mmol/L Chloride (98-107) mmol/L Carbon Dioxide (22-30) mmol/L BUN (7-17) mg/dL Creatinine (0.52-1.04) mg/dL Glucose (74-99) mg/dL POC Glucose (mg/dL) (70-110) mg/dL Iron 41 L (50-170) UG/DL TIBC 111 L (228-460) UG/DL Transferrin 79.6 L (204.0-354.0) mg/dL Ferritin 382.0 H (10.0-291.0) ng/mL Troponin I 0.082 H* (0.000-0.034) ng/mL Total Protein (6.3-8.2) g/dL Albumin (3.5-5.0) g/dL Urine Appearance (Clear) Urine Protein (Negative) Urine Glucose (UA) (Negative) Urine Blood (Negative) Ur Leukocyte Esterase (Negative) Urine RBC (0-5) /hpf Urine WBC (0-5) /hpf Urine WBC Clumps (None) /hpf Urine Bacteria (None) /hpf Hyaline Casts (0-2) /lpf 08/21/23 08/21/23 08/21/23 Range/Units 11:20 12:11 14:19 WBC (3.8-10.6) k/uL RBC (3.80-5.40) m/uL Hgb (11.4-16.0) gm/dL Hct (34.0-46.0) % Neutrophils # (1.3-7.7) k/uL PT 12.6 H (10.0-12.5) sec INR 1.2 H (<1.2) APTT (22.0-30.0) sec Potassium (3.5-5.1) mmol/L Chloride (98-107) mmol/L Carbon Dioxide (22-30) mmol/L BUN (7-17) mg/dL Creatinine (0.52-1.04) mg/dL Glucose (74-99) mg/dL POC Glucose (mg/dL) (70-110) mg/dL Iron (50-170) UG/DL TIBC (228-460) UG/DL Transferrin (204.0-354.0) mg/dL Ferritin (10.0-291.0) ng/mL Troponin I 0.076 H* (0.000-0.034) ng/mL Total Protein (6.3-8.2) g/dL Albumin (3.5-5.0) g/dL Urine Appearance Turbid H (Clear) Urine Protein 1+ H (Negative) Urine Glucose (UA) 2+ H (Negative) Urine Blood Large H (Negative) Ur Leukocyte Esterase Large H (Negative) Urine RBC >182 H (0-5) /hpf Urine WBC >182 H (0-5) /hpf Urine WBC Clumps Many H (None) /hpf Urine Bacteria Many H (None) /hpf Hyaline Casts 27 H (0-2) /lpf 08/21/23 08/21/23 08/21/23 Range/Units 16:40 17:35 17:35 WBC (3.8-10.6) k/uL RBC (3.80-5.40) m/uL Hgb (11.4-16.0) gm/dL Hct (34.0-46.0) % Neutrophils # (1.3-7.7) k/uL PT (10.0-12.5) sec INR (<1.2) APTT 162.2 H* (22.0-30.0) sec Potassium (3.5-5.1) mmol/L Chloride (98-107) mmol/L Carbon Dioxide (22-30) mmol/L BUN (7-17) mg/dL Creatinine (0.52-1.04) mg/dL Glucose (74-99) mg/dL POC Glucose (mg/dL) 168 H (70-110) mg/dL Iron (50-170) UG/DL TIBC (228-460) UG/DL Transferrin (204.0-354.0) mg/dL Ferritin (10.0-291.0) ng/mL Troponin I 0.080 H* (0.000-0.034) ng/mL Total Protein (6.3-8.2) g/dL Albumin (3.5-5.0) g/dL Urine Appearance (Clear) Urine Protein (Negative) Urine Glucose (UA) (Negative) Urine Blood (Negative) Ur Leukocyte Esterase (Negative) Urine RBC (0-5) /hpf Urine WBC (0-5) /hpf Urine WBC Clumps (None) /hpf Urine Bacteria (None) /hpf Hyaline Casts (0-2) /lpf 08/22/23 08/22/23 08/22/23 Range/Units 00:07 05:40 06:14 WBC (3.8-10.6) k/uL RBC (3.80-5.40) m/uL Hgb (11.4-16.0) gm/dL Hct (34.0-46.0) % Neutrophils # (1.3-7.7) k/uL PT (10.0-12.5) sec INR (<1.2) APTT 133.5 H* (22.0-30.0) sec Potassium 3.4 L (3.5-5.1) mmol/L Chloride 109 H (98-107) mmol/L Carbon Dioxide 19 L (22-30) mmol/L BUN 89 H (7-17) mg/dL Creatinine 8.41 H* (0.52-1.04) mg/dL Glucose 114 H (74-99) mg/dL POC Glucose (mg/dL) 136 H (70-110) mg/dL Iron (50-170) UG/DL TIBC (228-460) UG/DL Transferrin (204.0-354.0) mg/dL Ferritin (10.0-291.0) ng/mL Troponin I (0.000-0.034) ng/mL Total Protein 4.2 L (6.3-8.2) g/dL Albumin 2.1 L (3.5-5.0) g/dL Urine Appearance (Clear) Urine Protein (Negative) Urine Glucose (UA) (Negative) Urine Blood (Negative) Ur Leukocyte Esterase (Negative) Urine RBC (0-5) /hpf Urine WBC (0-5) /hpf Urine WBC Clumps (None) /hpf Urine Bacteria (None) /hpf Hyaline Casts (0-2) /lpf 08/22/23 08/22/23 Range/Units 06:14 08:22 WBC (3.8-10.6) k/uL RBC 2.63 L (3.80-5.40) m/uL Hgb 7.8 L (11.4-16.0) gm/dL Hct 24.6 L (34.0-46.0) % Neutrophils # (1.3-7.7) k/uL PT (10.0-12.5) sec INR (<1.2) APTT 114.8 H* (22.0-30.0) sec Potassium (3.5-5.1) mmol/L Chloride (98-107) mmol/L Carbon Dioxide (22-30) mmol/L BUN (7-17) mg/dL Creatinine (0.52-1.04) mg/dL Glucose (74-99) mg/dL POC Glucose (mg/dL) (70-110) mg/dL Iron (50-170) UG/DL TIBC (228-460) UG/DL Transferrin (204.0-354.0) mg/dL Ferritin (10.0-291.0) ng/mL Troponin I (0.000-0.034) ng/mL Total Protein (6.3-8.2) g/dL Albumin (3.5-5.0) g/dL Urine Appearance (Clear) Urine Protein (Negative) Urine Glucose (UA) (Negative) Urine Blood (Negative) Ur Leukocyte Esterase (Negative) Urine RBC (0-5) /hpf Urine WBC (0-5) /hpf Urine WBC Clumps (None) /hpf Urine Bacteria (None) /hpf Hyaline Casts (0-2) /lpf
[2023-08-23 08:45] LABS: HCT 27.5 % (34.0-46.0); HGB 8.6 gm/dL (11.4-16.0); MCH 29.5 pg (25.0-35.0); MCHC 31.2 g/dL (31.0-37.0); MCV 94.5 fL (80.0-100.0); Mean Platelet Volume 9.6; Platelet Count 267 k/uL (150-450); RBC 2.91 m/uL (3.80-5.40); WBC 9.3 k/uL (3.8-10.6)
[2023-08-23 09:17] LABS: African American GFR (CKD) 5 (>60 ml/min/1.73 sqM); Anion Gap 12 mmol/L; Blood Urea Nitrogen 81 mg/dL (7-17); Calcium 9.2 mg/dL (8.4-10.2); Carbon Dioxide 26 mmol/L (22-30); Chloride 98 mmol/L (98-107); Glucose 179 mg/dL (74-99); Magnesium 1.4 mg/dL (1.6-2.3); Non-African American GFR(CKD) 4 (>60 ml/min/1.73 sqM); Potassium 3.8 mmol/L (3.5-5.1); Sodium 136 mmol/L (137-145)
--- NOTE | 2023-08-23 11:07 | P.PN ---
Subjective Patient is seen in follow-up for acute kidney injury on chronic kidney disease. No significant improvement in renal function. Has been voiding. Feels tired. Denies chest pain or shortness of breath. Vital signs are stable. General: No acute distress. HEENT: Head exam is unremarkable. LUNGS: No audible rhonchi or wheezes. HEART: Rate and Rhythm are regular. ABDOMEN: Nontender. EXTREMITITES: 1+ edema. Objective - Vital Signs Vital signs: Vital Signs Temp 97.8 F 08/23/23 03:38 Pulse 83 08/23/23 03:38 Resp 22 08/23/23 03:38 BP 110/58 08/23/23 03:38 Pulse Ox 95 08/23/23 03:38 FiO2 Intake & Output 08/22/23 08/23/23 08/23/23 18:59 06:59 18:59 Intake Total 1718 180 Output Total 350 600 400 Balance 1368 -600 -220 Weight 81.6 kg Intake: Intake, IV Titration 1100 Amount Dextrose 5% in Water 1, 1100 000 ml @ 100 mls/hr IV . [id number] LALIT with Sodium Bicarb (1 Meq/ml) 150 ml Rx#:[id number] Oral 618 180 Output: Urine 350 600 400 Other: Voiding Method Bedside Commode # Voids 2 - Labs CBC & Chem 7: 08/23/23 08:18 08/23/23 08:18 Labs: Abnormal Lab Results - Last 24 Hours (Table) 08/22/23 08/22/23 08/22/23 Range/Units 06:14 11:53 13:10 RBC (3.80-5.40) m/uL Hgb (11.4-16.0) gm/dL Hct (34.0-46.0) % Sodium (137-145) mmol/L BUN (7-17) mg/dL Creatinine (0.52-1.04) mg/dL Glucose (74-99) mg/dL POC Glucose (mg/dL) 212 H (70-110) mg/dL Hemoglobin A1c 6.5 H (<=6.0) % Phosphorus (2.5-4.5) mg/dL Magnesium (1.6-2.3) mg/dL Total Protein (PEP) 5.2 L (6.2-8.2) g/dL 08/22/23 08/22/23 08/23/23 Range/Units 16:58 20:05 06:09 RBC (3.80-5.40) m/uL Hgb (11.4-16.0) gm/dL Hct (34.0-46.0) % Sodium (137-145) mmol/L BUN (7-17) mg/dL Creatinine (0.52-1.04) mg/dL Glucose (74-99) mg/dL POC Glucose (mg/dL) 146 H 195 H 130 H (70-110) mg/dL Hemoglobin A1c (<=6.0) % Phosphorus (2.5-4.5) mg/dL Magnesium (1.6-2.3) mg/dL Total Protein (PEP) (6.2-8.2) g/dL 08/23/23 08/23/23 Range/Units 08:18 08:18 RBC 2.91 L (3.80-5.40) m/uL Hgb 8.6 L (11.4-16.0) gm/dL Hct 27.5 L (34.0-46.0) % Sodium 136 L (137-145) mmol/L BUN 81 H (7-17) mg/dL Creatinine 7.90 H* (0.52-1.04) mg/dL Glucose 179 H (74-99) mg/dL POC Glucose (mg/dL) (70-110) mg/dL Hemoglobin A1c (<=6.0) % Phosphorus 6.0 H (2.5-4.5) mg/dL Magnesium 1.4 L (1.6-2.3) mg/dL Total Protein (PEP) (6.2-8.2) g/dL Assessment and Plan Plan: Assessment: 1. Acute kidney injury secondary to ATN secondary to hypovolemia further wors ened with the use of ARB and SGLT2 inhibitor. No hydronephrosis noted on kidney ultrasound. Creatinine 9.65 on admission and is 7.9 today. 2. Chronic kidney disease stage IV baseline creatinine 1.6-1.7 in July and September 2022. Suspect nephrosclerosis and diabetic kidney disease. 3. Metabolic acidosis secondary to acute kidney injury. Improved with bicarb drip. 4. Hypertension with chronic kidney disease. Controlled. 5. Anemia. Iron replete. Component of chronic kidney disease. On Aranesp. 6. Hypokalemia from intracellular shifting from IV bicarb. Replaced. Better. 7. Hypomagnesemia from poor intake. 8. Hyperphosphatemia secondary to acute kidney injury. Plan: Stop bicarb drip. Start normal saline at 50 cc an hour. Avoid nephrotoxins. Strict I's and O's. No evidence of urinary retention. Continue to hold antihypertensives. Preserved EF noted on echocardiogram. Follow-up serologies. Negative so far. Repeat UA. Check urine culture. Replace magnesium. Add Renvela with meals. With severely depressed renal function, initiate renal replacement therapy. Consult vascular surgery for dialysis catheter placement. Plan for first treatment of hemodialysis tomorrow.
[2023-08-23 11:40] LABS: Glucose,Whole Blood 166 mg/dL (70-110)
[2023-08-23] MEDS: SEVELAMER 800 MG TAB PO SCH (12:08)
[2023-08-23 12:27] LABS: Appearance,Urine Turbid (Clear); Bilirubin,Urine Negative (Negative); Blood,Urine Moderate (Negative); Color,Urine Light Yellow; Glucose,Urine (UA) 3+ (Negative); Ketones,Urine Negative (Negative); Leukocyte Esterase,Urine Large (Negative); Nitrite,Urine Negative (Negative); PH, Urine 6.5 (5.0-8.0); Protein,Urine 1+ (Negative); RBC,Urine 28 /hpf (0-5); Specific Gravity,Urine 1.017 (1.001-1.035); Urobilinogen,Urine <2.0 mg/dL (<2.0); WBC,Urine >182 /hpf (0-5)
[2023-08-23] MEDS: MAGNESIUM SULFATE-D5W PMX 1 GM in DEXTROSE/WATER 1 100ML.BAG IVPB SCH (12:31)
[2023-08-23] MEDS: SODIUM CHLORIDE 0.9% 1,000 ML IV SCH (12:31)
[2023-08-23 13:56] LABS: C-ANCA <1:20 Titer (<1:20)
[2023-08-23] MEDS: IV FLUID CONTINUATION 1,000 ML IV ONE (14:20)
[2023-08-23] MEDS: MIDAZOLAM 2 MG/2 ML VIAL IVP ONE (14:25)
[2023-08-23] MEDS: fentaNYL (PF) 50 MCG/ML 2 ML AMP IVP ONE (14:25)
[2023-08-23] MEDS: LIDOCAINE 1% INJ 10MG/ML (20 ML MDV) SQ ONE ×2 (14:26→14:27)
--- NOTE | 2023-08-23 14:56 | P.GSCN ---
History of Present Illness History of present illness: 82-year-old white female consulted for placement dialysis catheter. Patient has history of chronic kidney disease patient also has history of hypokalemia and hypomagnesemia is scheduled to have her dialysis catheter placement Neck examination neck is supple no bruit appreciated Chest is clear few rhonchi her lung bases. Second sound present Abdomen soft nontender vascular femorals are 1+ bilateral Plan is placement of dialysis catheter risk and complication discussed Past Medical History Past Medical History: Cancer, Diabetes Mellitus, GERD/Reflux, Hyperlipidemia, Hypertension, Osteoarthritis (OA) Additional Past Medical History / Comment(s): Left breast cancer, hx kidney stones, dysphagia History of Any Multi-Drug Resistant Organisms: None Reported Past Surgical History: Back Surgery, Breast Surgery, Cholecystectomy, Orthopedic Surgery Additional Past Surgical History / Comment(s): rancho hip replacement, cataract, lumpectomy , EGD , cystoscopy with lithotripsy., back surgery in 1999 Past Anesthesia/Blood Transfusion Reactions: No Reported Reaction Past Psychological History: No Psychological Hx Reported Smoking Status: Never smoker Past Alcohol Use History: None Reported Past Drug Use History: None Reported - Past Family History Mother Family Medical History: Cancer Additional Family Medical History / Comment(s): bladder cancer Father Family Medical History: Myocardial Infarction (MD) Brother(s) Family Medical History: Rheumatoid Arthritis (RA) Daughter(s) Family Medical History: No Reported History Son(s) Family Medical History: No Reported History Medications and Allergies Home Medications Medication Instructions Recorded Confirmed Type Aspirin [Children's Aspirin] 81 mg PO DAILY 02/11/22 08/20/23 History Rosuvastatin [Crestor] 20 mg PO DAILY 02/11/22 08/20/23 History Vit C/E/Zn/Coppr/Lutein/Zeaxan 2 cap PO DAILY 02/11/22 08/20/23 History [Preservision Areds 2 Chew Tab] Alendronate Sodium [Fosamax] 70 mg PO ROGERS 09/27/22 08/20/23 History Calcium Citrate/Vitamin D3 2 tab PO DAILY 09/27/22 08/20/23 History [Citracal + D Maximum Caplet] Exemestane [Aromasin] 25 mg PO DAILY 09/27/22 08/20/23 History Omeprazole 20 mg PO DAILY 09/27/22 08/20/23 History Empagliflozin [Jardiance] 10 mg PO DAILY 12/08/22 08/20/23 History Losartan [Cozaar] 25 mg PO DAILY 08/20/23 08/20/23 History Allergies Allergy/AdvReac Type Severity Reaction Status Date / Time cefuroxime Allergy Unknown Verified 08/20/23 14:22 Penicillins Allergy Rash/Hives Verified 08/20/23 14:22 simvastatin [From Zocor] Allergy Anaphylaxis Verified 08/20/23 14:22 anastrozole AdvReac Swelling Verified 08/20/23 14:22 Surgical - Exam Vital Signs Temp Pulse Resp BP Pulse Ox 98.9 F 60 24 120/74 98 08/20/23 12:00 08/20/23 12:00 08/20/23 12:00 08/20/23 12:00 08/20/23 12:00 Results - Labs 08/23/23 08:18 08/23/23 08:18 Abnormal Lab Results - Last 24 Hours (Table) 08/22/23 08/22/23 08/22/23 Range/Units 13:10 16:58 20:05 RBC (3.80-5.40) m/uL Hgb (11.4-16.0) gm/dL Hct (34.0-46.0) % Sodium (137-145) mmol/L BUN (7-17) mg/dL Creatinine (0.52-1.04) mg/dL Glucose (74-99) mg/dL POC Glucose (mg/dL) 146 H 195 H (70-110) mg/dL Phosphorus (2.5-4.5) mg/dL Magnesium (1.6-2.3) mg/dL Total Protein (PEP) 5.2 L (6.2-8.2) g/dL Urine Appearance (Clear) Urine Protein (Negative) Urine Glucose (UA) (Negative) Urine Blood (Negative) Ur Leukocyte Esterase (Negative) Urine RBC (0-5) /hpf Urine WBC (0-5) /hpf Urine WBC Clumps (None) /hpf 08/23/23 08/23/23 08/23/23 Range/Units 06:09 08:18 08:18 RBC 2.91 L (3.80-5.40) m/uL Hgb 8.6 L (11.4-16.0) gm/dL Hct 27.5 L (34.0-46.0) % Sodium 136 L (137-145) mmol/L BUN 81 H (7-17) mg/dL Creatinine 7.90 H* (0.52-1.04) mg/dL Glucose 179 H (74-99) mg/dL POC Glucose (mg/dL) 130 H (70-110) mg/dL Phosphorus 6.0 H (2.5-4.5) mg/dL Magnesium 1.4 L (1.6-2.3) mg/dL Total Protein (PEP) (6.2-8.2) g/dL Urine Appearance (Clear) Urine Protein (Negative) Urine Glucose (UA) (Negative) Urine Blood (Negative) Ur Leukocyte Esterase (Negative) Urine RBC (0-5) /hpf Urine WBC (0-5) /hpf Urine WBC Clumps (None) /hpf 08/23/23 08/23/23 Range/Units 11:38 12:08 RBC (3.80-5.40) m/uL Hgb (11.4-16.0) gm/dL Hct (34.0-46.0) % Sodium (137-145) mmol/L BUN (7-17) mg/dL Creatinine (0.52-1.04) mg/dL Glucose (74-99) mg/dL POC Glucose (mg/dL) 166 H (70-110) mg/dL Phosphorus (2.5-4.5) mg/dL Magnesium (1.6-2.3) mg/dL Total Protein (PEP) (6.2-8.2) g/dL Urine Appearance Turbid H (Clear) Urine Protein 1+ H (Negative) Urine Glucose (UA) 3+ H (Negative) Urine Blood Moderate H (Negative) Ur Leukocyte Esterase Large H (Negative) Urine RBC 28 H (0-5) /hpf Urine WBC >182 H (0-5) /hpf Urine WBC Clumps Many H (None) /hpf Diabetes panel 08/23/23 Range/Units 08:18 Sodium 136 L (137-145) mmol/L Potassium 3.8 (3.5-5.1) mmol/L Chloride 98 (98-107) mmol/L Carbon Dioxide 26 (22-30) mmol/L BUN 81 H (7-17) mg/dL Creatinine 7.90 H* (0.52-1.04) mg/dL Glucose 179 H (74-99) mg/dL Calcium 9.2 (8.4-10.2) mg/dL Calcium panel 08/23/23 Range/Units 08:18 Calcium 9.2 (8.4-10.2) mg/dL Phosphorus 6.0 H (2.5-4.5) mg/dL Pituitary panel 08/23/23 Range/Units 08:18 Sodium 136 L (137-145) mmol/L Potassium 3.8 (3.5-5.1) mmol/L Chloride 98 (98-107) mmol/L Carbon Dioxide 26 (22-30) mmol/L BUN 81 H (7-17) mg/dL Creatinine 7.90 H* (0.52-1.04) mg/dL Glucose 179 H (74-99) mg/dL Calcium 9.2 (8.4-10.2) mg/dL Adrenal panel 08/23/23 Range/Units 08:18 Sodium 136 L (137-145) mmol/L Potassium 3.8 (3.5-5.1) mmol/L Chloride 98 (98-107) mmol/L Carbon Dioxide 26 (22-30) mmol/L BUN 81 H (7-17) mg/dL Creatinine 7.90 H* (0.52-1.04) mg/dL Glucose 179 H (74-99) mg/dL Calcium 9.2 (8.4-10.2) mg/dL
--- NOTE | 2023-08-23 14:58 | P.PCN ---
Description of Procedure: Preop diagnosis acute chronic renal failure Postoperative same Procedure ultrasound-guided 19 cm catheter placed right jugular approach right side of the neck and chest was prepped and draped in Prestel manner 1% lidocaine were in for the neck and chest area. Ultrasound-guided micropuncture introduced right jugular vein micropuncture guide was passed and 4 point dilator advanced up the guidewire. Then we passed the regular guidewire which was parked at the inferior vena cava a tunnel was created through the tunnel required 19 cm dialysis catheter was advanced up the guidewire and then sheath was advanced up the guidewire through the sheath and into dialysis catheter tip catheter superior vena cava atrial junction flushed with heparin send hep-locked secured with 3-0 nylon dressing applied patient tarted the procedure well plan x-ray of the chest for the room and assess for condition
--- NOTE | 2023-08-23 15:09 | P.PN ---
Subjective Progress Note Date: 08/23/23 Principal diagnosis: Shortness of breath. Pulmonary consult dated August 21, 2023. 82-year-old female who was seen in the emergency department, room #18. The patient came in with complaints of shortness of breath. The patient is currently on a couple liters of oxygen, and, is on no current IV. An IV is being attempted by the nurse. The patient's son is also in the examination room. The patient states that beginning a few days ago, she started noticing progressive and worsening shortness of breath, particularly when she exerted herself. She denies any chest pain or chest discomfort. The patient denies any fever or chills. Her cough is typically dry. The patient has a history of diabetes, gastroesophageal reflux disease, hyperlipidemia, hypertension, breast cancer, kidney stones, and states that she is a lifelong non-smoker. Current labs include a white count 11.4, hemoglobin 8.1, hematocrit 25.5, and a normal platelet count. PT 12.6 INR 1.2 and PTT is 24.5. Sodium 140, potassium 3.1, chlorides 112, CO2 13, anion gap 15, BUN 93, and creatinine 9.14. Glucose is 105. Troponins were 0.0580.082. N-terminal proBNP was 6790. Chest x-ray is consistent with pulmonary vascular congestion and mild CHF. Progress note dated August 22, 2023. 82-year-old female seen in consultation yesterday. Please see the note above. The patient came into the ER complaining of shortness of breath. Her shortness of breath was only with exertion, not at rest. Chest x-ray was consistent with pulmonary vascular congestion, and CHF. Her N-terminal proBNP was nearly 6800. Currently, she is feeling better. She is on room air. The patient is getting D5W with 3 ampoules of sodium bicarbonate at 100 cc an hour. Heparin has been discontinued. Current labs include a white count 8.4, hemoglobin 7.8, hematocrit 24.6, and a platelet count of 264,000. PTT is 115. Sodium 140, potassium 3.4, chlorides 109, CO2 19, BUN 89, and creatinine 8.41. Glucose is 212. Albumin is 2.1. Progress note dated August 23, 2023. 82-year-old female seen in consultation 2 days ago. Please see my last 2 notes. The patient is seen today in room 371. The patient is currently on a sodium bicarbonate drip, with 3 ampoules of sodium bicarbonate in D5W at 100 cc an hour. The patient is not receiving any supplemental oxygen. She apparently is going to end up needing hemodialysis. Current labs include a white count 9.3, hemoglobin 8.6, hematocrit 27.5, and a normal platelet count. Sodium 136, potassium 3.8, chlorides 98, CO2 26, anion gap 12, BUN 81, creatinine 7.90. Leukosis 166. Magnesium 1.4. Phosphorus is 6.0. A hemodialysis catheter was placed in this patient. Objective - Vital Signs Vital signs: Vital Signs Temp 98.0 F 08/23/23 08:00 Pulse 69 08/23/23 08:00 Resp 18 08/23/23 08:00 BP 115/66 08/23/23 12:00 Pulse Ox 97 08/23/23 08:00 FiO2 Intake & Output 08/22/23 08/23/23 08/23/23 18:59 06:59 18:59 Intake Total 1718 180 Output Total 350 600 400 Balance 1368 -600 -220 Weight 81.6 kg Intake: Intake, IV Titration 1100 Amount Dextrose 5% in Water 1, 1100 000 ml @ 100 mls/hr IV . [id number] LALIT with Sodium Bicarb (1 Meq/ml) 150 ml Rx#:[id number] Oral 618 180 Output: Urine 350 600 400 Other: Voiding Method Bedside Commode Bedside Commode # Voids 2 - Exam No acute distress, oriented 3. Mild conversational dyspnea. Currently on room air. HEENT examination is grossly unremarkable. Mucous membranes are moist. No oral lesions. Neck supple. Full range of motion. No adenopathy thyromegaly or neck vein dist ention. Cardiovascular examination reveals regular rhythm rate. S1-S2 normal. No S3 or S4. No discernible murmur noted. Heart sounds are distant. Heart rate 69 bpm. Lungs reveal mild basilar crackles. No wheezes or rhonchi. Breath sounds equal. Room air saturation is 97%. Abdomen soft bowel sounds are heard. No masses or tenderness. Extremities are intact. No cyanosis clubbing or edema. Skin is without rash or lesion. Neurologic examination is brief but nonfocal. - Labs CBC & Chem 7: 08/23/23 08:18 08/23/23 08:18 Labs: Abnormal Lab Results - Last 24 Hours (Table) 08/22/23 08/22/23 08/22/23 Range/Units 13:10 16:58 20:05 RBC (3.80-5.40) m/uL Hgb (11.4-16.0) gm/dL Hct (34.0-46.0) % Sodium (137-145) mmol/L BUN (7-17) mg/dL Creatinine (0.52-1.04) mg/dL Glucose (74-99) mg/dL POC Glucose (mg/dL) 146 H 195 H (70-110) mg/dL Phosphorus (2.5-4.5) mg/dL Magnesium (1.6-2.3) mg/dL Total Protein (PEP) 5.2 L (6.2-8.2) g/dL Urine Appearance (Clear) Urine Protein (Negative) Urine Glucose (UA) (Negative) Urine Blood (Negative) Ur Leukocyte Esterase (Negative) Urine RBC (0-5) /hpf Urine WBC (0-5) /hpf Urine WBC Clumps (None) /hpf 08/23/23 08/23/23 08/23/23 Range/Units 06:09 08:18 08:18 RBC 2.91 L (3.80-5.40) m/uL Hgb 8.6 L (11.4-16.0) gm/dL Hct 27.5 L (34.0-46.0) % Sodium 136 L (137-145) mmol/L BUN 81 H (7-17) mg/dL Creatinine 7.90 H* (0.52-1.04) mg/dL Glucose 179 H (74-99) mg/dL POC Glucose (mg/dL) 130 H (70-110) mg/dL Phosphorus 6.0 H (2.5-4.5) mg/dL Magnesium 1.4 L (1.6-2.3) mg/dL Total Protein (PEP) (6.2-8.2) g/dL Urine Appearance (Clear) Urine Protein (Negative) Urine Glucose (UA) (Negative) Urine Blood (Negative) Ur Leukocyte Esterase (Negative) Urine RBC (0-5) /hpf Urine WBC (0-5) /hpf Urine WBC Clumps (None) /hpf 08/23/23 08/23/23 Range/Units 11:38 12:08 RBC (3.80-5.40) m/uL Hgb (11.4-16.0) gm/dL Hct (34.0-46.0) % Sodium (137-145) mmol/L BUN (7-17) mg/dL Creatinine (0.52-1.04) mg/dL Glucose (74-99) mg/dL POC Glucose (mg/dL) 166 H (70-110) mg/dL Phosphorus (2.5-4.5) mg/dL Magnesium (1.6-2.3) mg/dL Total Protein (PEP) (6.2-8.2) g/dL Urine Appearance Turbid H (Clear) Urine Protein 1+ H (Negative) Urine Glucose (UA) 3+ H (Negative) Urine Blood Moderate H (Negative) Ur Leukocyte Esterase Large H (Negative) Urine RBC 28 H (0-5) /hpf Urine WBC >182 H (0-5) /hpf Urine WBC Clumps Many H (None) /hpf Assessment and Plan Assessment: Acute shortness of breath, likely related to underlying pulmonary vascular congestion and CHF. Acute kidney injury, and subsequent fluid retention. Non-anion gap metabolic acidosis. Chronic kidney disease. History of breast cancer, status post left lumpectomy. History of diabetes mellitus. History of gastroesophageal reflux disease. History of hyperlipidemia. History of hypertension. History of kidney stones. Lifelong non-smoker. Plan: Plan dated August 21, 2023. The patient is a lifelong non-smoker, and denies a prior history of any lung d isease. The patient does have a history of hyperlipidemia, hypertension, gastroesophageal reflux disease, and breast cancer. The patient presents with acute on chronic kidney disease, but significant fluid retention, with pulmonary vascular congestion, and CHF. The patient has been seen by nephrology. Dopplers of the lower extremities were negative. We will continue to follow make recommendations along the way. Labs, x-rays, and all medications are reviewed. Plan dated August 22, 2023. The patient is seen today in room 371. He is currently on room air. She is on a sodium bicarbonate drip. Heparin has been discontinued. Labs, x-rays, medications are reviewed. Dopplers of the lower extremities were negative. The patient was admitted with a diagnosis of shortness of breath, secondary to CHF. She does have a history of hyperlipidemia, hypertension, gastroesophageal reflux disease, and breast cancer. In addition, she had acute on chronic kidney failure. She has been seen by nephrology. She continues on a sodium bicarbonate drip. We will continue to follow make recommendations along the way. Plan dated August 23, 2023. The patient is not having any respiratory distress. When she is sitting, and not walking about, she does not complain of shortness of breath. She does have shortness of breath on exertion. The patient is likely to begin hemodialysis in the near future. Hemodialysis catheter was placed. The patient was on the sodium bicarbonate drip as mentioned above. Labs, x-rays, medications are reviewed. The patient has a history of hyperlipidemia, hypertension, gastroesophageal reflux disease, breast cancer. We will continue to follow make recommendations along the way. Prognosis is guarded. Respiratory status appears stable. Time with Patient: Less than 30
[2023-08-23 16:31] LABS: Glucose,Whole Blood 177 mg/dL (70-110)
--- NOTE | 2023-08-23 16:52 | IR ---
EXAMINATION TYPE: IR cvc insert central tunneled DATE OF EXAM: 08/23/2023 FLUOROSCOPY Fluoroscopy time of 14.6 seconds was used during hemodialysis catheter insertion. 1 image/s document /s the procedure. 0.97107 mGycm2.
--- NOTE | 2023-08-23 17:41 | XR ---
EXAMINATION TYPE: XR chest 1V portable DATE OF EXAM: 08/23/2023 5:07 PM CLINICAL INDICATION:Female, 82 years old with history of dialysis cath placement; [facility] COMPARISON: Chest radiographs from 08/20/2023 TECHNIQUE: XR chest 1V portable Frontal view of the chest. FINDINGS: Lungs/Pleura: There is no evidence of pleural effusion, focal consolidation, or pneumothorax. Pulmonary vascularity: Pulmonary vascular congestion. Heart/mediastinum: Cardiomediastinal silhouette is enlarged and stable. Musculoskeletal: No acute osseous pathology. Other findings: None Lines/Tubes: Right internal jugular central venous catheter with distal tip at the cavoatrial junction. IMPRESSION: Cardiomegaly and mild pulmonary vascular congestion. Correlate with BNP for congestive heart failure.
[2023-08-23 19:26] LABS: Albumin 2.19 g/dL (3.80-4.90); Gamma Globulin 0.87 g/dL (0.70-1.50)
[2023-08-23 20:03] LABS: Glucose,Whole Blood 210 mg/dL (70-110)
--- NOTE | 2023-08-24 06:08 | P.PN ---
Subjective Progress Note Date: 08/23/23 History of present illness; patient is a 82-year-old lady with past medical significant for breast cancer status postlumpectomy, diabetes, hypertension open who presented to the ER because of shortness of breath. patient stated that she was all right 1 week back when she started noticing that her breathing was getting hard. Patient was complaining of shortness of breath at rest as on exertion. Patient stated that she was unable to do her normal activities. Patient denies any chest pain. Denies any palpitation. There is no complaint orthopnea or PND. There was no complaint of swelling of feet. Patient denies any fever or chills patient is complaining of cough. Initial lab work done in the ER showed WBC 12.4, hemoglobin 9, platelet count 270, INR 1.2, D-dimer 8.18 lactate 1.1, sodium 140, potassium 3.7, BUN 97, creatinine 9.65, calcium 8.3, magnesium 1.1 troponin 0.058 EKG done in the ER showed heart rate of 87, no ST segment elevation or depression seen, no T-wave inversions seen. Chest x-ray done in the ER showed pulmonary vascular congestion without overt failure Patient admitted to internal medicine service 08/22/2023 Patient seen and evaluated in follow-up today with multiple medical consultations following including cardiology, nephrology, and pulmonary. Patient maintained on bicarb drip and continues to make urine recommend monitoring intake and output closely and will follow-up with repeat labs. Minimally improved kidney functions although creatinine is still 8. Heparin has been discontinued as troponins are likely type II mismatch from CHF exacerbation and volume overload. Patient is afebrile with no reports of chest pain or palpitations. Patient tolerating diet and will continue monitoring Accu-Cheks before meals and at bedtime and continue with current regimen. Encouraged to increase activity as tolerated 08/23/2023 Patient is seen and evaluated in follow-up this morning with multiple medical consultations following. No significant improvement in kidney functions and vascular surgery is now consulted for hemodialysis catheter placement. Patient is afebrile with no reports of chest pain or shortness of breath. Patient tolerating diet although currently n.p.o. for vascular surgery this afternoon. Hemodialysis is ordered and pending once catheter is placed. Recommend follow- up labs. Patient would like dialysis somewhere near [place] close to where she resides. manager inside is following Review of systems: Constitutional: No reports of fatigue, fever, or chills Cardiovascular: No reports of chest pain or palpitations Respiratory: No reports of shortness of breath or cough GI: No reports of nausea, vomiting, or diarrhea : No reports of dysuria or retention Neurovascular: No reports of weakness or numbness All medications have been reviewed PHYSICAL EXAMINATION: GENERAL: The patient is alert and oriented x3, not in any acute distress. Well developed, well nourished. Elderly appearing, obese HEENT: Pupils are round and equally reacting to light. EOMI. No scleral icterus. No conjunctival pallor. Normocephalic, atraumatic. No pharyngeal erythema. No thyromegaly. CARDIOVASCULAR: S1 and S2 muffled PULMONARY: Coarse breath sounds bilaterally no wheezing or crackles. ABDOMEN: Soft, obese, nontender, nondistended, normoactive bowel sounds. No palpable organomegaly. MUSCULOSKELETAL: No joint swelling or deformity. EXTREMITIES: No cyanosis, clubbing, or pedal edema. NEUROLOGICAL: Gross neurological examination did not reveal any focal deficits. SKIN: No rashes. Assessment: Dyspnea secondary to volume overload with CHF exacerbation Acute kidney injury, worsening kidney functions requiring hemodialysis catheter placement 08/23/2023 History of chronic kidney disease Diabetes mellitus, type II Elevated troponin, ACS ruled out, likely type II mismatch from CHF exacerbation and volume overload Elevated D-dimer, PE ruled out Hypomagnesemia, improved after replacement Hypertension history Hyperlipidemia Obesity with a BMI 30.9 Anemia, likely chronic GI prophylaxis DVT prophylaxis Full code with no intubation Plan: Patient was continued on bicarb drip with nephrology following. Bicarb being discontinued with no significant improvements noted in kidney functions. Vascular surgery now consulted for hemodialysis catheter placement. Ultrasound and scans have been negative with no hydronephrosis noted Continue monitoring Accu-Cheks before meals and at bedtime Encouraged to increase activity as tolerated Continue gentle IV hydration Follow-up on 2D echo Cardiology, nephrology, and pulmonary following closely. Daughters at the bedside with questions and concerns answered to the best of her ability Case management consulted to arrange for outpatient hemodialysis. Patient lives in the [facility] and prefers dialysis in that area. The impression and plan of care has been dictated by Ursula Travis, Nurse Practitioner as directed. Dr. Jessica MD I have performed a history and examination and MDM of this patient, discussed the same with the dictator, and agree with the dictator's assessment and plan as written ,documented as a scribe. Based on total visit time, I have performed more than 50% of the visit. Objective - Vital Signs Vital signs: Vital Signs Temp 97.8 F 08/23/23 03:38 Pulse 83 08/23/23 03:38 Resp 22 08/23/23 03:38 BP 110/58 08/23/23 03:38 Pulse Ox 95 08/23/23 03:38 FiO2 Intake & Output 08/22/23 08/23/23 08/23/23 18:59 06:59 18:59 Intake Total 1718 180 Output Total 350 600 400 Balance 1368 -600 -220 Weight 81.6 kg Intake: Intake, IV Titration 1100 Amount Dextrose 5% in Water 1, 1100 000 ml @ 100 mls/hr IV . [id number] LALIT with Sodium Bicarb (1 Meq/ml) 150 ml Rx#:[id number] Oral 618 180 Output: Urine 350 600 400 Other: Voiding Method Bedside Commode # Voids 2 - Labs CBC & Chem 7: 08/23/23 08:18 08/23/23 08:18 Labs: Abnormal Lab Results - Last 24 Hours (Table) 08/22/23 08/22/23 08/22/23 Range/Units 06:14 11:53 13:10 RBC (3.80-5.40) m/uL Hgb (11.4-16.0) gm/dL Hct (34.0-46.0) % Sodium (137-145) mmol/L BUN (7-17) mg/dL Creatinine (0.52-1.04) mg/dL Glucose (74-99) mg/dL POC Glucose (mg/dL) 212 H (70-110) mg/dL Hemoglobin A1c 6.5 H (<=6.0) % Phosphorus (2.5-4.5) mg/dL Magnesium (1.6-2.3) mg/dL Total Protein (PEP) 5.2 L (6.2-8.2) g/dL 08/22/23 08/22/23 08/23/23 Range/Units 16:58 20:05 06:09 RBC (3.80-5.40) m/uL Hgb (11.4-16.0) gm/dL Hct (34.0-46.0) % Sodium (137-145) mmol/L BUN (7-17) mg/dL Creatinine (0.52-1.04) mg/dL Glucose (74-99) mg/dL POC Glucose (mg/dL) 146 H 195 H 130 H (70-110) mg/dL Hemoglobin A1c (<=6.0) % Phosphorus (2.5-4.5) mg/dL Magnesium (1.6-2.3) mg/dL Total Protein (PEP) (6.2-8.2) g/dL 08/23/23 08/23/23 Range/Units 08:18 08:18 RBC 2.91 L (3.80-5.40) m/uL Hgb 8.6 L (11.4-16.0) gm/dL Hct 27.5 L (34.0-46.0) % Sodium 136 L (137-145) mmol/L BUN 81 H (7-17) mg/dL Creatinine 7.90 H* (0.52-1.04) mg/dL Glucose 179 H (74-99) mg/dL POC Glucose (mg/dL) (70-110) mg/dL Hemoglobin A1c (<=6.0) % Phosphorus 6.0 H (2.5-4.5) mg/dL Magnesium 1.4 L (1.6-2.3) mg/dL Total Protein (PEP) (6.2-8.2) g/dL
[2023-08-24 06:30] LABS: Glucose,Whole Blood 96 mg/dL (70-110)
[2023-08-24 08:07] LABS: African American GFR (CKD) 5 (>60 ml/min/1.73 sqM); Anion Gap 9 mmol/L; Blood Urea Nitrogen 75 mg/dL (7-17); Calcium 9.2 mg/dL (8.4-10.2); Carbon Dioxide 29 mmol/L (22-30); Chloride 98 mmol/L (98-107); Glucose 84 mg/dL (74-99); Magnesium 1.9 mg/dL (1.6-2.3); Non-African American GFR(CKD) 5 (>60 ml/min/1.73 sqM); Phosphorus 6.5 mg/dL (2.5-4.5); Potassium 3.8 mmol/L (3.5-5.1); Sodium 136 mmol/L (137-145)
[2023-08-24 11:13] LABS: Glucose,Whole Blood 90 mg/dL (70-110)
--- NOTE | 2023-08-24 11:51 | P.PN ---
Subjective Patient is seen in follow-up for acute kidney injury on chronic kidney disease. No significant improvement in renal function. Has been voiding. Feels tired. Denies chest pain or shortness of breath. Permacath placed August 23, 2023. Scheduled for first treatment of hemodialysis today. Vital signs are stable. General: No acute distress. HEENT: Head exam is unremarkable. LUNGS: No audible rhonchi or wheezes. HEART: Rate and Rhythm are regular. ABDOMEN: Nontender. EXTREMITITES: 1+ edema. Objective - Vital Signs Vital signs: Vital Signs Temp 98.6 F 08/24/23 08:00 Pulse 69 08/23/23 08:00 Resp 18 08/24/23 08:00 BP 122/50 08/24/23 08:00 Pulse Ox 94 L 08/24/23 08:00 FiO2 Intake & Output 08/23/23 08/24/23 08/24/23 18:59 06:59 18:59 Intake Total 360 250 Output Total 475 400 Balance -115 -150 Weight 61.5 kg Intake: IV 10 Invasive Line 4 10 Oral 360 240 Output: Urine 475 400 Other: Voiding Method Bedside Commode Bedside Commode Bedside Commode # Voids 2 - Labs CBC & Chem 7: 08/23/23 08:18 08/24/23 07:16 Labs: Abnormal Lab Results - Last 24 Hours (Table) 08/22/23 08/23/23 08/23/23 Range/Units 13:10 12:08 16:30 Sodium (137-145) mmol/L BUN (7-17) mg/dL Creatinine (0.52-1.04) mg/dL POC Glucose (mg/dL) 177 H (70-110) mg/dL Phosphorus (2.5-4.5) mg/dL Albumin (PEP) 2.19 L (3.80-4.90) g/dL Ypuxz-4-Iubbockbi 0.48 H (0.10-0.40) g/dL Dnmsy-2-Zuxctytgx 1.24 H (0.60-1.00) g/dL Beta Globulins 0.42 L (0.60-1.30) g/dL Urine Appearance Turbid H (Clear) Urine Protein 1+ H (Negative) Urine Glucose (UA) 3+ H (Negative) Urine Blood Moderate H (Negative) Ur Leukocyte Esterase Large H (Negative) Urine RBC 28 H (0-5) /hpf Urine WBC >182 H (0-5) /hpf Urine WBC Clumps Many H (None) /hpf 08/23/23 08/24/23 Range/Units 20:01 07:16 Sodium 136 L (137-145) mmol/L BUN 75 H (7-17) mg/dL Creatinine 7.41 H* (0.52-1.04) mg/dL POC Glucose (mg/dL) 210 H (70-110) mg/dL Phosphorus 6.5 H (2.5-4.5) mg/dL Albumin (PEP) (3.80-4.90) g/dL Nxffd-4-Gxsbrntla (0.10-0.40) g/dL Ltkgz-6-Htkjptacf (0.60-1.00) g/dL Beta Globulins (0.60-1.30) g/dL Urine Appearance (Clear) Urine Protein (Negative) Urine Glucose (UA) (Negative) Urine Blood (Negative) Ur Leukocyte Esterase (Negative) Urine RBC (0-5) /hpf Urine WBC (0-5) /hpf Urine WBC Clumps (None) /hpf Microbiology - Last 24 Hours (Table) 08/23/23 12:08 Urine Culture - Final Urine,Clean Catch Assessment and Plan Plan: Assessment: 1. Acute kidney injury secondary to ATN secondary to hypovolemia further worsened with the use of ARB and SGLT2 inhibitor. No hydronephrosis noted on kidney ultrasound. Creatinine 9.65 on admission and is 7.41 today. Serologies negative. 2. Chronic kidney disease stage IV baseline creatinine 1.6-1.7 in July and September 2022. Suspect nephrosclerosis and diabetic kidney disease. 3. Metabolic acidosis secondary to acute kidney injury. Improved with bicarb drip. 4. Hypertension with chronic kidney disease. Controlled. 5. Anemia. Iron replete. Component of chronic kidney disease. On Aranesp. 6. Hypokalemia from intracellular shifting from IV bicarb. Replaced. Better. 7. Hypomagnesemia from poor intake. Replaced. Better. 8. Hyperphosphatemia secondary to acute kidney injury. Phosphorus level 6.5. On Renvela. Expect improvement postdialysis. Plan: First treatment of hemodialysis today and second treatment tomorrow. Hep-Lock IV fluids. Avoid nephrotoxins. Preserved EF noted on echocardiogram. real estate office manager to set up outpatient hemodialysis. Monitor for renal recovery outpatient.
--- NOTE | 2023-08-24 12:11 | P.PN ---
Subjective Progress Note Date: 08/24/23 Principal diagnosis: Shortness of breath. Pulmonary consult dated August 21, 2023. 82-year-old female who was seen in the emergency department, room #18. The patient came in with complaints of shortness of breath. The patient is currently on a couple liters of oxygen, and, is on no current IV. An IV is being attempted by the nurse. The patient's son is also in the examination room. The patient states that beginning a few days ago, she started noticing progressive and worsening shortness of breath, particularly when she exerted herself. She denies any chest pain or chest discomfort. The patient denies any fever or chills. Her cough is typically dry. The patient has a history of diabetes, gastroesophageal reflux disease, hyperlipidemia, hypertension, breast cancer, kidney stones, and states that she is a lifelong non-smoker. Current labs include a white count 11.4, hemoglobin 8.1, hematocrit 25.5, and a normal platelet count. PT 12.6 INR 1.2 and PTT is 24.5. Sodium 140, potassium 3.1, chlorides 112, CO2 13, anion gap 15, BUN 93, and creatinine 9.14. Glucose is 105. Troponins were 0.0580.082. N-terminal proBNP was 6790. Chest x-ray is consistent with pulmonary vascular congestion and mild CHF. Progress note dated August 22, 2023. 82-year-old female seen in consultation yesterday. Please see the note above. The patient came into the ER complaining of shortness of breath. Her shortness of breath was only with exertion, not at rest. Chest x-ray was consistent with pulmonary vascular congestion, and CHF. Her N-terminal proBNP was nearly 6800. Currently, she is feeling better. She is on room air. The patient is getting D5W with 3 ampoules of sodium bicarbonate at 100 cc an hour. Heparin has been discontinued. Current labs include a white count 8.4, hemoglobin 7.8, hematocrit 24.6, and a platelet count of 264,000. PTT is 115. Sodium 140, potassium 3.4, chlorides 109, CO2 19, BUN 89, and creatinine 8.41. Glucose is 212. Albumin is 2.1. Progress note dated August 23, 2023. 82-year-old female seen in consultation 2 days ago. Please see my last 2 notes. The patient is seen today in room 371. The patient is currently on a sodium bicarbonate drip, with 3 ampoules of sodium bicarbonate in D5W at 100 cc an hour. The patient is not receiving any supplemental oxygen. She apparently is going to end up needing hemodialysis. Current labs include a white count 9.3, hemoglobin 8.6, hematocrit 27.5, and a normal platelet count. Sodium 136, potassium 3.8, chlorides 98, CO2 26, anion gap 12, BUN 81, creatinine 7.90. Leukosis 166. Magnesium 1.4. Phosphorus is 6.0. A hemodialysis catheter was placed in this patient. Progress note dated August 24, 2023. 82-year-old female seen in consultation 3 days ago. The patient is planning to have hemodialysis today. Hemodialysis catheter was placed yesterday. She is currently on room air. She was on a sodium bicarbonate drip but that has been discontinued. Clinically, she is feeling nervous about hemodialysis. She denies any respiratory issues such as shortness of breath, other than when she exerts herself. Current labs include a glucose of 90. In addition, sodium 136, potassium 3.8, chlorides 98, CO2 29, anion gap 9, BUN 75, creatinine is 7.41. Phosphorus is 6.5. Magnesium is 1.9. Calcium is normal. Objective - Vital Signs Vital signs: Vital Signs Temp 98.6 F 08/24/23 08:00 Pulse 69 08/23/23 08:00 Resp 18 08/24/23 08:00 BP 122/50 08/24/23 08:00 Pulse Ox 94 L 08/24/23 08:00 FiO2 Intake & Output 08/23/23 08/24/23 08/24/23 18:59 06:59 18:59 Intake Total 360 250 Output Total 475 400 Balance -115 -150 Weight 61.5 kg Intake: IV 10 Invasive Line 4 10 Oral 360 240 Output: Urine 475 400 Other: Voiding Method Bedside Commode Bedside Commode Bedside Commode # Voids 2 - Exam No acute distress, oriented 3. Mild conversational dyspnea. Currently on room air. HEENT examination is grossly unremarkable. Mucous membranes are moist. No oral lesions. Neck supple. Full range of motion. No adenopathy thyromegaly or neck vein distention. Cardiovascular examination reveals regular rhythm rate. S1-S2 normal. No S3 or S4. No discernible murmur noted. Heart sounds are distant. Heart rate 84 bpm. Lungs reveal mild basilar crackles. No wheezes or rhonchi. Breath sounds equal. Room air saturation is 94 %. Abdomen soft bowel sounds are heard. No masses or tenderness. Extremities are intact. No cyanosis clubbing or edema. Skin is without rash or lesion. Neurologic examination is brief but nonfocal. - Labs CBC & Chem 7: 08/23/23 08:18 08/24/23 07:16 Labs: Abnormal Lab Results - Last 24 Hours (Table) 08/22/23 08/23/23 08/23/23 Range/Units 13:10 12:08 16:30 Sodium (137-145) mmol/L BUN (7-17) mg/dL Creatinine (0.52-1.04) mg/dL POC Glucose (mg/dL) 177 H (70-110) mg/dL Phosphorus (2.5-4.5) mg/dL Albumin (PEP) 2.19 L (3.80-4.90) g/dL Wvksl-0-Dlkyipbzd 0.48 H (0.10-0.40) g/dL Jdtxn-2-Pwyujfysg 1.24 H (0.60-1.00) g/dL Beta Globulins 0.42 L (0.60-1.30) g/dL Urine Appearance Turbid H (Clear) Urine Protein 1+ H (Negative) Urine Glucose (UA) 3+ H (Negative) Urine Blood Moderate H (Negative) Ur Leukocyte Esterase Large H (Negative) Urine RBC 28 H (0-5) /hpf Urine WBC >182 H (0-5) /hpf Urine WBC Clumps Many H (None) /hpf 08/23/23 08/24/23 Range/Units 20:01 07:16 Sodium 136 L (137-145) mmol/L BUN 75 H (7-17) mg/dL Creatinine 7.41 H* (0.52-1.04) mg/dL POC Glucose (mg/dL) 210 H (70-110) mg/dL Phosphorus 6.5 H (2.5-4.5) mg/dL Albumin (PEP) (3.80-4.90) g/dL Bmzae-4-Ruqglnrou (0.10-0.40) g/dL Xwfmp-3-Rodxqhsbd (0.60-1.00) g/dL Beta Globulins (0.60-1.30) g/dL Urine Appearance (Clear) Urine Protein (Negative) Urine Glucose (UA) (Negative) Urine Blood (Negative) Ur Leukocyte Esterase (Negative) Urine RBC (0-5) /hpf Urine WBC (0-5) /hpf Urine WBC Clumps (None) /hpf Microbiology - Last 24 Hours (Table) 08/23/23 12:08 Urine Culture - Final Urine,Clean Catch Assessment and Plan Assessment: Acute shortness of breath, likely related to underlying pulmonary vascular congestion and CHF. Acute kidney injury, and subsequent fluid retention, with anticipated need for hemodialysis. Non-anion gap metabolic acidosis. Chronic kidney disease. History of breast cancer, status post left lumpectomy. History of diabetes mellitus. History of gastroesophageal reflux disease. History of hyperlipidemia. History of hypertension. History of kidney stones. Lifelong non-smoker. Plan: Plan dated August 21, 2023. The patient is a lifelong non-smoker, and denies a prior history of any lung dis ease. The patient does have a history of hyperlipidemia, hypertension, gastroesophageal reflux disease, and breast cancer. The patient presents with acute on chronic kidney disease, but significant fluid retention, with pulmonary vascular congestion, and CHF. The patient has been seen by nephrology. Dopplers of the lower extremities were negative. We will continue to follow make recommendations along the way. Labs, x-rays, and all medications are reviewed. Plan dated August 22, 2023. The patient is seen today in room 371. He is currently on room air. She is on a sodium bicarbonate drip. Heparin has been discontinued. Labs, x-rays, medications are reviewed. Dopplers of the lower extremities were negative. The patient was admitted with a diagnosis of shortness of breath, secondary to CHF. She does have a history of hyperlipidemia, hypertension, gastroesophageal reflux disease, and breast cancer. In addition, she had acute on chronic kidney failure. She has been seen by nephrology. She continues on a sodium bicarbonate drip. We will continue to follow make recommendations along the way. Plan dated August 23, 2023. The patient is not having any respiratory distress. When she is sitting, and not walking about, she does not complain of shortness of breath. She does have shortness of breath on exertion. The patient is likely to begin hemodialysis in the near future. Hemodialysis catheter was placed. The patient was on the sodium bicarbonate drip as mentioned above. Labs, x-rays, medications are reviewed. The patient has a history of hyperlipidemia, hypertension, gastroesophageal reflux disease, breast cancer. We will continue to follow make recommendations along the way. Prognosis is guarded. Respiratory status appears stable. Plan dated August 24, 2023. Hemodialysis catheter was placed. The patient is apparently going to have hemodialysis today. She is a bit nervous. I told her to talk to the painter barrel, so she can get some more information. She is not having any respiratory issues. She is on room air. Saturations are 94 to 95%. Generally speaking, she been doing relatively well. Labs, x-rays, medications are reviewed. Prognosis is guarded. Time with Patient: Less than 30
[2023-08-24 15:33] LABS: Hepatitis B Surface AB- Quant 3.5 mIU/mL
[2023-08-24 16:16] LABS: Glucose,Whole Blood 98 mg/dL (70-110)
[2023-08-24 20:47] LABS: Glucose,Whole Blood 144 mg/dL (70-110)
[2023-08-25 05:38] LABS: Glucose,Whole Blood 96 mg/dL (70-110)
--- NOTE | 2023-08-25 06:39 | P.PN ---
Subjective Progress Note Date: 08/24/23 History of present illness; patient is a 82-year-old lady with past medical significant for breast cancer status postlumpectomy, diabetes, hypertension open who presented to the ER because of shortness of breath. patient stated that she was all right 1 week back when she started noticing that her breathing was getting hard. Patient was complaining of shortness of breath at rest as on exertion. Patient stated that she was unable to do her normal activities. Patient denies any chest pain. Denies any palpitation. There is no complaint orthopnea or PND. There was no complaint of swelling of feet. Patient denies any fever or chills patient is complaining of cough. Initial lab work done in the ER showed WBC 12.4, hemoglobin 9, platelet count 270, INR 1.2, D-dimer 8.18 lactate 1.1, sodium 140, potassium 3.7, BUN 97, creatinine 9.65, calcium 8.3, magnesium 1.1 troponin 0.058 EKG done in the ER showed heart rate of 87, no ST segment elevation or depression seen, no T-wave inversions seen. Chest x-ray done in the ER showed pulmonary vascular congestion without overt failure Patient admitted to internal medicine service 08/22/2023 Patient seen and evaluated in follow-up today with multiple medical consultations following including cardiology, nephrology, and pulmonary. Patient maintained on bicarb drip and continues to make urine recommend monitoring intake and output closely and will follow-up with repeat labs. Minimally improved kidney functions although creatinine is still 8. Heparin has been discontinued as troponins are likely type II mismatch from CHF exacerbation and volume overload. Patient is afebrile with no reports of chest pain or palpitations. Patient tolerating diet and will continue monitoring Accu-Cheks before meals and at bedtime and continue with current regimen. Encouraged to increase activity as tolerated 08/23/2023 Patient is seen and evaluated in follow-up this morning with multiple medical consultations following. No significant improvement in kidney functions and vascular surgery is now consulted for hemodialysis catheter placement. Patient is afebrile with no reports of chest pain or shortness of breath. Patient tolerating diet although currently n.p.o. for vascular surgery this afternoon. Hemodialysis is ordered and pending once catheter is placed. Recommend follow- up labs. Patient would like dialysis somewhere near [place] close to where she resides. manager solar is following 08/24/2023 Patient seen and evaluated in follow-up today currently undergoing hemodialysis today and has received a right chest wall permacath. Case management following and awaiting a chair time. Dialysis center arranging. Patient is afebrile with no reports of chest pain or shortness of breath. Patient is anxious and wants to go home. Once chair time is arranged, consider discharge planning. Close follow up with nephrology. Review of systems: Constitutional: No reports of fatigue, fever, or chills Cardiovascular: No reports of chest pain or palpitations Respiratory: No reports of shortness of breath or cough GI: No reports of nausea, vomiting, or diarrhea : No reports of dysuria or retention Neurovascular: No reports of weakness or numbness All medications have been reviewed PHYSICAL EXAMINATION: GENERAL: The patient is alert and oriented x3, not in any acute distress. Well developed, well nourished. Elderly appearing, obese HEENT: Pupils are round and equally reacting to light. EOMI. No scleral icterus. No conjunctival pallor. Normocephalic, atraumatic. No pharyngeal erythema. No thyromegaly. CARDIOVASCULAR: S1 and S2 muffled , right chest wall permacath noted. Some bruising around the site with no active bleeding noted. PULMONARY: Coarse breath sounds bilaterally no wheezing or crackles. ABDOMEN: Soft, obese, nontender, nondistended, normoactive bowel sounds. No palpable organomegaly. MUSCULOSKELETAL: No joint swelling or deformity. EXTREMITIES: No cyanosis, clubbing, or pedal edema. NEUROLOGICAL: Gross neurological examination did not reveal any focal deficits. SKIN: No rashes. Assessment: Dyspnea secondary to volume overload with CHF exacerbation Acute kidney injury, worsening kidney functions requiring hemodialysis catheter placement 08/23/2023 History of chronic kidney disease Diabetes mellitus, type II Elevated troponin, ACS ruled out, likely type II mismatch from CHF exacerbation and volume overload Elevated D-dimer, PE ruled out Hypomagnesemia, improved after replacement Hypertension history Hyperlipidemia Obesity with a BMI 30.9 Anemia, likely chronic GI prophylaxis DVT prophylaxis Full code with no intubation Plan: Patient was continued on bicarb drip with nephrology following. Bicarb being discontinued with no significant improvements noted in kidney functions. Vascul ar surgery Dr. Pandya has placed right chest wall permacath and will receive dialysis today. Ultrasound and scans have been negative with no hydronephrosis noted Continue monitoring Accu-Cheks before meals and at bedtime Encouraged to increase activity as tolerated Continue gentle IV hydration Follow-up on 2D echo Cardiology, nephrology, and pulmonary following closely. Daughters at the bedside with questions and concerns answered to the best of her ability Case management following to arrange for outpatient hemodialysis. Patient lives in the [facility] and prefers dialysis in that area. awaiting a chair time Possible discharge planning in the next 24-48 hours. Will discuss with neph rology. The impression and plan of care has been dictated by Ursula Travis, Nurse Pr actitioner as directed. Dr. Jessica MD I have performed a history and examination and MDM of this patient, discussed the same with the dictator, and agree with the dictator's assessment and plan as written ,documented as a scribe. Based on total visit time, I have performed more than 50% of the visit. Objective - Vital Signs Vital signs: Vital Signs Temp 98.3 F 08/24/23 04:00 Pulse 69 08/23/23 08:00 Resp 16 08/24/23 04:00 BP 112/66 08/24/23 04:00 Pulse Ox 96 08/24/23 04:00 FiO2 Intake & Output 08/23/23 08/24/23 08/24/23 18:59 06:59 18:59 Intake Total 360 240 Output Total 475 Balance -115 240 Weight 61.5 kg Intake: Oral 360 240 Output: Urine 475 Other: Voiding Method Bedside Commode Bedside Commode # Voids 2 - Labs CBC & Chem 7: 08/23/23 08:18 08/24/23 07:16 Labs: Abnormal Lab Results - Last 24 Hours (Table) 08/22/23 08/23/23 08/23/23 Range/Units 13:10 11:38 12:08 Sodium (137-145) mmol/L BUN (7-17) mg/dL Creatinine (0.52-1.04) mg/dL POC Glucose (mg/dL) 166 H (70-110) mg/dL Phosphorus (2.5-4.5) mg/dL Albumin (PEP) 2.19 L (3.80-4.90) g/dL Rccqd-9-Cxntzsaux 0.48 H (0.10-0.40) g/dL Shlgo-3-Dlljqfade 1.24 H (0.60-1.00) g/dL Beta Globulins 0.42 L (0.60-1.30) g/dL Urine Appearance Turbid H (Clear) Urine Protein 1+ H (Negative) Urine Glucose (UA) 3+ H (Negative) Urine Blood Moderate H (Negative) Ur Leukocyte Esterase Large H (Negative) Urine RBC 28 H (0-5) /hpf Urine WBC >182 H (0-5) /hpf Urine WBC Clumps Many H (None) /hpf 08/23/23 08/23/23 08/24/23 Range/Units 16:30 20:01 07:16 Sodium 136 L (137-145) mmol/L BUN 75 H (7-17) mg/dL Creatinine 7.41 H* (0.52-1.04) mg/dL POC Glucose (mg/dL) 177 H 210 H (70-110) mg/dL Phosphorus 6.5 H (2.5-4.5) mg/dL Albumin (PEP) (3.80-4.90) g/dL Lqwcx-1-Vdtfcjqso (0.10-0.40) g/dL Lhgvq-8-Aksbxdmvw (0.60-1.00) g/dL Beta Globulins (0.60-1.30) g/dL Urine Appearance (Clear) Urine Protein (Negative) Urine Glucose (UA) (Negative) Urine Blood (Negative) Ur Leukocyte Esterase (Negative) Urine RBC (0-5) /hpf Urine WBC (0-5) /hpf Urine WBC Clumps (None) /hpf
[2023-08-25 10:19] VITALS: TEMP 98
--- NOTE | 2023-08-25 11:08 | P.PN ---
Subjective Patient is seen in follow-up for acute kidney injury on chronic kidney disease. No significant improvement in renal function. Has been voiding. Denies chest pain or shortness of breath. admits to mild nausea this morning. Permacath placed August 23, 2023. no problems with dialysis yesterday. Vital signs are stable. General: No acute distress. HEENT: Head exam is unremarkable. LUNGS: No audible rhonchi or wheezes. HEART: Rate and Rhythm are regular. ABDOMEN: Nontender. EXTREMITITES: 1+ edema. Objective - Vital Signs Vital signs: Vital Signs Temp 98.0 F 08/25/23 08:00 Pulse 85 08/25/23 08:00 Resp 18 08/25/23 08:00 BP 106/66 08/25/23 08:00 Pulse Ox 94 L 08/25/23 08:00 FiO2 Intake & Output 08/24/23 08/25/23 08/25/23 18:59 06:59 18:59 Intake Total 900 Output Total 2400 400 Balance -1500 -400 Weight 81.9 kg Intake: IV 20 Invasive Line 4 20 Oral 480 Hemodialysis 400 Output: Urine 1000 400 Hemodialysis 900 Hemodialysis Net Amount 500 Other: Voiding Method Bedside Commode Bedside Commode Bedside Commode - Labs CBC & Chem 7: 08/23/23 08:18 08/24/23 07:16 Labs: Abnormal Lab Results - Last 24 Hours (Table) 08/24/23 Range/Units 20:37 POC Glucose (mg/dL) 144 H (70-110) mg/dL Microbiology - Last 24 Hours (Table) 08/23/23 12:08 Urine Culture - Final Urine,Clean Catch Assessment and Plan Plan: Assessment: 1. Acute kidney injury secondary to ATN secondary to hypovolemia further worsen ed with the use of ARB and SGLT2 inhibitor. No hydronephrosis noted on kidney ultrasound. Creatinine 9.65 on admission and 7.41 yesterday. Serologies negative. permacath placed and started on hemodialysis 08/24/2023. 2. Chronic kidney disease stage IV baseline creatinine 1.6-1.7 in July and 2022. Suspect nephrosclerosis and diabetic kidney disease. 3. Metabolic acidosis secondary to acute kidney injury. Improved with bicarb drip and dialysis. 4. Hypertension with chronic kidney disease. Controlled. 5. Anemia. Iron replete. Component of chronic kidney disease. On Aranesp. 6. Hypokalemia from intracellular shifting from IV bicarb. Replaced. Better. 7. Hypomagnesemia from poor intake. Replaced. Better. 8. Hyperphosphatemia secondary to acute kidney injury. Phosphorus level 6.5. On Renvela. Expect improvement postdialysis. Plan: secondary treatment of hemodialysis today and third treatment tomorrow. if patient gets discharged today, she can go for next dialysis treatment Monday outpatient. She will be maintained on Monday schedule. encourage oral intake. Avoid nephrotoxins. Preserved EF noted on echocardiogram. prospect manager to set up outpatient hemodialysis. Monitor for renal recovery outpatient.
[2023-08-25 12:10] LABS: Glucose,Whole Blood 102 mg/dL (70-110)
[2023-08-25 12:49] VITALS: BMI 30.9
--- NOTE | 2023-08-25 13:35 | P.PN ---
Subjective Progress Note Date: 08/25/23 Principal diagnosis: Shortness of breath. Pulmonary consult dated August 21, 2023. 82-year-old female who was seen in the emergency department, room #18. The patient came in with complaints of shortness of breath. The patient is currently on a couple liters of oxygen, and, is on no current IV. An IV is being attempted by the nurse. The patient's son is also in the examination room. The patient states that beginning a few days ago, she started noticing progressive and worsening shortness of breath, particularly when she exerted herself. She denies any chest pain or chest discomfort. The patient denies any fever or chills. Her cough is typically dry. The patient has a history of diabetes, gastroesophageal reflux disease, hyperlipidemia, hypertension, breast cancer, kidney stones, and states that she is a lifelong non-smoker. Current labs include a white count 11.4, hemoglobin 8.1, hematocrit 25.5, and a normal platelet count. PT 12.6 INR 1.2 and PTT is 24.5. Sodium 140, potassium 3.1, chlorides 112, CO2 13, anion gap 15, BUN 93, and creatinine 9.14. Glucose is 105. Troponins were [phone]. N-terminal proBNP was 6790. Chest x-ray is consistent with pulmonary vascular congestion and mild CHF. Progress note dated August 22, 2023. 82-year-old female seen in consultation yesterday. Please see the note above. The patient came into the ER complaining of shortness of breath. Her shortness of breath was only with exertion, not at rest. Chest x-ray was consistent with pulmonary vascular congestion, and CHF. Her N-terminal proBNP was nearly 6800. Currently, she is feeling better. She is on room air. The patient is getting D5W with 3 ampoules of sodium bicarbonate at 100 cc an hour. Heparin has been discontinued. Current labs include a white count 8.4, hemoglobin 7.8, hematocrit 24.6, and a platelet count of 264,000. PTT is 115. Sodium 140, potassium 3.4, chlorides 109, CO2 19, BUN 89, and creatinine 8.41. Glucose is 212. Albumin is 2.1. Progress note dated August 23, 2023. 82-year-old female seen in consultation 2 days ago. Please see my last 2 notes. The patient is seen today in room 371. The patient is currently on a sodium bicarbonate drip, with 3 ampoules of sodium bicarbonate in D5W at 100 cc an hour. The patient is not receiving any supplemental oxygen. She apparently is going to end up needing hemodialysis. Current labs include a white count 9.3, hemoglobin 8.6, hematocrit 27.5, and a normal platelet count. Sodium 136, potassium 3.8, chlorides 98, CO2 26, anion gap 12, BUN 81, creatinine 7.90. Leukosis 166. Magnesium 1.4. Phosphorus is 6.0. A hemodialysis catheter was placed in this patient. Progress note dated August 24, 2023. 82-year-old female seen in consultation 3 days ago. The patient is planning to have hemodialysis today. Hemodialysis catheter was placed yesterday. She is currently on room air. She was on a sodium bicarbonate drip but that has been discontinued. Clinically, she is feeling nervous about hemodialysis. She denies any respiratory issues such as shortness of breath, other than when she exerts herself. Current labs include a glucose of 90. In addition, sodium 136, potassium 3.8, chlorides 98, CO2 29, anion gap 9, BUN 75, creatinine is 7.41. Phosphorus is 6.5. Magnesium is 1.9. Calcium is normal. Progress note dated 08/25/2023. 82-year-old female seen today in room 371. The patient is currently on room air. She's not receiving any IV fluids. She was initiated on hemodialysis yesterday. 500 mL was removed. She's getting hemodialysis today. The plan for hemodialysis was not known by the hemodialysis nurse.Clinically, the patient's doing well. She denies any shortness of breath, cough, wheezing, chest tightness, or phlegm production. No new labs today other than a glucose of 102.Urine was negative. Objective - Vital Signs Vital signs: Vital Signs Temp 98.0 F 08/25/23 08:00 Pulse 75 08/25/23 12:00 Resp 18 08/25/23 12:00 BP 126/54 08/25/23 12:00 Pulse Ox 95 08/25/23 12:00 FiO2 Intake & Output 08/24/23 08/25/23 08/25/23 18:59 06:59 18:59 Intake Total 900 Output Total 2400 400 Balance -1500 -400 Weight 81.9 kg 81.9 kg Intake: IV 20 Invasive Line 4 20 Oral 480 Hemodialysis 400 Output: Urine 1000 400 Hemodialysis 900 Hemodialysis Net Amount 500 Other: Voiding Method Bedside Commode Bedside Commode Bedside Commode - Exam No acute distress, oriented 3. Mild conversational dyspnea. Currently on room air. HEENT examination is grossly unremarkable. Mucous membranes are moist. No oral lesions. Neck supple. Full range of motion. No adenopathy thyromegaly or neck vein distention. Cardiovascular examination reveals regular rhythm rate. S1-S2 normal. No S3 or S4. No discernible murmur noted. Heart sounds are distant. Heart rate 75 bpm. Lungs reveal mild basilar crackles. No wheezes or rhonchi. Breath sounds equal. Room air saturation is 95 %. Abdomen soft bowel sounds are heard. No masses or tenderness. Extremities are intact. No cyanosis clubbing or edema. Skin is without rash or lesion. Neurologic examination is brief but nonfocal. - Labs CBC & Chem 7: 08/23/23 08:18 08/24/23 07:16 Labs: Abnormal Lab Results - Last 24 Hours (Table) 08/24/23 Range/Units 20:37 POC Glucose (mg/dL) 144 H (70-110) mg/dL Microbiology - Last 24 Hours (Table) 08/23/23 12:08 Urine Culture - Final Urine,Clean Catch Assessment and Plan Assessment: Acute shortness of breath, likely related to underlying pulmonary vascular congestion and CHF. Acute kidney injury, and subsequent fluid retention, with anticipated hemodialysis, beginning on 08/24/2023. Non-anion gap metabolic acidosis. Chronic kidney disease. History of breast cancer, status post left lumpectomy. History of diabetes mellitus. History of gastroesophageal reflux disease. History of hyperlipidemia. History of hypertension. History of kidney stones. Lifelong non-smoker. Plan: Plan dated August 21, 2023. The patient is a lifelong non-smoker, and denies a prior history of any lung disease. The patient does have a history of hyperlipidemia, hypertension, gastroesophageal reflux disease, and breast cancer. The patient presents with acute on chronic kidney disease, but significant fluid retention, with pulmonary vascular congestion, and CHF. The patient has been seen by nephrology. Dopplers of the lower extremities were negative. We will continue to follow make recommendations along the way. Labs, x-rays, and all medications are reviewed. Plan dated August 22, 2023. The patient is seen today in room 371. He is currently on room air. She is on a sodium bicarbonate drip. Heparin has been discontinued. Labs, x-rays, medications are reviewed. Dopplers of the lower extremities were negative. The patient was admitted with a diagnosis of shortness of breath, secondary to CHF. She does have a history of hyperlipidemia, hypertension, gastroesophageal reflux disease, and breast cancer. In addition, she had acute on chronic kidney failure. She has been seen by nephrology. She continues on a sodium bicarbonate drip. We will continue to follow make recommendations along the way. Plan dated August 23, 2023. The patient is not having any respiratory distress. When she is sitting, and not walking about, she does not complain of shortness of breath. She does have shortness of breath on exertion. The patient is likely to begin hemodialysis in the near future. Hemodialysis catheter was placed. The patient was on the sodium bicarbonate drip as mentioned above. Labs, x-rays, medications are reviewed. The patient has a history of hyperlipidemia, hypertension, gastroesophageal reflux disease, breast cancer. We will continue to follow make recommendations along the way. Prognosis is guarded. Respiratory status appears stable. Plan dated August 24, 2023. Hemodialysis catheter was placed. The patient is apparently going to have hemodialysis today. She is a bit nervous. I told her to talk to the crop duster, so she can get some more information. She is not having any respiratory issues. She is on room air. Saturations are 94 to 95%. Generally speaking, she been doing relatively well. Labs, x-rays, medications are reviewed. Prognosis is guarded. Plan dated 08/25/2023. Hemodialysis catheter was placed a couple days ago on this patient. The patient did have hemodialysis yesterday. 500 mL of fluid was removed. The hemodialysis nurses in the patient's room as we walked in, and is planning to do hemodialysis on this patient today. The plan for hemodialysis is not known by the nurse. The patient appears be doing relatively well. She denies any shortness breath, cough, wheezing, chest tightness or phlegm production. She is not on any oxygen, or receiving any IV fluids. Prognosis is guarded. Time with Patient: Less than 30
[2023-08-25 14:39] VITALS: BP 106/63; PULSE 64; RESP 20
[2023-08-26] MEDS ORDERED: TORSEMIDE 20 MG TAB PO SCH (09:00)
--- NOTE | 2023-08-28 10:43 | CDI ---
Documentation Clarification Form Date: 08/28/23 From: Sharmila Rodriguez Admit Date: 08/20/2023 03:30:00 PM Patient Name: Messi Dinero Visit Number: [id number] Discharge Date: 08/25/2023 03:56:00 PM ATTENTION: The Clinical Documentation Specialists (CDI) and [facility] Coding Staff appreciate your assistance in clarifying documentation. Please respond to the clarification below the line at the bottom and electronically sign. The CDI & [facility] Coding staff will review the response and follow-up if needed. Please note: Queries are made part of the Legal Health Record. If you have any questions, please contact the author of this message via ITS. Doctor J Luis Mccain, Your patient has the documented diagnosis of acute exacerbation of CHF per your 08/21 progress note. Additional information regarding the type of CHF is requested. 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 08/19 VS/Pulse OX: T98.9, P 78, R 18/24, BP 117/76, O2 sat 98 RA BNP: 6790 [08/19] 08/20 Echocardiogram Results: Mild increased left ventricular wall thickness, Left ventricular ejection fraction 60-65% 08/19 Chest X Ray: Pulmonaryvenous congestionwithout overt failure. Treatment: Demadex 40 mg PO daily, monitor CBC, CMP, Echo, consult cardio In your professional opinion, can you please clarify the type of CHF if known? [ ] Acute on Chronic Systolic Heart Failure (reduced EF) [ ] Acute on Chronic Diastolic Heart Failure (preserved EF) [ ] Acute on Chronic Heart Failure Systolic & Diastolic Heart Failure [ ] Other, please specify [ ] Unable to determine see Discharge Summary for response. Chance CUEVAS
--- NOTE | 2023-08-31 10:18 | P.DS ---
Providers Date of admission: 08/20/23 15:30 Expected date of discharge: 08/25/23 Attending physician: J Luis Mccain Consults: 08/20/23 15:26 Consult Physician Urgent Consulting Provider: Walter Crowder Consult Reason/Comments: Acute renal failure Do you want consulting provider notified?: Yes 08/21/23 10:34 Consult Physician Routine Consulting Provider: Trevon Webster Consult Reason/Comments: Respiratory distress Do you want consulting provider notified?: Yes 08/21/23 10:38 Consult Physician Routine Consulting Provider: Flo Juarez Consult Reason/Comments: Elevated troponin Do you want consulting provider notified?: Yes 08/23/23 10:20 Consult Physician Routine Consulting Provider: [place] Pandya Consult Reason/Comments: permanent dialysis catheter insertion Do you want consulting provider notified?: Yes Primary care physician: Elizabeth Jeronimo MD Hospital Course: Final diagnosis Dyspnea secondary to volume overload with CHF exacerbation Acute on chronic diastolic heart failure with preserved EF, acute exacerbation Acute kidney injury, worsening kidney functions requiring hemodialysis catheter placement 08/23/2023 History of chronic kidney disease Diabetes mellitus, type II Elevated troponin, ACS ruled out, likely type II mismatch from CHF exacerbation and volume overload Elevated D-dimer, PE ruled out Hypomagnesemia, improved after replacement Hypertension history Hyperlipidemia Obesity with a BMI 30.9 Anemia, likely chronic GI prophylaxis DVT prophylaxis Full code with no intubation Discharge disposition Patient is being discharged in a stable condition with guarded prognosis to home. Patient will follow-up with Dr. Jeronimo in the outpatient setting upon discharge. Patient is to continue with hemodialysis as scheduled. Patient to follow-up with nephrology as well as cardiology outpatient total time taken is greater than 35 minutes. Hospital course This is a 82-year-old female who was recently admitted with increasing shortness of breath with volume overload noted to have CHF exacerbation. Acute on chronic with preserved EF and evaluated by cardiology as well as nephrology. Kidney functions extremely elevated with a creatinine of 8 initially monitoring closely as patient is still producing urine although continues to have persistent elevated kidney functions and nephrology following recommending renal replacement. Patient received a right chest wall permacath with vascular surgery and has been initiated on hemodialysis. Patient will continue Monday/Monday/Monday at [facility] in [place]. Patient reports to feeling improved and has been cleared by consultations for discharge home. Please refer to other consultation notes for further HPI. Currently no reports of chest pain, shortness of breath, or palpitations. Patient is afebrile. No reports of nausea or vomiting and patient is tolerating diet. Patient will be discharged home today. Guarded prognosis and high risk for readmissions given patient's significant comorbidities Physical exam: Gen: This is a 82-year-old female who is awake, alert and oriented x 3, well- developed, well-nourished, obese, elderly appearing HEENT: Head is atraumatic, normocephalic. Pupils equal, round. Sclerae is anicteric. NECK: Supple. No JVD. No lymphadenopathy. No thyromegaly. LUNGS: Diminished breath sounds bilaterally clear to auscultation. No wheezes or rhonchi. No intercostal retractions. HEART: Regular rate and rhythm. No murmur. ABDOMEN: Soft. Obese. Bowel sounds are present. No masses. No tenderness. EXTREMITIES: No pedal edema. No calf tenderness. NEUROLOGICAL: Patient is awake, alert and oriented x3. Cranial nerves 2 through 12 are grossly intact. Please refer to medication reconciliation sheet for a list of medications. The impression and plan of care has been dictated by Ursula Travis, Nurse Practitioner as directed. Dr. Jessica MD I have performed a history and examination and MDM of this patient, discussed the same with the dictator, and agree with the dictator's assessment and plan as written ,documented as a scribe. Based on total visit time, I have performed more than 50% of the visit. Patient Condition at Discharge: Fair Plan - Discharge Summary Discharge Rx Participant: No New Discharge Prescriptions: New Torsemide [Demadex] 40 mg PO DAILY #60 tab Acetaminophen Tab [Tylenol] 650 mg PO Q6HR PRN tab PRN Reason: Fever And/ Or Pain Darbepoetin Ace [Aranesp] 40 mcg SQ Q7D each Sevelamer [Renvela] 800 mg PO TID-W/MEALS #90 tab Continue Aspirin [Children's Aspirin] 81 mg PO DAILY Alendronate Sodium [Fosamax] 70 mg PO ROGERS Exemestane [Aromasin] 25 mg PO DAILY Rosuvastatin [Crestor] 20 mg PO DAILY Omeprazole 20 mg PO DAILY Discontinued Vit C/E/Zn/Coppr/Lutein/Zeaxan [Preservision Areds 2 Chew Tab] 2 cap PO DAILY Calcium Citrate/Vitamin D3 [Citracal + D Maximum Caplet] 2 tab PO DAILY Losartan [Cozaar] 25 mg PO DAILY Empagliflozin [Jardiance] 10 mg PO DAILY Discharge Medication List Aspirin [Children's Aspirin] 81 mg PO DAILY 02/11/22 [History] Rosuvastatin [Crestor] 20 mg PO DAILY 02/11/22 [History] Alendronate Sodium [Fosamax] 70 mg PO ROGERS 09/27/22 [History] Exemestane [Aromasin] 25 mg PO DAILY 09/27/22 [History] Omeprazole 20 mg PO DAILY 09/27/22 [History] Acetaminophen Tab [Tylenol] 650 mg PO Q6HR PRN tab 08/25/23 [Rx] Darbepoetin Ace [Aranesp] 40 mcg SQ Q7D each 08/25/23 [Rx] Sevelamer [Renvela] 800 mg PO TID-W/MEALS #90 tab 08/25/23 [Rx] Torsemide [Demadex] 40 mg PO DAILY #60 tab 08/25/23 [Rx] Follow up Appointment(s)/Referral(s): Dialysis,[facility] [NON-STAFF] - 08/28/23 1:30 pm (Your Dialysis schedule is Monday at 1:30PM. Please arrive to clinic a half hour early on 1st treatment day (Monday).) [facility], [NON-STAFF] - Elizabeth Jeronimo MD [Primary Care Provider] - 1-2 days (They will call you to schedule appt) Walter Crowder DO [STAFF PHYSICIAN] - 1 Week Activity/Diet/Wound Care/Special Instructions: activity limited until follow up follow up with pcp on discharge follow up with nephrology this week continue hemodialysis on monday as scheduled continue taking medications as prescribed Discharge Disposition: HOME WITH HOME HEALTH SERVICES
== END 2023-08-25 15:56 | disposition home health service (06) | DRG 673 ==
LOC: EC 11:56 → 4SSUR 15:30 → 3SCARD 08-21 20:23
PROVIDERS: ADMIT Internal Medicine; ATTEND Internal Medicine
PROC: 02HV33Z Insertion of Infusion Device into Superior Vena Cava, Percutaneous Approach (ICD-10-PCS; principal; 2023-08-24)
PROC: 0JH63XZ Insertion of Tunneled Vascular Access Device into Chest Subcutaneous Tissue and Fascia, Percutaneous Approach (ICD-10-PCS; principal; 2023-08-24)
PROC: 5A1D70Z Performance of Urinary Filtration, Intermittent, Less than 6 Hours Per Day (ICD-10-PCS; 2023-08-24)
DX: N17.0 Acute kidney failure with tubular necrosis (principal); I50.33 Acute on chronic diastolic (congestive) heart failure; E87.20 Acidosis, unspecified; I13.0 Hypertensive heart and chronic kidney disease with heart failure and stage 1 through stage 4 chronic kidney disease, or unspecified chronic kidney disease; R79.89 Other specified abnormal findings of blood chemistry; D63.1 Anemia in chronic kidney disease; E83.39 Other disorders of phosphorus metabolism; C50.912 Malignant neoplasm of unspecified site of left female breast; E11.22 Type 2 diabetes mellitus with diabetic chronic kidney disease; N18.4 Chronic kidney disease, stage 4 (severe); I65.29 Occlusion and stenosis of unspecified carotid artery; E66.9 Obesity, unspecified; Z68.31 Body mass index [BMI] 31.0-31.9, adult; Z28.310 Unvaccinated for COVID-19; E78.5 Hyperlipidemia, unspecified; E83.42 Hypomagnesemia; E86.1 Hypovolemia; E87.6 Hypokalemia; K21.9 Gastro-esophageal reflux disease without esophagitis; M19.90 Unspecified osteoarthritis, unspecified site; R13.10 Dysphagia, unspecified; M54.9 Dorsalgia, unspecified; Z79.82 Long term (current) use of aspirin; Z79.83 Long term (current) use of bisphosphonates; Z79.84 Long term (current) use of oral hypoglycemic drugs; Z79.811 Long term (current) use of aromatase inhibitors; Z79.899 Other long term (current) drug therapy; Z96.643 Presence of artificial hip joint, bilateral; Z71.3 Dietary counseling and surveillance; Z88.0 Allergy status to penicillin; Z88.1 Allergy status to other antibiotic agents; Z88.8 Allergy status to other drugs, medicaments and biological substances
CPT/HCPCS: 36415; 36558; 71045; 71046; 76770; 76937; 77001; 80048; 80053; 80074; 81001; 82728; 83036; 83540; 83550; 83605; 83735; 83880; 84100; 84165; 84484; 85025; 85027; 85379; 85610; 85730; 86038; 86160; 86162; 86225; 86255; 86334; 86704; 86706; 87086; 90935; 93005; 93306; 93970; 96365; 96366; 96367; 96368; 96375; 99285

== ENCOUNTER 2023-12-06 09:48 | Observation (INO) | payer MEDICARE ==
--- NOTE | 2023-12-06 10:38 | ED ---
Recheck HPI - General Chief Complaint: Recheck/Abnormal Lab/Rx Stated Complaint: port issues Time Seen by Provider: 12/06/23 10:00 Source: patient, family, RN notes reviewed Mode of arrival: wheelchair Limitations: physical limitation - History of Present Illness Initial Comments: 83-year-old female with history of end-stage renal disease presenting for catheter issues. States she has a right chest wall permacath performed by Dr. Pandya in August for hemodialysis. States she receives hemodialysis Monday, Monday, and Fridays. Patient last received hemodialysis on Monday. She reports yesterday she noticed that the catheter was lower on the chest wall than normal, then when she was getting ready for bed she noticed that the catheter was no longer present. She was sent by dialysis for catheter replacement. Denies blood thinners. Takes baby aspirin daily. - Related Data Home Medications Medication Instructions Recorded Confirmed Aspirin [Children's Aspirin] 81 mg PO DAILY 02/11/22 08/20/23 Rosuvastatin [Crestor] 20 mg PO DAILY 02/11/22 08/20/23 Alendronate Sodium [Fosamax] 70 mg PO ROGERS 09/27/22 08/20/23 Exemestane [Aromasin] 25 mg PO DAILY 09/27/22 08/20/23 Omeprazole 20 mg PO DAILY 09/27/22 08/20/23 Previous Rx's Medication Instructions Recorded Acetaminophen Tab [Tylenol] 650 mg PO Q6HR PRN tab 08/25/23 Darbepoetin Ace [Aranesp] 40 mcg SQ Q7D each 08/25/23 Sevelamer [Renvela] 800 mg PO TID-W/MEALS #90 tab 08/25/23 Torsemide [Demadex] 40 mg PO DAILY #60 tab 08/25/23 Allergies Allergy/AdvReac Type Severity Reaction Status Date / Time cefuroxime Allergy Unknown Verified 12/06/23 10:06 Penicillins Allergy Rash/Hives Verified 12/06/23 10:06 simvastatin [From Zocor] Allergy Anaphylaxis Verified 12/06/23 10:06 anastrozole AdvReac Swelling Verified 12/06/23 10:06 Review of Systems ROS Statement: Those systems with pertinent positive or pertinent negative responses have been documented in the HPI. ROS Other: All systems not noted in ROS Statement are negative. Past Medical History Past Medical History: Cancer, Diabetes Mellitus, GERD/Reflux, Hyperlipidemia, Hypertension, Osteoarthritis (OA), Renal Disease Additional Past Medical History / Comment(s): Left breast cancer, hx kidney stones, dysphagia History of Any Multi-Drug Resistant Organisms: None Reported Past Surgical History: Back Surgery, Breast Surgery, Cholecystectomy, Orthopedic Surgery Additional Past Surgical History / Comment(s): rancho hip replacement, cataract, lumpectomy , EGD , cystoscopy with lithotripsy., back surgery in 1999, HD MWF Past Anesthesia/Blood Transfusion Reactions: No Reported Reaction Past Psychological History: No Psychological Hx Reported Smoking Status: Never smoker Past Alcohol Use History: None Reported Past Drug Use History: None Reported - Past Family History Mother Family Medical History: Cancer Additional Family Medical History / Comment(s): bladder cancer Father Family Medical History: Myocardial Infarction ([place]) Brother(s) Family Medical History: Rheumatoid Arthritis ([place]) Daughter(s) Family Medical History: No Reported History Son(s) Family Medical History: No Reported History General Exam Limitations: physical limitation General appearance: alert, in no apparent distress Head exam: Present: atraumatic, normocephalic, normal inspection Eye exam: Present: normal appearance, PERRL, EOMI. Absent: scleral icterus, conjunctival injection, periorbital swelling Respiratory exam: Present: normal lung sounds bilaterally, other (There is no right chest wall permacath present. No erythema or tenderness to palpation.). Absent: respiratory distress, wheezes, rales, rhonchi, stridor Cardiovascular Exam: Present: regular rate, normal rhythm, normal heart sounds. Absent: systolic murmur, diastolic murmur, rubs, gallop, clicks Neurological exam: Present: alert, oriented X3 Psychiatric exam: Present: normal affect, normal mood Skin exam: Present: warm, dry, intact, normal color. Absent: rash Course Vital Signs 12/06/23 10:06 Temperature 97.6 F Pulse Rate 61 Respiratory 18 Rate Blood Pressure 148/62 O2 Sat by Pulse 100 Oximetry Medical Decision Making - Medical Decision Making Was pt. sent in by a medical professional or institution (, PA, ADMISSIONS NURSE, urgent care, hospital, or [facility]...) When possible be specific @ -Sent by dialysis for permacatheter replacement Did you speak to anyone other than the patient for history (EMS, parent, family, police, friend...)? What history was obtained from this source @ -Family supplemented history Did you review nursing and triage notes (agree or disagree)? Why? @ -I reviewed and agree with nursing and triage notes Were old charts reviewed (outside hosp., previous admission, EMS record, old EKG, old radiological studies, urgent care reports/EKG's, [facility] records)? Report findings @ -No old charts were reviewed Differential Diagnosis (chest pain, altered mental status, abdominal pain women, abdominal pain men, vaginal bleeding, weakness, fever, dyspnea, syncope, headache, dizziness, GI bleed, back pain, seizure, CVA, palpatations, mental health, musculoskeletal)? @ -not applicable, permacatheter placement EKG interpreted by me (3pts min.). @ -None X-rays interpreted by me (1pt min.). @ -None done CT interpreted by me (1pt min.). @ -None done U/S interpreted by me (1pt. min.). @ -None done What testing was considered but not performed or refused? (CT, X-rays, U/S, labs)? Why? @ -None What meds were considered but not given or refused? Why? @ -None Did you discuss the management of the patient with other professionals (professionals i.e. , PA, ADMISSIONS NURSE, lab, RT, psych nurse, public health social worker, numerical tool programmer, teacher, tourist information officer, correctional case manager)? Give summary @ -I spoke with Dr. Pandya who requested admission to medicine with himself and nephrology on consultation. I then spoke with Dr. Larsen who accepts admission Was smoking cessation discussed for >3mins.? @ -No Was critical care preformed (if so, how long)? @ -No Were there social determinants of health that impacted care today? How? (Homelessness, low income, unemployed, alcoholism, drug addiction, transportation, low edu. Level, literacy, decrease access to med. care, intermediate, rehab)? @ -No Was there de-escalation of care discussed even if they declined (Discuss DNR or withdrawal of care, Hospice)? DNR status @ -No What co-morbidities impacted this encounter? (DM, HTN, Smoking, COPD, CAD, Cancer, CVA, ARF, Chemo, Hep., AIDS, mental health diagnosis, sleep apnea, morbid obesity)? @ -None Was patient admitted / discharged? Hospital course, mention meds given and route, prescriptions, significant lab abnormalities, going to OR and other pertinent info. @ -Admitted. This is an 83-year-old female presenting with hemodialysis catheter issue. States yesterday she noticed that her right chest wall permacatheter was absent. Patient receives hemodialysis Monday, Monday, Monday. Last was Monday, patient is due for hemodialysis today. I spoke with Dr. Pandya who requested admission to medicine with himself and nephrology on consultation. He will be performing catheter replacement. I then spoke with Dr. Larsen who accepts admission. Patient and family are agreeable to plan. Lab work including CBC, CMP, coags pending at time of admission. Case was discussed with the ED attending Dr. Zamora. Undiagnosed new problem with uncertain prognosis? @ -No Drug Therapy requiring intensive monitoring for toxicity (Heparin, Nitro, Insulin, Cardizem)? @ -No Were any procedures done? @ -No Diagnosis/symptom? @ -Hemodialysis catheter issue Acute, or Chronic, or Acute on Chronic? @ -Acute Uncomplicated (without systemic symptoms) or Complicated (systemic symptoms)? @ -Uncomplicated Side effects of treatment? @ -No Exacerbation, Progression, or Severe Exacerbation? @ -No Poses a threat to life or bodily function? How? (Chest pain, [place], [place], pneumonia, PE, COPD, DKA, ARF, appy, cholecystitis, CVA, Diverticulitis, Homicidal, Suicid al, threat to staff... and all critical care pts) @ -No Disposition Clinical Impression: Hemodialysis catheter dysfunction Disposition: ADMITTED IP TO THIS HOSP Referrals: Elizabeth Jeronimo MD [Primary Care Provider] - 1-2 days Time of Disposition: 11:48
[2023-12-06] MEDS ORDERED: ONDANSETRON 4 MG/2 ML VIAL IVP PRN (11:38)
[2023-12-06] MEDS ORDERED: NALOXONE 0.4 MG/ML 1 ML VIAL IV PRN (11:38)
[2023-12-06 11:58] LABS: Basophils % (A) 0 %; Eosinophils % (A) 0 %; HCT 34.2 % (34.0-46.0); HGB 10.9 gm/dL (11.4-16.0); Lymphocytes # (A) 1.2 k/uL (1.0-4.8); Lymphocytes % (A) 14 %; MCH 28.1 pg (25.0-35.0); MCHC 31.8 g/dL (31.0-37.0); MCV 88.4 fL (80.0-100.0); Mean Platelet Volume 9.4; Monocytes # (A) 0.4 k/uL (0-1.0); Monocytes % (A) 5 %; Neutrophils # (A) 6.8 k/uL (1.3-7.7); Neutrophils % (A) 79 %; Platelet Count 201 k/uL (150-450); RBC 3.87 m/uL (3.80-5.40); RDW 15.6 % (11.5-15.5); WBC 8.6 k/uL (3.8-10.6)
[2023-12-06 12:08] LABS: ALT 8 U/L (4-34); AST 20 U/L (14-36); African American GFR (CKD) 11 (>60 ml/min/1.73 sqM); Alkaline Phosphatase 113 U/L (38-126); Anion Gap 10 mmol/L; Blood Urea Nitrogen 32 mg/dL (7-17); Carbon Dioxide 18 mmol/L (22-30); Chloride 108 mmol/L (98-107); Glucose 111 mg/dL (74-99); Non-African American GFR(CKD) 9 (>60 ml/min/1.73 sqM); Potassium 3.4 mmol/L (3.5-5.1); Sodium 136 mmol/L (137-145); Total Bilirubin 0.4 mg/dL (0.2-1.3); Total Protein 5.8 g/dL (6.3-8.2)
[2023-12-06 12:14] LABS: Partial Thromboplastin Time 24.3 sec (22.0-30.0)
[2023-12-06] MEDS: NON FORMULARY DRUG (Exemestane [Aromasin] 25 MG Tablet) PO SCH (13:27)
[2023-12-06] MEDS: NON FORMULARY DRUG (Rosuvastatin 20 MG Tablet) PO SCH (13:28)
[2023-12-06] MEDS: PANTOPRAZOLE 40 MG TABLET PO SCH (13:30)
[2023-12-06] MEDS: TORSEMIDE 20 MG TAB PO SCH (13:30)
--- NOTE | 2023-12-06 15:45 | P.HPIM ---
History of Present Illness H&P Date: 12/06/23 Chief Complaint: Dialysis catheter fell out This is a very pleasant 83-year-old patient who follows with Dr. Elizabeth Jeronimo. Practical Nursing Teacher Dr. Crowder. Has been on dialysis since August of this year. Monday and Monday. Patient went woke up this morning found her that dialysis catheter following out of the right subclavian area. Decided to come in. Has not missed her dialysis. Due for dialysis today. Patient is accompanied by her daughter in the ER. Some swelling in the lower extremity. Patient does make urine. Catheter was placed with Dr. Pandya from vascular. Review of systems: GEN.: None EYES: None HEENT: None NECK: None RESPIRATORY: None CARDIOVASCULAR: None GASTROINTESTINAL: None GENITOURINARY: None MUSCULOSKELETAL: Joint pain e LYMPHATICS: None HEMATOLOGICAL: None PSYCHIATRY: None NEUROLOGICAL: None Social history: Her grandson lives with her. Does use a walker. Denies any history of smoking or alcohol. Physical examination: VITAL SIGNS: 97.6, 61, 18, 138 x 68, 100% room air GENERAL: BMI 28.7, sitting at the edge of the bed awake comfortable. EYES: Pupils equal. Conjunctiva sherman l. HEENT: External appearance of nose and ears normal, oral cavity grossly normal. NECK: JVD not raised; masses not palpable. HEART: [First and second heart sounds are normal; edema present. LUNGS: Respiratory rate normal; clear to auscultation. ABDOMEN: Soft, nontender, liver spleen not palpable, no masses palpable. PSYCH: Alert and oriented x3; mood and affect sherman l. MUSCULOSKELETAL:No Clubbing/cyanosis;muscles-grossly intact NEUROLOGICAL: Cranial nerves grossly intact; no facial asymmetry, power and sensation grossly intact. LYMPHATICS: No lymph nodes palpable in the axilla and neck INVESTIGATIONS, reviewed in the clinical context: December 05 09/26/2023: White count 8.6 hemoglobin 10.9 platelets 201 sodium 136 potassium 3.4 BUN 32 creatinine 4.16 Assessment plan: -Right chest wall dialysis catheter is fallen off. Dr. Pandya from vascular's been consulted for replacement. Patient scheduled for dialysis today. -End-stage kidney disease on hemodialysis Wednesdays. Follows with Dr. Crowder from nephrology Dialysis started in August 2023 -Hyperlipidemia Crestor 20 mg a day -GERD Omeprazole 20 mg a day -Osteoporosis Fosamax 70 mg on Sundays -Primary osteoarthritis Tylenol as needed -History of breast cancer On Aromasin -Full code Care was discussed with the patient and daughter at the bedside. Questions answered. Past Medical History Past Medical History: Cancer, Diabetes Mellitus, GERD/Reflux, Hyperlipidemia, Hypertension, Osteoarthritis (OA), Renal Disease Additional Past Medical History / Comment(s): Left breast cancer, hx kidney stones, dysphagia History of Any Multi-Drug Resistant Organisms: None Reported Past Surgical History: Back Surgery, Breast Surgery, Cholecystectomy, Orthopedic Surgery Additional Past Surgical History / Comment(s): rancho hip replacement, cataract, lumpectomy , EGD , cystoscopy with lithotripsy., back surgery in 1999, MWF Past Anesthesia/Blood Transfusion Reactions: No Reported Reaction Past Psychological History: No Psychological Hx Reported Smoking Status: Never smoker Past Alcohol Use History: None Reported Past Drug Use History: None Reported - Past Family History Mother Family Medical History: Cancer Additional Family Medical History / Comment(s): bladder cancer Father Family Medical History: Myocardial Infarction ([place]) Brother(s) Family Medical History: Rheumatoid Arthritis ([place]) Daughter(s) Family Medical History: No Reported History Son(s) Family Medical History: No Reported History Medications and Allergies Home Medications Medication Instructions Recorded Confirmed Type Aspirin [Children's Aspirin] 81 mg PO PC-SUPPER 02/11/22 12/06/23 History Rosuvastatin [Crestor] 20 mg PO PC-SUPPER 02/11/22 12/06/23 History Alendronate Sodium [Fosamax] 70 mg PO ROGERS 09/27/22 12/06/23 History Exemestane [Aromasin] 25 mg PO DAILY 09/27/22 12/06/23 History Omeprazole 20 mg PO DAILY 09/27/22 12/06/23 History Torsemide [Demadex] 40 mg PO DAILY #60 tab 08/25/23 12/06/23 Rx Allergies Allergy/AdvReac Type Severity Reaction Status Date / Time cefuroxime Allergy Unknown Verified 12/06/23 12:55 Penicillins Allergy Rash/Hives Verified 12/06/23 12:55 simvastatin [From Zocor] Allergy Anaphylaxis Verified 12/06/23 12:55 anastrozole AdvReac Swelling Verified 12/06/23 12:55 Physical Exam Vitals: Vital Signs Temp Pulse Resp BP Pulse Ox 12/06/23 13:31 56 L 20 150/89 96 12/06/23 12:07 57 L 20 138/68 100 12/06/23 10:06 97.6 F 61 18 148/62 100 Intake and Output 12/06/23 12/06/23 12/06/23 06:59 14:59 22:59 Other: Weight 75.75 kg Results CBC & Chem 7: 12/06/23 11:48 12/06/23 11:48 Labs: Abnormal Lab Results - Last 24 Hours (Table) 12/06/23 12/06/23 Range/Units 11:48 11:48 Hgb 10.9 L (11.4-16.0) gm/dL RDW 15.6 H (11.5-15.5) % Sodium 136 L (137-145) mmol/L Potassium 3.4 L (3.5-5.1) mmol/L Chloride 108 H (98-107) mmol/L Carbon Dioxide 18 L (22-30) mmol/L BUN 32 H (7-17) mg/dL Creatinine 4.16 H (0.52-1.04) mg/dL Glucose 111 H (74-99) mg/dL Total Protein 5.8 L (6.3-8.2) g/dL Albumin 3.0 L (3.5-5.0) g/dL
--- NOTE | 2023-12-06 16:07 | P.GSCN ---
History of Present Illness History of present illness: 83-year-old female patient came to the emergency room today had a history of chronic renal failure having dialysis 3 times a week. Patient she lost her catheter she does not remember how the emergency room patient is scheduled to have a placement of a new dialysis catheter Medical history history of diabetes chronic renal failure On examination neck is supple no bruit appreciated Chest is clear good in both lung. Second sound present Patient has a left upper arm [place] graft placed last week Abdomen soft nontender Vascular brachial radial and femoral pulses are present Plan is placement of a dialysis catheter and complication discussed Past Medical History Past Medical History: Cancer, Diabetes Mellitus, GERD/Reflux, Hyperlipidemia, Hypertension, Osteoarthritis (OA), Renal Disease Additional Past Medical History / Comment(s): Left breast cancer, hx kidney stones, dysphagia History of Any Multi-Drug Resistant Organisms: None Reported Past Surgical History: Back Surgery, Breast Surgery, Cholecystectomy, Orthopedic Surgery Additional Past Surgical History / Comment(s): rancho hip replacement, cataract, lumpectomy , EGD , cystoscopy with lithotripsy., back surgery in 1999, HD MWF Past Anesthesia/Blood Transfusion Reactions: No Reported Reaction Past Psychological History: No Psychological Hx Reported Smoking Status: Never smoker Past Alcohol Use History: None Reported Past Drug Use History: None Reported - Past Family History Mother Family Medical History: Cancer Additional Family Medical History / Comment(s): bladder cancer Father Family Medical History: Myocardial Infarction ([place]) Brother(s) Family Medical History: Rheumatoid Arthritis ([place]) Daughter(s) Family Medical History: No Reported History Son(s) Family Medical History: No Reported History Medications and Allergies Home Medications Medication Instructions Recorded Confirmed Type Aspirin [Children's Aspirin] 81 mg PO PC-SUPPER 02/11/22 12/06/23 History Rosuvastatin [Crestor] 20 mg PO PC-SUPPER 02/11/22 12/06/23 History Alendronate Sodium [Fosamax] 70 mg PO ROEGRS 09/27/22 12/06/23 History Exemestane [Aromasin] 25 mg PO DAILY 09/27/22 12/06/23 History Omeprazole 20 mg PO DAILY 09/27/22 12/06/23 History Torsemide [Demadex] 40 mg PO DAILY #60 tab 08/25/23 12/06/23 Rx Allergies Allergy/AdvReac Type Severity Reaction Status Date / Time cefuroxime Allergy Unknown Verified 12/06/23 12:55 Penicillins Allergy Rash/Hives Verified 12/06/23 12:55 simvastatin [From Zocor] Allergy Anaphylaxis Verified 12/06/23 12:55 anastrozole AdvReac Swelling Verified 12/06/23 12:55 Surgical - Exam Vital Signs Temp Pulse Resp BP Pulse Ox 97.6 F 61 18 148/62 100 12/06/23 10:06 12/06/23 10:06 12/06/23 10:06 12/06/23 10:06 12/06/23 10:06 Results - Labs 12/06/23 11:48 12/06/23 11:48 Abnormal Lab Results - Last 24 Hours (Table) 12/06/23 12/06/23 Range/Units 11:48 11:48 Hgb 10.9 L (11.4-16.0) gm/dL RDW 15.6 H (11.5-15.5) % Sodium 136 L (137-145) mmol/L Potassium 3.4 L (3.5-5.1) mmol/L Chloride 108 H (98-107) mmol/L Carbon Dioxide 18 L (22-30) mmol/L BUN 32 H (7-17) mg/dL Creatinine 4.16 H (0.52-1.04) mg/dL Glucose 111 H (74-99) mg/dL Total Protein 5.8 L (6.3-8.2) g/dL Albumin 3.0 L (3.5-5.0) g/dL Diabetes panel 12/06/23 Range/Units 11:48 Sodium 136 L (137-145) mmol/L Potassium 3.4 L (3.5-5.1) mmol/L Chloride 108 H (98-107) mmol/L Carbon Dioxide 18 L (22-30) mmol/L BUN 32 H (7-17) mg/dL Creatinine 4.16 H (0.52-1.04) mg/dL Glucose 111 H (74-99) mg/dL Calcium 9.0 (8.4-10.2) mg/dL AST 20 (14-36) U/L ALT 8 (4-34) U/L Alkaline Phosphatase 113 (38-126) U/L Total Protein 5.8 L (6.3-8.2) g/dL Albumin 3.0 L (3.5-5.0) g/dL Calcium panel 12/06/23 Range/Units 11:48 Calcium 9.0 (8.4-10.2) mg/dL Albumin 3.0 L (3.5-5.0) g/dL Pituitary panel 12/06/23 Range/Units 11:48 Sodium 136 L (137-145) mmol/L Potassium 3.4 L (3.5-5.1) mmol/L Chloride 108 H (98-107) mmol/L Carbon Dioxide 18 L (22-30) mmol/L BUN 32 H (7-17) mg/dL Creatinine 4.16 H (0.52-1.04) mg/dL Glucose 111 H (74-99) mg/dL Calcium 9.0 (8.4-10.2) mg/dL Adrenal panel 12/06/23 Range/Units 11:48 Sodium 136 L (137-145) mmol/L Potassium 3.4 L (3.5-5.1) mmol/L Chloride 108 H (98-107) mmol/L Carbon Dioxide 18 L (22-30) mmol/L BUN 32 H (7-17) mg/dL Creatinine 4.16 H (0.52-1.04) mg/dL Glucose 111 H (74-99) mg/dL Calcium 9.0 (8.4-10.2) mg/dL Total Bilirubin 0.4 (0.2-1.3) mg/dL AST 20 (14-36) U/L ALT 8 (4-34) U/L Alkaline Phosphatase 113 (38-126) U/L Total Protein 5.8 L (6.3-8.2) g/dL Albumin 3.0 L (3.5-5.0) g/dL
[2023-12-06] MEDS ORDERED: SEVELAMER 800 MG TAB PO SCH (17:30)
[2023-12-06] MEDS: MIDAZOLAM 2 MG/2 ML VIAL IVP ONE (20:03)
[2023-12-06] MEDS: LIDOCAINE 1% INJ 10MG/ML (20 ML MDV) SQ ONE ×2 (20:03→20:09)
[2023-12-06] MEDS: fentaNYL (PF) 50 MCG/1 ML VIAL IVP ONE (20:07)
[2023-12-06] MEDS: SODIUM CHLORIDE 0.9% 250 ML IV ONE (20:10)
--- NOTE | 2023-12-06 20:32 | P.PN ---
Progress Note - Text Preop diagnosis is acute chronic renal failure Postop the same Procedure ultrasound-guided 20 cm dialysis catheter placed right femoral approach patient brought to the [facility] this patient had a right IJ catheter placed in the past ultrasound shows a right IJ is is small and occluded patient has a fistula on the left arm recently placed right groin were prepped and draped in Prestel manner 1% lidocaine were infiltrated with IV sedation on the right groin ultrasound-guided micropuncture introduced right femoral vein micropuncture guide was passed. Passed regular guidewire the guide was parked at the inferior vena cava. It was created through the tunnel we brought 28 cm straight dialysis catheter then we passed a dilator that we placed a sheath on the top of guidewire. Through the sheath we introduced dialysis catheter tip of catheter vena cava flushed with heparin saline hep-locked sheath was reduced on the top of the guidewire through the sheath we placed the catheter flushed with heparin saline hep-locked secured with 0 nylon dressing applied patient tarted the procedure well
[2023-12-07] MEDS: ACETAMINOPHEN TAB 325 MG TAB PO PRN (02:32)
--- NOTE | 2023-12-07 08:19 | IR ---
EXAMINATION TYPE: IR cvc insert central tunneled DATE OF EXAM: 12/06/2023 8:30 PM COMPARISON: Pre Operative Images if available both CT/MRI or plain film CLINICAL INDICATION: Female, 83 years old with history of HEMODIALYSIS; TECHNIQUE: IR cvc insert central tunneled, multiple fluoroscopic images provided for procedure. Total fluoroscopy time: 1.4 minutes Total submitted images to PACS: [id number] DAP: 667.76 mGym2 Gycm2 uGym2 cGycm2 or equivalent. FINDINGS: IMPRESSION: 1. Report was generated for administrative purposes only. 2. Please see the operative/procedural note for further details. [facility], , 12/07/2023 8:17 AM
[2023-12-07] MEDS: ASPIRIN 81 MG PO SCH (09:28)
[2023-12-07 11:44] LABS: African American GFR (CKD) 8 (>60 ml/min/1.73 sqM); Anion Gap 9 mmol/L; Blood Urea Nitrogen 42 mg/dL (7-17); Calcium 8.8 mg/dL (8.4-10.2); Carbon Dioxide 18 mmol/L (22-30); Chloride 109 mmol/L (98-107); Glucose 123 mg/dL (74-99); Non-African American GFR(CKD) 7 (>60 ml/min/1.73 sqM); Potassium 3.4 mmol/L (3.5-5.1); Sodium 136 mmol/L (137-145)
--- NOTE | 2023-12-07 12:42 | P.NPCON ---
History of Present Illness - Reason for Consult end stage renal disease - History of Present Illness patient is an 83-year-old female with end-stage renal disease on hemodialysis on Monday schedule. Patient was admitted to the hospital with accidental removal of dialysis catheter. Patient has a left forearm AV graft which was placed about a week ago at [facility]. She was seen by Dr. Pandya yesterday and a femoral catheter was placed as right IJ was small and occluded as per the notes. Patient reports decent urine output Complaints today. Past Medical History Past Medical History: Cancer, Diabetes Mellitus, GERD/Reflux, Hyperlipidemia, Hypertension, Osteoarthritis (OA), Renal Disease Additional Past Medical History / Comment(s): Left breast cancer, hx kidney stones, dysphagia History of Any Multi-Drug Resistant Organisms: None Reported Past Surgical History: Back Surgery, Breast Surgery, Cholecystectomy, Orthopedic Surgery Additional Past Surgical History / Comment(s): rancho hip replacement, cataract, lumpectomy , EGD , cystoscopy with lithotripsy., back surgery in 1999, HD MWF Past Anesthesia/Blood Transfusion Reactions: No Reported Reaction Past Psychological History: No Psychological Hx Reported Smoking Status: Never smoker Past Alcohol Use History: None Reported Past Drug Use History: None Reported - Past Family History Mother Family Medical History: Cancer Additional Family Medical History / Comment(s): bladder cancer Father Family Medical History: Myocardial Infarction ([place]) Brother(s) Family Medical History: Rheumatoid Arthritis ([place]) Daughter(s) Family Medical History: No Reported History Son(s) Family Medical History: No Reported History Medications and Allergies Home Medications Medication Instructions Recorded Confirmed Type Aspirin [Children's Aspirin] 81 mg PO PC-SUPPER 02/11/22 12/06/23 History Rosuvastatin [Crestor] 20 mg PO PC-SUPPER 02/11/22 12/06/23 History Alendronate Sodium [Fosamax] 70 mg PO ROGERS 09/27/22 12/06/23 History Exemestane [Aromasin] 25 mg PO DAILY 09/27/22 12/06/23 History Omeprazole 20 mg PO DAILY 09/27/22 12/06/23 History Torsemide [Demadex] 40 mg PO DAILY #60 tab 08/25/23 12/06/23 Rx Allergies Allergy/AdvReac Type Severity Reaction Status Date / Time cefuroxime Allergy Unknown Verified 12/06/23 12:55 Penicillins Allergy Rash/Hives Verified 12/06/23 12:55 simvastatin [From Zocor] Allergy Anaphylaxis Verified 12/06/23 12:55 anastrozole AdvReac Swelling Verified 12/06/23 12:55 Physical Exam Vitals: Vital Signs Temp Pulse Pulse Resp BP BP Pulse Ox 12/07/23 07:00 98.3 F 67 16 136/80 96 12/07/23 02:27 98.4 F 66 16 147/71 95 12/07/23 00:42 66 15 144/74 94 L 12/06/23 23:42 66 15 144/74 94 L 12/06/23 22:42 67 15 131/70 96 12/06/23 22:12 75 15 150/75 97 12/06/23 21:42 65 15 167/73 100 12/06/23 21:27 70 16 182/78 99 12/06/23 21:12 68 16 185/60 100 12/06/23 20:57 70 16 187/75 100 12/06/23 20:42 98.7 F 62 16 186/78 100 12/06/23 18:50 97.4 F L 61 18 177/64 100 12/06/23 16:00 56 L 20 145/88 97 12/06/23 13:31 56 L 20 150/89 96 Intake and Output 12/06/23 12/07/23 12/07/23 22:59 06:59 14:59 Intake Total 220 118 Balance 220 118 Intake: IV 20 Oral 200 118 Other: Voiding Method Bedpan Toilet Diaper Incontinent # Voids 1 patient is comfortable awake no acute distress Examination of the heart S1 and S2 Examination lungs bilateral breath sounds are heard Abdomen is soft nontender Examination of lower extremities shows no significant edema Results - Lab Results Most recent lab results Calcium 8.8 mg/dL (8.4-10.2) 12/07/23 10:30 12/06/23 11:48 12/07/23 10:30 Assessment and Plan Assessment: 1. Accidental removal off right IJ dialysis catheter and placement of right femoral dialysis catheter as right IJ was occluded and small. 2. metabolic acidosis associated with chronic kidney disease 3. hypokalemia associated with diuretic use, rule out hypomagnesemia Plan: replace potassium with dialysis. Hemodialysis today Check magnesium as patient is maintained on PPI Tank you for the consultation. Patient can be discharged from nephrology standpoint post dialysis.
[2023-12-07 15:31] VITALS: PULSE 62
--- NOTE | 2023-12-07 17:28 | P.DS ---
Providers Date of admission: 12/06/23 11:18 Expected date of discharge: 12/07/23 Attending physician: Bradlye Larsen Consults: 12/06/23 11:38 Consult Physician Urgent Consulting Provider: [place] Pandya Consult Reason/Comments: permacath replacement Do you want consulting provider notified?: Yes Consult Physician Urgent Consulting Provider: Domenica Bueno Consult Reason/Comments: ESRD on hemodialysis Do you want consulting provider notified?: Yes Primary care physician: Elizabeth Jeronimo MD Hospital Course: Chief Complaint: Dialysis catheter fell out This is a very pleasant 83-year-old patient who follows with Dr. Elizabeth Jeronimo. 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 Has been on dialysis since August of this year. Monday and Monday. Patient went woke up this morning found her that dialysis catheter following out of the right subclavian area. Decided to come in. Has not missed her dialysis. Due for dialysis today. Patient is accompanied by her daughter in the ER. Some swelling in the lower extremity. Patient does make urine. Catheter was placed with Dr. Pandya from vascular. December 06: Yesterday evening patient had a new dialysis catheter placed in the right groin. She has a maturing fistula in the left upper extremity. Today underwent dialysis. Will follow-up with the regular schedule outpatient. [place] doing well. Social history: Her grandson lives with her. Does use a walker. Denies any history of smoking or alcohol. Physical examination: VITAL SIGNS: 98.8, 62, 17, 152 x 66, 97% room air GENERAL: BMI 28.7, comfortable. New dialysis catheter on the right groin. Maturing fistula in the left upper extremity EYES: Pupils equal. Conjunctiva sherman l. HEENT: External appearance of nose and ears normal, oral cavity grossly normal. NECK: JVD not raised; masses not palpable. HEART: [First and second heart sounds are normal; edema present. LUNGS: Respiratory rate normal; clear to auscultation. ABDOMEN: Soft, nontender, liver spleen not palpable, no masses palpable. PSYCH: Alert and oriented x3; mood and affect sherman l. MUSCULOSKELETAL:No Clubbing/cyanosis;muscles-grossly intact INVESTIGATIONS, reviewed in the clinical context: December 06: Sodium 136 potassium 3.4 creatinine 5.December 05 09/26/2023: White count 8.6 hemoglobin 10.9 platelets 201 sodium 136 potassium 3.4 BUN 32 creatinine 4.16 Assessment plan: -Right chest wall dialysis catheter is fallen off. -New dialysis catheter placed in the right groin. Patient has a maturing fistula in the left upper extremity -End-stage kidney disease on hemodialysis Wednesdays. Follows with Dr. Crowder from nephrology. Hemodialysis today Dialysis started in August 2023 -Hyperlipidemia Crestor 20 mg a day -GERD Omeprazole 20 mg a day -Osteoporosis Fosamax 70 mg on Sundays -Primary osteoarthritis Tylenol as needed -History of breast cancer On Aromasin -Full code Disposition Home Past Medical History Past Medical History: Cancer, Diabetes Mellitus, GERD/Reflux, Hyperlipidemia, Hypertension, Osteoarthritis (OA), Renal Disease Additional Past Medical History / Comment(s): Left breast cancer, hx kidney stones, dysphagia History of Any Multi-Drug Resistant Organisms: None Reported Past Surgical History: Back Surgery, Breast Surgery, Cholecystectomy, Orthopedic Surgery Additional Past Surgical History / Comment(s): rancho hip replacement, cataract, lumpectomy , EGD , cystoscopy with lithotripsy., back surgery in 1999, HD MWF Past Anesthesia/Blood Transfusion Reactions: No Reported Reaction Past Psychological History: No Psychological Hx Reported Smoking Status: Never smoker Past Alcohol Use History: None Reported Past Drug Use History: None Reported Plan - Discharge Summary New Discharge Prescriptions: Continue Aspirin [Children's Aspirin] 81 mg PO PC-SUPPER Alendronate Sodium [Fosamax] 70 mg PO ROGERS Exemestane [Aromasin] 25 mg PO DAILY Torsemide [Demadex] 40 mg PO DAILY #60 tab Rosuvastatin [Crestor] 20 mg PO PC-SUPPER Omeprazole 20 mg PO DAILY Discharge Medication List Aspirin [Children's Aspirin] 81 mg PO PC-SUPPER 02/11/22 [History] Rosuvastatin [Crestor] 20 mg PO PC-SUPPER 02/11/22 [History] Alendronate Sodium [Fosamax] 70 mg PO ROGERS 09/27/22 [History] Exemestane [Aromasin] 25 mg PO DAILY 09/27/22 [History] Omeprazole 20 mg PO DAILY 09/27/22 [History] Torsemide [Demadex] 40 mg PO DAILY #60 tab 08/25/23 [Rx] Follow up Appointment(s)/Referral(s): Elizabeth Jeronimo MD [Primary Care Provider] - 1-2 days Activity/Diet/Wound Care/Special Instructions: Call for any of the following: You feel lightheaded, short of breath, or have chest pain. Your catheter comes out. Seek care immediately if: Blood soaks through the dressing. Contact your healthcare provider if: Your bruises or pain get worse. You have fever or chills. Your incision is red, swollen, or draining pus. Self care: Keep dressing dry. Do not change your dressing; your dressing will be changed by your provider. Do not remove the red or blue caps from the end of your catheter. Follow up with your healthcare provider.
[2023-12-07 17:52] VITALS: BP 147/68; RESP 18; TEMP 98.1
[2023-12-10] MEDS ORDERED: NON FORMULARY DRUG (Alendronate Sodium [Fosamax] 70 MG Tablet) PO SCH (12:44)
== END 2023-12-07 17:33 | disposition home or self-care (01) ==
LOC: EC 09:48 → 6NMEDSUR 11:18
PROVIDERS: ADMIT Hospitalist; ATTEND Hospitalist
DX: T82.42XA Displacement of vascular dialysis catheter, initial encounter (principal); Y84.8 Other medical procedures as the cause of abnormal reaction of the patient, or of later complication, without mention of misadventure at the time of the procedure; I12.0 Hypertensive chronic kidney disease with stage 5 chronic kidney disease or end stage renal disease; E11.22 Type 2 diabetes mellitus with diabetic chronic kidney disease; N18.6 End stage renal disease; E87.29 Other acidosis; E87.6 Hypokalemia; E78.5 Hyperlipidemia, unspecified; K21.9 Gastro-esophageal reflux disease without esophagitis; M81.0 Age-related osteoporosis without current pathological fracture; M19.91 Primary osteoarthritis, unspecified site; Z79.811 Long term (current) use of aromatase inhibitors; Z79.82 Long term (current) use of aspirin; Z79.899 Other long term (current) drug therapy; Z85.3 Personal history of malignant neoplasm of breast; Z99.2 Dependence on renal dialysis; Z88.0 Allergy status to penicillin
CPT/HCPCS: 99285; 36415; 36558; 76937; 77001; 80053; 80048; 85025; 85610; 85730; G0257; G0378 ×2; C1769; C1750; J2250; J2003; J3010; 90935

== ENCOUNTER 2023-12-25 11:01 | Observation (INO) | payer MEDICARE ==
--- NOTE | 2023-12-25 11:45 | ED ---
General Adult HPI - General Chief complaint: Recheck/Abnormal Lab/Rx Stated complaint: dialysis port malfunction Time Seen by Provider: 12/25/23 11:15 Source: patient, RN notes reviewed Mode of arrival: ambulatory Limitations: no limitations - History of Present Illness Initial comments: 83 year old female presents to the emergency department with chief complaint of dialysis catheter malfunctioning. She states that she was at dialysis on Monday, was unable to complete due to catheter not working. She states that she had a new fistula created about 6 weeks ago, but has not been cleared to use it. Tomorrow she has an appointment with Dr. Sullivan to be cleared to use her new fistula. Her last full dialysis run was on Tuesday 12/19. She states that she is making a significant amount of urine now, so much so that it awakens her at night. She denies shortness of breath, chest pain, palpitations, nausea/vomiting, and weight gain. She denies other complaints. - Related Data Home Medications Medication Instructions Recorded Confirmed Aspirin [Children's Aspirin] 81 mg PO PC-SUPPER 02/11/22 12/25/23 Rosuvastatin [Crestor] 20 mg PO PC-SUPPER 02/11/22 12/25/23 Alendronate Sodium [Fosamax] 70 mg PO ROGERS 09/27/22 12/25/23 Exemestane [Aromasin] 25 mg PO DAILY 09/27/22 12/25/23 Omeprazole 20 mg PO DAILY 09/27/22 12/25/23 Calcium Acetate [Phoslo] 667 mg PO DIRECTED 12/25/23 12/25/23 Previous Rx's Medication Instructions Recorded Torsemide [Demadex] 40 mg PO DAILY #60 tab 08/25/23 Allergies Allergy/AdvReac Type Severity Reaction Status Date / Time anastrozole Allergy Swelling Verified 12/25/23 15:11 cefuroxime Allergy Unknown Verified 12/25/23 15:11 Penicillins Allergy Rash/Hives Verified 12/25/23 15:11 simvastatin [From Zocor] Allergy Anaphylaxis Verified 12/25/23 15:11 Review of Systems ROS Statement: Those systems with pertinent positive or pertinent negative responses have been documented in the HPI. ROS Other: All systems not noted in ROS Statement are negative. Past Medical History Past Medical History: Cancer, Diabetes Mellitus, GERD/Reflux, Hyperlipidemia, Hypertension, Osteoarthritis (OA), Renal Disease Additional Past Medical History / Comment(s): Left breast cancer, hx kidney stones, dysphagia History of Any Multi-Drug Resistant Organisms: None Reported Past Surgical History: Back Surgery, Breast Surgery, Cholecystectomy, Orthopedic Surgery Additional Past Surgical History / Comment(s): rancho hip replacement, cataract, lumpectomy , EGD , cystoscopy with lithotripsy., back surgery in 1999, HD MWF Past Anesthesia/Blood Transfusion Reactions: No Reported Reaction Past Psychological History: No Psychological Hx Reported Smoking Status: Never smoker Past Alcohol Use History: None Reported Past Drug Use History: None Reported - Past Family History Mother Family Medical History: Cancer Additional Family Medical History / Comment(s): bladder cancer Father Family Medical History: Myocardial Infarction ([place]) Brother(s) Family Medical History: Rheumatoid Arthritis (RA) Daughter(s) Family Medical History: No Reported History Son(s) Family Medical History: No Reported History General Exam Limitations: no limitations General appearance: alert, in no apparent distress Head exam: Present: atraumatic, normocephalic, normal inspection Eye exam: Present: normal appearance, PERRL, EOMI. Absent: scleral icterus, conjunctival injection, periorbital swelling ENT exam: Present: normal exam, mucous membranes moist Neck exam: Present: normal inspection. Absent: tenderness, meningismus, lymp hadenopathy Respiratory exam: Present: normal lung sounds bilaterally. Absent: respiratory distress, wheezes, rales, rhonchi, stridor Cardiovascular Exam: Present: regular rate, normal rhythm, normal heart sounds. Absent: systolic murmur, diastolic murmur, rubs, gallop, clicks GI/Abdominal exam: Present: soft, normal bowel sounds. Absent: distended, tenderness, guarding, rebound, rigid Extremities exam: Present: normal inspection, full ROM, normal capillary refill. Absent: tenderness, pedal edema, joint swelling, calf tenderness Back exam: Present: normal inspection Neurological exam: Present: alert, oriented X3, CN II-XII intact Psychiatric exam: Present: normal affect, normal mood Skin exam: Present: warm, dry, intact, normal color. Absent: rash Course Vital Signs 12/25/23 12/25/23 12/25/23 11:09 14:37 16:23 Temperature 97.8 F Pulse Rate 60 60 75 Respiratory 20 20 18 Rate Blood Pressure 172/90 145/76 136/74 O2 Sat by Pulse 99 99 98 Oximetry Procedures - Procedures Initial comment: CathFlo to HD Catheter Medical Decision Making - Medical Decision Making Was pt. sent in by a medical professional or institution ([facility] Bustillos, SCALE AGENT, urgent care, hospital, or half-way...) When possible be specific @ -No Did you speak to anyone other than the patient for history (EMS, parent, family, police, friend...)? What history was obtained from this source @ -No Did you review nursing and triage notes (agree or disagree)? Why? @ -I reviewed and agree with nursing and triage notes Were old charts reviewed (outside hosp., previous admission, EMS record, old EKG, old radiological studies, urgent care reports/EKG's, half-way records)? Report findings @ -No old charts were reviewed Differential Diagnosis (chest pain, altered mental status, abdominal pain women, abdominal pain men, vaginal bleeding, weakness, fever, dyspnea, syncope, headache, dizziness, GI bleed, back pain, seizure, CVA, palpatations, mental health, musculoskeletal)? @ -Malfunctioning dialysis catheter, chronic renal failure, hyperkalemia, hyperphosphatemia EKG interpreted by me (3pts min.). @ -None X-rays interpreted by me (1pt min.). @ -None done CT interpreted by me (1pt min.). @ -None done U/S interpreted by me (1pt. min.). @ -None done What testing was considered but not performed or refused? (CT, X-rays, U/S, labs)? Why? @ -None What meds were considered but not given or refused? Why? @ -None Did you discuss the management of the patient with other professionals (professionals i.e. JOY Bustillos, SCALE AGENT, lab, RT, psych nurse, social problems specialist, managing director atlas, teacher, hospital admissions officer, family service caseworker)? Give summary @ -Discussed the case with Dr. Strong regarding dialysis centers inability to run patient's treatments even though appropriate flow and axis in the emergency department. He recommends catheter to be exchanged. I did contact Dr. Pandya who come evaluate the patient and take patient to [facility] for exchange of dialysis catheter and evaluation of fistula. Discussed case with Dr. Lester for admission Was smoking cessation discussed for >3mins.? @ -No Was critical care preformed (if so, how long)? @ -No Were there social determinants of health that impacted care today? How? (Homelessness, low income, unemployed, alcoholism, drug addiction, transportation, low edu. Level, literacy, decrease access to med. care, fpc, rehab)? @ -No Was there de-escalation of care discussed even if they declined (Discuss DNR or withdrawal of care, Hospice)? DNR status @ -No What co-morbidities impacted this encounter? (DM, HTN, Smoking, COPD, CAD, Cancer, CVA, ARF, Chemo, Hep., AIDS, mental health diagnosis, sleep apnea, morbid obesity)? @ -Renal failure] Was patient admitted / discharged? Hospital course, mention meds given and route, prescriptions, significant lab abnormalities, going to OR and other pertinent info. @ -Admitted patient presented for malfunctioning dialysis catheter. They did phone the emergency department but after further investigation patient will need exchange will be admitted case discussed with nephrology, vascular and hospitalist. Undiagnosed new problem with uncertain prognosis? @ -No Drug Therapy requiring intensive monitoring for toxicity (Heparin, Nitro, Insulin, Cardizem)? @ -No Were any procedures done? @ -No Diagnosis/symptom? @ -Clotted fistula, malfunctioning dialysis catheter, chronic renal failure Acute, or Chronic, or Acute on Chronic? @ -acute, chronic Uncomplicated (without systemic symptoms) or Complicated (systemic symptoms)? @ -complicated Side effects of treatment? @ -No Exacerbation, Progression, or Severe Exacerbation? @ -No Poses a threat to life or bodily function? How? (Chest pain, [place], [place], pneumonia, PE, COPD, DKA, ARF, appy, cholecystitis, CVA, Diverticulitis, Homicidal, Suicidal, threat to staff... and all critical care pts) @ -yes renal failure causing hyperkalemia and cardiac dysfunction - Lab Data Result diagrams: 12/25/23 11:51 12/25/23 11:51 Lab Results 12/25/23 12/25/23 Range/Units 11:51 11:51 WBC 7.6 (3.8-10.6) k/uL RBC 4.19 (3.80-5.40) m/uL Hgb 11.5 (11.4-16.0) gm/dL Hct 37.5 (34.0-46.0) % MCV 89.4 (80.0-100.0) fL MCH 27.4 (25.0-35.0) pg MCHC 30.7 L (31.0-37.0) g/dL RDW 15.9 H (11.5-15.5) % Plt Count 164 (150-450) k/uL MPV 9.0 Neutrophils % 68 % Lymphocytes % 21 % Monocytes % 7 % Eosinophils % 2 % Basophils % 0 % Neutrophils # 5.2 (1.3-7.7) k/uL Lymphocytes # 1.6 (1.0-4.8) k/uL Monocytes # 0.5 (0-1.0) k/uL Eosinophils # 0.1 (0-0.7) k/uL Basophils # 0.0 (0-0.2) k/uL Hypochromasia Slight Sodium 138 (137-145) mmol/L Potassium 3.8 (3.5-5.1) mmol/L Chloride 108 H (98-107) mmol/L Carbon Dioxide 18 L (22-30) mmol/L Anion Gap 12 mmol/L BUN 79 H (7-17) mg/dL Creatinine 4.82 H (0.52-1.04) mg/dL Est GFR (CKD-EPI)AfAm 9 (>60 ml/min/1.73 sqM) Est GFR (CKD-EPI)NonAf 8 (>60 ml/min/1.73 sqM) Glucose 90 (74-99) mg/dL Calcium 9.3 (8.4-10.2) mg/dL Phosphorus 6.9 H (2.5-4.5) mg/dL Magnesium 1.5 L (1.6-2.3) mg/dL Total Bilirubin 0.5 (0.2-1.3) mg/dL AST 23 (14-36) U/L ALT 17 (4-34) U/L Alkaline Phosphatase 115 (38-126) U/L Total Protein 5.9 L (6.3-8.2) g/dL Albumin 3.3 L (3.5-5.0) g/dL Disposition Clinical Impression: Hemodialysis catheter dysfunction, Renal failure Disposition: ADMITTED IP TO THIS [facility] Condition: Poor Time of Disposition: 14:28
[2023-12-25 11:59] LABS: Basophils % (A) 0 %; Eosinophils # (A) 0.1 k/uL (0-0.7); Eosinophils % (A) 2 %; HCT 37.5 % (34.0-46.0); HGB 11.5 gm/dL (11.4-16.0); Hypochromasia Slight; Lymphocytes # (A) 1.6 k/uL (1.0-4.8); Lymphocytes % (A) 21 %; MCH 27.4 pg (25.0-35.0); MCHC 30.7 g/dL (31.0-37.0); MCV 89.4 fL (80.0-100.0); Monocytes # (A) 0.5 k/uL (0-1.0); Monocytes % (A) 7 %; Neutrophils # (A) 5.2 k/uL (1.3-7.7); Neutrophils % (A) 68 %; Platelet Count 164 k/uL (150-450); RBC 4.19 m/uL (3.80-5.40); RDW 15.9 % (11.5-15.5); WBC 7.6 k/uL (3.8-10.6)
[2023-12-25] MEDS: ALTEPLASE 2 MG VIAL (CATHFLO) IV STA (11:59)
[2023-12-25 12:23] LABS: ALT 17 U/L (4-34); AST 23 U/L (14-36); African American GFR (CKD) 9 (>60 ml/min/1.73 sqM); Albumin 3.3 g/dL (3.5-5.0); Alkaline Phosphatase 115 U/L (38-126); Anion Gap 12 mmol/L; Blood Urea Nitrogen 79 mg/dL (7-17); Calcium 9.3 mg/dL (8.4-10.2); Carbon Dioxide 18 mmol/L (22-30); Chloride 108 mmol/L (98-107); Glucose 90 mg/dL (74-99); Magnesium 1.5 mg/dL (1.6-2.3); Non-African American GFR(CKD) 8 (>60 ml/min/1.73 sqM); Phosphorus 6.9 mg/dL (2.5-4.5); Potassium 3.8 mmol/L (3.5-5.1); Sodium 138 mmol/L (137-145); Total Bilirubin 0.5 mg/dL (0.2-1.3); Total Protein 5.9 g/dL (6.3-8.2)
[2023-12-25] MEDS ORDERED: NALOXONE 0.4 MG/ML 1 ML VIAL IV PRN (14:05)
[2023-12-25] MEDS ORDERED: ACETAMINOPHEN TAB 325 MG TAB PO PRN (14:05)
--- NOTE | 2023-12-25 15:27 | P.GSCN ---
History of Present Illness History of present illness: 83-year-old white female patient came to the emergency room patient had no dialysis since Monday according to patient patient hydrated right foot femoral dialysis catheter placed in the past department had catheter working. Patient had a right IJ catheter which was removed with the past the right IJ is occluded patient had a recently placed a left upper arm fistula graft at [facility] which has been also occluded patient is scheduled to have a exchange of dialysis catheter and patient will need dialysis since her last dialysis was on Monday. Medical history history of diabetes hypertension chronic renal failure Surgical history patient had a left upper arm [place] graft placed which has been also occluded Chest is clear few crackles the lung bases. Second sound present Abdomen soft nontender Patient has a permanent dialysis catheter right femoral approach right IJ is occluded fistula on the left arm has no thrill Plan is placement of a dialysis catheter risk and complication discussed keep the patient n.p.o. Past Medical History Past Medical History: Cancer, Diabetes Mellitus, GERD/Reflux, Hyperlipidemia, Hypertension, Osteoarthritis (OA), Renal Disease Additional Past Medical History / Comment(s): Left breast cancer, hx kidney stones, dysphagia History of Any Multi-Drug Resistant Organisms: None Reported Past Surgical History: Back Surgery, Breast Surgery, Cholecystectomy, Orthopedic Surgery Additional Past Surgical History / Comment(s): rancho hip replacement, cataract, lumpectomy , EGD , cystoscopy with lithotripsy., back surgery in 1999, HD MWF Past Anesthesia/Blood Transfusion Reactions: No Reported Reaction Past Psychological History: No Psychological Hx Reported Smoking Status: Never smoker Past Alcohol Use History: None Reported Past Drug Use History: None Reported - Past Family History Mother Family Medical History: Cancer Additional Family Medical History / Comment(s): bladder cancer Father Family Medical History: Myocardial Infarction ([place]) Brother(s) Family Medical History: Rheumatoid Arthritis (RA) Daughter(s) Family Medical History: No Reported History Son(s) Family Medical History: No Reported History Medications and Allergies Home Medications Medication Instructions Recorded Confirmed Type Aspirin [Children's Aspirin] 81 mg PO PC-SUPPER 02/11/22 12/25/23 History Rosuvastatin [Crestor] 20 mg PO PC-SUPPER 02/11/22 12/25/23 History Alendronate Sodium [Fosamax] 70 mg PO ROGERS 09/27/22 12/25/23 History Exemestane [Aromasin] 25 mg PO DAILY 09/27/22 12/25/23 History Omeprazole 20 mg PO DAILY 09/27/22 12/25/23 History Torsemide [Demadex] 40 mg PO DAILY #60 tab 08/25/23 12/25/23 Rx Calcium Acetate [Phoslo] 667 mg PO DIRECTED 12/25/23 12/25/23 History Allergies Allergy/AdvReac Type Severity Reaction Status Date / Time anastrozole Allergy Swelling Verified 12/25/23 15:11 cefuroxime Allergy Unknown Verified 12/25/23 15:11 Penicillins Allergy Rash/Hives Verified 12/25/23 15:11 simvastatin [From Zocor] Allergy Anaphylaxis Verified 12/25/23 15:11 Surgical - Exam Vital Signs Temp Pulse Resp BP Pulse Ox 97.8 F 60 20 172/90 99 12/25/23 11:09 12/25/23 11:09 12/25/23 11:09 12/25/23 11:09 12/25/23 11:09 Results - Labs 12/25/23 11:51 12/25/23 11:51 Abnormal Lab Results - Last 24 Hours (Table) 12/25/23 12/25/23 Range/Units 11:51 11:51 MCHC 30.7 L (31.0-37.0) g/dL RDW 15.9 H (11.5-15.5) % Chloride 108 H (98-107) mmol/L Carbon Dioxide 18 L (22-30) mmol/L BUN 79 H (7-17) mg/dL Creatinine 4.82 H (0.52-1.04) mg/dL Phosphorus 6.9 H (2.5-4.5) mg/dL Magnesium 1.5 L (1.6-2.3) mg/dL Total Protein 5.9 L (6.3-8.2) g/dL Albumin 3.3 L (3.5-5.0) g/dL Diabetes panel 12/25/23 Range/Units 11:51 Sodium 138 (137-145) mmol/L Potassium 3.8 (3.5-5.1) mmol/L Chloride 108 H (98-107) mmol/L Carbon Dioxide 18 L (22-30) mmol/L BUN 79 H (7-17) mg/dL Creatinine 4.82 H (0.52-1.04) mg/dL Glucose 90 (74-99) mg/dL Calcium 9.3 (8.4-10.2) mg/dL AST 23 (14-36) U/L ALT 17 (4-34) U/L Alkaline Phosphatase 115 (38-126) U/L Total Protein 5.9 L (6.3-8.2) g/dL Albumin 3.3 L (3.5-5.0) g/dL Calcium panel 12/25/23 Range/Units 11:51 Calcium 9.3 (8.4-10.2) mg/dL Phosphorus 6.9 H (2.5-4.5) mg/dL Albumin 3.3 L (3.5-5.0) g/dL Pituitary panel 12/25/23 Range/Units 11:51 Sodium 138 (137-145) mmol/L Potassium 3.8 (3.5-5.1) mmol/L Chloride 108 H (98-107) mmol/L Carbon Dioxide 18 L (22-30) mmol/L BUN 79 H (7-17) mg/dL Creatinine 4.82 H (0.52-1.04) mg/dL Glucose 90 (74-99) mg/dL Calcium 9.3 (8.4-10.2) mg/dL Adrenal panel 12/25/23 Range/Units 11:51 Sodium 138 (137-145) mmol/L Potassium 3.8 (3.5-5.1) mmol/L Chloride 108 H (98-107) mmol/L Carbon Dioxide 18 L (22-30) mmol/L BUN 79 H (7-17) mg/dL Creatinine 4.82 H (0.52-1.04) mg/dL Glucose 90 (74-99) mg/dL Calcium 9.3 (8.4-10.2) mg/dL Total Bilirubin 0.5 (0.2-1.3) mg/dL AST 23 (14-36) U/L ALT 17 (4-34) U/L Alkaline Phosphatase 115 (38-126) U/L Total Protein 5.9 L (6.3-8.2) g/dL Albumin 3.3 L (3.5-5.0) g/dL
[2023-12-25] MEDS: LIDOCAINE 1% INJ 10MG/ML (20 ML MDV) SQ ONE (16:40)
--- NOTE | 2023-12-25 17:15 | P.PCN ---
Description of Procedure: Preop diagnosis acute chronic renal failure right femoral dialysis catheter not functioning Postop same procedures superior venacavogram placement of a 19 cm dialysis catheter right jugular approach number Removal of the permanent catheter right femoral approach procedure patient brought to the Production Lapping Machine Operator of the neck and chest was prepped draped in Prestel manner 1% lidocaine was referred to the neck area. Ultrasound-guided micropuncture of the right jugular vein micropuncture guide was passed a 4 point dilator on top the guidewire 4 Yi sheath was advanced then we will treat the superior venacavogram found to be patent this patient had a dialysis catheter placed in the past after that we created a tunnel through the tunnel we brought 19 cm dialysis catheter a regular guidewire was parked at the inferior vena cava. Dilator was advanced then sheath was advanced of the guidewire under fluoroscopic control then sheath sheath was advanced on the top of guidewire through the sheath we introduced dialysis catheter tip catheter superior vena caval atrial junction flushed with heparin saline hep-locked secured with 3-0 n ylon then right groin were prepped small incision was made under local anesthesia permanent dialysis catheter was removed pressure was held patient tarted the procedure well x-ray of the chest patient will be transferred to the room and assess for condition of the chest for dialysis catheter placement
[2023-12-25] MEDS: MAGNESIUM SULFATE-D5W PMX 1 GM in DEXTROSE/WATER 1 100ML.BAG IVPB SCH (17:49)
--- NOTE | 2023-12-25 18:57 | XR ---
EXAMINATION TYPE: XR chest 1V confirm line plcmt DATE OF EXAM: 12/25/2023 6:46 PM COMPARISON: Previous chest radiograph 08/23/2023 CLINICAL INDICATION: Female, 83 years old with history of HEMODIALYSIS CATHETER PLACEMENT; [facility] TECHNIQUE: XR chest 1V confirm line plcmt Frontal view of the chest. FINDINGS: Sudhir. Moderate pulmonary vascular congestive changes/interstitial prominence bilaterally. Interval placement of right central venous dialysis catheter with distal tip terminating at the mid/d istal SVC. No pneumothorax. Postsurgical clips in the left axilla. No sizable pleural effusion. IMPRESSION: 1. Interval placement of right sided central venous dialysis catheter with distal tip terminating at the mid/distal SVC. 2. Cardiomegaly and pulmonary vascular congestive changes. [facility], , 12/25/2023 6:54 PM
[2023-12-25] MEDS: Rosuvastatin 20 MG Tablet PO SCH (19:02)
[2023-12-26] MEDS: PANTOPRAZOLE 40 MG TABLET PO SCH (07:38)
[2023-12-26] MEDS: CALCIUM ACETATE 667 MG TAB PO SCH (07:38)
--- NOTE | 2023-12-26 08:33 | IR ---
EXAMINATION TYPE: IR cvc insert central tunneled DATE OF EXAM: 12/25/2023 5:23 PM COMPARISON: Pre Operative Images if available both CT/MRI or plain film CLINICAL INDICATION: Female, 83 years old with history of RENAL FAILURE; TECHNIQUE: IR cvc insert central tunneled, multiple fluoroscopic images provided for procedure. Total fluoroscopy time: 1.6 min Total submitted images to PACS: [id number] DAP: 236.64 mGym2 Gycm2 uGym2 cGycm2 or equivalent. FINDINGS: Fluoroscopic during a central venous catheter insertion. No evidence for pneumothorax. IMPRESSION: 1. No evidence for intraoperative complication. 2. Please see the operative/procedural note for further details. [facility], , 12/26/2023 8:31 AM
[2023-12-26 09:03] VITALS: PULSE 65
[2023-12-26] MEDS: TORSEMIDE 20 MG TAB PO SCH (10:06)
--- NOTE | 2023-12-26 10:46 | P.NPCON ---
History of Present Illness - Reason for Consult end stage renal disease - History of Present Illness Reason for consultation: End-stage renal disease History of present illness: Patient is 83-year-old female seen in new consultation for end-stage renal disease. She is maintained on hemodialysis on Monday schedule. Patient had a femoral dialysis catheter which was not functioning well outpatient. Patient was subsequently advised to come to the hospital to be evaluated by vascular surgery. Patient had femoral catheter removed and a permacath placed December 25, 2023. Patient does have history of diabetes. Denies history of coronary artery disease. She does make urine. No vomiting or diarrhea. No fever or chills. Currently tolerating dialysis well and no issues with the new access. Vital signs are stable. General: No acute distress. HEENT: Head exam is unremarkable. LUNGS: No audible rhonchi or wheezes. HEART: Rate and Rhythm are regular. ABDOMEN: Nontender. EXTREMITITES: No edema. Past Medical History Past Medical History: Cancer, Diabetes Mellitus, GERD/Reflux, Hyperlipidemia, Hypertension, Osteoarthritis (OA), Renal Disease Additional Past Medical History / Comment(s): Left breast cancer, hx kidney stones, dysphagia History of Any Multi-Drug Resistant Organisms: None Reported Past Surgical History: Back Surgery, Breast Surgery, Cholecystectomy, Orthopedic Surgery Additional Past Surgical History / Comment(s): rancho hip replacement, cataract, lumpectomy , EGD , cystoscopy with lithotripsy., back surgery in 1999, HD MWF Past Anesthesia/Blood Transfusion Reactions: No Reported Reaction Past Psychological History: No Psychological Hx Reported Smoking Status: Never smoker Past Alcohol Use History: None Reported Past Drug Use History: None Reported - Past Family History Mother Family Medical History: Cancer Additional Family Medical History / Comment(s): bladder cancer Father Family Medical History: Myocardial Infarction ([place]) Brother(s) Family Medical History: Rheumatoid Arthritis ([place]) Daughter(s) Family Medical History: No Reported History Son(s) Family Medical History: No Reported History Medications and Allergies Home Medications Medication Instructions Recorded Confirmed Type Aspirin [Children's Aspirin] 81 mg PO PC-SUPPER 02/11/22 12/25/23 History Rosuvastatin [Crestor] 20 mg PO PC-SUPPER 02/11/22 12/25/23 History Alendronate Sodium [Fosamax] 70 mg PO ROGERS 09/27/22 12/25/23 History Exemestane [Aromasin] 25 mg PO DAILY 09/27/22 12/25/23 History Omeprazole 20 mg PO DAILY 09/27/22 12/25/23 History Torsemide [Demadex] 40 mg PO DAILY #60 tab 08/25/23 12/25/23 Rx Calcium Acetate [Phoslo] 667 mg PO DIRECTED 12/25/23 12/25/23 History Allergies Allergy/AdvReac Type Severity Reaction Status Date / Time anastrozole Allergy Swelling Verified 12/25/23 15:11 cefuroxime Allergy Unknown Verified 12/25/23 15:11 Penicillins Allergy Rash/Hives Verified 12/25/23 15:11 simvastatin [From Zocor] Allergy Anaphylaxis Verified 12/25/23 15:11 Physical Exam Vitals: Vital Signs Temp Pulse Pulse Resp BP BP Pulse Ox 12/26/23 08:00 99.3 F 65 17 143/86 99 12/26/23 01:34 100.7 F H 77 15 99/65 96 12/25/23 20:00 98.8 F 69 14 146/66 100 12/25/23 16:23 75 18 136/74 98 12/25/23 14:37 60 20 145/76 99 12/25/23 11:09 97.8 F 60 20 172/90 99 Intake and Output 12/25/23 12/26/23 12/26/23 22:59 06:59 14:59 Other: Voiding Method Toilet # Voids 1 2 1 # Bowel Movements 1 1 Weight 75.296 kg Results - Lab Results Most recent lab results Calcium 9.3 mg/dL (8.4-10.2) 12/25/23 11:51 Phosphorus 6.9 mg/dL (2.5-4.5) H 12/25/23 11:51 Magnesium 1.5 mg/dL (1.6-2.3) L 12/25/23 11:51 12/25/23 11:51 12/25/23 11:51 Assessment and Plan Plan: Assessment: 1. End-stage renal disease maintained on hemodialysis on Monday schedule. 2. Malfunctioning femoral catheter status post removal and placement of permacath. 3. Metabolic acidosis secondary to chronic kidney disease. Expect improvement postdialysis. 4. Chronic kidney disease mineral bone disease maintained on PhosLo. 5. Diabetes mellitus. Plan: Currently seen while undergoing hemodialysis. Next treatment tomorrow per her outpatient schedule. Maintain Demadex. Potential discharge today. She also has a maturing AV graft for which she will follow-up with vascular surgery outpatient. Thank you for the consultation. I will continue to follow the patient with you during her hospital stay.
[2023-12-26] MEDS: ENOXAPARIN 40 MG/0.4 ML SYRINGE SQ SCH (12:31)
[2023-12-26 12:38] VITALS: BP 159/75; RESP 18; TEMP 98
[2023-12-26] MEDS ORDERED: ASPIRIN 81 MG PO SCH (18:30)
--- NOTE | 2023-12-26 22:29 | P.HPIM ---
History of Present Illness H&P Date: 12/26/23 Chief Complaint: Dialysis catheter not working This is a very pleasant 83-year-old patient who follows with Dr. Elizabeth Jeronimo. Colleter Dr. Crowder. Has been on dialysis since August 2023. Monday and Monday. Patient recently discharged from the hospital on December 06. Her right internal jugular dialysis catheter following off. New dialysis catheter was placed in the right groin by Dr. Pandya. Patient has a maturing fistula in the left upper extremity. Left upper arm graft not working. Hence patient had a right internal jugular dialysis catheter placed by Dr. Pandya. Patient undergoing dialysis today. Left arm graft is being followed by vascular surgeon out of the town as he is creating some problem. Otherwise patient not having fever chills no nausea vomiting. Tolerating a diet. Review of systems: GEN.: None EYES: None HEENT: None NECK: None RESPIRATORY: None CARDIOVASCULAR: None GASTROINTESTINAL: None GENITOURINARY: None MUSCULOSKELETAL: Joint pain e LYMPHATICS: None HEMATOLOGICAL: None PSYCHIATRY: None NEUROLOGICAL: None Social history: Her grandson lives with her. Does use a walker. Denies any history of smoking or alcohol. Physical examination: VITAL SIGNS: 99.3, 65, 17, 143 x 86, 99% room air GENERAL: Comfortable. New dialysis catheter in the right IJ maturing fistula in the left upper extremity EYES: Pupils equal. Conjunctiva sherman l. HEENT: External appearance of nose and ears normal, oral cavity grossly normal. NECK: JVD not raised; masses not palpable. HEART: [First and second heart sounds are normal; edema present. LUNGS: Respiratory rate normal; clear to auscultation. ABDOMEN: Soft, nontender, liver spleen not palpable, no masses palpable. PSYCH: Alert and oriented x3; mood and affect sherman l. MUSCULOSKELETAL:No Clubbing/cyanosis;muscles-grossly intact INVESTIGATIONS, reviewed in the clinical context: December 25, 2023: White count 7.6 hemoglobin 11.5 platelets 164 sodium 138 potassium 3.8 creatinine 4.82 Assessment plan: -New dialysis catheter placed in the right IJ by Dr. Pandya on December 25, 2023. This is being used for dialysis today - maturing fistula in the left upper extremity, not functioning properly, to be followed outpatient by vascular surgeon out of the area -End-stage kidney disease on hemodialysis Wednesdays. Follows with Dr. Crowder from nephrology. Hemodialysis today Dialysis started in August 2023 -Hyperlipidemia Crestor 20 mg a day -GERD Omeprazole 20 mg a day -Osteoporosis Fosamax 70 mg on Sundays -Primary osteoarthritis Tylenol as needed -History of breast cancer On Aromasin -Full code Patient be discharged after dialysis today. Discussed. Past Medical History Past Medical History: Cancer, Diabetes Mellitus, GERD/Reflux, Hyperlipidemia, Hypertension, Osteoarthritis (OA), Renal Disease Additional Past Medical History / Comment(s): Left breast cancer, hx kidney stones, dysphagia History of Any Multi-Drug Resistant Organisms: None Reported Past Surgical History: Back Surgery, Breast Surgery, Cholecystectomy, Orthopedic Surgery Additional Past Surgical History / Comment(s): rancho hip replacement, cataract, lumpectomy , EGD , cystoscopy with lithotripsy., back surgery in 1999, HD MWF Past Anesthesia/Blood Transfusion Reactions: No Reported Reaction Past Psychological History: No Psychological Hx Reported Smoking Status: Never smoker Past Alcohol Use History: None Reported Past Drug Use History: None Reported - Past Family History Mother Family Medical History: Cancer Additional Family Medical History / Comment(s): bladder cancer Father Family Medical History: Myocardial Infarction ([place]) Brother(s) Family Medical History: Rheumatoid Arthritis ([place]) Daughter(s) Family Medical History: No Reported History Son(s) Family Medical History: No Reported History Medications and Allergies Home Medications Medication Instructions Recorded Confirmed Type Aspirin [Children's Aspirin] 81 mg PO PC-SUPPER 02/11/22 12/25/23 History Rosuvastatin [Crestor] 20 mg PO PC-SUPPER 02/11/22 12/25/23 History Alendronate Sodium [Fosamax] 70 mg PO ROGERS 09/27/22 12/25/23 History Exemestane [Aromasin] 25 mg PO DAILY 09/27/22 12/25/23 History Omeprazole 20 mg PO DAILY 09/27/22 12/25/23 History Torsemide [Demadex] 40 mg PO DAILY #60 tab 08/25/23 12/25/23 Rx Calcium Acetate [PhosLo] 667 mg PO DIRECTED 12/25/23 12/25/23 History Allergies Allergy/AdvReac Type Severity Reaction Status Date / Time anastrozole Allergy Swelling Verified 12/25/23 15:11 cefuroxime Allergy Unknown Verified 12/25/23 15:11 Penicillins Allergy Rash/Hives Verified 12/25/23 15:11 simvastatin [From Zocor] Allergy Anaphylaxis Verified 12/25/23 15:11 Physical Exam Vitals: Vital Signs Temp Pulse Pulse Resp BP BP Pulse Ox 12/26/23 08:30 65 17 12/26/23 08:00 99.3 F 65 17 143/86 99 12/26/23 01:34 100.7 F H 77 15 99/65 96 12/25/23 20:00 98.8 F 69 14 146/66 100 12/25/23 16:23 75 18 136/74 98 12/25/23 14:37 60 20 145/76 99 12/25/23 11:09 97.8 F 60 20 172/90 99 Intake and Output 12/25/23 12/26/23 12/26/23 22:59 06:59 14:59 Other: Voiding Method Toilet Toilet # Voids 1 2 1 # Bowel Movements 1 1 Weight 75.296 kg Results CBC & Chem 7: 12/25/23 11:51 12/25/23 11:51 Labs: Abnormal Lab Results - Last 24 Hours (Table) 12/25/23 12/25/23 Range/Units 11:51 11:51 MCHC 30.7 L (31.0-37.0) g/dL RDW 15.9 H (11.5-15.5) % Chloride 108 H (98-107) mmol/L Carbon Dioxide 18 L (22-30) mmol/L BUN 79 H (7-17) mg/dL Creatinine 4.82 H (0.52-1.04) mg/dL Phosphorus 6.9 H (2.5-4.5) mg/dL Magnesium 1.5 L (1.6-2.3) mg/dL Total Protein 5.9 L (6.3-8.2) g/dL Albumin 3.3 L (3.5-5.0) g/dL Thrombosis Risk Factor Assmnt - Choose All That Apply Each Factor Represents 1 point: Obesity (BMI >25), Oral contraceptives or hormone replacement therapy Thrombosis Risk Factor Assessment Total Risk Factor Score: 2 Thrombosis Risk Factor Assessment Level: Low Risk
--- NOTE | 2023-12-26 22:30 | P.DS ---
Providers Date of admission: 12/25/23 15:02 Expected date of discharge: 12/26/23 Attending physician: Bradley Larsen Consults: 12/25/23 14:05 Consult Physician Urgent Consulting Provider: Walter Crowder Consult Reason/Comments: Dialysis Do you want consulting provider notified?: Yes Consult Physician Urgent Consulting Provider: [place] Pandya Consult Reason/Comments: Dialysis catheter Do you want consulting provider notified?: Already Contacted Primary care physician: Elizabeth Jeronimo MD Hospital Course: Chief Complaint: Dialysis catheter not working This is a very pleasant 83-year-old patient who follows with Dr. Elizabeth Jeronimo. Driver Medic Dr. Crowder. Has been on dialysis since August 2023. Monday and Monday. Patient recently discharged from the hospital on December 06. Her right internal jugular dialysis catheter following off. New dialysis catheter was placed in the right groin by Dr. Pandya. Patient has a maturing fistula in the left upper extremity. Left upper arm graft not working. Hence patient had a right internal jugular dialysis catheter placed by Dr. Pandya. Patient undergoing dialysis today. Left arm graft is being followed by vascular surgeon out of the town as he is creating some problem. Otherwise patient not having fever chills no nausea vomiting. Tolerating a diet. Patient did have dialysis well. Being discharged. Cleared by nephrology Social history: Her grandson lives with her. Does use a walker. Denies any history of smoking or alcohol. Physical examination: VITAL SIGNS: 99.3, 65, 17, 143 x 86, 99% room air GENERAL: Comfortable. New dialysis catheter in the right IJ maturing fistula in the left upper extremity EYES: Pupils equal. Conjunctiva sherman l. HEENT: External appearance of nose and ears normal, oral cavity grossly normal. NECK: JVD not raised; masses not palpable. HEART: [First and second heart sounds are normal; edema present. LUNGS: Respiratory rate normal; clear to auscultation. ABDOMEN: Soft, nontender, liver spleen not palpable, no masses palpable. PSYCH: Alert and oriented x3; mood and affect sherman l. MUSCULOSKELETAL:No Clubbing/cyanosis;muscles-grossly intact INVESTIGATIONS, reviewed in the clinical context: December 25, 2023: White count 7.6 hemoglobin 11.5 platelets 164 sodium 138 potassium 3.8 creatinine 4.82 Assessment plan: -New dialysis catheter placed in the right IJ by Dr. Pandya on December 25, 2023. This is being used for dialysis today - maturing fistula in the left upper extremity, not functioning properly, to be followed outpatient by vascular surgeon out of the area -End-stage kidney disease on hemodialysis Wednesdays. Follows with Dr. Crowder from nephrology. Hemodialysis today Dialysis started in August 2023 -Hyperlipidemia Crestor 20 mg a day -GERD Omeprazole 20 mg a day -Osteoporosis Fosamax 70 mg on Sundays -Primary osteoarthritis Tylenol as needed -History of breast cancer On Aromasin -Full code Disposition: Home Past Medical History Past Medical History: Cancer, Diabetes Mellitus, GERD/Reflux, Hyperlipidemia, Hypertension, Osteoarthritis (OA), Renal Disease Additional Past Medical History / Comment(s): Left breast cancer, hx kidney stones, dysphagia History of Any Multi-Drug Resistant Organisms: None Reported Past Surgical History: Back Surgery, Breast Surgery, Cholecystectomy, Orthopedic Surgery Additional Past Surgical History / Comment(s): rancho hip replacement, cataract, lumpectomy , EGD , cystoscopy with lithotripsy., back surgery in 1999, HD MWF Past Anesthesia/Blood Transfusion Reactions: No Reported Reaction Past Psychological History: No Psychological Hx Reported Smoking Status: Never smoker Past Alcohol Use History: None Reported Past Drug Use History: None Reported Plan - Discharge Summary New Discharge Prescriptions: Continue Aspirin [Children's Aspirin] 81 mg PO PC-SUPPER Alendronate Sodium [Fosamax] 70 mg PO ROGERS Exemestane [Aromasin] 25 mg PO DAILY Torsemide [Demadex] 40 mg PO DAILY #60 tab Rosuvastatin [Crestor] 20 mg PO PC-SUPPER Omeprazole 20 mg PO DAILY Calcium Acetate [PhosLo] 667 mg PO DIRECTED Discharge Medication List Aspirin [Children's Aspirin] 81 mg PO PC-SUPPER 02/11/22 [History] Rosuvastatin [Crestor] 20 mg PO PC-SUPPER 02/11/22 [History] Alendronate Sodium [Fosamax] 70 mg PO ROGERS 09/27/22 [History] Exemestane [Aromasin] 25 mg PO DAILY 09/27/22 [History] Omeprazole 20 mg PO DAILY 09/27/22 [History] Torsemide [Demadex] 40 mg PO DAILY #60 tab 08/25/23 [Rx] Calcium Acetate [PhosLo] 667 mg PO DIRECTED 12/25/23 [History] Follow up Appointment(s)/Referral(s): Elizabeth Jeronimo MD [Primary Care Provider] - 1-2 days Discharge Disposition: HOME SELF-CARE
[2023-12-31] MEDS ORDERED: NON FORMULARY DRUG (Alendronate Sodium [Fosamax] 70 MG Tablet) PO SCH (18:20)
== END 2023-12-26 13:38 | disposition home or self-care (01) ==
LOC: EC 11:01 → 4SSUR 15:02
PROVIDERS: ADMIT Hospitalist; ATTEND Hospitalist
DX: T82.41XA Breakdown (mechanical) of vascular dialysis catheter, initial encounter (principal); I82.C11 Acute embolism and thrombosis of right internal jugular vein; Y71.2 Prosthetic and other implants, materials and accessory cardiovascular devices associated with adverse incidents; E87.20 Acidosis, unspecified; I12.0 Hypertensive chronic kidney disease with stage 5 chronic kidney disease or end stage renal disease; N18.6 End stage renal disease; E78.5 Hyperlipidemia, unspecified; E11.22 Type 2 diabetes mellitus with diabetic chronic kidney disease; K21.9 Gastro-esophageal reflux disease without esophagitis; M89.8X9 Other specified disorders of bone, unspecified site; M81.0 Age-related osteoporosis without current pathological fracture; M19.91 Primary osteoarthritis, unspecified site; Z99.2 Dependence on renal dialysis; Z79.82 Long term (current) use of aspirin; Z79.899 Other long term (current) drug therapy; Z79.811 Long term (current) use of aromatase inhibitors; Z79.83 Long term (current) use of bisphosphonates; Z88.0 Allergy status to penicillin; Z88.8 Allergy status to other drugs, medicaments and biological substances; Z85.3 Personal history of malignant neoplasm of breast
CPT/HCPCS: 96366 ×2; 96367; 96365; 96372; 96375; 99285; 36415; 36558; 76937; 77001; 80053; 83735; 84100; 85025; G0257; G0378 ×2; C1769; G0463; C1750; J0690; J2003; J1650; J3475; J1642; J2997; 90935; 99211

== ENCOUNTER 2024-05-06 15:47 | Emergency (ER) | payer MEDICARE ==
[2024-05-06 15:52] VITALS: PULSE 74; TEMP 97.6
--- NOTE | 2024-05-06 16:23 | ED ---
General Adult HPI - General Chief complaint: Recheck/Abnormal Lab/Rx Stated complaint: Post-op R leg issue Time Seen by Provider: 05/06/24 15:54 Source: patient, RN notes reviewed Mode of arrival: ambulatory Limitations: no limitations - History of Present Illness Initial comments: Patient is an 83-year-old female present to the emergency department with concerns with possible infection right leg. Patient denies pain. Patient states there is a stitch that opened and a little bit of drainage. Patient does not have her follow-up appointment for another 2 weeks. Patient did have vein harvested from here around 2 weeks ago for use on her left arm. Patient denies fevers. - Related Data Home Medications Medication Instructions Recorded Confirmed Aspirin [Children's Aspirin] 81 mg PO PC-SUPPER 02/11/22 12/25/23 Rosuvastatin [Crestor] 20 mg PO PC-SUPPER 02/11/22 12/25/23 Alendronate Sodium [Fosamax] 70 mg PO ROGERS 09/27/22 12/25/23 Exemestane [Aromasin] 25 mg PO DAILY 09/27/22 12/25/23 Omeprazole 20 mg PO DAILY 09/27/22 12/25/23 Calcium Acetate [PhosLo] 667 mg PO DIRECTED 12/25/23 12/25/23 Previous Rx's Medication Instructions Recorded Torsemide [Demadex] 40 mg PO DAILY #60 tab 08/25/23 Clindamycin [Cleocin] 150 mg PO Q6H #40 cap 05/06/24 Allergies Allergy/AdvReac Type Severity Reaction Status Date / Time anastrozole Allergy Swelling Verified 12/25/23 15:11 cefuroxime Allergy Unknown Verified 12/25/23 15:11 Penicillins Allergy Rash/Hives Verified 12/25/23 15:11 simvastatin [From Zocor] Allergy Anaphylaxis Verified 12/25/23 15:11 Review of Systems ROS Statement: Those systems with pertinent positive or pertinent negative responses have been documented in the HPI. ROS Other: All systems not noted in ROS Statement are negative. Constitutional: Denies: fever Eyes: Denies: eye pain ENT: Denies: ear pain Respiratory: Denies: cough Cardiovascular: Denies: chest pain Endocrine: Denies: fatigue Gastrointestinal: Denies: abdominal pain Skin: Reports: as per HPI Past Medical History Past Medical History: Cancer, Diabetes Mellitus, GERD/Reflux, Hyperlipidemia, Hypertension, Osteoarthritis (OA), Renal Disease Additional Past Medical History / Comment(s): Left breast cancer, hx kidney stones, dysphagia History of Any Multi-Drug Resistant Organisms: None Reported Past Surgical History: Back Surgery, Breast Surgery, Cholecystectomy, Orthopedic Surgery Additional Past Surgical History / Comment(s): rancho hip replacement, cataract, lumpectomy , EGD , cystoscopy with lithotripsy., back surgery in 1999, HD MWF Past Anesthesia/Blood Transfusion Reactions: No Reported Reaction Past Psychological History: No Psychological Hx Reported Smoking Status: Never smoker Past Alcohol Use History: None Reported Past Drug Use History: None Reported - Past Family History Mother Family Medical History: Cancer Additional Family Medical History / Comment(s): bladder cancer Father Family Medical History: Myocardial Infarction ([place]) Brother(s) Family Medical History: Rheumatoid Arthritis ([place]) Daughter(s) Family Medical History: No Reported History Son(s) Family Medical History: No Reported History General Exam Limitations: no limitations General appearance: alert, in no apparent distress Head exam: Present: normocephalic Eye exam: Present: normal appearance Respiratory exam: Present: normal lung sounds bilaterally Cardiovascular Exam: Present: regular rate, normal rhythm GI/Abdominal exam: Present: soft. Absent: tenderness Extremities exam: Present: other (Right inner thigh with large incision. Medial portion approximately 2 cm with some dehiscence and minimal purulent discharge. There is surrounding erythema.) Neurological exam: Present: alert Psychiatric exam: Present: normal affect, normal mood Skin exam: Present: erythema Course Vital Signs 05/06/24 15:48 Temperature 97.6 F Pulse Rate 74 Respiratory 20 Rate Blood Pressure 145/68 O2 Sat by Pulse 99 Oximetry Medical Decision Making - Medical Decision Making Was pt. sent in by a medical professional or institution (, PA, F[employer], urgent care, hospital, or long term...) When possible be specific @ -Patient was sent in by dialysis Did you speak to anyone other than the patient for history (EMS, parent, family, police, friend...)? What history was obtained from this source @ -Family's present helps provide history including recent procedure Did you review nursing and triage notes (agree or disagree)? Why? @ -I reviewed and agree with nursing and triage notes Were old charts reviewed (outside hosp., previous admission, EMS record, old EKG, old radiological studies, urgent care reports/EKG's, long term records)? Report findings @ -Previous admission reviewed Differential Diagnosis (chest pain, altered mental status, abdominal pain women, abdominal pain men, vaginal bleeding, weakness, fever, dyspnea, syncope, headache, dizziness, GI bleed, back pain, seizure, CVA, palpatations, mental health, musculoskeletal)? @ -Differential Fever: Pneumonia, viral URI, endocarditis, myocarditis, pericarditis, otitis, sinusitis, peritonsillar Abscess, retropharyngeal Abscess, epiglottitis, peritonitis, appendicitis, Melody cystitis, diverticulitis, hepatitis, colitis, UTI, PID, TOA, pyelonephritis, prostatitis, epididymitis, meningitis, encephalitis, pulmonary embolism, CVA, thyroid storm, pancreatitis, adrenal crisis, cavernous sinus thrombosis, this is not meant to be an all-inclusive list. EKG interpreted by me (3pts min.). @ -As above X-rays interpreted by me (1pt min.). @ -None done CT interpreted by me (1pt min.). @ -None done U/S interpreted by me (1pt. min.). @ -None done What testing was considered but not performed or refused? (CT, X-rays, U/S, labs)? Why? @ -None What meds were considered but not given or refused? Why? @ -None Did you discuss the management of the patient with other professionals (professionals i.e. , PA, F[employer], lab, RT, psych nurse, high school social science teacher, drop hammer operator helper, teacher, public service officer, case maker)? Give summary @ -Case discussed with Dr. Pandya who did come evaluate patient in the emergency department. He did clean the area and provided silver dressing and will see the patient in the office on . Was smoking cessation discussed for >3mins.? @ -No Was critical care preformed (if so, how long)? @ -No Were there social determinants of health that impacted care today? How? (Homelessness, low income, unemployed, alcoholism, drug addiction, transportation, low edu. Level, literacy, decrease access to med. care, correction, rehab)? @ -No Was there de-escalation of care discussed even if they declined (Discuss DNR or withdrawal of care, Hospice)? DNR status @ -No What co-morbidities impacted this encounter? (DM, HTN, Smoking, COPD, CAD, Cancer, CVA, ARF, Chemo, Hep., AIDS, mental health diagnosis, sleep apnea, morbid obesity)? @ -End-stage renal disease on hemodialysis Was patient admitted / discharged? Hospital course, mention meds given and route, prescriptions, significant lab abnormalities, going to OR and other pertinent info. @ -Patient presents with minor postoperative wound infection. This was addre ssed by Dr. Pandya. Patient will be discharged with antibiotics and close follow-up. Undiagnosed new problem with uncertain prognosis? @ -No Drug Therapy requiring intensive monitoring for toxicity (Heparin, Nitro, Insulin, Cardizem)? @ -No Were any procedures done? @ -No Diagnosis/symptom? @ -Postoperative wound infection right leg Acute, or Chronic, or Acute on Chronic? @ -Acute Uncomplicated (without systemic symptoms) or Complicated (systemic symptoms)? @ -Default Side effects of treatment? @ -No Exacerbation, Progression, or Severe Exacerbation? @ -No Poses a threat to life or bodily function? How? (Chest pain, [place], [place], pneumonia, PE, COPD, DKA, ARF, appy, cholecystitis, CVA, Diverticulitis, Homicidal, Suicidal, threat to staff... and all critical care pts) @ -No Disposition Clinical Impression: Postoperative wound infection Disposition: HOME SELF-CARE Condition: Stable Instructions (If sedation given, give patient instructions): Wound Infection (ED) Additional Instructions: Prescription sent to pharmacy. Please follow-up with primary care physician in the next couple of days for recheck. Please follow-up with Dr. Pandya , number provided. Return for increased pain, fever, redness or drainage, worsening symptoms or other concerns. Prescriptions: Clindamycin [Cleocin] 150 mg PO Q6H #40 cap Is patient prescribed a controlled substance at d/c from ED?: No Referrals: Elizabeth Jeronimo MD [Primary Care Provider] - 1-2 days [place] Pandya MD [STAFF PHYSICIAN] - 1-2 days Time of Disposition: 16:55
[2024-05-06 17:10] VITALS: BP 160/81; RESP 18
--- NOTE | 2024-05-07 03:28 | CONS ---
CONSULTATION The patient came to the emergency room, consulted. This patient has a wound on the right thigh area. This patient has a history of chronic renal failure. 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 The patient had some revision of the fistula and they use great saphenous vein from the thigh area at [facility] for bypass of the cephalobrachial fistula. The patient also has a right IJ catheter placed by me in the past. PHYSICAL EXAMINATION: CHEST: Clear to auscultation. HEART: First and second sounds present. ABDOMEN: Soft, nontender. EXTREMITIES: The patient has a cephalobrachial fistula. Left arm has a thrill present. The patient has a wound on the right thigh medial aspect. The vein was harvested for bypass. Most of the incision is healed. In the middle, there is a small opening noted and mild redness noted. No evidence of any discharge or infection. The stitches are still intact. PLAN: We cleaned the wound and placed silver alginate into the wound and dressing was applied. Discussed with the patient if they can go back to [place] to see the surgeon, but want to stay because the appointment is in mid May. I will see her in my office on to change the dressing and the patient is on p.o. antibiotic. MMODL / IJN: [id number] /
== END 2024-05-06 17:13 | disposition home or self-care (01) ==
LOC: EC 15:47
DX: T81.49XA Infection following a procedure, other surgical site, initial encounter (principal); E11.22 Type 2 diabetes mellitus with diabetic chronic kidney disease; N18.6 End stage renal disease; Z99.2 Dependence on renal dialysis; Z88.0 Allergy status to penicillin; Z88.8 Allergy status to other drugs, medicaments and biological substances
CPT/HCPCS: 87070; 87205; 99283

== ENCOUNTER 2024-05-30 11:28 | Emergency (ER) | payer MEDICARE ==
--- NOTE | 2024-05-30 13:38 | XR ---
EXAMINATION TYPE: XR shoulder complete RT DATE OF EXAM: 05/30/2024 1:32 PM COMPARISON: None. CLINICAL INDICATION: Female, 83 years old with history of right arm pain, Pain TECHNIQUE: XR shoulder complete RT view(s) obtained. FINDINGS: The humeral head articulates with the glenoid. The acromio-clavicular junction is hypertrophied. No acute fractures or dislocations are evident. Double-lumen catheter is on the right. A follow up study can be performed 7-10 days from acute trauma for continued pain. MRI can be perfor med if soft tissue evaluation would be of benefit. IMPRESSION: 1. No acute osseous right shoulder abnormality. [facility], , 05/30/2024 1:35 PM
[2024-05-30 14:19] LABS: Basophils # (A) 0.06 10*3/uL (0.00-0.10); Basophils % (A) 0.8 %; Eosinophils # (A) 0.14 10*3/uL (0.04-0.35); Eosinophils % (A) 1.8 %; HCT 31.9 % (37.2-46.3); HGB 10.5 g/dL (12.0-15.0); Lymphocytes # (A) 1.24 10*3/uL (0.90-5.00); Lymphocytes % (A) 16.2 %; MCH 27.8 pg (27.0-32.0); MCHC 32.9 g/dL (32.0-37.0); MCV 84.4 fL (80.0-97.0); Mean Platelet Volume 10.2 fL (9.5-12.2); Monocytes # (A) 0.58 10*3/uL (0.20-1.00); Monocytes % (A) 7.6 %; Neutrophils # (A) 5.63 10*3/uL (1.80-7.70); Neutrophils % (A) 73.3 %; Platelet Count 178 10*3/uL (140-440); RBC 3.78 10*6/uL (4.10-5.20); RDW 17.4 % (11.5-14.5); WBC 7.67 10*3/uL (4.50-10.00)
[2024-05-30 14:33] LABS: ALT 12 U/L (4-34); AST 24 U/L (14-36); African American GFR (CKD) 8 (>60 ml/min/1.73 sqM); Albumin 2.4 g/dL (3.5-5.0); Alkaline Phosphatase 131 U/L (38-126); Anion Gap 9 mmol/L; Blood Urea Nitrogen 25 mg/dL (7-17); Calcium 9.1 mg/dL (8.4-10.2); Carbon Dioxide 27 mmol/L (22-30); Chloride 101 mmol/L (98-107); Glucose 78 mg/dL (74-99); Magnesium 1.7 mg/dL (1.6-2.3); Non-African American GFR(CKD) 7 (>60 ml/min/1.73 sqM); Potassium 3.1 mmol/L (3.5-5.1); Sodium 137 mmol/L (137-145); Total Bilirubin 0.9 mg/dL (0.2-1.3)
--- NOTE | 2024-05-30 15:27 | ED ---
Extremity Problem HPI - General Source: patient Mode of arrival: ambulatory Limitations: no limitations <Delma Valerio - Last Filed: 05/30/24 19:35> <Chapin Zamora - Last Filed: 05/31/24 20:29> - General Chief complaint: Extremity Problem,Nontraumatic Stated complaint: R Arm Pain Time Seen by Provider: 05/30/24 12:02 - History of Present Illness Initial comments: 83-year-old female presenting to the ER with chief complaint of right arm pain that has been going on for the last few weeks. Patient reports she does dialysis Monday and Monday and has a right sided Port-A-Cath which will be removed once her left graft is functional. She denies any fevers, chills, abdominal pain, urinary or bowel complaints. She denies any history of being on blood thinners, heart attacks or strokes. (Delma Valerio) - Related Data Home Medications Medication Instructions Recorded Confirmed Aspirin [Children's Aspirin] 81 mg PO PC-SUPPER 02/11/22 12/25/23 Rosuvastatin [Crestor] 20 mg PO PC-SUPPER 02/11/22 12/25/23 Alendronate Sodium [Fosamax] 70 mg PO ROGERS 09/27/22 12/25/23 Exemestane [Aromasin] 25 mg PO DAILY 09/27/22 12/25/23 Omeprazole 20 mg PO DAILY 09/27/22 12/25/23 Calcium Acetate [PhosLo] 667 mg PO DIRECTED 12/25/23 12/25/23 Previous Rx's Medication Instructions Recorded Torsemide [Demadex] 40 mg PO DAILY #60 tab 08/25/23 Clindamycin [Cleocin] 150 mg PO Q6H #40 cap 05/06/24 Allergies Allergy/AdvReac Type Severity Reaction Status Date / Time anastrozole Allergy Swelling Verified 05/30/24 11:39 cefuroxime Allergy Unknown Verified 05/30/24 11:39 Penicillins Allergy Rash/Hives Verified 05/30/24 11:39 simvastatin [From Zocor] Allergy Anaphylaxis Verified 05/30/24 11:39 Review of Systems ROS Other: All systems not noted in ROS Statement are negative. Constitutional: Denies: fever, chills Respiratory: Denies: cough, dyspnea Cardiovascular: Denies: chest pain, palpitations Endocrine: Denies: fatigue Gastrointestinal: Denies: abdominal pain, nausea, vomiting Genitourinary: Denies: urgency, dysuria Musculoskeletal: Denies: back pain Skin: Denies: rash, lesions Neurological: Denies: headache, weakness <Delma Valerio - Last Filed: 05/30/24 19:35> ROS Other: All systems not noted in ROS Statement are negative. <Chapin Zamora - Last Filed: 05/31/24 20:29> ROS Statement: Those systems with pertinent positive or pertinent negative responses have been documented in the HPI. Past Medical History Past Medical History: Cancer, Diabetes Mellitus, GERD/Reflux, Hyperlipidemia, Hypertension, Osteoarthritis (OA), Renal Disease Additional Past Medical History / Comment(s): Left breast cancer, hx kidney stones, dysphagia History of Any Multi-Drug Resistant Organisms: None Reported Past Surgical History: Back Surgery, Breast Surgery, Cholecystectomy, Orthopedic Surgery Additional Past Surgical History / Comment(s): rancho hip replacement, cataract, lumpectomy , EGD , cystoscopy with lithotripsy., back surgery in 1999, HD MWF Past Anesthesia/Blood Transfusion Reactions: No Reported Reaction Past Psychological History: No Psychological Hx Reported Smoking Status: Never smoker Past Alcohol Use History: None Reported Past Drug Use History: None Reported - Past Family History Mother Family Medical History: Cancer Additional Family Medical History / Comment(s): bladder cancer Father Family Medical History: Myocardial Infarction (GA) Brother(s) Family Medical History: Rheumatoid Arthritis (RA) Daughter(s) Family Medical History: No Reported History Son(s) Family Medical History: No Reported History <Delma Valerio - Last Filed: 05/30/24 19:35> General Exam Limitations: no limitations General appearance: alert, in no apparent distress Respiratory exam: Present: normal lung sounds bilaterally. Absent: respiratory distress, wheezes Cardiovascular Exam: Present: regular rate, normal rhythm GI/Abdominal exam: Present: soft. Absent: distended, tenderness Extremities exam: Present: normal inspection, tenderness (Medial right upper extremity), normal capillary refill. Absent: joint swelling Back exam: Present: normal inspection Neurological exam: Present: alert, oriented X3 Psychiatric exam: Present: normal affect, normal mood Skin exam: Present: warm, dry, intact. Absent: rash <Delma Valerio - Last Filed: 05/30/24 19:35> Course Vital Signs 05/30/24 05/30/24 11:35 16:08 Temperature 97.8 F 98.1 F Pulse Rate 64 66 Respiratory 18 20 Rate Blood Pressure 144/78 125/68 O2 Sat by Pulse 100 98 Oximetry Medical Decision Making - Lab Data Result diagrams: 05/30/24 13:54 05/30/24 13:54 <Delma Valerio - Last Filed: 05/30/24 19:35> - Lab Data Result diagrams: 05/30/24 13:54 05/30/24 13:54 <Chapin Zamora - Last Filed: 05/31/24 20:29> - Medical Decision Making Was pt. sent in by a medical professional or institution (JOY Bustillos, OUTPATIENT SERVICES DIRECTOR, urgent care, hospital, or alf...) When possible be specific @ -No Did you speak to anyone other than the patient for history (EMS, parent, family, police, friend...)? What history was obtained from this source @ -No Did you review nursing and triage notes (agree or disagree)? Why? @ -I reviewed and agree with nursing and triage notes Were old charts reviewed (outside hosp., previous admission, EMS record, old EKG, old radiological studies, urgent care reports/EKG's, alf records)? Report findings @ -No old charts were reviewed Differential Diagnosis? @ -Arthritis, DVT, musculoskeletal pain or strain, referred pain from dialysis catheter, this is not an all-inclusive list EKG interpreted by me (3pts min.). @ -As above X-rays interpreted by me (1pt min.). @ -Shoulder x-ray does not show any acute interosseous process CT interpreted by me (1pt min.). @ -None done U/S interpreted by me (1pt. min.). @ -Ultrasound did not show signs of acute DVT. What testing was considered but not performed or refused? (CT, X-rays, U/S, labs)? Why? @ -None What meds were considered but not given or refused? Why? @ -None Did you discuss the management of the patient with other professionals (professionals i.e. JOY Bustillos, OUTPATIENT SERVICES DIRECTOR, lab, RT, psych nurse, oncology social worker, cantilever crane operator, teacher, electronic intelligence officer, counseling case manager)? Give summary @ -Case was discussed with ED attending Dr. Zamora. Was smoking cessation discussed for >3mins.? @ -No Was critical care preformed (if so, how long)? @ -No Were there social determinants of health that impacted care today? How? (Ho melessness, low income, unemployed, alcoholism, drug addiction, transportation, low edu. Level, literacy, decrease access to med. care, group home, rehab)? @ -No Was there de-escalation of care discussed even if they declined (Discuss DNR or withdrawal of care, Hospice)? DNR status @ -No What co-morbidities impacted this encounter? (DM, HTN, Smoking, COPD, CAD, Cancer, CVA, ARF, Chemo, Hep., AIDS, mental health diagnosis, sleep apnea, morbid obesity)? @ -ESRD on hemodialysis Was patient admitted / discharged? Hospital course, mention meds given and route, prescriptions, significant lab abnormalities, going to OR and other pertinent info. @ -Labs were unremarkable. X-ray showed signs of arthritis of shoulder. Ultrasound was unremarkable for showing DVT. Patient was discharged home with strict return precautions. Patient to follow-up with PCP in 1 to 2 days. Patient was instructed if swelling, discoloration, or worsening of pain to return to ER. Undiagnosed new problem with uncertain prognosis? @ -No Drug Therapy requiring intensive monitoring for toxicity (Heparin, Nitro, Insulin, Cardizem)? @ -No Were any procedures done? @ -No Diagnosis/symptom? @ -Arm pain Acute, or Chronic, or Acute on Chronic? @ -Acute Uncomplicated (without systemic symptoms) or Complicated (systemic symptoms)? @ -Default Side effects of treatment? @ -No Exacerbation, Progression, or Severe Exacerbation? @ -No Poses a threat to life or bodily function? How? (Chest pain, [place], GA, pneumonia, PE, COPD, DKA, ARF, appy, cholecystitis, CVA, Diverticulitis, Homicidal, Suicidal, threat to staff... and all critical care pts) @ -No (Delma Valerio) I personally saw the patient and performed the critical portion of the service. I discussed the patient care with the resident. I directed management, care planning and final disposition of the patient. This includes, but not limited to, review of all lab work, radiological studies, EKG's, consultations, vital signs, and nursing notes. EKG interpreted by me (3pts min.) @As above X-Rays interpreted by me (1 pt min.) @ Shoulder x-ray negative for displaced fracture, degenerative change CT interpreted by me ( 1pt min.) @None U/S interpreted by me (1 pt min.) @Ultrasound negative for DVT Critical care time of 0 minutes excluding separately billable procedures was spent in conjunction with critical care activities provided by the Resident and Attending simultaneously. I was present during no procedures for all critical portions of the procedure and as immediately available to furnish service during the entire procedure. (Chapin Zamora) - Lab Data Lab Results 05/30/24 05/30/24 Range/Units 13:54 13:54 WBC 7.67 (4.50-10.00) 10*3/uL RBC 3.78 L (4.10-5.20) 10*6/uL Hgb 10.5 L (12.0-15.0) g/dL Hct 31.9 L (37.2-46.3) % MCV 84.4 (80.0-97.0) fL MCH 27.8 (27.0-32.0) pg MCHC 32.9 (32.0-37.0) g/dL Plt Count 178 (140-440) 10*3/uL MPV 10.2 (9.5-12.2) fL Immature Gran % (Auto) 0.3 % Neutrophils % 73.3 % Lymphocytes % 16.2 % Monocytes % 7.6 % Eosinophils % 1.8 % Basophils % 0.8 % Immature Gran # 0.02 (0.00-0.04) 10*3/uL Neutrophils # 5.63 (1.80-7.70) 10*3/uL Lymphocytes # 1.24 (0.90-5.00) 10*3/uL Monocytes # 0.58 (0.20-1.00) 10*3/uL Eosinophils # 0.14 (0.04-0.35) 10*3/uL Basophils # 0.06 (0.00-0.10) 10*3/uL Sodium 137 (137-145) mmol/L Potassium 3.1 L (3.5-5.1) mmol/L Chloride 101 (98-107) mmol/L Carbon Dioxide 27 (22-30) mmol/L Anion Gap 9 mmol/L BUN 25 H (7-17) mg/dL Creatinine 5.07 H (0.52-1.04) mg/dL Est GFR (CKD-EPI)AfAm 8 (>60 ml/min/1.73 sqM) Est GFR (CKD-EPI)NonAf 7 (>60 ml/min/1.73 sqM) Glucose 78 (74-99) mg/dL Calcium 9.1 (8.4-10.2) mg/dL Magnesium 1.7 (1.6-2.3) mg/dL Total Bilirubin 0.9 (0.2-1.3) mg/dL AST 24 (14-36) U/L ALT 12 (4-34) U/L Alkaline Phosphatase 131 H (38-126) U/L Total Protein 5.0 L (6.3-8.2) g/dL Albumin 2.4 L (3.5-5.0) g/dL Disposition Is patient prescribed a controlled substance at d/c from ED?: No Decision Date: 05/30/24 Decision Time: 15:00 <Delma Valerio - Last Filed: 05/30/24 19:35> <Chapin Zamora - Last Filed: 05/31/24 20:29> Clinical Impression: Arm pain Disposition: HOME SELF-CARE Additional Instructions: Every disease is a spectrum and a small chance still exists that a serious condition could develop, for this reason, please monitor yourself closely for new, changing or worsening symptoms, symptoms that persist beyond 48 hours, any further episodes of vomiting blood, difficulty in breathing, severe abdominal pain, symptoms that did not improve in the next 48 hours, black or bloody stools, fever, inability to tolerate/keep down fluids or your medications, inability to follow up with outpatient providers as instructed and should you experience these symptoms or should you have any further concerns for your wellbeing please return to the ED or call 911 immediately. PLEASE take prescriptions as listed in discharge instructions. PLEASE call your primary care physician as soon as possible to arrange / discuss plan for followup appointment. Appointment in the next 1-3 days is strongly encouraged if possible. PLEASE let us know here before you leave if there is anything further we can do to be of any assistance. Take care and feel Better! Referrals: Elizabeth Jeronimo MD [Primary Care Provider] - 1-2 days
--- NOTE | 2024-05-30 15:37 | US ---
EXAMINATION TYPE: US venous doppler duplex UE RT DATE OF EXAM: 05/30/2024 COMPARISON: NONE CLINICAL INDICATION: Female, 83 years old with history of right arm pain, rule out DVT; Recent insert ion of dialysis port - new onset arm pain. TECHNIQUE: Grayscale, color Doppler and spectral Doppler imaging of the upper extremity. SIDE PERFORMED: Right VESSELS IMAGED: IJV Subclavian Vein Axilla Vein Brachial Vein(s) Radial Paired Veins Ulnar Paired Veins Cephalic Vein* Basilic Vein* (*superficial vessels) FINDINGS: Right Arm: Unable to assess antecubital fossa or full subclavian vein - WNL as visualized Grayscale, color doppler, spectral doppler imaging performed of the deep veins of the upper extremiti es. IMPRESSION: 1. Right upper extremity ultrasound negative for deep venous thrombosis. 2. Limitation at the antecubital fossa and subclavian region [facility], , 05/30/2024 3:35 PM
[2024-05-30 16:09] VITALS: BP 125/68; PULSE 66; RESP 20; TEMP 98.1
== END 2024-05-30 16:09 | disposition home or self-care (01) ==
LOC: EC 11:28
DX: M79.601 Pain in right arm (principal); E11.22 Type 2 diabetes mellitus with diabetic chronic kidney disease; I12.0 Hypertensive chronic kidney disease with stage 5 chronic kidney disease or end stage renal disease; N18.6 End stage renal disease; Z88.0 Allergy status to penicillin; Z88.1 Allergy status to other antibiotic agents; Z88.8 Allergy status to other drugs, medicaments and biological substances; Z99.2 Dependence on renal dialysis
CPT/HCPCS: 36415; 80053; 83735; 85025; 99284